=== PATIENT | female | born 1940 | race Caucasian/White ===

== ENCOUNTER 2016-08-07 15:09 | Inpatient (IN) ==
[2016-08-07] MEDS ORDERED: Nitroglycerin 0.4 MG TAB.SUBL SL PRN (15:29)
[2016-08-07 16:00] LABS: Eosinophils % 0.6 %; Hematocrit 38.5 % (35.3-44.9); Hemoglobin 12.5 g/dL (11.5-15.4); Immature Platelets 3.7 % (1.1-6.1); Lymphocytes % 15.4 %; Mean Corpuscular HGB Conc 32.5 g/dL (31.6-35.5); Mean Corpuscular Hemoglobin 29.6 pg (28.0-33.3); Mean Corpuscular Volume 91.2 fL (83.0-100.0); Mean Platelet Volume 10.2 fL (9.4-12.4); Monocytes % 10.3 %; Platelet Count 354 K/mcL (140-400); Red Blood Count 4.22 M/mcL (3.82-4.97); Red Cell Distribution Width 14.1 % (11.5-14.5); Segmented Neutrophils % 72.4 %
[2016-08-07 16:01] LABS: Basophils % 0.3 %; Eosinophils # 0.1 K/mcL (0.0-0.6); Lymphocytes # 1.8 K/mcL (0.6-4.6); Monocytes # 1.2 K/mcL (0.0-1.3); Neutrophils # 8.3 K/mcL (1.6-8.9)
[2016-08-07 16:11] LABS: Calcium 9.3 mg/dL (8.6-10.8); Potassium 4.1 mEq/L (3.5-4.5)
[2016-08-07] MEDS ORDERED: *HR* Heparin 5,000 UNIT/ML VIAL IVP ONE (16:26)
[2016-08-07] MEDS ORDERED: *HR* Heparin 5,000 UNIT/ML VIAL IVP PRN ×2 (16:26)
[2016-08-07] MEDS ORDERED: Aspirin 81 MG TAB.CHEW PO STA (16:28)
[2016-08-07] MEDS ORDERED: Heparin 25,000 UNIT/500 ML D5W 25,000 UNIT/500 ML MLS IVC SCH (16:30)
[2016-08-07 17:14] LABS: INR 1.1
[2016-08-07 17:17] LABS: Activated Partial Thrombo Time 29.9 Seconds (26.0-36.0)
[2016-08-07 17:18] LABS: Prothrombin Time 11.8 Seconds (9.4-12.1)
[2016-08-07] MEDS ORDERED: Nitroglycerin 1 INCH/GM PACKET TP ONE (17:29)
--- NOTE | 2016-08-07 19:51 | Internal Med History&Physical ---
Date of Encounter: 08/07/16 Time of Encounter: 19:46 Assessment and Plan (1) Chest pain Current visit: No Status: Acute chest pain with troponin 0.21 suggestive of NSTEMI will trend troponin and consult cardiology Qualifiers: Chest pain type: unspecified Qualified Code(s): R07.9 - Chest pain, unspecified (2) CKD (chronic kidney disease) stage 3, GFR 30-59 ml/min Current visit: No Status: Chronic acute on chronic renal failure iv hydration (3) COPD (chronic obstructive pulmonary disease) Current visit: No Status: Chronic no active wheezing stable Qualifiers: COPD type: unspecified COPD Qualified Code(s): J44.9 - Chronic obstructive pulmonary disease, unspecified (4) Hypothyroidism Current visit: No Status: Chronic will check tsh Qualifiers: Hypothyroidism type: unspecified Qualified Code(s): E03.9 - Hypothyroidism , unspecified (5) PVD (peripheral vascular disease) Current visit: No Status: Acute s/p le stent in past Internal Medicine - H&P: HPI Chief complaint: chest pain Admitted From: Emergency Dept Plans for Post Hospital Care: Home History of present illness: Ms. Washburn is a 75 year old female patient with history of chest pains , has had 2 cardiac caths last one about 3 years ago no intervention Also has history of htn, obesity, pvd s/p stent , ckd hypothyroidism , copd and high chol Patient presents to ER with chest pain. started last night lasted about 20 mins took sl nitro and it resolved Today had recurrent episodes of chest pressure/tightness on and off today and she came to ER ekg shows sinus bradycardia LAHB no ischemia unchanged from prior ekg , troponin 0.21 has exertional sob but unchanged Past Med Surg Social Fam HX - Past Medical History Medical history: CHF, COPD, GERD, hypertension, renal disease, thyroid disease, other Psychiatric history: depression - Past Surgical History Surgical History: cholecystectomy, hip replacement, hysterectomy - Social History Smoking Status: Former smoker Smokeless Tobacco Status: No Alcohol use: none Drug use: none - Family History Mother Living Status: Hx Family Cardiac Disorders: Yes (Heart disease, vascular disease) Hx Family Endocrine Disorder: Yes (DM) Father Living Status: Hx Family Cardiac Disorders: Yes ([place]) Internal Medicine - H&P: Meds Atorvastatin [Lipitor] 40 mg PO DAILY 03/25/15 [History] Bumetanide [Bumex] 2 mg PO QAM 03/25/15 [History] ClonazePAM [Klonopin] 1 mg PO TID 03/25/15 [History] Clopidogrel [Plavix] 75 mg PO DAILY 03/25/15 [History] Diltiazem HCl [Diltiazem 24Hr Cd] 60 mg PO TID 03/25/15 [History] Isosorbide MONOnitrate [Isosorbide Mononitrate] 60 mg PO BID #0 03/25/15 [ History] Levothyroxine [Synthroid] 100 mcg PO DAILY #0 03/25/15 [History] Sertraline [Zoloft] 100 mg PO DAILY 03/25/15 [History] Ranolazine [Ranexa] 1,000 mg PO BID 06/15/15 [History] Bumetanide [Bumex] 2 mg PO QPM 08/02/15 [History] Omeprazole [PriLOSEC] 20 mg PO DAILY 08/02/15 [History] Spironolactone [Aldactone] 100 mg PO BID 08/02/15 [History] Carbidopa/Levodopa ER 50/200 [Sinemet ER 50-200 TAB] 1 each PO DAILY 03/31/16 [ History] PredniSONE 40 mg PO DAILY #10 tablet 03/31/16 [Rx] Cyclobenzaprine [Flexeril] 10 mg PO TID #21 tablet 06/01/16 [Rx] PredniSONE 40 mg PO DAILY #10 tablet 06/01/16 [Rx] Tramadol HCl [Ultram] 50 mg PO QID #16 tab 06/01/16 [Rx] Allergies indomethacin [From Indocin] Allergy (Verified 03/31/16 09:52) Rash naproxen [From Naprosyn] Allergy (Verified 03/31/16 09:52) Rash IVP dye Allergy (Uncoded 03/31/16 09:52) Rash All Systems PM: A 10-system review of systems was performed and is negative for pertinent findings except as documented above in the HPI. - Constitutional Constitutional: no chills, no fever(s), no night sweats - EENT Eyes: no change in vision, no discharge, no pain, no photophobia Ears: no ear discharge, no ear pain, no tinnitus Nose, mouth and throat: no dysphagia, no nasal discharge, no neck pain, no sore throat - Cardiovascular Cardiovascular ROS IM: chest pain, dyspnea, dyspnea on exertion - Respiratory Respiratory: dyspnea, dyspnea on exertion - Gastrointestinal Gastrointestinal: no abdominal pain, no diarrhea, no hematemesis, no hematochezia, no melena, no nausea, no vomiting - Genitourinary Genitourinary: no change in urinary stream, no dysuria, no flank pain, no hematuria - Musculoskeletal Musculoskeletal ROS IM: no numbness, no tingling - Integumentary Integumentary IM: no rash, no unusual bruising - Neurological Neurological ROS: no confusion, no convulsions, no focal weakness, no numbness, no tingling, no tremor(s) - Hematologic/Lymphatic Hematologic/Lymphatic: no easy bruising - Constitutional Vitals: Temp Pulse Resp BP Pulse Ox 98.3 F 63 18 135/63 98 08/07/16 15:15 08/07/16 19:34 08/07/16 19:34 08/07/16 19:34 08/07/16 17:32 General appearance: Present: A&O X 3 - Head Head exam: Present: atraumatic, normocephalic - Eye Eye exam: Present: PERRL, conjuntiva pink, sclera anicteric Pupils: Present: PERRL - Neck Neck exam general surgery: Present: supple, trachea midline. Absent: lymphadenopathy - Respiratory Respiratory exam: Present: CTAB. Absent: accessory muscle use, rales, rhonchi, wheezes - Cardiovascular Cardiovascular exam: Present: RRR, +S1, +S2. Absent: diastolic murmur, gallop, rubs, systolic murmur - GI/Abdominal GI/Abdominal exam: Present: normal bowel sounds, soft, no peritoneal signs. Absent: distended, tenderness Internal Med - H&P Results - Labs CBC & Chem 7: 08/07/16 15:33 08/07/16 15:33
[2016-08-07] MEDS ORDERED: Naloxone 0.4 MG/ML INJ IVP PRN (19:59)
[2016-08-07] MEDS ORDERED: Ondansetron 4 MG/2 ML VIAL IVP PRN (19:59)
[2016-08-07] MEDS ORDERED: *HR* Morphine 2 MG/ML SYRINGE IVP PRN (19:59)
--- NOTE | 2016-08-07 20:12 | Emergency Department Note ---
Disposition Clinical Impression: NSTEMI (non-ST elevated myocardial infarction) Disposition: Home, Self-Care Condition: Good General Adult HPI - General Chief complaint: ED Chest Pain Stated complaint: chest pain Time Seen by Provider: 08/07/16 15:18 Source: patient Limitations: no limitations Nursing Notes Reviewed: Yes Vital Signs Reviewed: Yes - History of Present Illness HPI Narrative: 75-year-old female presents with complaints of chest pain. Apparently last evening she developed chest pain in the middle the night. She had taken 2 sleeping pills so she was not quite aware of how substantial her pain was. She woke out with ongoing pain in her chest thinking that she had a cardiac event. She did not come last night because she took her sleeping pills. 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 She had a stress test one year ago and was negative. On arrival her pain is mild in the middle of her chest. It does not radiate. She denies having an TX in the past. She do not take an aspirin today. Pain Scale: 2 - Related Data Home Medications Medication Instructions Recorded Confirmed Atorvastatin [Lipitor] 40 mg PO DAILY 03/25/15 03/31/16 Bumetanide [Bumex] 2 mg PO QAM 03/25/15 03/31/16 ClonazePAM [Klonopin] 1 mg PO TID 03/25/15 03/31/16 Clopidogrel [Plavix] 75 mg PO DAILY 03/25/15 03/31/16 Diltiazem HCl [Diltiazem 24Hr Cd] 60 mg PO TID 03/25/15 03/31/16 Isosorbide MONOnitrate [Isosorbide 60 mg PO BID #0 03/25/15 03/31/16 Mononitrate] Levothyroxine [Synthroid] 100 mcg PO DAILY #0 03/25/15 03/31/16 Sertraline [Zoloft] 100 mg PO DAILY 03/25/15 03/31/16 Ranolazine [Ranexa] 1,000 mg PO BID 06/15/15 03/31/16 Bumetanide [Bumex] 2 mg PO QPM 08/02/15 03/31/16 Omeprazole [PriLOSEC] 20 mg PO DAILY 08/02/15 03/31/16 Spironolactone [Aldactone] 100 mg PO BID 08/02/15 03/31/16 Carbidopa/Levodopa ER 50/200 1 each PO DAILY 03/31/16 03/31/16 [Sinemet ER 50-200 TAB] Previous Rx's Medication Instructions Recorded PredniSONE 40 mg PO DAILY #10 tablet 03/31/16 Cyclobenzaprine [Flexeril] 10 mg PO TID #21 tablet 06/01/16 PredniSONE 40 mg PO DAILY #10 tablet 06/01/16 Tramadol HCl [Ultram] 50 mg PO QID #16 tab 06/01/16 Allergies Allergy/AdvReac Type Severity Reaction Status Date / Time indomethacin [From Indocin] Allergy Rash Verified 03/31/16 09:52 naproxen [From Naprosyn] Allergy Rash Verified 03/31/16 09:52 IVP dye Allergy Rash Uncoded 03/31/16 09:52 All systems ED: reviewed and negative except as stated. 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 - Social History Smoking Status: Former smoker Smokeless Tobacco Status: No Alcohol use: Reports: none Drug use: Reports: none Physical Exam Pupils equal round reactive to light extract illness movements normal Mucous membranes are moist Trachea is midline Cardiovascular exam is without murmur, rub, gallop Pulmonary exams without rales, rhonchi, wheezing Abdomen is soft and nontender without peritonitis Extremities are well perfused without edema Neurologic exams without focal neurological deficit Skin is pink warm and dry - General Limitations: no limitations General appearance: alert Course Vital Signs Temperature 98.3 F 08/07/16 15:15 Pulse Rate 57 08/07/16 15:15 Respiratory Rate 18 08/07/16 15:15 Blood Pressure 149/65 08/07/16 15:15 O2 Sat by Pulse Oximetry 97 08/07/16 15:15 Temperature 98.3 F 08/07/16 15:15 Pulse Rate 63 08/07/16 19:34 Respiratory Rate 18 08/07/16 19:34 Blood Pressure 135/63 08/07/16 19:34 O2 Sat by Pulse Oximetry 98 08/07/16 17:32 Oxygen Delivery Oxygen Delivery Nasal Cannula Medical Decision Making - [facility] Narrative Medical decision making narrative: Suspect an STEMI however there is a component of acute kidney injury. This is baseline for the patient. EKG is nondiagnostic and this is repeated twice in the emergency department. I do suspect possible and STEMI and as such I would proceed with heparinization. Additionally aspirin administered. Nitropaste applied. She is pain-free at this time. She will need admission for 20 of cardiac biomarkers, cardiology consultation. She is admitted for an NSTEMI - Medical Records Medical records reviewed: Yes I reviewed the patient's medical records. - Lab Data Lab results reviewed: Yes I reviewed the patient's lab results. Result diagrams: 08/07/16 15:33 08/07/16 15:33 Lab Results 08/07/16 08/07/16 08/07/16 Range/Units 15:33 15:33 15:33 WBC 11.5 H (4.3-11.1) K/mcL RBC 4.22 (3.82-4.97) M/mcL Hgb 12.5 (11.5-15.4) g/dL Hct 38.5 (35.3-44.9) % MCV 91.2 (83.0-100.0) fL MCH 29.6 (28.0-33.3) pg MCHC 32.5 (31.6-35.5) g/dL RDW 14.1 (11.5-14.5) % Plt Count 354 (140-400) K/mcL MPV 10.2 (9.4-12.4) fL Immature Gran % 1.0 (0-4) % Seg Neutrophils % 72.4 % Lymphocytes % 15.4 % Monocytes % 10.3 % Eosinophils % 0.6 % Basophils % 0.3 % Neutrophils # 8.3 (1.6-8.9) K/mcL Lymphocytes # 1.8 (0.6-4.6) K/mcL Monocytes # 1.2 (0.0-1.3) K/mcL Eosinophils # 0.1 (0.0-0.6) K/mcL Basophils # 0.0 (0.0-0.2) K/mcL Immature Plt Fraction 3.7 (1.1-6.1) % PT (9.4-12.1) Seconds INR APTT (26.0-36.0) Seconds Sodium 141 (136-145) mEq/L Potassium 4.1 (3.5-4.5) mEq/L Chloride 105 (98-109) mEq/L Carbon Dioxide 24 (19-29) mEq/L BUN 22 H (7-20) mg/dL Creatinine 1.40 H (0.57-1.11) mg/dL Est GFR ( Amer) 44 L (> 60) Est GFR (Non-Af Amer) 37 L (> 60) BUN/Creatinine Ratio 16 (6-26) Glucose 101 H (70-99) mg/dL Calculated Osmolality 295 (280-300) Calcium 9.3 (8.6-10.8) mg/dL Troponin I (0-0.03) ng/mL B-Natriuretic Peptide 291 H (0-100) pg/mL 08/07/16 08/07/16 Range/Units 15:33 15:33 WBC (4.3-11.1) K/mcL RBC (3.82-4.97) M/mcL Hgb (11.5-15.4) g/dL Hct (35.3-44.9) % MCV (83.0-100.0) fL MCH (28.0-33.3) pg MCHC (31.6-35.5) g/dL RDW (11.5-14.5) % Plt Count (140-400) K/mcL MPV (9.4-12.4) fL Immature Gran % (0-4) % Seg Neutrophils % % Lymphocytes % % Monocytes % % Eosinophils % % Basophils % % Neutrophils # (1.6-8.9) K/mcL Lymphocytes # (0.6-4.6) K/mcL Monocytes # (0.0-1.3) K/mcL Eosinophils # (0.0-0.6) K/mcL Basophils # (0.0-0.2) K/mcL Immature Plt Fraction (1.1-6.1) % PT 11.8 (9.4-12.1) Seconds INR 1.1 APTT 29.9 (26.0-36.0) Seconds Sodium (136-145) mEq/L Potassium (3.5-4.5) mEq/L Chloride (98-109) mEq/L Carbon Dioxide (19-29) mEq/L BUN (7-20) mg/dL Creatinine (0.57-1.11) mg/dL Est GFR ( Amer) (> 60) Est GFR (Non-Af Amer) (> 60) BUN/Creatinine Ratio (6-26) Glucose (70-99) mg/dL Calculated Osmolality (280-300) Calcium (8.6-10.8) mg/dL Troponin I 0.21 H* (0-0.03) ng/mL B-Natriuretic Peptide (0-100) pg/mL - Radiology Data Radiology results reviewed: Yes I reviewed the patient's radiology results. - EKG Data EKG #1 EKG results narrative: EKG is compared to previous EKG. She has sinus bradycardia at a rate of 56 bpm with left axis deviation there is possible left ventricular hypertrophy, lateral nonspecific ST segment changes. Nonspecific abnormal ECG. Second EKG was compared to previous EKG represents no change from previous EKG. Sinus bradycardia rate of 59 bpm left axis deviation and left ventricular hypertrophy and nonspecific lateral wall ST segment changes Critical Care Time Total Critical Care Time: 31 Attestation: greater than 31 minutes resuscitating this actively ill patient suffering from nstemi she required nitro administration, heparin administration, serial EKG interpretations. She is a high potential for life-threatening decompensation. She is admitting critical condition critical care time is excluding billable procedures
[2016-08-07] MEDS: Isosorbide MONOnitrate (24 HR) 60 MG TAB.ER.24H PO SCH (21:37)
[2016-08-07] MEDS: clonazePAM 1 MG TABLET PO SCH (21:37)
[2016-08-07] MEDS: traMADol 50 MG TABLET PO SCH (21:37)
[2016-08-07] MEDS: 0.9 % Sodium Chloride 1,000 ML IVC SCH (21:38)
[2016-08-07] MEDS: Ranolazine 500 MG TAB.ER.12H PO SCH (21:38)
[2016-08-08 00:59] LABS: Basophils % 0.2 %; Eosinophils # 0.1 K/mcL (0.0-0.6); Eosinophils % 1.2 %; Hematocrit 33.1 % (35.3-44.9); Immature Granulocytes % 0.7 % (0-4); Lymphocytes # 2.1 K/mcL (0.6-4.6); Mean Corpuscular HGB Conc 32.9 g/dL (31.6-35.5); Mean Corpuscular Hemoglobin 30.2 pg (28.0-33.3); Mean Corpuscular Volume 91.7 fL (83.0-100.0); Mean Platelet Volume 10.1 fL (9.4-12.4); Monocytes # 1.2 K/mcL (0.0-1.3); Monocytes % 11.9 %; Neutrophils # 6.5 K/mcL (1.6-8.9); Platelet Count 274 K/mcL (140-400); Red Blood Count 3.61 M/mcL (3.82-4.97)
[2016-08-08 01:00] LABS: Hemoglobin 10.9 g/dL (11.5-15.4)
[2016-08-08 01:15] LABS: Albumin 2.9 g/dL (3.5-5.0); Albumin/Globulin Ratio 1.1 (1.1-2.2); Bilirubin,Total 0.4 mg/dL (0.2-1.2); Calcium 8.5 mg/dL (8.6-10.8); Chol/HDL Ratio 3.2 (0-4.9); Globulin 2.7 g/dL (2.4-3.5); Magnesium 1.8 mg/dL (1.6-2.6); Potassium 3.7 mEq/L (3.5-4.5); Total Protein 5.6 g/dL (6.0-8.3)
--- NOTE | 2016-08-08 07:02 | Electrocardiograph Report ---
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
--- NOTE | 2016-08-08 07:05 | Electrocardiograph Report ---
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
--- NOTE | 2016-08-08 09:00 | Internal Med Progress Note ---
Date of Encounter: 08/08/16 Time of Encounter: 08:58 - Assessment and plan (1) Chest pain Current Visit: No Status: Acute Assessment and plan: persietnt chest pain cardiology consult pending will satrt on protonix 40 mg Qualifiers: Chest pain type: unspecified Qualified Code(s): R07.9 - Chest pain, unspecified (2) CKD (chronic kidney disease) stage 3, GFR 30-59 ml/min Current Visit: No Status: Chronic Assessment and plan: worsening renal function will consult nephrology (3) COPD (chronic obstructive pulmonary disease) Current Visit: No Status: Chronic Assessment and plan: no active wheezing Qualifiers: COPD type: unspecified COPD Qualified Code(s): J44.9 - Chronic obstructive pulmonary disease, unspecified (4) Hypothyroidism Current Visit: No Status: Chronic Assessment and plan: check tsh Qualifiers: Hypothyroidism type: unspecified Qualified Code(s): E03.9 - Hypothyroidism , unspecified (5) PVD (peripheral vascular disease) Current Visit: No Status: Acute Assessment and plan: no issue at this point - Subjective Interval history: still has chest pain more or less persistent but troponin coming down creatine worse despite iv hydration and BP low discussed with nurse give iv bolus and will consult nephrology - Constitutional Vitals: Temp Pulse Resp BP Pulse Ox 97.9 F 60 18 94/59 95 08/08/16 07:47 08/08/16 07:47 08/08/16 07:47 08/08/16 07:47 08/08/16 07:47 General appearance: Present: A&O X 3 - Head Head exam: Present: atraumatic, normocephalic - Eye Eye exam: Present: PERRL, conjuntiva pink, sclera anicteric Pupils: Present: PERRL - Neck Neck exam general surgery: Present: supple, trachea midline. Absent: lymphadenopathy - Respiratory Respiratory exam: Present: CTAB. Absent: accessory muscle use, rales, rhonchi, wheezes - Cardiovascular Cardiovascular exam: Present: RRR, +S1, +S2. Absent: diastolic murmur, gallop, rubs, systolic murmur - GI/Abdominal GI/Abdominal exam: Present: normal bowel sounds, soft, no peritoneal signs. Absent: distended, tenderness - Extremities Exam Extremities exam: Present: warm, radial pulses palpable and symetrical. Absent : calf tenderness, cyanotic, pedal edema Internal Medicine: Result - Labs CBC & Chem 7: 08/08/16 00:51 08/08/16 00:51 Labs: Short CBC 08/08/16 Range/Units 00:51 WBC 9.9 (4.3-11.1) K/mcL Hgb 10.9 L D (11.5-15.4) g/dL Hct 33.1 L (35.3-44.9) % Plt Count 274 (140-400) K/mcL Neutrophils # 6.5 (1.6-8.9) K/mcL BMP 08/08/16 00:51 Sodium 141 Potassium 3.7 Chloride 106 Carbon Dioxide 28 BUN 26 H Creatinine 1.85 H Glucose 126 H Calcium 8.5 L Cardiac Enzymes 08/07/16 08/08/16 08/08/16 Range/Units 20:32 00:51 07:41 Troponin I 0.16 H* 0.13 H* 0.09 H* (0-0.03) ng/mL Liver Function 08/08/16 Range/Units 00:51 Total Bilirubin 0.4 (0.2-1.2) mg/dL AST 8 (5-34) Units/L ALT 7 (0-55) Units/L Alkaline Phosphatase 140 H (38-126) Units/L Albumin 2.9 L (3.5-5.0) g/dL - ABG Interpretation ABG results: PT/INR, D-dimer PT 11.8 Seconds (9.4-12.1) 08/07/16 15:33 Consult Discharge Plan - Plan Referrals: Demetrius Smith MD [Primary Care Provider] -
[2016-08-08] MEDS ORDERED: 0.9 % Sodium Chloride 500 ML ONE (09:01)
[2016-08-08] MEDS: clonazePAM 1 MG TABLET PO SCH ×4 (09:06→21:42)
[2016-08-08] MEDS: Ranolazine 500 MG TAB.ER.12H PO SCH ×2 (09:06→21:41)
[2016-08-08] MEDS: predniSONE 20 MG TABLET PO SCH (09:06)
[2016-08-08] MEDS: Isosorbide MONOnitrate (24 HR) 60 MG TAB.ER.24H PO SCH ×2 (09:07→21:41)
[2016-08-08] MEDS: traMADol 50 MG TABLET PO SCH ×5 (09:07→21:45)
[2016-08-08] MEDS: Carbidopa/Levodopa ER 50/200 TABLET PO SCH (09:10)
--- NOTE | 2016-08-08 10:26 | Cardiology Consult Note ---
<Ar Reese - Last Filed: 08/08/16 10:57> Date of Encounter: 08/08/16 Time of Encounter: 10:19 Assessment and Plan (1) Troponin level elevated Current Visit: Yes Status: Acute Mild troponin elevation 0.21, 0.16, 0.13, 0.09. Likely demand ischemia in the setting of CKD/TAIWO. Minimal CAD on [facility] in 2016. Check TTE. (2) TAIWO (acute kidney injury) Current Visit: Yes Status: Acute Mild TAIWO on CKD. creatinine today 1.85. Baseline 1.3-1.4. Receiving IV fluid. Avoid nephrotoxins. (3) Chest pain Current Visit: No Status: Acute H/o of chronic chest pain. Suspected vasospasms in the past. Mild tropnin in the setting of CKD/TAIWO. Minimal CAD on [facility] in 2011, stress Recommend checking TTE and treating TAIWO. I discussed medical management vs LHC. No urgent need for LHC at this time in the setting of TAIWO. Pt agrees with plan. Continue asa, statin, and bb. Continue imdur and Ranexa. Can increase imdur. Qualifiers: Chest pain type: unspecified Qualified Code(s): R07.9 - Chest pain, unspecified (4) Diastolic CHF Current Visit: No Status: Chronic H/o diastolic CHF. Currently euvolemic on exam Chest x-ray negative. Low sodium diet. Qualifiers: Congestive heart failure chronicity: chronic Qualified Code(s): I50.32 - Chronic diastolic (congestive) heart failure Discussion w patient/family: The assessment and plan as outlined above was discussed with the patient and/or family members who expressed understanding and agreement. All questions were answered. Thank you for involving us in the care of your patient. Please call with any questions. History of Present Illness Consult date: 08/08/16 Requesting physician: Caro Lopez Consult reason: Chest pain, elevated troponin Chief complaint: Chest pain History of present illness: 75-year-old female with a past medical history of mild nonobstructive CAD, suspected coronary vasospasms, chronic chest pain, peripheral artery disease with carotid stenosis and right lower extremity stenting, COPD, hypothyroidism, hypertension, CKD stage III, fibromyalgia, and Parkinson's disease. She presents with the c/o midsternal chest pain radiating under her left breast around to her spine. She described it as a crushing pain occurring at rest. The pain resolved with one NTG. SHe reports pain was different than she ever felt before. She reports mild cold like symptoms including cough and congestion. She c/o a 5lb weight gain over three days. Denies SOB, orthopnea, or edema. Previous cardiac testing: Last heart catheterization September 2011 showed nonobstructive CAD with proximal LAD 20% and mid RCA 30% stenosis. Stress test, 07/2015, negative for ischemia. Last echocardiogram May 2015 showed EF preserved 60%, no segmental wall motion abnormalities. Past Med Surg Social Fam HX - Past Medical History Attestation: Yes The following information was validated with the patient. Medical history: CHF, COPD, fibromyalgia, GERD, hypertension, renal disease, thyroid disease, other Psychiatric history: depression - Past Surgical History Surgical History: cholecystectomy, hip replacement, hysterectomy - Social History Smoking Status: Former smoker Smokeless Tobacco Status: No Alcohol use: none Drug use: none - Family History Mother Living Status: Hx Family Cardiac Disorders: Yes (Heart disease, vascular disease) Hx Family Endocrine Disorder: Yes (DM) Father Living Status: Hx Family Cardiac Disorders: Yes ([place]) Medications and Allergies Atorvastatin [Lipitor] 40 mg PO DAILY 03/25/15 [History] Bumetanide [Bumex] 2 mg PO QAM 03/25/15 [History] ClonazePAM [Klonopin] 1 mg PO TID 03/25/15 [History] Clopidogrel [Plavix] 75 mg PO DAILY 03/25/15 [History] Diltiazem HCl [Diltiazem 24Hr Cd] 60 mg PO TID 03/25/15 [History] Isosorbide MONOnitrate [Isosorbide Mononitrate] 60 mg PO BID #0 03/25/15 [ History] Levothyroxine [Synthroid] 100 mcg PO DAILY #0 03/25/15 [History] Sertraline [Zoloft] 100 mg PO DAILY 03/25/15 [History] Ranolazine [Ranexa] 1,000 mg PO BID 06/15/15 [History] Bumetanide [Bumex] 2 mg PO QPM 08/02/15 [History] Omeprazole [PriLOSEC] 20 mg PO DAILY 08/02/15 [History] Spironolactone [Aldactone] 100 mg PO BID 08/02/15 [History] Carbidopa/Levodopa ER 50/200 [Sinemet ER 50-200 TAB] 1 each PO BID 03/31/16 [ History] Allergies indomethacin [From Indocin] Allergy (Verified 03/31/16 09:52) Rash naproxen [From Naprosyn] Allergy (Verified 03/31/16 09:52) Rash IVP dye Allergy (Uncoded 03/31/16 09:52) Rash All Systems Review: A 10-system review of systems was performed and is negative for pertinent findings except as documented above in the HPI. Physical Examination Vital Signs, Last 4 Hours Temp Pulse Resp BP Pulse Ox 08/08/16 09:51 105/61 08/08/16 09:22 95 08/08/16 07:47 97.9 F 60 18 94/59 95 General: Conversant, No Apparent Distress HEENT: Atraumatic, Normocephaly, Mucus Membranes Moist Neck: No JVD, Normal carotid pulses Cardiac: Reg Rate and Rhythm, Normal S1 and S2, No Murmur Lungs: Normal Breath Sounds, No Wheeze, Rales, Rhonchi Neuro: Alert and responsive, No focal deficits noted Abdomen: Soft, Non-Tender Skin: No rashes noted on visualized skin Musculoskeletal: No Chest Wall Tenderness Extremities: No Clubbing, No Cyanosis, No Edema, Normal Pulses Results 08/08/16 00:51 08/08/16 00:51 Lab Results 08/07/16 08/08/16 08/08/16 20:32 00:51 00:51 WBC 9.9 Hgb 10.9 L D Hct 33.1 L Plt Count 274 APTT Sodium Potassium Chloride Carbon Dioxide BUN Creatinine Glucose Calcium Magnesium Total Bilirubin AST ALT Alkaline Phosphatase Troponin I 0.16 H* 0.13 H* B-Natriuretic Peptide 08/08/16 08/08/16 08/08/16 00:51 00:51 00:51 WBC Hgb Hct Plt Count APTT 97.2 H D Sodium 141 Potassium 3.7 Chloride 106 Carbon Dioxide 28 BUN 26 H Creatinine 1.85 H Glucose 126 H Calcium 8.5 L Magnesium 1.8 Total Bilirubin 0.4 AST 8 ALT 7 Alkaline Phosphatase 140 H Troponin I B-Natriuretic Peptide 224 H 08/08/16 08/08/16 07:41 07:41 WBC Hgb Hct Plt Count APTT 62.5 H Sodium Potassium Chloride Carbon Dioxide BUN Creatinine Glucose Calcium Magnesium Total Bilirubin AST ALT Alkaline Phosphatase Troponin I 0.09 H* B-Natriuretic Peptide - Imaging and Cardiology Stress Test: report reviewed Echo: report reviewed Cardiac cath: report reviewed - EKG Interpretation EKG results cardiology: personally reviewed (SB, HR 56 bpm, with LVH) Consult Discharge Plan - Plan Referrals: Demetrius Smith MD [Primary Care Provider] - 08/15/16 1:20 pm (Please follow up as schedule..) <Elvira Mack - Last Filed: 08/08/16 12:57> Assessment and Plan Discussion w patient/family: The assessment and plan as outlined above was discussed with the patient and/or family members who expressed understanding and agreement. All questions were answered. Thank you for involving us in the care of your patient. Please call with any questions. History of Present Illness History of present illness: Ms. Washburn is a 75 year old female All Systems Review: A 10-system review of systems was performed and is negative for pertinent findings except as documented above in the HPI. Physical Examination Vital Signs, Last 4 Hours Temp Pulse Resp BP Pulse Ox 08/08/16 12:11 97.6 F 65 18 103/63 97 08/08/16 09:51 105/61 08/08/16 09:22 95 Results 08/08/16 00:51 08/08/16 00:51 Lab Results 08/07/16 08/08/16 08/08/16 20:32 00:51 00:51 WBC 9.9 Hgb 10.9 L D Hct 33.1 L Plt Count 274 APTT Sodium Potassium Chloride Carbon Dioxide BUN Creatinine Glucose Calcium Magnesium Total Bilirubin AST ALT Alkaline Phosphatase Troponin I 0.16 H* 0.13 H* B-Natriuretic Peptide TSH 08/08/16 08/08/16 08/08/16 00:51 00:51 00:51 WBC Hgb Hct Plt Count APTT 97.2 H D Sodium 141 Potassium 3.7 Chloride 106 Carbon Dioxide 28 BUN 26 H Creatinine 1.85 H Glucose 126 H Calcium 8.5 L Magnesium 1.8 Total Bilirubin 0.4 AST 8 ALT 7 Alkaline Phosphatase 140 H Troponin I B-Natriuretic Peptide 224 H TSH 08/08/16 08/08/16 08/08/16 07:41 07:41 07:41 WBC Hgb Hct Plt Count APTT 62.5 H Sodium Potassium Chloride Carbon Dioxide BUN Creatinine Glucose Calcium Magnesium Total Bilirubin AST ALT Alkaline Phosphatase Troponin I 0.09 H* B-Natriuretic Peptide TSH 14.138 H - Attending Attestation I examined this patient and my medical decision-making was reviewed with the MILK DELIVERY DRIVER/PA/Advanced Practice Nurse/Resident Physician. I agree with the documented findings, disposition and treatment plan. Ms. Washburn presents with mild troponin elevation in setting of ARF on CKD. She has chronic complaints of chest pains and no ECG changes and a cath in 2013 demonstrating minimal diseae. We recommend obtaining an echo for an evaluation of structure and function. If LVEF is preserved, no further testing is warranted.
[2016-08-08] MEDS: 0.9 % Sodium Chloride 1,000 ML IVC SCH ×2 (11:18→15:15)
--- NOTE | 2016-08-08 12:36 | Nephrology Consult Note ---
Date of Encounter: 08/08/16 Time of Encounter: 12:05 Assessment and Plan (1) TAIWO (acute kidney injury) Current Visit: Yes Status: Acute TAIWO on CKD 3-pre renal; hypotension. Decrease Metoprolol. Continue gentle IV hydration, hold diuretics as tolerated. Avoid nephrotixins. Will order Renal US to r/o obstruction. Continue to monitor. History of Present Illness - Reason for Consult Acute Kidney Injury - History of Present Illness Ms. Washburn is known to practice with stable CKD 3, baseline creat 1.3-1.5 in setting of HTN, and increased azotemia r/t diuretics (Bumex and Spironolactone) for history of CHF. Ms. Washburn presented to ER with mid sternal non radiating chest pain that started in the middle of night. Suspect STEMI. Heparin, ASA, Nitropaste initiated. Other PMH- HTN, CHF, COPD, GERD, thyroid disease. Initial creat 1.4, now 1.85 with gentle IV hydration. Low BP noted with systolic ranging 94-105. Ms. Washburn denies recent illness, vomiting, diarrhea or NSAID use. She denies difficulty emptying bladder. Past Med Surg Social Fam HX - Past Medical History Medical history: CHF, COPD, fibromyalgia, GERD, hypertension, renal disease, thyroid disease, other Psychiatric history: depression - Past Surgical History Surgical History: cholecystectomy, hip replacement, hysterectomy - Social History Smoking Status: Former smoker Smokeless Tobacco Status: No Alcohol use: none Drug use: none - Family History Mother Living Status: Hx Family Cardiac Disorders: Yes (Heart disease, vascular disease) Hx Family Endocrine Disorder: Yes (DM) Father Living Status: Hx Family Cardiac Disorders: Yes ([place]) Medications and Allergies Atorvastatin [Lipitor] 40 mg PO DAILY 03/25/15 [History] Bumetanide [Bumex] 2 mg PO QAM 03/25/15 [History] ClonazePAM [Klonopin] 1 mg PO TID 03/25/15 [History] Clopidogrel [Plavix] 75 mg PO DAILY 03/25/15 [History] Diltiazem HCl [Diltiazem 24Hr Cd] 60 mg PO TID 03/25/15 [History] Isosorbide MONOnitrate [Isosorbide Mononitrate] 60 mg PO BID #0 03/25/15 [ History] Levothyroxine [Synthroid] 100 mcg PO DAILY #0 03/25/15 [History] Sertraline [Zoloft] 100 mg PO DAILY 03/25/15 [History] Ranolazine [Ranexa] 1,000 mg PO BID 06/15/15 [History] Bumetanide [Bumex] 2 mg PO QPM 08/02/15 [History] Omeprazole [PriLOSEC] 20 mg PO DAILY 08/02/15 [History] Spironolactone [Aldactone] 100 mg PO BID 08/02/15 [History] Carbidopa/Levodopa ER 50/200 [Sinemet ER 50-200 TAB] 1 each PO BID 03/31/16 [ History] Allergies indomethacin [From Indocin] Allergy (Verified 03/31/16 09:52) Rash naproxen [From Naprosyn] Allergy (Verified 03/31/16 09:52) Rash IVP dye Allergy (Uncoded 03/31/16 09:52) Rash Review of Systems All Systems: reviewed and no additional remarkable complaints except as stated Exam - Vital Signs Vital signs: Initial Vital Signs Temp Pulse Resp BP Pulse Ox 98.3 F 57 18 149/65 97 08/07/16 15:15 08/07/16 15:15 08/07/16 15:15 08/07/16 15:15 08/07/16 15:15 Vital Signs - Last 8 Hours Temp Pulse Resp BP Pulse Ox 08/08/16 12:11 97.6 F 65 18 103/63 97 08/08/16 09:51 105/61 08/08/16 09:22 95 08/08/16 07:47 97.9 F 60 18 94/59 95 Intake and Output 08/07/16 08/08/16 08/08/16 23:59 07:59 15:59 Intake Total 300 / 300 885 / 885 441 / 441 Output Total 300 / 300 400 / 400 300 / 300 Balance 0 / 0 485 / 485 141 / 141 Intake: IV Fluids 855 / 855 441 / 441 0.9 % Sodium Chloride 1, 700 / 700 300 / 300 000 ML @ 75 mls/hr IVC . [id number] [facility] Rx#: [id number] Heparin 25,000 UNIT/500 155 / 155 141 / 141 ML D5W 25,000 unit In 500 ml @ 12 UNIT/KG/HR 20. 684 mls/hr IVC .Q24H [facility] Rx#:[id number] Oral 300 / 300 30 / 30 0 / 0 Output: Urine 300 / 300 400 / 400 300 / 300 Other: Meal SHERBERT X2 AND CRACKERS NPO # Voids 1 1 Weight 86.636 kg - General Appearance General appearance: well-developed, well-nourished, appears started age, obese EENT: mucous membranes moist Neck: no JVD, no carotid bruit Respiratory: clear Cardiology: edema, regular rate, regular rhythm Additional Comments: trace LE edema Gastrointestinal: normoactive bowel sounds, no tenderness Integumentary: warm and dry Neurologic: alert and oriented x3 Psychiatric: mood/affect appropriate, cooperative Results - Lab Results 08/08/16 00:51 08/08/16 00:51 Most recent lab results Calcium 8.5 mg/dL (8.6-10.8) L 08/08/16 00:51 Magnesium 1.8 mg/dL (1.6-2.6) 08/08/16 00:51 Consult Discharge Plan - Plan Referrals: Demetrius Smith MD [Primary Care Provider] - 08/15/16 1:20 pm (Please follow up as schedule..)
[2016-08-08 14:57] LABS: Bilirubin,Urine Small (Negative); Blood,Urine Negative (Negative); Clarity,Urine Clear (Clear); Color,Urine Yellow (Yellow); Glucose,Urine (UA) Normal (Normal); Ketones,Urine Negative (Negative); Leukocyte Esterase,Urine Trace (Negative); Nitrite,Urine Negative (Negative); Protein,Urine Negative (Neg-Trace); Specific Gravity,Urine 1.027 (1.010-1.025); Urobilinogen,Urine Normal (Normal)
[2016-08-08 15:00] LABS: Bacteria,Urine None Seen per hpf (None-Few); Hyaline Casts,Urine None Seen per lpf (None-Few); Squamous Epithelial Cell,Urine Many per lpf (None-Few); WBC,Urine 0-3 per hpf (0-3)
[2016-08-08] MEDS: *HR* Heparin 5,000 UNIT/ML VIAL SQ SCH (17:55)
[2016-08-09] MEDS: 0.9 % Sodium Chloride 1,000 ML IVC SCH ×2 (04:13→15:37)
[2016-08-09] MEDS: *HR* Heparin 5,000 UNIT/ML VIAL SQ SCH ×2 (06:14→17:29)
--- NOTE | 2016-08-09 08:14 | Nephrology Progress Note ---
Date of Encounter: 08/09/16 Time of Encounter: 08:05 - Assessment and Plan (1) TAIWO (acute kidney injury) Current Visit: Yes Status: Acute TAIWO on CKD 3-pre renal; hypotension. Labs pending. Decreased Metoprolol yesterday, did not make difference in BP. Continue gentle IV hydration, hold diuretics as tolerated. Avoid nephrotixins. Renal US showed no obstructive uropathy. Continue to monitor. Subjective Interval history: Laying supine in bed, watching tv. States had transient chest pressure this morning while up to bathroom accompanied with dizziness. She states she did not notify nursing personnel and chest pressure resolved on own. She also states she has been having this same dizziness along with sspinning cessation for past two weeks. Objective - Vital Signs Vital signs: Vital Signs Temp Pulse Resp BP Pulse Ox 08/09/16 07:57 97.7 F 65 18 91/55 95 08/09/16 04:53 97.6 F 63 18 100/56 93 L 08/08/16 23:26 97.6 F 69 17 103/63 85 L 08/08/16 20:18 98.0 F 74 17 106/52 90 L 08/08/16 15:48 98.4 F 71 18 101/58 96 08/08/16 12:11 97.6 F 65 18 103/63 97 08/08/16 09:51 105/61 08/08/16 09:22 95 Intake and Output 08/08/16 08/09/16 08/09/16 23:59 07:59 15:59 Intake Total 480 / 480 1000 / 1000 Output Total 950 / 950 550 / 550 Balance -470 / -470 450 / 450 Intake: IV Fluids 1000 / 1000 0.9 % Sodium Chloride 1, 1000 / 1000 000 ML @ 75 mls/hr IVC . [id number] [facility] Rx#: [id number] Oral 480 / 480 0 / 0 Output: Urine 950 / 950 550 / 550 Other: Meal Dinner Percent of Meal Consumed 100% # Voids 1 1 Weight 86.7 kg Patient Weight 08/09/16 23:59 Weight 86.7 kg - General Appearance General appearance: Present: well-developed, well-nourished, appears started age , obese EENT: Present: mucous membranes moist Neck: Present: no JVD Respiratory: Present: clear Cardiology: Present: no edema, regular rate, regular rhythm Gastrointestinal: Present: normoactive bowel sounds, no tenderness, distended Integumentary: Present: warm and dry Neurologic: Present: alert and oriented x3 Psychiatric: Present: mood/affect appropriate, cooperative - Lab 08/08/16 00:51 08/08/16 00:51 Most recent lab results Calcium 8.5 mg/dL (8.6-10.8) L 08/08/16 00:51 Magnesium 1.8 mg/dL (1.6-2.6) 08/08/16 00:51 Consult Discharge Plan - Plan Referrals: Demetrius Smith MD [Primary Care Provider] - 08/15/16 1:20 pm (Please follow up as schedule..)
--- NOTE | 2016-08-09 08:25 | ECHO - Doppler Report ---
Limited Echocardiogram Name: Vanessa Washburn Date of Study: 08/08/2016 Date: 1940 Ht: 60.0 in Medical Record#: [id number] Age: 75 Wt: 191.0 lb Gender: Female BSA: 1.83 Order #: [id number] Location: [facility] Room #: [id number] Reading Physician: Dakota Duarte MD, [facility] [employer] Sales Professional: Diana Landeros RDCS Ordering Physician: Ar Reese CNP Primary Physician: Demetrius Smith MD Indications: Chest pain, Elevated troponin Impressions: Normal LV systolic function, LVEF 60%. Normal right ventricular size and function. Moderately dilated left atrium. Valvular function was not assessed on this limited study. Left Ventricular Wall Motion: Rest Echo Findings All wall segments showed normal motion. Findings: Study Quality * Suboptimal echo windows. ECG Findings * Normal sinus rhythm. Left Ventricle * Normal LV systolic function, LVEF 60%. * Normal LV chamber size and wall thickness. Right Ventricle * Normal right ventricular size and function. Left Atrium * Moderately dilated left atrium. Right Atrium * Normal right atrial size. Mitral Valve * Moderate mitral annular calcification Aorta * Normally sized aortic root. Pericardium * There is a trivial pericardial effusion present. IVC * The IVC is not dilated. History Hypertension Family History of CAD History of CAD/PTCA Congestive Heart Failure 05/27/2015 a Previous Echo was performed. Measurements: BP: 101/ 58 2D Normal Values RVIDd: 2.25 cm IVSd: .94 cm 0.6 - 1.0 cm LVIDd: 4.45 cm 3.7 - 5.6 cm LVPWd: .97 cm 0.6 - 1.1 cm LVIDs: 2.77 cm 1.5 - 3.6 cm AO: 2.80 cm < 4.0 cm %FS: 37.80 cm >25 % Updated by Dakota Duarte MD, [facility] on 08/09/2016 8:20:19 AM electronically signed on 08/09/2016 8:20:49 AM with status of Final Wall Motion [place]: 1=Normal, 2=Hypokinesis, 3=Akinesis, 4=Dyskinesis, 5=Aneurysmal, 6=Hyperkinetic, X=Not Visualized (Blank)=Missing
[2016-08-09 08:56] LABS: Albumin 2.9 g/dL (3.5-5.0); Albumin/Globulin Ratio 1.1 (1.1-2.2); Bilirubin,Total 0.3 mg/dL (0.2-1.2); Calcium 8.3 mg/dL (8.6-10.8); Globulin 2.7 g/dL (2.4-3.5); Potassium 3.9 mEq/L (3.5-4.5); Total Protein 5.6 g/dL (6.0-8.3)
[2016-08-09] MEDS: Isosorbide MONOnitrate (24 HR) 60 MG TAB.ER.24H PO SCH ×2 (09:43→20:36)
[2016-08-09] MEDS: clonazePAM 1 MG TABLET PO SCH ×2 (09:43→15:33)
[2016-08-09] MEDS: predniSONE 20 MG TABLET PO SCH (09:44)
[2016-08-09] MEDS: Carbidopa/Levodopa ER 50/200 TABLET PO SCH (09:44)
[2016-08-09] MEDS: Ranolazine 500 MG TAB.ER.12H PO SCH ×2 (09:44→20:35)
[2016-08-09] MEDS: traMADol 50 MG TABLET PO SCH (09:45)
--- NOTE | 2016-08-09 09:46 | Cardiology Progress Note ---
Date of Encounter: 08/09/16 Time of Encounter: 09:44 Assessment and Plan (1) Troponin level elevated Current Visit: Yes Status: Acute Mild troponin elevation 0.21, 0.16, 0.13, 0.09. Likely demand ischemia in the setting of CKD/TAIWO, and hypotension. Minimal CAD on [facility] in 2015. TTE showed EF 60%, no WMA. TSH found to be 14.138, hospitalist following. No further cardiac testing at this time recommended. Out-pt f/u scheduled 08/25/16. (2) Chest pain Current Visit: No Status: Acute H/o of chronic chest pain. Suspected vasospasms in the past. Mild tropnin in the setting of CKD/TAIWO. Minimal CAD on [facility] in 2011, stress Stress test 07/2015 negative for ischemia. TTE showed normal EF, limited study. TSH 14.138-managment per primary team. Continue asa, statin, and bb. Continue imdur and Ranexa. Imdur increased. No further cardiac testing recommended. Out-pt f/u scheduled 08/25/16 with Zbigniew Kapadia CNP. Call with questions. Qualifiers: Chest pain type: unspecified Qualified Code(s): R07.9 - Chest pain, unspecified (3) Diastolic CHF Current Visit: No Status: Chronic H/o diastolic CHF. Currently euvolemic on exam. Hypovolemic on admission and now euvolemic. Bumex on hold. Caution with IV fluid. Consider lower dose bumex at discharge. Chest x-ray negative. Low sodium diet. Qualifiers: Congestive heart failure chronicity: chronic Qualified Code(s): I50.32 - Chronic diastolic (congestive) heart failure Discussion w patient/family: The assessment and plan as outlined above was discussed with the patient and/or family members who expressed understanding and agreement. All questions were answered. Thank you for involving us in the care of your patient. Please call with any questions. Subjective Principal diagnosis: Chest pain, TAIWO, mild troponin Interval history: Mrs. Washburn c/o chest pain last night lasting a few seconds at a time that was relieved with tramadol. Reports pain was similar to her chronic pain. Objective Vital Signs, Last 4 Hours Temp Pulse Resp BP Pulse Ox 08/09/16 07:57 97.7 F 65 18 91/55 95 General: Conversant, No Apparent Distress HEENT: Atraumatic, Normocephaly, Mucus Membranes Moist Neck: No JVD, Normal carotid pulses Cardiac: Reg Rate and Rhythm, Normal S1 and S2, No Murmur Lungs: Normal Breath Sounds, No Wheeze, Rales, Rhonchi Neuro: Alert and responsive, No focal deficits noted Abdomen: Soft, Non-Tender Skin: No rashes noted on visualized skin Musculoskeletal: No Chest Wall Tenderness Extremities: No Clubbing, No Cyanosis, Normal Pulses, Other (Trace BLE edema) Results 08/08/16 00:51 08/09/16 08:09 Lab Results 08/08/16 08/08/16 08/09/16 07:41 13:21 08:09 APTT 66.9 H Sodium 142 Potassium 3.9 Chloride 110 H Carbon Dioxide 25 BUN 24 H Creatinine 1.27 H Glucose 118 H Calcium 8.3 L Total Bilirubin 0.3 AST 8 ALT 12 Alkaline Phosphatase 118 TSH 14.138 H - Imaging and Cardiology Echo: report reviewed Consult Discharge Plan - Plan Referrals: Demetrius Smith MD [Primary Care Provider] - 08/15/16 1:20 pm (Please follow up as schedule..)
[2016-08-09 10:40] LABS: Triiodothyronine (T3) Free 1.8 pg/mL (1.71-3.71)
--- NOTE | 2016-08-09 16:23 | Internal Med Progress Note ---
Date of Encounter: 08/09/16 Time of Encounter: 16:04 - Assessment and plan (1) Parkinson disease Current Visit: Yes Status: Acute (2) Chest pain Current Visit: No Status: Acute Assessment and plan: reports that the chest pain is better. Mild tropnin in the setting of CKD/TAIWO. Minimal CAD on [facility] in 2011, Stress test 07/2015 negative for ischemia. TTE showed normal EF, limited study. Continue asa, statin, and bb. Continue imdur and Ranexa. Imdur increased. No further cardiac testing recommended. Out-pt f/u scheduled 08/25/16 with Zbigniew Kapadia CNP. cardio has signed off. Qualifiers: Chest pain type: unspecified Qualified Code(s): R07.9 - Chest pain, unspecified (3) CKD (chronic kidney disease) stage 3, GFR 30-59 ml/min Current Visit: No Status: Chronic Assessment and plan: renal following. kidney fxn has improved today. will continue IVF for now. renal US shows no obstruction. (4) COPD (chronic obstructive pulmonary disease) Current Visit: No Status: Chronic Assessment and plan: stable. not in exacerbation. Qualifiers: COPD type: unspecified COPD Qualified Code(s): J44.9 - Chronic obstructive pulmonary disease, unspecified (5) Diastolic CHF Current Visit: No Status: Chronic Assessment and plan: H/o diastolic CHF. Currently euvolemic on exam. Hypovolemic on admission and now euvolemic. Bumex on hold. will continue with IVF. Chest x-ray negative. Low sodium diet. Qualifiers: Congestive heart failure chronicity: chronic Qualified Code(s): I50.32 - Chronic diastolic (congestive) heart failure (6) Hypotension Current Visit: Yes Status: Acute Assessment and plan: BP noted borderline low 90s/60s, c/o dizziness noted to be on tramadol, clonazepam, flexeril, morphine. will stop tramadol and morphine, klonopin and flexeril to be prn. will monitor BP for today. diuretics has been held, metoprolol dose has been decreased. given h/o parkinsons disease, differential include multisystem atrophy with dysautonomia once other causes has been ruled out. will also check for orthostatic hypotension will consult neurology if no improvement in her BP. Qualifiers: Hypotension type: unspecified hypotension type Qualified Code(s): I95.9 - Hypotension, unspecified - Time Spent With Patient 25 - 35 minutes - Subjective Interval history: alex seen at the bedside, admits to dizziness today. noted that her BP is on the lower side, denies chest pain or sob now. renal and cardio following. - Constitutional Vitals: Temp Pulse Resp BP Pulse Ox 97.7 F 65 18 91/55 95 08/09/16 07:57 08/09/16 07:57 08/09/16 07:57 08/09/16 07:57 08/09/16 07:57 General appearance: Present: A&O X 3 Exam: HEENT: Atraumatic, Normocephaly, Mucus Membranes Moist Neck: No JVD, Normal carotid pulses Cardiac: Reg Rate and Rhythm, Normal S1 and S2, No Murmur Lungs: Normal Breath Sounds, No Wheeze, Rales, Rhonchi Neuro: Alert and responsive, No focal deficits noted Abdomen: Soft, Non-Tender Skin: No rashes noted on visualized skin Musculoskeletal: No Chest Wall Tenderness Extremities: No Clubbing, No Cyanosis, Normal Pulses, Other (Trace BLE edema) Internal Medicine: Result - Labs CBC & Chem 7: 08/08/16 00:51 08/09/16 08:09 Labs: BMP 08/09/16 08:09 Sodium 142 Potassium 3.9 Chloride 110 H Carbon Dioxide 25 BUN 24 H Creatinine 1.27 H Glucose 118 H Calcium 8.3 L Liver Function 08/09/16 Range/Units 08:09 Total Bilirubin 0.3 (0.2-1.2) mg/dL AST 8 (5-34) Units/L ALT 12 (0-55) Units/L Alkaline Phosphatase 118 (38-126) Units/L Albumin 2.9 L (3.5-5.0) g/dL - ABG Interpretation ABG results: PT/INR, D-dimer PT 11.8 Seconds (9.4-12.1) 08/07/16 15:33 - Impressions Impressions Retroperitoneum Ultrasound 08/08/16 17:00 IMPRESSION: 1. The bilateral kidneys demonstrate probable nonobstructing right nephrolithiasis. No obstructive uropathy. 2. Normal parenchymal echogenicity. Right kidney inferior pole 1.6 cm cyst. 3. Limited evaluation of the bladder due to non distention. D/ / 08/08/2016 19:53:31 Karthik Hickman MD / [place] Interpreting Provider: Karthik Hickman MD Consult Discharge Plan - Plan Referrals: Demetrius Smith MD [Primary Care Provider] - 08/15/16 1:20 pm (Please follow up as schedule..)
[2016-08-09] MEDS: Ipratropium/Albuterol Neb 3 ML IH SCH ×2 (17:38→22:00)
[2016-08-09] MEDS: clonazePAM 1 MG TABLET PO PRN (20:38)
[2016-08-10] MEDS: Ipratropium/Albuterol Neb 3 ML IH SCH ×4 (04:10→22:23)
[2016-08-10] MEDS: *HR* Heparin 5,000 UNIT/ML VIAL SQ SCH ×2 (05:53→18:30)
[2016-08-10 06:42] LABS: Basophils % 0.2 %; Eosinophils % 0.1 %; Hematocrit 34.7 % (35.3-44.9); Hemoglobin 10.8 g/dL (11.5-15.4); Immature Granulocytes % 1.7 % (0-4); Lymphocytes # 1.4 K/mcL (0.6-4.6); Lymphocytes % 9.2 %; Mean Corpuscular HGB Conc 31.1 g/dL (31.6-35.5); Mean Corpuscular Hemoglobin 29.3 pg (28.0-33.3); Mean Corpuscular Volume 94.3 fL (83.0-100.0); Mean Platelet Volume 10.1 fL (9.4-12.4); Monocytes # 1.2 K/mcL (0.0-1.3); Neutrophils # 12.2 K/mcL (1.6-8.9); Platelet Count 308 K/mcL (140-400); Red Blood Count 3.68 M/mcL (3.82-4.97); Red Cell Distribution Width 14.6 % (11.5-14.5); Segmented Neutrophils % 80.8 %
[2016-08-10] MEDS ORDERED: methylPREDNISolone 125 MG/2 ML VIAL IVP ONE (06:55)
[2016-08-10] MEDS ORDERED: methylPREDNISolone 125 MG/2 ML VIAL ONE (06:58)
[2016-08-10 06:59] LABS: Calcium 8.8 mg/dL (8.6-10.8); Potassium 4.3 mEq/L (3.5-4.5)
[2016-08-10] MEDS ORDERED: Furosemide 40 MG/4 ML VIAL IVP ONE (07:03)
[2016-08-10] MEDS ORDERED: Furosemide 40 MG/4 ML VIAL ONE (07:04)
[2016-08-10 07:22] LABS: ABG Base Excess -4.7 mEq/L (-2.0 to 3.0); ABG HCO3 24.6 mEQ/L (21-27); ABG Oxygen Saturation 94 % (95-98); ABG PCO2 66 mmHg (35-45); ABG PH 7.18 pH Units (7.32-7.45); ABG PO2 90 mmHg (85-104); ABG TCO2 26.6 mEq/L (20-26); Blood Gas FiO2 100 %
--- NOTE | 2016-08-10 07:44 | Event Note ---
Date of Encounter: 08/10/16 Time of Encounter: 07:38 patient had sudden onset sob , found this morning around 7 am with sob and o2 desating to 60s. she was placed on NRB and subsequently on BIPAP. sating currently 93% on 70%fio2 on BIPAP, ABG noted ph of 7.18, pco2 of 66 and po2 of 90 on BIPAP. patient assesed at the bedside, following commands and alert and oriented. chest : b/l crepts diffuse, denies chest pain. acute respiratory failure 2/2 acute pulmonary edema( h/o diastolic heart failure ) s/p 80mg of IV lasix stat. farr placed, will transfer to ICU as overflow due to no beds in 2 N. repeat ABG in 1 hr. Repeat abg improved with ph of 7.35. patinet clinically better, able to wean off bipap, titrate o2 to maintain sats > 95%. will start low dose bumex as advised by cardiology. BP stable now, continue to monitor. fluid restriction 1.5l/day i/o charting
--- NOTE | 2016-08-10 08:18 | Nephrology Progress Note ---
Date of Encounter: 08/10/16 Time of Encounter: 07:55 - Assessment and Plan (1) TAIWO (acute kidney injury) Current Visit: Yes Status: Acute TAIWO on CKD 3-pre renal; hypotension. Renal fct improved. Creat 1.11. Urine output 1450. BP improved. Avoid nephrotoxins. Renal US showed no obstructive uropathy. Continue to monitor. Subjective Principal diagnosis: Chest pain, TAIWO, mild troponin Interval history: Unfortunately became SOB this morning. CXR- bilateral opacities, interstitial edema or atypical infection. IV stopped. Lasix 80mg IV, placed on BiPap, Crespo cath placed. . Arousable, nods head breathing easier. Awaiting transfer to ICU. Objective - Vital Signs Vital signs: Vital Signs Temp Pulse Resp BP BP BP BP 08/10/16 06:45 32 08/10/16 04:03 97.6 F 65 18 143/62 08/10/16 01:11 97.6 F 71 18 107/66 08/09/16 22:00 16 08/09/16 19:57 98.0 F 70 18 124/64 08/09/16 17:36 110/60 123/69 132/67 08/09/16 16:24 98.0 F 76 18 101/55 Pulse Ox 08/10/16 06:45 90 L 08/10/16 04:03 95 08/10/16 01:11 91 L 08/09/16 22:00 96 08/09/16 19:57 94 L 08/09/16 17:36 08/09/16 16:24 95 Intake and Output 08/09/16 08/10/16 08/10/16 23:59 07:59 15:59 Output Total 900 / 900 Balance -900 / -900 Output: Urine 900 / 900 Other: Meal Dinner Percent of Meal Consumed 75% Weight 86.7 kg Patient Weight 08/10/16 23:59 Weight 86.7 kg - General Appearance General appearance: Present: well-developed, well-nourished, appears started age , obese EENT: Present: mucous membranes moist Additional Comments: diminished Cardiology: Present: edema, regular rate, regular rhythm Additional Comments: mild pitting LE Gastrointestinal: Present: normoactive bowel sounds, no tenderness, distended Integumentary: Present: warm and dry Psychiatric: Present: mood/affect appropriate, cooperative - Lab 08/10/16 06:26 08/10/16 06:26 Most recent lab results ABG pH 7.18 pH Units (7.32-7.45) L* 08/10/16 07:15 ABG pCO2 66 mmHg (35-45) H 08/10/16 07:15 ABG pO2 90 mmHg (85-104) 08/10/16 07:15 ABG HCO3 24.6 mEQ/L (21-27) 08/10/16 07:15 ABG O2 Saturation 94 % (95-98) L 08/10/16 07:15 Calcium 8.8 mg/dL (8.6-10.8) 08/10/16 06:26 Magnesium 1.8 mg/dL (1.6-2.6) 08/08/16 00:51 Consult Discharge Plan - Plan Referrals: Demetrius Smith MD [Primary Care Provider] - 08/15/16 1:20 pm (Please follow up as schedule..)
[2016-08-10] MEDS: Carbidopa/Levodopa ER 50/200 TABLET PO SCH (09:13)
[2016-08-10] MEDS: Ranolazine 500 MG TAB.ER.12H PO SCH ×2 (09:13→21:59)
[2016-08-10] MEDS: Isosorbide MONOnitrate (24 HR) 60 MG TAB.ER.24H PO SCH ×2 (09:23→22:00)
[2016-08-10 09:59] LABS: ABG Base Excess 0.9 mEq/L (-2.0 to 3.0); ABG HCO3 27.1 mEQ/L (21-27); ABG Oxygen Saturation 97 % (95-98); ABG PCO2 49 mmHg (35-45); ABG PH 7.35 pH Units (7.32-7.45); ABG PO2 93 mmHg (85-104); ABG TCO2 28.6 mEq/L (20-26); Blood Gas FiO2 70 %
[2016-08-10] MEDS: Bumetanide 1 MG TABLET PO SCH (18:30)
[2016-08-10] MEDS: clonazePAM 1 MG TABLET PO PRN (22:04)
[2016-08-11] MEDS: Ipratropium/Albuterol Neb 3 ML IH SCH ×4 (04:06→22:03)
[2016-08-11] MEDS ORDERED: Acetaminophen 325 MG TABLET PO ONE (05:04)
[2016-08-11 05:21] LABS: Basophils % 0.1 %; Hematocrit 31.6 % (35.3-44.9); Hemoglobin 10.3 g/dL (11.5-15.4); Immature Granulocytes % 1.7 % (0-4); Lymphocytes # 1.2 K/mcL (0.6-4.6); Lymphocytes % 7.3 %; Mean Corpuscular HGB Conc 32.6 g/dL (31.6-35.5); Mean Corpuscular Hemoglobin 30.6 pg (28.0-33.3); Mean Corpuscular Volume 93.8 fL (83.0-100.0); Mean Platelet Volume 10.3 fL (9.4-12.4); Monocytes # 1.5 K/mcL (0.0-1.3); Monocytes % 9.4 %; Neutrophils # 13.2 K/mcL (1.6-8.9); Platelet Count 258 K/mcL (140-400); Red Blood Count 3.37 M/mcL (3.82-4.97); Red Cell Distribution Width 14.6 % (11.5-14.5); Segmented Neutrophils % 81.5 %
[2016-08-11 05:29] LABS: Calcium 8.6 mg/dL (8.6-10.8); Potassium 4.2 mEq/L (3.5-4.5)
[2016-08-11] MEDS: *HR* Heparin 5,000 UNIT/ML VIAL SQ SCH ×2 (06:19→17:20)
[2016-08-11] MEDS: Ranolazine 500 MG TAB.ER.12H PO SCH ×2 (07:52→21:23)
[2016-08-11] MEDS: Carbidopa/Levodopa ER 50/200 TABLET PO SCH ×2 (07:53→21:23)
[2016-08-11] MEDS: Bumetanide 1 MG TABLET PO SCH ×2 (07:53→17:20)
[2016-08-11] MEDS: Isosorbide MONOnitrate (24 HR) 60 MG TAB.ER.24H PO SCH ×2 (07:53→21:24)
[2016-08-11] MEDS ORDERED: Vancomycin 750 MG in D5% in Water 250 ML IVPB SCH (08:00)
--- NOTE | 2016-08-11 08:10 | Nephrology Progress Note ---
Date of Encounter: 08/10/16 Time of Encounter: 07:55 - Assessment and Plan (1) TAIWO (acute kidney injury) Current Visit: Yes Status: Acute TAIWO on CKD 3-pre renal; hypotension. Renal fct stable, at baseline. Creat 1.35. May have to accept higher azotemia related to diuretics related to CHF. Urine output 3250. Avoid nephrotoxins. Renal US showed no obstructive uropathy. Continue to monitor. Subjective Principal diagnosis: Chest pain, TAIWO, mild troponin Interval history: TRansferred yesterday to -Currently on 3L NC. Sates breathing much easier. Objective - Vital Signs Vital signs: Vital Signs Temp Pulse Resp BP Pulse Ox 08/11/16 07:15 97.5 F L 88 14 105/52 96 08/11/16 04:09 97.3 F L 65 11 120/56 99 08/11/16 04:08 21 97 08/11/16 00:00 97.7 F 84 18 125/58 98 08/10/16 22:25 20 96 08/10/16 20:00 97.7 F 74 18 105/42 95 08/10/16 16:00 72 08/10/16 15:57 18 98 08/10/16 15:53 97.7 F 08/10/16 15:00 72 22 110/52 96 08/10/16 12:00 77 08/10/16 11:34 96.4 F L 08/10/16 09:59 16 97 08/10/16 08:40 96.7 F L 77 22 138/58 96 Intake and Output 08/10/16 08/11/16 08/11/16 23:59 07:59 15:59 Output Total 450 / 450 350 / 350 Balance -450 / -450 -350 / -350 Output: Catheter 450 / 450 350 / 350 Other: Weight 87.2 kg 88.6 kg Patient Weight 08/11/16 23:59 Weight 88.6 kg - General Appearance General appearance: Present: well-developed, well-nourished, appears started age , obese EENT: Present: mucous membranes moist Neck: Present: no JVD Additional Comments: few scattered rhonchi in bases Cardiology: Present: no edema, regular rate, regular rhythm Gastrointestinal: Present: normoactive bowel sounds, no tenderness Integumentary: Present: warm and dry Neurologic: Present: alert and oriented x3 Psychiatric: Present: mood/affect appropriate, cooperative - Lab 08/11/16 04:25 08/11/16 04:25 Most recent lab results ABG pH 7.35 pH Units (7.32-7.45) D 08/10/16 09:51 ABG pCO2 49 mmHg (35-45) H 08/10/16 09:51 ABG pO2 93 mmHg (85-104) 08/10/16 09:51 ABG HCO3 27.1 mEQ/L (21-27) H 08/10/16 09:51 ABG O2 Saturation 97 % (95-98) 08/10/16 09:51 Calcium 8.6 mg/dL (8.6-10.8) 08/11/16 04:25 Magnesium 1.8 mg/dL (1.6-2.6) 08/08/16 00:51 Consult Discharge Plan - Plan Referrals: Demetrius Smith MD [Primary Care Provider] - 08/15/16 1:20 pm (Please follow up as schedule..)
[2016-08-11] MEDS ORDERED: Vancomycin 1,000 MG in D5% in Water 250 ML IVPB ONE (09:00)
[2016-08-11] MEDS: Piperacillin/Tazobactam 3.375 GM in D5% in Water (Mini-Bag+) 100 ML IVPB SCH ×3 (09:49→23:30)
--- NOTE | 2016-08-11 13:22 | Internal Med Progress Note ---
Date of Encounter: 08/10/16 Time of Encounter: 12:15 - Assessment and plan (1) Acute exacerbation of CHF (congestive heart failure) Current Visit: Yes Status: Acute Assessment and plan: Noted to be in volume overload Improved with diuretic and bipap support continue diuretic therapy monitor I/Os, daily weights fluid restriction diet to 1.5L/D continue O2 supplementation bipap support as needed Qualifiers: Congestive heart failure type: diastolic Qualified Code(s): I50.33 - Acute on chronic diastolic (congestive) heart failure (2) HCAP (healthcare-associated pneumonia) Current Visit: Yes Status: Acute Assessment and plan: Concern for pneumonia given worsening leukocytosis, respiratory failure, and imaging findings Will start Vancomycin and Zosyn Pharmacy to renally dose abx and monitor vanco trough f/u blood cultures will de-escalate therapy as per cultures and clinical response. (3) CKD (chronic kidney disease) stage 3, GFR 30-59 ml/min Current Visit: No Status: Chronic Assessment and plan: Nephrology consultation appreciated Worsening renal function due to aggressive diuretic therapy required overnight due to CHF decompensation Will continue to monitor. renal US shows no obstruction. (4) COPD (chronic obstructive pulmonary disease) Current Visit: No Status: Chronic Assessment and plan: stable. not in exacerbation. bronchodilators as needed Qualifiers: COPD type: unspecified COPD Qualified Code(s): J44.9 - Chronic obstructive pulmonary disease, unspecified (5) Chest pain Current Visit: No Status: Resolved Qualifiers: Chest pain type: unspecified Qualified Code(s): R07.9 - Chest pain, unspecified (6) DVT prophylaxis Current Visit: No Status: Acute Assessment and plan: Heparin SQ (7) Parkinson disease Current Visit: Yes Status: Chronic Assessment and plan: continue home medications (8) Hypotension Current Visit: Yes Status: Acute Assessment and plan: BP improved Pt currently tolerating lower dose of BB well Will continue to closely monitor Qualifiers: Hypotension type: unspecified hypotension type Qualified Code(s): I95.9 - Hypotension, unspecified - Subjective Interval history: Pt seen and examined at bedside. resting in bed and reports of feeling better compared to the previous day. Currently saturating well on nasal cannula and denies any sob, chest discomfort at this time. - Constitutional Vitals: Temp Pulse Resp BP Pulse Ox 97.6 F 60 16 109/48 99 08/11/16 11:57 03/30/17 11:57 08/11/16 11:57 08/11/16 11:57 08/11/16 11:57 General appearance: Present: A&O X 3, morbidly obese, pleasant, no acute distress, answers questions appropriately - Head Head exam: Present: atraumatic, normocephalic - Eye Eye exam: Present: normal appearance, conjuntiva pink, sclera anicteric - Respiratory Respiratory exam: Absent: respiratory distress, wheezes (bibasilar crackles) - Cardiovascular Cardiovascular exam: Present: RRR, +S1, +S2. Absent: diastolic murmur, gallop, rubs, systolic murmur - GI/Abdominal GI/Abdominal exam: Present: normal bowel sounds, soft, no peritoneal signs. Absent: distended, tenderness - Extremities Exam Extremities exam: Present: pedal edema (bilateral lower extremity edema ), warm , radial pulses palpable and symetrical. Absent: calf tenderness - Neurological Exam Neurological exam: Present: alert, oriented X3 - Psychiatric Psychiatric exam: Present: normal affect, normal mood Internal Medicine: Result - Labs CBC & Chem 7: 08/11/16 04:25 08/11/16 04:25 Labs: Short CBC 08/11/16 Range/Units 04:25 WBC 16.2 H (4.3-11.1) K/mcL Hgb 10.3 L (11.5-15.4) g/dL Hct 31.6 L (35.3-44.9) % Plt Count 258 (140-400) K/mcL Neutrophils # 13.2 H (1.6-8.9) K/mcL BMP 08/11/16 04:25 Sodium 143 Potassium 4.2 Chloride 108 Carbon Dioxide 25 BUN 32 H Creatinine 1.35 H Glucose 111 H Calcium 8.6 - ABG Interpretation ABG results: ABG ABG pH 7.35 pH Units (7.32-7.45) D 08/10/16 09:51 ABG pCO2 49 mmHg (35-45) H 08/10/16 09:51 ABG pO2 93 mmHg (85-104) 08/10/16 09:51 ABG O2 Saturation 97 % (95-98) 08/10/16 09:51 PT/INR, D-dimer PT 11.8 Seconds (9.4-12.1) 08/07/16 15:33 - Impressions Impressions Chest X-Ray 08/10/16 06:51 IMPRESSION: New, diffuse bilateral reticulonodular opacities may reflect interstitial edema or atypical infection. D/ / 08/10/2016 07:49:49 Ricky Ruiz MD / sj Interpreting Provider: Ricky Ruiz MD Chest X-Ray 08/11/16 07:00 IMPRESSION: 1. Cardiomegaly with vascular congestion and interstitial infiltrates representing edema and congestive failure. D/ / 08/11/2016 07:41:58 Chai Conklin MD / sj Interpreting Provider: Chai Conklin MD Consult Discharge Plan - Plan Referrals: Demetrius Smith MD [Primary Care Provider] - 08/15/16 1:20 pm (Please follow up as schedule..)
--- NOTE | 2016-08-11 13:26 | Electrocardiograph Report ---
[address] [place] [address] Test Date: 2016-08-10 Pat Name: Vanessa Washburn Department: 112 Room: 2N14 Gender: F [employer]: : 1940 Requested By: Cong Dodd Order Number: [id number] Reading MD: Gamal Siu MD Measurements Intervals [place] Rate: 84 P: 63 SC: 152 QRS: -51 QRSD: 122 T: 81 QT: 375 QTc: 416 Interpretive Statements SINUS RHYTHM WITH FREQUENT SUPRAVENTRICULAR PREMATURE COMPLEXES MARKED LEFT AXIS DEVIATION BASELINE ARTIFACT PROBABLE LATERAL MYOCARDIAL INFARCTION, OF INDETERMINATE AGE Electronically Signed On 08-11-2016 13:24:19 EDT by Gamal Siu MD
[2016-08-11] MEDS: Acetaminophen 325 MG TABLET PO PRN ×2 (14:24→23:27)
[2016-08-11] MEDS: clonazePAM 1 MG TABLET PO PRN (21:23)
[2016-08-12] MEDS: Ipratropium/Albuterol Neb 3 ML IH SCH ×4 (04:06→20:46)
[2016-08-12] MEDS: *HR* Heparin 5,000 UNIT/ML VIAL SQ SCH ×2 (06:34→18:12)
[2016-08-12 07:53] LABS: Basophils % 0.3 %; Eosinophils # 0.2 K/mcL (0.0-0.6); Eosinophils % 1.5 %; Hematocrit 31.4 % (35.3-44.9); Hemoglobin 10.5 g/dL (11.5-15.4); Immature Granulocytes % 1.5 % (0-4); Lymphocytes # 1.4 K/mcL (0.6-4.6); Lymphocytes % 12.2 %; Mean Corpuscular HGB Conc 33.4 g/dL (31.6-35.5); Mean Corpuscular Hemoglobin 30.6 pg (28.0-33.3); Mean Corpuscular Volume 91.5 fL (83.0-100.0); Mean Platelet Volume 10.3 fL (9.4-12.4); Monocytes # 1.5 K/mcL (0.0-1.3); Monocytes % 12.7 %; Neutrophils # 8.4 K/mcL (1.6-8.9); Platelet Count 250 K/mcL (140-400); Red Blood Count 3.43 M/mcL (3.82-4.97); Red Cell Distribution Width 14.7 % (11.5-14.5); Segmented Neutrophils % 71.8 %
[2016-08-12] MEDS: Bumetanide 1 MG TABLET PO SCH ×2 (08:37→18:12)
[2016-08-12] MEDS: Isosorbide MONOnitrate (24 HR) 60 MG TAB.ER.24H PO SCH ×2 (08:42→20:47)
[2016-08-12] MEDS: Sennosides 8.6 MG TABLET PO SCH ×2 (08:45→20:48)
[2016-08-12] MEDS: Ranolazine 500 MG TAB.ER.12H PO SCH ×2 (08:45→20:47)
[2016-08-12] MEDS: Acetaminophen 325 MG TABLET PO PRN (10:02)
[2016-08-12] MEDS: Piperacillin/Tazobactam 3.375 GM in D5% in Water (Mini-Bag+) 100 ML IVPB SCH ×2 (10:02→18:13)
[2016-08-12] MEDS: Carbidopa/Levodopa ER 50/200 TABLET PO SCH ×2 (10:10→20:47)
--- NOTE | 2016-08-12 11:29 | Nephrology Progress Note ---
Date of Encounter: 08/10/16 Time of Encounter: 11:15 - Assessment and Plan (1) TAIWO (acute kidney injury) Current Visit: Yes Status: Acute TAIWO on CKD 3-pre renal; hypotension. Renal Today labs pending. May have to accept higher azotemia related to diuretics related to CHF. Urine output 2150. Avoid nephrotoxins. Renal US showed no obstructive uropathy. Continue to monitor. Subjective Principal diagnosis: Chest pain, TAIWO, mild troponin Interval history: Breathing easier today, no new complaints. Objective - Vital Signs Vital signs: Vital Signs Temp Pulse Resp BP Pulse Ox 08/12/16 09:47 10 96 08/12/16 08:06 98.4 F 62 18 117/55 99 08/12/16 03:39 98.2 F 65 20 115/44 95 08/11/16 23:29 98.0 F 66 17 122/69 95 08/11/16 22:03 16 96 08/11/16 18:30 97.6 F 67 16 121/56 96 08/11/16 16:19 97.8 F 62 16 117/55 96 08/11/16 15:28 18 96 08/11/16 11:57 97.6 F 60 16 109/48 99 Intake and Output 08/11/16 08/12/16 08/12/16 23:59 07:59 15:59 Intake Total 100 / 100 340 / 340 120 / 120 Output Total 1800 / 1800 550 / 550 Balance -1700 / -1700 -210 / -210 120 / 120 Intake: IV Fluids 100 / 100 100 / 100 Zosyn 3.375 GM In 100 / 100 100 / 100 Dextrose 5% (Minibag+) 100 ML 100 ML @ 25 mls/hr IVPB Q8HR [facility] Rx#: [id number] Oral 240 / 240 120 / 120 Output: Urine 150 / 150 Catheter 1800 / 1800 400 / 400 Other: Meal Dinner Breakfast Percent of Meal Consumed 100% 90% Stool Size Large Stool Consistency soft Weight 89.3 kg Blood Glucose* 203 Patient Weight 08/12/16 23:59 Weight 89.3 kg - General Appearance General appearance: Present: well-developed, well-nourished, appears started age , obese EENT: Present: mucous membranes moist Neck: Present: no JVD Additional Comments: few bibasilar crackles Cardiology: Present: no edema, regular rate, regular rhythm Gastrointestinal: Present: normoactive bowel sounds, no tenderness Integumentary: Present: warm and dry Neurologic: Present: alert and oriented x3 Psychiatric: Present: mood/affect appropriate, cooperative - Lab 08/12/16 07:35 08/11/16 04:25 Most recent lab results ABG pH 7.35 pH Units (7.32-7.45) D 08/10/16 09:51 ABG pCO2 49 mmHg (35-45) H 08/10/16 09:51 ABG pO2 93 mmHg (85-104) 08/10/16 09:51 ABG HCO3 27.1 mEQ/L (21-27) H 08/10/16 09:51 ABG O2 Saturation 97 % (95-98) 08/10/16 09:51 Calcium 8.6 mg/dL (8.6-10.8) 08/11/16 04:25 Magnesium 1.8 mg/dL (1.6-2.6) 08/08/16 00:51 - VTE Documentation of Mechanical Device: Intermittent pneumatic compression device Consult Discharge Plan - Plan Referrals: Demetrius Smith MD [Primary Care Provider] - 08/22/16 1:20 pm (Please follow up as schedule..)
[2016-08-12 11:33] LABS: Calcium 8.1 mg/dL (8.6-10.8); Phosphorous 3.3 mg/dL (2.3-4.7); Potassium 3.6 mEq/L (3.5-4.5)
[2016-08-12 12:19] LABS: Alkaline Phosphatase 105 Units/L (38-126); Aspartate Amino Transferase 8 Units/L (5-34); BUN/Creatinine Ratio 17 (6-26); Bilirubin,Total 0.5 mg/dL (0.2-1.2); Blood Urea Nitrogen 29 mg/dL (7-20); Calcium 8.1 mg/dL (8.6-10.8); Carbon Dioxide 31 mEq/L (19-29); Chloride 103 mEq/L (98-109); Glucose 123 mg/dL (70-99); Osmolality,Calculated 297 (280-300); Potassium 3.5 mEq/L (3.5-4.5); Sodium 140 mEq/L (136-145); eGFR For African Americans 37 (> 60); eGFR For Non-African Americans 30 (> 60)
[2016-08-12 12:22] LABS: Alanine Aminotransferase < 6 Units/L (0-55)
[2016-08-12] MEDS: Vancomycin 1,000 MG in D5% in Water 250 ML IVPB SCH (12:24)
[2016-08-12] MEDS ORDERED: Ipratropium/Albuterol Neb 3 ML IH PRN (15:42)
--- NOTE | 2016-08-12 15:43 | Internal Med Progress Note ---
Date of Encounter: 08/12/16 Time of Encounter: 13:20 - Assessment and plan (1) Acute exacerbation of CHF (congestive heart failure) Current Visit: Yes Status: Acute Assessment and plan: Noted to be in volume overload Improved with diuretic and bipap support continue diuretic therapy monitor I/Os, daily weights fluid restriction diet to 1.5L/D continue O2 supplementation bipap support as needed PT eval requested pt encouraged to get out of bed to chair and ambulate with assistance Qualifiers: Congestive heart failure type: diastolic Qualified Code(s): I50.33 - Acute on chronic diastolic (congestive) heart failure (2) HCAP (healthcare-associated pneumonia) Current Visit: Yes Status: Acute Assessment and plan: Concern for pneumonia given worsening leukocytosis, respiratory failure, and imaging findings Continue Vancomycin and Zosyn Pharmacy to renally dose abx and monitor vanco trough f/u blood cultures will de-escalate therapy as per cultures and clinical response. (3) CKD (chronic kidney disease) stage 3, GFR 30-59 ml/min Current Visit: No Status: Chronic Assessment and plan: Nephrology consultation appreciated Worsening renal function due to aggressive diuretic therapy due to CHF decompensation Will continue to monitor. renal US shows no obstruction. (4) COPD (chronic obstructive pulmonary disease) Current Visit: No Status: Chronic Assessment and plan: stable. not in exacerbation. bronchodilators as needed Qualifiers: COPD type: unspecified COPD Qualified Code(s): J44.9 - Chronic obstructive pulmonary disease, unspecified (5) Chest pain Current Visit: No Status: Resolved Qualifiers: Chest pain type: unspecified Qualified Code(s): R07.9 - Chest pain, unspecified (6) DVT prophylaxis Current Visit: No Status: Acute Assessment and plan: Heparin SQ (7) Parkinson disease Current Visit: Yes Status: Chronic Assessment and plan: continue home medications (8) Hypotension Current Visit: Yes Status: Acute Assessment and plan: BP improved Pt currently tolerating lower dose of BB well Will continue to closely monitor Qualifiers: Hypotension type: unspecified hypotension type Qualified Code(s): I95.9 - Hypotension, unspecified - Subjective Interval history: Pt seen and examined at bedside. resting in bed and reports of feeling better compared to the previous day. Currently saturating well on nasal cannula and denies any sob, chest discomfort at this time. Noted to have good urine output however with worsening renal function, which as per records appears to be around her baseline. Patient encouraged to get out of bed and ambulate with assistance as tolerated. Crespo catheter removed. - Constitutional Vitals: Temp Pulse Resp BP Pulse Ox 98.7 F 65 16 127/52 95 08/12/16 11:36 08/12/16 11:36 08/12/16 11:36 08/12/16 11:36 08/12/16 11:36 General appearance: Present: A&O X 3, morbidly obese, pleasant, no acute distress, answers questions appropriately - Head Head exam: Present: atraumatic, normocephalic - Eye Eye exam: Present: normal appearance, conjuntiva pink, sclera anicteric - Respiratory Respiratory exam: Present: wheezes (mild bilateral expiratory wheezing). Absent : respiratory distress - Cardiovascular Cardiovascular exam: Present: RRR, +S1, +S2. Absent: diastolic murmur, gallop, rubs, systolic murmur - GI/Abdominal GI/Abdominal exam: Present: normal bowel sounds, soft, no peritoneal signs. Absent: distended, tenderness - Extremities Exam Extremities exam: Present: pedal edema, warm, radial pulses palpable and symetrical. Absent: tenderness - Neurological Exam Neurological exam: Present: alert, oriented X3 - Psychiatric Psychiatric exam: Present: normal affect, normal mood Internal Medicine: Result - Labs CBC & Chem 7: 08/12/16 07:35 08/12/16 11:09 Labs: Short CBC 08/12/16 Range/Units 07:35 WBC 11.7 H (4.3-11.1) K/mcL Hgb 10.5 L (11.5-15.4) g/dL Hct 31.4 L (35.3-44.9) % Plt Count 250 (140-400) K/mcL Neutrophils # 8.4 (1.6-8.9) K/mcL BMP 08/12/16 08/12/16 07:35 11:09 Sodium 141 140 Potassium 3.6 3.5 Chloride 104 103 Carbon Dioxide 30 H 31 H BUN 29 H 29 H Creatinine 1.54 H 1.66 H Glucose 101 H 123 H Calcium 8.1 L 8.1 L Liver Function 08/12/16 Range/Units 11:09 Total Bilirubin 0.5 (0.2-1.2) mg/dL AST 8 (5-34) Units/L ALT < 6 (0-55) Units/L Alkaline Phosphatase 105 (38-126) Units/L Albumin 3.0 L (3.5-5.0) g/dL - ABG Interpretation ABG results: ABG ABG pH 7.35 pH Units (7.32-7.45) D 08/10/16 09:51 ABG pCO2 49 mmHg (35-45) H 08/10/16 09:51 ABG pO2 93 mmHg (85-104) 08/10/16 09:51 ABG O2 Saturation 97 % (95-98) 08/10/16 09:51 PT/INR, D-dimer PT 11.8 Seconds (9.4-12.1) 08/07/16 15:33 - Impressions Impressions Chest X-Ray 08/11/16 07:00 IMPRESSION: 1. Cardiomegaly with vascular congestion and interstitial infiltrates representing edema and congestive failure. D/ / 08/11/2016 07:41:58 Chai Conklin MD / sj Interpreting Provider: Chai Conklin MD - VTE Documentation of Mechanical Device: Intermittent pneumatic compression device Consult Discharge Plan - Plan Referrals: Demetrius Smith MD [Primary Care Provider] - 08/22/16 1:20 pm (Please follow up as schedule..)
[2016-08-12] MEDS: clonazePAM 1 MG TABLET PO PRN (20:48)
[2016-08-13] MEDS: Piperacillin/Tazobactam 3.375 GM in D5% in Water (Mini-Bag+) 100 ML IVPB SCH ×3 (00:11→15:26)
[2016-08-13] MEDS: Ipratropium/Albuterol Neb 3 ML IH SCH ×7 (04:41→23:22)
[2016-08-13] MEDS: *HR* Heparin 5,000 UNIT/ML VIAL SQ SCH ×2 (06:19→17:21)
[2016-08-13 06:20] LABS: Basophils % 0.3 %; Eosinophils # 0.3 K/mcL (0.0-0.6); Eosinophils % 2.2 %; Hematocrit 33.6 % (35.3-44.9); Hemoglobin 10.8 g/dL (11.5-15.4); Immature Granulocytes % 1.4 % (0-4); Lymphocytes # 1.6 K/mcL (0.6-4.6); Lymphocytes % 13.1 %; Mean Corpuscular HGB Conc 32.1 g/dL (31.6-35.5); Mean Corpuscular Hemoglobin 29.3 pg (28.0-33.3); Mean Corpuscular Volume 91.3 fL (83.0-100.0); Mean Platelet Volume 9.9 fL (9.4-12.4); Monocytes # 1.3 K/mcL (0.0-1.3); Neutrophils # 8.5 K/mcL (1.6-8.9); Platelet Count 263 K/mcL (140-400); Red Blood Count 3.68 M/mcL (3.82-4.97); Red Cell Distribution Width 14.6 % (11.5-14.5)
[2016-08-13 06:38] LABS: Albumin 2.9 g/dL (3.5-5.0); Alkaline Phosphatase 107 Units/L (38-126); Aspartate Amino Transferase 7 Units/L (5-34); BUN/Creatinine Ratio 18 (6-26); Bilirubin,Total 0.6 mg/dL (0.2-1.2); Blood Urea Nitrogen 28 mg/dL (7-20); Calcium 8.7 mg/dL (8.6-10.8); Carbon Dioxide 31 mEq/L (19-29); Chloride 101 mEq/L (98-109); Glucose 99 mg/dL (70-99); Osmolality,Calculated 300 (280-300); Potassium 3.5 mEq/L (3.5-4.5); Sodium 142 mEq/L (136-145); Total Protein 5.9 g/dL (6.0-8.3); eGFR For African Americans 40 (> 60); eGFR For Non-African Americans 33 (> 60)
[2016-08-13 06:39] LABS: Alanine Aminotransferase < 6 Units/L (0-55); Magnesium 1.8 mg/dL (1.6-2.6); Phosphorous 3.6 mg/dL (2.3-4.7)
[2016-08-13] MEDS: Isosorbide MONOnitrate (24 HR) 60 MG TAB.ER.24H PO SCH ×2 (07:36→20:09)
[2016-08-13] MEDS: Carbidopa/Levodopa ER 50/200 TABLET PO SCH ×2 (07:37→20:09)
[2016-08-13] MEDS: Bumetanide 1 MG TABLET PO SCH ×2 (07:37→17:22)
[2016-08-13] MEDS: Sennosides 8.6 MG TABLET PO SCH ×2 (07:38→20:09)
[2016-08-13] MEDS: Ranolazine 500 MG TAB.ER.12H PO SCH ×2 (07:38→20:08)
--- NOTE | 2016-08-13 10:39 | Nephrology Progress Note ---
Date of Encounter: 08/13/16 Time of Encounter: 10:36 - Assessment and Plan (1) TAIWO (acute kidney injury) Current Visit: Yes Status: Acute ARF; Hemodynamic mediated secondary to borderline low BP on admission. Serum cr is stabilizing in the mid 1 range, urine output 2.3 L with negative fluid balance of 0.9 lt Continue current dose of Bumex 2 mg twice a day. Add KCl 10 meq a day Has underlying CKD the baseline creatinine in the low to mid 1 range. UA negative for protein. CHF secondary to diastolic dysfunction, appears euvolemic. Humidify oxygen, cont duonebs Subjective Principal diagnosis: Chest pain, TAIWO, mild troponin Interval history: has chest congestion and dry cough. stable overnight. Objective - Vital Signs Vital signs: Vital Signs Temp Pulse Resp BP Pulse Ox 08/13/16 07:57 97.1 F L 62 16 122/49 94 08/13/16 04:46 63 16 92 08/13/16 03:33 98.5 F 66 16 105/45 92 08/13/16 00:47 98.0 F 63 15 91 08/12/16 23:23 98.0 F 61 15 110/55 91 08/12/16 21:56 67 16 96 08/12/16 20:46 16 96 08/12/16 19:07 98.4 F 68 16 112/51 97 08/12/16 17:05 98.6 F 61 18 110/57 96 08/12/16 16:41 16 95 08/12/16 11:36 98.7 F 65 16 127/52 95 Intake and Output 08/12/16 08/13/16 08/13/16 23:59 07:59 15:59 Intake Total 680 / 680 Output Total 300 / 300 600 / 600 Balance 380 / 380 -600 / -600 Intake: IV Fluids 200 / 200 Zosyn 3.375 GM In 200 / 200 Dextrose 5% (Minibag+) 100 ML 100 ML @ 25 mls/hr IVPB Q8HR [facility] Rx#: [id number] Oral 480 / 480 Output: Urine 300 / 300 600 / 600 Other: Meal Dinner Percent of Meal Consumed 100% Weight 87.7 kg Patient Weight 08/13/16 23:59 Weight 87.7 kg - General Appearance Exam: CVS; s1s2 present, regular, no murmurs RESP; good air entry, scattered exp wheezing ABD; soft, nontender, bowel sounds present, no organomegaly EXT; no edema, DP pulses palpable [employer]; alert and oriented 3 - Lab 08/13/16 05:53 08/13/16 05:53 Most recent lab results ABG pH 7.35 pH Units (7.32-7.45) D 08/10/16 09:51 ABG pCO2 49 mmHg (35-45) H 08/10/16 09:51 ABG pO2 93 mmHg (85-104) 08/10/16 09:51 ABG HCO3 27.1 mEQ/L (21-27) H 08/10/16 09:51 ABG O2 Saturation 97 % (95-98) 08/10/16 09:51 Calcium 8.7 mg/dL (8.6-10.8) 08/13/16 05:53 Phosphorus 3.6 mg/dL (2.3-4.7) 08/13/16 05:53 Magnesium 1.8 mg/dL (1.6-2.6) 08/13/16 05:53 - VTE Documentation of Mechanical Device: Intermittent pneumatic compression device Consult Discharge Plan - Plan Referrals: Demetrius Smith MD [Primary Care Provider] - 08/22/16 1:20 pm (Please follow up as schedule..)
--- NOTE | 2016-08-13 11:02 | Internal Med Progress Note ---
Date of Encounter: 08/13/16 Time of Encounter: 11:00 - Assessment and plan (1) Acute exacerbation of CHF (congestive heart failure) Current Visit: Yes Status: Acute Assessment and plan: Noted to be in volume overload Improved with diuretic and bipap support continue diuretic therapy monitor I/Os, daily weights fluid restriction diet to 1.5L/D continue O2 supplementation bipap support as needed PT eval noted pt encouraged to get out of bed to chair and ambulate with assistance Qualifiers: Congestive heart failure type: diastolic Qualified Code(s): I50.33 - Acute on chronic diastolic (congestive) heart failure (2) HCAP (healthcare-associated pneumonia) Current Visit: Yes Status: Acute Assessment and plan: Concern for pneumonia given worsening leukocytosis, respiratory failure, and imaging findings Continue Vancomycin and Zosyn Pharmacy to renally dose abx and monitor vanco trough f/u blood cultures will de-escalate therapy as per cultures and clinical response. (3) CKD (chronic kidney disease) stage 3, GFR 30-59 ml/min Current Visit: No Status: Chronic Assessment and plan: Nephrology consultation appreciated REnal function appears to be at baseline Will continue to monitor. renal US shows no obstruction. (4) COPD (chronic obstructive pulmonary disease) Current Visit: No Status: Chronic Assessment and plan: stable. not in exacerbation. bronchodilators as needed Qualifiers: COPD type: unspecified COPD Qualified Code(s): J44.9 - Chronic obstructive pulmonary disease, unspecified (5) DVT prophylaxis Current Visit: No Status: Acute Assessment and plan: Heparin SQ (6) Parkinson disease Current Visit: Yes Status: Chronic Assessment and plan: continue home medications (7) Hypotension Current Visit: Yes Status: Acute Assessment and plan: BP improved Pt currently tolerating lower dose of BB well Will continue to closely monitor Qualifiers: Hypotension type: unspecified hypotension type Qualified Code(s): I95.9 - Hypotension, unspecified - Subjective Interval history: Pt seen and examined at bedside. resting in bed and reports of feeling better compared to the previous day. Currently saturating well on nasal cannula and denies any sob, chest discomfort at this time. PT evaluation done, no further intervention recommended upon discharge. - Constitutional Vitals: Temp Pulse Resp BP Pulse Ox 97.1 F L 61 16 122/49 94 08/13/16 07:57 08/13/16 09:00 08/13/16 07:57 08/13/16 07:57 08/13/16 07:57 General appearance: Present: A&O X 3, morbidly obese, pleasant, no acute distress, answers questions appropriately - Head Head exam: Present: atraumatic, normocephalic - Eye Eye exam: Present: normal appearance, conjuntiva pink, sclera anicteric - Respiratory Respiratory exam: Present: wheezes (bilateral expiratory wheezing, bibasilar crackles). Absent: respiratory distress - Cardiovascular Cardiovascular exam: Present: RRR, +S1, +S2. Absent: diastolic murmur, gallop, rubs, systolic murmur - GI/Abdominal GI/Abdominal exam: Present: normal bowel sounds, soft, no peritoneal signs. Absent: distended, tenderness - Extremities Exam Extremities exam: Present: pedal edema (mild bilateral pedal edema-improved from previous day), warm, radial pulses palpable and symetrical. Absent: calf tenderness, tenderness - Neurological Exam Neurological exam: Present: alert, oriented X3 - Psychiatric Psychiatric exam: Present: normal affect, normal mood Internal Medicine: Result - Labs CBC & Chem 7: 08/13/16 05:53 08/13/16 05:53 Labs: Short CBC 08/13/16 Range/Units 05:53 WBC 11.8 H (4.3-11.1) K/mcL Hgb 10.8 L (11.5-15.4) g/dL Hct 33.6 L (35.3-44.9) % Plt Count 263 (140-400) K/mcL Neutrophils # 8.5 (1.6-8.9) K/mcL BMP 08/12/16 08/12/16 08/13/16 07:35 11:09 05:53 Sodium 141 140 142 Potassium 3.6 3.5 3.5 Chloride 104 103 101 Carbon Dioxide 30 H 31 H 31 H BUN 29 H 29 H 28 H Creatinine 1.54 H 1.66 H 1.54 H Glucose 101 H 123 H 99 Calcium 8.1 L 8.1 L 8.7 Liver Function 08/12/16 08/13/16 Range/Units 11:09 05:53 Total Bilirubin 0.5 0.6 (0.2-1.2) mg/dL AST 8 7 (5-34) Units/L ALT < 6 < 6 (0-55) Units/L Alkaline Phosphatase 105 107 (38-126) Units/L Albumin 3.0 L 2.9 L (3.5-5.0) g/dL - ABG Interpretation ABG results: ABG ABG pH 7.35 pH Units (7.32-7.45) D 08/10/16 09:51 ABG pCO2 49 mmHg (35-45) H 08/10/16 09:51 ABG pO2 93 mmHg (85-104) 08/10/16 09:51 ABG O2 Saturation 97 % (95-98) 08/10/16 09:51 PT/INR, D-dimer PT 11.8 Seconds (9.4-12.1) 08/07/16 15:33 - VTE Documentation of Mechanical Device: Intermittent pneumatic compression device Consult Discharge Plan - Plan Referrals: Demetrius Smith MD [Primary Care Provider] - 08/22/16 1:20 pm (Please follow up as schedule..)
[2016-08-13] MEDS: Vancomycin 1,000 MG in D5% in Water 250 ML IVPB SCH (11:37)
[2016-08-13] MEDS: clonazePAM 1 MG TABLET PO PRN (20:10)
[2016-08-14] MEDS: Piperacillin/Tazobactam 3.375 GM in D5% in Water (Mini-Bag+) 100 ML IVPB SCH ×2 (01:18→09:09)
[2016-08-14 03:39] LABS: Basophils % 0.4 %; Eosinophils # 0.3 K/mcL (0.0-0.6); Eosinophils % 2.5 %; Hematocrit 33.8 % (35.3-44.9); Immature Granulocytes % 1.4 % (0-4); Lymphocytes # 1.5 K/mcL (0.6-4.6); Mean Corpuscular HGB Conc 32.5 g/dL (31.6-35.5); Mean Corpuscular Hemoglobin 29.9 pg (28.0-33.3); Mean Corpuscular Volume 91.8 fL (83.0-100.0); Mean Platelet Volume 9.9 fL (9.4-12.4); Monocytes # 0.9 K/mcL (0.0-1.3); Monocytes % 9.5 %; Platelet Count 257 K/mcL (140-400); Red Blood Count 3.68 M/mcL (3.82-4.97); Red Cell Distribution Width 14.6 % (11.5-14.5); Segmented Neutrophils % 71.2 %
[2016-08-14 03:56] LABS: Potassium 3.7 mEq/L (3.5-4.5)
[2016-08-14 03:57] LABS: Calcium 8.5 mg/dL (8.6-10.8); Magnesium 1.7 mg/dL (1.6-2.6); Phosphorous 4.2 mg/dL (2.3-4.7)
[2016-08-14] MEDS: Ipratropium/Albuterol Neb 3 ML IH SCH ×6 (03:59→23:25)
[2016-08-14] MEDS: *HR* Heparin 5,000 UNIT/ML VIAL SQ SCH ×2 (06:34→17:36)
[2016-08-14] MEDS: Sennosides 8.6 MG TABLET PO SCH ×2 (09:08→20:33)
[2016-08-14] MEDS: Bumetanide 1 MG TABLET PO SCH ×2 (09:08→17:36)
[2016-08-14] MEDS: Ranolazine 500 MG TAB.ER.12H PO SCH ×2 (09:08→20:33)
[2016-08-14] MEDS: Isosorbide MONOnitrate (24 HR) 60 MG TAB.ER.24H PO SCH ×2 (09:08→20:33)
[2016-08-14] MEDS: Carbidopa/Levodopa ER 50/200 TABLET PO SCH ×2 (09:09→20:34)
[2016-08-14] MEDS ORDERED: Aminoglycoside Consult 1 EACH MC ONE (09:10)
--- NOTE | 2016-08-14 10:29 | Nephrology Progress Note ---
Date of Encounter: 08/14/16 Time of Encounter: 10:20 - Assessment and Plan (1) TAIWO (acute kidney injury) Current Visit: Yes Status: Acute Acute on Chronic Renal failure; Hemodynamic mediated secondary to borderline low BP on admission. Serum cr is stable at baseline, nonoliguric. Continue Bumex 2 mg twice a day and KCl 10 meq a day CHF secondary to diastolic dysfunction, stable clinically. h/o copd. Health care associated pneumonia Subjective Principal diagnosis: Chest pain, TAIWO, mild troponin Interval history: Stable overnight, feels better, denies cough this morning BP stable, on 2 lts nasal canula, in neg fluid balance 660 ml. UO 1.4 lts Objective - Vital Signs Vital signs: Vital Signs Temp Pulse Resp BP Pulse Ox 08/14/16 08:12 16 88 08/14/16 07:02 97.9 F 58 16 109/46 93 08/14/16 05:01 64 16 99 08/14/16 03:26 97.7 F 63 16 133/68 99 08/14/16 01:06 98.0 F 60 16 115/50 96 08/14/16 00:05 67 08/13/16 23:22 16 94 08/13/16 20:11 16 97 08/13/16 19:04 97.8 F 65 15 124/56 97 08/13/16 16:24 16 110/51 100 08/13/16 16:04 98.2 F 67 16 110/51 97 08/13/16 12:08 97.4 F L 59 16 111/54 95 08/13/16 12:00 59 08/13/16 11:38 19 122/49 98 Intake and Output 08/13/16 08/14/16 08/14/16 23:59 07:59 15:59 Intake Total 570 / 570 100 / 100 120 / 120 Output Total 200 / 200 Balance 370 / 370 100 / 100 120 / 120 Intake: IV Fluids 100 / 100 100 / 100 Zosyn 3.375 GM In 100 / 100 100 / 100 Dextrose 5% (Minibag+) 100 ML 100 ML @ 25 mls/hr IVPB Q8HR [facility] Rx#: [id number] Oral 470 / 470 0 / 0 120 / 120 Output: Urine 200 / 200 Other: Meal Dinner Breakfast Percent of Meal Consumed 100% 100% # Voids 1 Weight 86.8 kg Blood Glucose* 168 Patient Weight 08/14/16 23:59 Weight 86.8 kg - General Appearance Exam: CVS; s1s2 present, regular, no murmurs RESP; good air entry, scattered expiratory wheezing ABD; soft, NT, BS present, no organomegaly, no bruits EXT; no edema - Lab 08/14/16 03:12 08/14/16 03:12 Most recent lab results ABG pH 7.35 pH Units (7.32-7.45) D 08/10/16 09:51 ABG pCO2 49 mmHg (35-45) H 08/10/16 09:51 ABG pO2 93 mmHg (85-104) 08/10/16 09:51 ABG HCO3 27.1 mEQ/L (21-27) H 08/10/16 09:51 ABG O2 Saturation 97 % (95-98) 08/10/16 09:51 Calcium 8.5 mg/dL (8.6-10.8) L 08/14/16 03:12 Phosphorus 4.2 mg/dL (2.3-4.7) 08/14/16 03:12 Magnesium 1.7 mg/dL (1.6-2.6) 08/14/16 03:12 - VTE Documentation of Mechanical Device: Intermittent pneumatic compression device Consult Discharge Plan - Plan Referrals: Demetrius Smith MD [Primary Care Provider] - 08/22/16 1:20 pm (Please follow up as schedule..)
--- NOTE | 2016-08-14 11:33 | Internal Med Progress Note ---
Date of Encounter: 08/14/16 Time of Encounter: 11:31 - Assessment and plan (1) Acute exacerbation of CHF (congestive heart failure) Current Visit: Yes Status: Acute Assessment and plan: Noted to be in volume overload Improved with diuretic and bipap support continue diuretic therapy monitor I/Os, daily weights fluid restriction diet to 1.5L/D continue O2 supplementation bipap support as needed PT eval noted pt encouraged to get out of bed to chair and ambulate with assistance Discharge in am Qualifiers: Congestive heart failure type: diastolic Qualified Code(s): I50.33 - Acute on chronic diastolic (congestive) heart failure (2) HCAP (healthcare-associated pneumonia) Current Visit: Yes Status: Acute Assessment and plan: Clinically improved Blood Cx prelim: NGTD Will de-escalate therapy to Levaquin to complete therapy for a total of 5 days follow up official blood culture report. (3) CKD (chronic kidney disease) stage 3, GFR 30-59 ml/min Current Visit: No Status: Chronic Assessment and plan: Nephrology consultation appreciated REnal function appears to be at baseline Will continue to monitor. renal US shows no obstruction. (4) COPD (chronic obstructive pulmonary disease) Current Visit: No Status: Chronic Assessment and plan: stable. not in exacerbation. bronchodilators as needed Qualifiers: COPD type: unspecified COPD Qualified Code(s): J44.9 - Chronic obstructive pulmonary disease, unspecified (5) DVT prophylaxis Current Visit: No Status: Acute Assessment and plan: Heparin SQ (6) Parkinson disease Current Visit: Yes Status: Chronic Assessment and plan: continue home medications (7) Hypotension Current Visit: Yes Status: Acute Assessment and plan: BP improved Pt currently tolerating lower dose of BB well Will continue to closely monitor Qualifiers: Hypotension type: unspecified hypotension type Qualified Code(s): I95.9 - Hypotension, unspecified - Subjective Interval history: Pt seen and examined at bedside. Reports of feeling better and denies any discomfort at this time. States she is not able to go home today because there is no one available to be with her or take her. REquests that her discharge be delayed until am. PT evaluation done, no further intervention recommended upon discharge. - Constitutional Vitals: Temp Pulse Resp BP Pulse Ox 97.9 F 58 16 109/46 88 08/14/16 07:02 08/14/16 07:02 08/14/16 08:12 04/02/17 07:02 08/14/16 08:12 General appearance: Present: A&O X 3, morbidly obese, pleasant, no acute distress, answers questions appropriately - Head Head exam: Present: atraumatic, normocephalic - Eye Eye exam: Present: normal appearance, conjuntiva pink, sclera anicteric - Respiratory Respiratory exam: Present: CTAB. Absent: respiratory distress, wheezes - Cardiovascular Cardiovascular exam: Present: RRR, +S1, +S2. Absent: diastolic murmur, gallop, rubs, systolic murmur - GI/Abdominal GI/Abdominal exam: Present: normal bowel sounds, soft, no peritoneal signs. Absent: distended, tenderness - Extremities Exam Extremities exam: Present: warm, radial pulses palpable and symetrical. Absent : calf tenderness, cyanotic, pedal edema - Neurological Exam Neurological exam: Present: alert, oriented X3 - Psychiatric Psychiatric exam: Present: normal affect, normal mood Internal Medicine: Result - Labs CBC & Chem 7: 08/14/16 03:12 08/14/16 03:12 Labs: Short CBC 08/14/16 Range/Units 03:12 WBC 9.9 (4.3-11.1) K/mcL Hgb 11.0 L (11.5-15.4) g/dL Hct 33.8 L (35.3-44.9) % Plt Count 257 (140-400) K/mcL Neutrophils # 7.0 (1.6-8.9) K/mcL BMP 08/14/16 03:12 Sodium 140 Potassium 3.7 Chloride 100 Carbon Dioxide 30 H BUN 25 H Creatinine 1.43 H Glucose 113 H Calcium 8.5 L - ABG Interpretation ABG results: ABG ABG pH 7.35 pH Units (7.32-7.45) D 08/10/16 09:51 ABG pCO2 49 mmHg (35-45) H 08/10/16 09:51 ABG pO2 93 mmHg (85-104) 08/10/16 09:51 ABG O2 Saturation 97 % (95-98) 08/10/16 09:51 PT/INR, D-dimer PT 11.8 Seconds (9.4-12.1) 08/07/16 15:33 - VTE Documentation of Mechanical Device: Intermittent pneumatic compression device Consult Discharge Plan - Plan Referrals: Demetrius Smith MD [Primary Care Provider] - 08/22/16 1:20 pm (Please follow up as schedule..)
[2016-08-14 14:17] LABS: Bilirubin,Urine Negative (Negative); Blood,Urine Negative (Negative); Clarity,Urine Clear (Clear); Color,Urine Yellow (Yellow); Glucose,Urine (UA) Normal (Normal); Ketones,Urine Negative (Negative); Leukocyte Esterase,Urine Negative (Negative); Nitrite,Urine Negative (Negative); PH,Urine 7.5 pH Units (5.0-8.0); Protein,Urine Negative (Neg-Trace); Specific Gravity,Urine 1.013 (1.010-1.025); Urobilinogen,Urine Normal (Normal)
[2016-08-14] MEDS: levoFLOXacin 500 MG TABLET PO SCH (14:35)
[2016-08-14] MEDS: clonazePAM 1 MG TABLET PO PRN (20:34)
[2016-08-15 03:42] LABS: Basophils % 0.3 %; Eosinophils # 0.2 K/mcL (0.0-0.6); Eosinophils % 1.8 %; Hemoglobin 10.6 g/dL (11.5-15.4); Immature Granulocytes % 1.5 % (0-4); Lymphocytes # 1.7 K/mcL (0.6-4.6); Lymphocytes % 15.8 %; Mean Corpuscular HGB Conc 32.1 g/dL (31.6-35.5); Mean Corpuscular Hemoglobin 29.4 pg (28.0-33.3); Mean Corpuscular Volume 91.4 fL (83.0-100.0); Monocytes % 9.4 %; Neutrophils # 7.7 K/mcL (1.6-8.9); Platelet Count 258 K/mcL (140-400); Red Blood Count 3.61 M/mcL (3.82-4.97); Red Cell Distribution Width 14.6 % (11.5-14.5); Segmented Neutrophils % 71.2 %
[2016-08-15 03:51] LABS: Albumin 2.9 g/dL (3.5-5.0); Phosphorous 4.3 mg/dL (2.3-4.7); Potassium 3.5 mEq/L (3.5-4.5)
[2016-08-15] MEDS: Ipratropium/Albuterol Neb 3 ML IH SCH ×2 (04:14→08:40)
[2016-08-15] MEDS: *HR* Heparin 5,000 UNIT/ML VIAL SQ SCH (05:35)
[2016-08-15 07:07] VITALS: BP 120/53
--- NOTE | 2016-08-15 08:31 | Nephrology Progress Note ---
Date of Encounter: 08/15/16 Time of Encounter: 08:29 - Assessment and Plan (1) TAIWO (acute kidney injury) Current Visit: Yes Status: Acute Patient has acute kidney injury superimposed on chronic kidney disease in the setting of acute on chronic diastolic congestive heart failure. Serum creatinine had been at baseline. It is a bit higher today. I would suggest continuing the same diuretic regimen and rechecking her creatinine tomorrow. If it continues to increase and may need to make some adjustments in her diuretic dosage. (2) CKD (chronic kidney disease) stage 3, GFR 30-59 ml/min Current Visit: No Status: Chronic (3) Diastolic CHF Current Visit: No Status: Chronic Qualifiers: Congestive heart failure chronicity: chronic Qualified Code(s): I50.32 - Chronic diastolic (congestive) heart failure Subjective Principal diagnosis: Chest pain, TAIWO, mild troponin Interval history: Patient reports she is feeling better. She does notice some occasional wheezing. She reports she was able to ambulate yesterday without supplemental oxygen. She denies any peripheral edema or orthopnea. Her creatinine is a bit higher than it was yesterday. Objective - Vital Signs Vital signs: Vital Signs Temp Pulse Resp BP Pulse Ox 08/15/16 07:02 97.9 F 20 120/53 90 08/15/16 05:31 98.2 F 74 18 106/64 96 08/15/16 05:09 71 08/15/16 00:15 67 16 94 08/14/16 23:25 16 94 08/14/16 23:15 98.5 F 72 20 126/50 92 08/14/16 21:31 57 16 94 08/14/16 21:19 64 16 94 08/14/16 20:22 16 94 08/14/16 19:42 98.3 F 67 16 125/59 92 08/14/16 16:27 16 96 08/14/16 16:00 69 08/14/16 12:05 98.1 F 67 16 109/50 96 08/14/16 11:01 16 95 Intake and Output 08/14/16 08/15/16 08/15/16 23:59 07:59 15:59 Intake Total 1100 / 1100 225 / 225 Output Total 1100 / 1100 600 / 600 Balance 0 / 0 -375 / -375 Intake: Oral 1100 / 1100 225 / 225 Output: Urine 1100 / 1100 600 / 600 Other: Meal 2 packs bharti crackers Percent of Meal Consumed 100% 0% Weight 86.6 kg Patient Weight 08/15/16 23:59 Weight 86.6 kg - General Appearance Exam: Patient is alert and oriented. She denies acute distress. Lungs symmetric breath sounds otherwise clear. No rales or wheezing or rhonchi. Heart regular rate and rhythm. Abdomen is benign. There is no peripheral edema. - Lab 08/15/16 03:10 08/15/16 03:10 Most recent lab results ABG pH 7.35 pH Units (7.32-7.45) D 08/10/16 09:51 ABG pCO2 49 mmHg (35-45) H 08/10/16 09:51 ABG pO2 93 mmHg (85-104) 08/10/16 09:51 ABG HCO3 27.1 mEQ/L (21-27) H 08/10/16 09:51 ABG O2 Saturation 97 % (95-98) 08/10/16 09:51 Calcium 9.0 mg/dL (8.6-10.8) 08/15/16 03:10 Phosphorus 4.3 mg/dL (2.3-4.7) 08/15/16 03:10 Magnesium 1.9 mg/dL (1.6-2.6) 08/15/16 03:10 - VTE Documentation of Mechanical Device: Intermittent pneumatic compression device Consult Discharge Plan - Plan Referrals: Demetrius Smith MD [Primary Care Provider] - 08/22/16 1:20 pm (Please follow up as schedule..)
[2016-08-15] MEDS: Bumetanide 1 MG TABLET PO SCH (08:43)
[2016-08-15] MEDS: Ranolazine 500 MG TAB.ER.12H PO SCH (08:43)
[2016-08-15] MEDS: Sennosides 8.6 MG TABLET PO SCH (08:43)
[2016-08-15] MEDS: levoFLOXacin 500 MG TABLET PO SCH (08:44)
[2016-08-15] MEDS: Carbidopa/Levodopa ER 50/200 TABLET PO SCH (08:44)
[2016-08-15] MEDS: Isosorbide MONOnitrate (24 HR) 60 MG TAB.ER.24H PO SCH (08:44)
--- NOTE | 2016-08-15 10:43 | Discharge Summary ---
Date of Encounter: 08/15/16 Time of Encounter: 10:32 - Discharge Diagnosis (1) Acute exacerbation of CHF (congestive heart failure) Priority: Primary Status: Acute Qualifiers: Congestive heart failure type: diastolic Qualified Code(s): I50.33 - Acute on chronic diastolic (congestive) heart failure (2) HCAP (healthcare-associated pneumonia) Priority: Secondary Status: Acute (3) CKD (chronic kidney disease) stage 3, GFR 30-59 ml/min Priority: Secondary Status: Chronic (4) COPD (chronic obstructive pulmonary disease) Priority: Secondary Status: Chronic Qualifiers: COPD type: unspecified COPD Qualified Code(s): J44.9 - Chronic obstructive pulmonary disease, unspecified (5) DVT prophylaxis Priority: Secondary Status: Acute (6) Parkinson disease Priority: Secondary Status: Chronic (7) Hypotension Priority: Secondary Status: Chronic Qualifiers: Hypotension type: unspecified hypotension type Qualified Code(s): I95.9 - Hypotension, unspecified - Discharge Medications Prescriptions: Levofloxacin [Levaquin] 500 mg PO DAILY #1 tablet Home Medications: Atorvastatin [Lipitor] 40 mg PO DAILY 03/25/15 [History] Clopidogrel [Plavix] 75 mg PO DAILY 03/25/15 [History] Diltiazem HCl [Diltiazem 24Hr Cd] 60 mg PO TID 03/25/15 [History] Isosorbide MONOnitrate [Isosorbide Mononitrate] 60 mg PO BID #0 03/25/15 [ History] Levothyroxine [Synthroid] 100 mcg PO DAILY #0 03/25/15 [History] Sertraline [Zoloft] 100 mg PO DAILY 03/25/15 [History] Ranolazine [Ranexa] 1,000 mg PO BID 06/15/15 [History] Omeprazole [PriLOSEC] 20 mg PO DAILY 08/02/15 [History] Spironolactone [Aldactone] 25 mg PO BID 08/02/15 [History] Carbidopa/Levodopa ER 50/200 [Sinemet ER 50-200 Tab] 1 each PO BID 03/31/16 [ History] Bumetanide [Bumex] 2 mg PO BIDDIURETIC tablet 08/15/16 [Rx] ClonazePAM [Klonopin] 1 mg PO TID PRN #0 tablet 08/15/16 [Rx] Levofloxacin [Levaquin] 500 mg PO DAILY #1 tablet 08/15/16 [Rx] Meclizine [Antivert] 12.5 mg PO TID PRN #0 tablet 08/15/16 [Rx] Allergies/Adverse Reactions: Allergies indomethacin [From Indocin] Allergy (Verified 03/31/16 09:52) Rash naproxen [From Naprosyn] Allergy (Verified 03/31/16 09:52) Rash IVP dye Allergy (Uncoded 03/31/16 09:52) Rash Date of admission: 08/07/16 19:59 Primary care physician: Demetrius Smith MD Consults: 08/07/16 20:03 Consult to Cardiology [CONS] Routine Comment: Consulting Provider: Cardiology Melba Reason for Consult: nstemi Time Notified: 20:04 Call Completed: No 08/07/16 22:32 Consult to Embedded Hardware Engineer [CONS] Routine Reason for SW Consult: has mague home o2 and cpap 08/12/16 15:43 Consult to Occupational Therapy [CONS] Routine Comment: Evaluate, develop and implement POC Consult to Physical Therapy [CONS] Routine Comment: Evaluate, develop and implement POC Discharging clinician: Nancy Groves Anticipated date of discharge: 08/15/16 - Patient Status Disposition: Home, Self-Care Condition: Good Functional capacity at discharge: uses cane/walker Overall status at discharge: patient is back to baseline - Discharge Instructions Follow Up With: Demetrius Smith MD [Primary Care Provider] - 08/22/16 1:20 pm (Please follow up as schedule..) Eliseo Huang DO [Non-Partnered Physician] - 08/23/16 12:00 pm Forms: ED Satisfaction Letter Additional Instructions: Please follow up with your primary care physician within five days after your discharge from the hospital. Please follow up with your farm mortgage agent within five days after your discharge from the hospital. Please get your blood work done prior to your appointment with your farm mortgage agent. Your home dose of Klonopin and Meclizine has been changed to as needed basis rather than a scheduled dose. Please take these medications on as needed basis. Please continue to take Levaquin as prescribed. Please resume all your home medications as prescribed by your primary care physician. - Diet and Activity Activity: resume usual activities as tolerated, wear oxygen at all times Diet: low salt diet Hospital course: Ms. Washburn is a 75 year old female with PMH of COPD on LTOT, CHF, GERD, HTN, CKD, Thyroid disease who was admitted for chest pain, robin on ckd, and hypotension. Patient was noted to be on multiple medications that could have been contributing to her hypotension which were discontinued and she was given IV fluids. Her chest pain resolved however her hospital course was further complicated with acute respiratory failure secondary to volume overload. She was started on diuretic therapy. She was also treated for PNA with empiric IV abx. Patient responded well to therapy. Her renal function remained within her baseline range and has been followed by nephrology. She was also evaluated by physical therapy and no further therapy was recommended upon discharge. At this time patient is hemodynamically stable, saturating well on nasal cannula, resolution of respiratory distress and chest pain. She will be discharged to home with follow up with PCP and nephrology. Patient demonstrates understanding of her diagnosis and agrees with the discharge care and plan. - Time Spent with Patient Total time spent providing and/or coordinating discharge services: Greater than 30 minutes - Constitutional Vitals: Temp Pulse Resp BP Pulse Ox 97.9 F 74 20 120/53 90 08/15/16 07:02 08/15/16 05:31 08/15/16 08:41 08/15/16 07:02 08/15/16 08:41 General appearance: Present: A&O X 3, morbidly obese, pleasant, no acute distress, answers questions appropriately - Head Head exam: Present: atraumatic, normocephalic - Eye Eye exam: Present: normal appearance, conjuntiva pink, sclera anicteric - Respiratory Respiratory exam: Present: CTAB. Absent: accessory muscle use, rales, rhonchi, wheezes - Cardiovascular Cardiovascular exam: Present: RRR, +S1, +S2. Absent: diastolic murmur, gallop, rubs, systolic murmur - GI/Abdominal GI/Abdominal exam: Present: normal bowel sounds, soft, no peritoneal signs. Absent: distended, tenderness - Extremities Exam Extremities exam: Present: warm, radial pulses palpable and symetrical. Absent : calf tenderness, cyanotic, pedal edema - Neurological Exam Neurological exam: Present: alert, oriented X3 - Psychiatric Psychiatric exam: Present: normal affect, normal mood - VTE Documentation of Mechanical Device: Intermittent pneumatic compression device
== END 2016-08-15 11:24 | disposition home or self-care (01) | DRG 682 ==
LOC: 2ANU 15:09 → EMEROO 15:09 → SUATTDRO 19:59 → 2ANU 20:24 → ICNU 08-10 08:16 → 2NNU 08-10 19:57
PROVIDERS: ADMIT Internal Medicine; ATTEND Internal Medicine

== ENCOUNTER 2016-09-14 12:56 | Inpatient (IN) ==
--- NOTE | 2016-09-14 13:09 | Emergency Department Note ---
Disposition Clinical Impression: Acute exacerbation of CHF (congestive heart failure) Disposition: Admitted As Inpatient Condition: Fair General Adult HPI - General Chief complaint: ED Shortness of Breath/Dyspnea Stated complaint: JOSE MANUEL Time Seen by Provider: 09/14/16 12:58 Source: patient Limitations: no limitations - History of Present Illness Pain Scale: 0 - Related Data Home Medications Medication Instructions Recorded Confirmed Atorvastatin [Lipitor] 40 mg PO DAILY 03/25/15 09/14/16 Clopidogrel [Plavix] 75 mg PO DAILY 03/25/15 09/14/16 Diltiazem HCl [Diltiazem 24Hr Cd] 60 mg PO TID 03/25/15 09/14/16 Isosorbide MONOnitrate [Isosorbide 60 mg PO BID #0 03/25/15 09/14/16 Mononitrate] Sertraline [Zoloft] 100 mg PO DAILY 03/25/15 09/14/16 Ranolazine [Ranexa] 1,000 mg PO BID 06/15/15 09/14/16 Omeprazole [PriLOSEC] 20 mg PO DAILY 08/02/15 09/14/16 Spironolactone [Aldactone] 25 mg PO BID 08/02/15 09/14/16 Carbidopa/Levodopa ER 50/200 1 tab PO BID 03/31/16 09/14/16 [Sinemet ER 50-200 Tab] Albuterol Neb [Proventil Neb] 2.5 mg IH Q4HR 09/14/16 09/14/16 Albuterol Sulfate [Proair Hfa] 2 puff IH Q4H PRN 09/14/16 09/14/16 Bumetanide [Bumex] 1 mg PO HS 09/14/16 09/14/16 Docusate [Colace] 100 mg PO DAILY 09/14/16 09/14/16 Estradiol [Estrace] 1 appl VG 2XW 09/14/16 09/14/16 Nitroglycerin [Nitrostat] 0.4 mg SL AD PRN 09/14/16 09/14/16 Sulfamethoxazole/Trimeth DS 1 tab PO BID 09/14/16 09/14/16 [Bactrim DS] Previous Rx's Medication Instructions Recorded Bumetanide [Bumex] 2 mg PO BIDDIURETIC tablet 08/15/16 ClonazePAM [Klonopin] 1 mg PO TID PRN #0 tablet 08/15/16 Meclizine [Antivert] 12.5 mg PO TID PRN #0 tablet 08/15/16 Allergies Allergy/AdvReac Type Severity Reaction Status Date / Time indomethacin [From Indocin] Allergy Rash Verified 03/31/16 09:52 naproxen [From Naprosyn] Allergy Rash Verified 03/31/16 09:52 IVP dye Allergy Rash Uncoded 03/31/16 09:52 Past Medical History - Past Medical History Medical history: Reports: CHF, COPD, fibromyalgia, GERD, hypertension, renal disease, thyroid disease, other Surgical history: Reports: cholecystectomy, hip replacement, hysterectomy Psychiatric history: Reports: depression MOTOR 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 CONNECTOR 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: Reports: no MOTOR POWER CONNECTOR history - Social History Smoking Status: Former smoker Smokeless Tobacco Status: No Alcohol use: Reports: none Drug use: Reports: none Physical Exam - General Limitations: no limitations General appearance: alert Course Vital Signs Temperature 98.4 F 09/14/16 12:58 Pulse Rate 73 09/14/16 12:58 Respiratory Rate 18 09/14/16 12:58 Blood Pressure 128/55 09/14/16 12:58 O2 Sat by Pulse Oximetry 94 09/14/16 12:58 Temperature 97.8 F 09/14/16 15:05 Pulse Rate 67 09/14/16 15:05 Respiratory Rate 18 09/14/16 16:41 Blood Pressure 127/72 09/14/16 15:05 O2 Sat by Pulse Oximetry 95 09/14/16 16:41 Oxygen Delivery Oxygen Delivery Nasal Cannula Medical Decision Making - Lab Data Result diagrams: 09/14/16 13:04 09/14/16 13:04 Lab Results 09/14/16 09/14/16 09/14/16 Range/Units 13:04 13:04 13:04 WBC 12.5 H (4.3-11.1) K/mcL RBC 3.81 L (3.82-4.97) M/mcL Hgb 11.3 L (11.5-15.4) g/dL Hct 34.4 L (35.3-44.9) % MCV 90.3 (83.0-100.0) fL MCH 29.7 (28.0-33.3) pg MCHC 32.8 (31.6-35.5) g/dL RDW 14.4 (11.5-14.5) % Plt Count 286 (140-400) K/mcL MPV 9.8 (9.4-12.4) fL Immature Gran % 0.9 (0-4) % Seg Neutrophils % 77.4 % Lymphocytes % 11.0 % Monocytes % 9.9 % Eosinophils % 0.5 % Basophils % 0.3 % Neutrophils # 9.7 H (1.6-8.9) K/mcL Lymphocytes # 1.4 (0.6-4.6) K/mcL Monocytes # 1.2 (0.0-1.3) K/mcL Eosinophils # 0.1 (0.0-0.6) K/mcL Basophils # 0.0 (0.0-0.2) K/mcL PT 13.7 H (9.4-12.1) Seconds INR 1.3 APTT 31.9 (26.0-36.0) Seconds Sodium 139 (136-145) mEq/L Potassium 3.8 (3.5-4.5) mEq/L Chloride 104 (98-109) mEq/L Carbon Dioxide 26 (19-29) mEq/L BUN 21 H (7-20) mg/dL Creatinine 1.47 H (0.57-1.11) mg/dL Est GFR ( Amer) 42 L (> 60) Est GFR (Non-Af Amer) 35 L (> 60) BUN/Creatinine Ratio 14 (6-26) Glucose 110 H (70-99) mg/dL Calculated Osmolality 292 (280-300) Calcium 8.7 (8.6-10.8) mg/dL Troponin I (0-0.03) ng/mL B-Natriuretic Peptide (0-100) pg/mL 09/14/16 09/14/16 Range/Units 13:04 13:04 WBC (4.3-11.1) K/mcL RBC (3.82-4.97) M/mcL Hgb (11.5-15.4) g/dL Hct (35.3-44.9) % MCV (83.0-100.0) fL MCH (28.0-33.3) pg MCHC (31.6-35.5) g/dL RDW (11.5-14.5) % Plt Count (140-400) K/mcL MPV (9.4-12.4) fL Immature Gran % (0-4) % Seg Neutrophils % % Lymphocytes % % Monocytes % % Eosinophils % % Basophils % % Neutrophils # (1.6-8.9) K/mcL Lymphocytes # (0.6-4.6) K/mcL Monocytes # (0.0-1.3) K/mcL Eosinophils # (0.0-0.6) K/mcL Basophils # (0.0-0.2) K/mcL PT (9.4-12.1) Seconds INR APTT (26.0-36.0) Seconds Sodium (136-145) mEq/L Potassium (3.5-4.5) mEq/L Chloride (98-109) mEq/L Carbon Dioxide (19-29) mEq/L BUN (7-20) mg/dL Creatinine (0.57-1.11) mg/dL Est GFR ( Amer) (> 60) Est GFR (Non-Af Amer) (> 60) BUN/Creatinine Ratio (6-26) Glucose (70-99) mg/dL Calculated Osmolality (280-300) Calcium (8.6-10.8) mg/dL Troponin I 0.01 (0-0.03) ng/mL B-Natriuretic Peptide 406 H (0-100) pg/mL Attestation Statement - Attestation Attestation: I examined this patient and my medical decision-making was reviewed with the THIRD MILLER/PA/Advanced Practice Nurse/Resident Physician. I agree with the documented findings, disposition and treatment plan as described except to the extent set forth below. [id number] time provided Patient complains of dyspnea. She has a history of oxygen dependency. Tachypneic at the time of my exam. Patient seen and evaluated in conjunction with the resident physician Dr. Rizvi
[2016-09-14 13:20] LABS: Basophils % 0.3 %; Eosinophils # 0.1 K/mcL (0.0-0.6); Eosinophils % 0.5 %; Hematocrit 34.4 % (35.3-44.9); Hemoglobin 11.3 g/dL (11.5-15.4); Immature Granulocytes % 0.9 % (0-4); Lymphocytes # 1.4 K/mcL (0.6-4.6); Mean Corpuscular HGB Conc 32.8 g/dL (31.6-35.5); Mean Corpuscular Hemoglobin 29.7 pg (28.0-33.3); Mean Corpuscular Volume 90.3 fL (83.0-100.0); Mean Platelet Volume 9.8 fL (9.4-12.4); Monocytes # 1.2 K/mcL (0.0-1.3); Monocytes % 9.9 %; Neutrophils # 9.7 K/mcL (1.6-8.9); Platelet Count 286 K/mcL (140-400); Red Blood Count 3.81 M/mcL (3.82-4.97); Red Cell Distribution Width 14.4 % (11.5-14.5); Segmented Neutrophils % 77.4 %
--- NOTE | 2016-09-14 13:27 | Emergency Department Note ---
Disposition Clinical Impression: Acute exacerbation of CHF (congestive heart failure) Qualifiers: Congestive heart failure type: unspecified congestive heart failure type Qualified Code(s): I50.9 - Heart failure, unspecified Disposition: Admitted As Inpatient Condition: Fair Referrals: Demetrius Smith MD [Primary Care Provider] - Forms: ED Satisfaction Letter Time of Disposition: 13:52 SOB HPI - General Chief Complaint: ED Shortness of Breath/Dyspnea Stated Complaint: JOSE MANUEL Time Seen by Provider: 09/14/16 12:58 Source: patient Mode of arrival: ambulatory Limitations: no limitations Nursing Notes Reviewed: Yes Vital Signs Reviewed: Yes - History of Present Illness Patient presents to the ED the chief complaint of shortness of breath and chest pain. Patient reports that she was admitted to the hospital for pneumonia approximately 1 month ago. She states she is discharged a few weeks ago. She does have oxygen at home but states she has been needing more unusual. She reports gradually increasing shortness of breath over this timeframe, but has been significantly worse in the past 2 days. She states that if she lays completely still that her pain will be fine. However, whenever she exerts herself in any way. She feels very short of breath and gets a centralized chest pressure and heaviness that is nonradiating. It resolves with a period of rest and increased oxygen, but will return with any exertion. She has no history of coronary artery disease. 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 She had a successful, and reportedly normal heart catheter from the left leg and subsequently was found to have a blockage in the right, which she said a stent. 4. She is on Plavix for this. She denies any headaches, changes in vision, vomiting, abdominal pain, diarrhea, pain in her legs. She has chronic swelling in her legs and does get nauseated at times. Sometimes she gets diaphoresis, but not all the time. Denies any fevers. - Related Data Home Medications Medication Instructions Recorded Confirmed Atorvastatin [Lipitor] 40 mg PO DAILY 03/25/15 08/08/16 Clopidogrel [Plavix] 75 mg PO DAILY 03/25/15 08/08/16 Diltiazem HCl [Diltiazem 24Hr Cd] 60 mg PO TID 03/25/15 08/08/16 Isosorbide MONOnitrate [Isosorbide 60 mg PO BID #0 03/25/15 08/08/16 Mononitrate] Levothyroxine [Synthroid] 100 mcg PO DAILY #0 03/25/15 08/08/16 Sertraline [Zoloft] 100 mg PO DAILY 03/25/15 08/08/16 Ranolazine [Ranexa] 1,000 mg PO BID 06/15/15 08/08/16 Omeprazole [PriLOSEC] 20 mg PO DAILY 08/02/15 08/08/16 Spironolactone [Aldactone] 25 mg PO BID 08/02/15 08/11/16 Carbidopa/Levodopa ER 50/200 1 each PO BID 03/31/16 08/08/16 [Sinemet ER 50-200 Tab] Previous Rx's Medication Instructions Recorded Bumetanide [Bumex] 2 mg PO BIDDIURETIC tablet 08/15/16 ClonazePAM [Klonopin] 1 mg PO TID PRN #0 tablet 08/15/16 Levofloxacin [Levaquin] 500 mg PO DAILY #1 tablet 08/15/16 Meclizine [Antivert] 12.5 mg PO TID PRN #0 tablet 08/15/16 Allergies Allergy/AdvReac Type Severity Reaction Status Date / Time indomethacin [From Indocin] Allergy Rash Verified 03/31/16 09:52 naproxen [From Naprosyn] Allergy Rash Verified 03/31/16 09:52 IVP dye Allergy Rash Uncoded 03/31/16 09:52 All systems ED: reviewed and negative except as stated. Constitutional: Reports: weakness (generalized ) Cardiovascular: Reports: chest pain, dyspnea on exertion Respiratory: Reports: cough (Occasionally), dyspnea. Denies: sputum production Gastrointestinal: Reports: nausea. Denies: abdominal pain, vomiting Integumentary: Denies: rash Neurological: Denies: headache Endocrine: Reports: fatigue Past Medical History - Past Medical History Attestation: Yes The following information was validated with the patient. 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: Reports: no FISHING WORKER history - Social History Smoking Status: Former smoker Smokeless Tobacco Status: No Alcohol use: Reports: none Drug use: Reports: none Physical Exam - General Limitations: no limitations General appearance: alert, in no apparent distress - Head Head exam: atraumatic, normocephalic, normal inspection - Eye Eye exam: Present: normal appearance, PERRL, EOMI - ENT ENT exam: normal exam, normal oropharynx, mucous membranes moist - Neck Neck exam: Present: normal inspection, full ROM, trachea midline - Chest Chest inspection: Present: normal inspection, symmetric chest wall rise - Respiratory Respiratory exam: Present: other (Decreased breath sounds throughout). Absent: normal lung sounds bilaterally - Cardiovascular Cardiovascular exam: Present: regular rate, normal heart sounds - Abdominal Exam Abdominal exam: Present: soft, Non-Tender - Extremities Exam Extremities exam: Present: full ROM, normal capillary refill, pedal edema ( Nonpitting) - Neurological Exam Neurological exam: Present: alert, oriented X3 - Psychiatric Psychiatric exam: Present: normal affect, normal mood - Skin Skin exam: Present: warm, dry, intact, normal color Course Course Narrative: 75 -year-old female presenting with exertional chest pain and shortness of breath. No history of coronary artery disease, but is unsure why last heart catheter was, states it was recent. She looks well, but is tachypnic. Will gets labs and admit - Reevaluation(s) Reevaluation #1: Labs are back. Troponin is normal. BNP is elevated. Creatinine about baseline. Slight leukocytosis. Chest x-ray with mild pulmonary edema consistent with CHF exacerbation. Will admit. Vital Signs Temperature 98.4 F 09/14/16 12:58 Pulse Rate 73 09/14/16 12:58 Respiratory Rate 18 09/14/16 12:58 Blood Pressure 128/55 09/14/16 12:58 O2 Sat by Pulse Oximetry 94 09/14/16 12:58 Temperature 98.4 F 09/14/16 12:58 Pulse Rate 73 09/14/16 12:58 Respiratory Rate 18 09/14/16 12:58 Blood Pressure 128/55 09/14/16 12:58 O2 Sat by Pulse Oximetry 94 09/14/16 12:58 Oxygen Delivery Oxygen Delivery Room Air Shortness of Breath/Dyspnea - Lab Data Result diagrams: 09/14/16 13:04 09/14/16 13:04 Lab Results 09/14/16 09/14/1609/14/17 Range/Units 13:04 13:04 13:04 WBC 12.5 H (4.3-11.1) K/mcL RBC 3.81 L (3.82-4.97) M/mcL Hgb 11.3 L (11.5-15.4) g/dL Hct 34.4 L (35.3-44.9) % MCV 90.3 (83.0-100.0) fL MCH 29.7 (28.0-33.3) pg MCHC 32.8 (31.6-35.5) g/dL RDW 14.4 (11.5-14.5) % Plt Count 286 (140-400) K/mcL MPV 9.8 (9.4-12.4) fL Immature Gran % 0.9 (0-4) % Seg Neutrophils % 77.4 % Lymphocytes % 11.0 % Monocytes % 9.9 % Eosinophils % 0.5 % Basophils % 0.3 % Neutrophils # 9.7 H (1.6-8.9) K/mcL Lymphocytes # 1.4 (0.6-4.6) K/mcL Monocytes # 1.2 (0.0-1.3) K/mcL Eosinophils # 0.1 (0.0-0.6) K/mcL Basophils # 0.0 (0.0-0.2) K/mcL PT 13.7 H (9.4-12.1) Seconds INR 1.3 APTT 31.9 (26.0-36.0) Seconds Sodium 139 (136-145) mEq/L Potassium 3.8 (3.5-4.5) mEq/L Chloride 104 (98-109) mEq/L Carbon Dioxide 26 (19-29) mEq/L BUN 21 H (7-20) mg/dL Creatinine 1.47 H (0.57-1.11) mg/dL Est GFR ( Amer) 42 L (> 60) Est GFR (Non-Af Amer) 35 L (> 60) BUN/Creatinine Ratio 14 (6-26) Glucose 110 H (70-99) mg/dL Calculated Osmolality 292 (280-300) Calcium 8.7 (8.6-10.8) mg/dL Troponin I (0-0.03) ng/mL B-Natriuretic Peptide (0-100) pg/mL 09/14/16 09/14/16 Range/Units 13:04 13:04 WBC (4.3-11.1) K/mcL RBC (3.82-4.97) M/mcL Hgb (11.5-15.4) g/dL Hct (35.3-44.9) % MCV (83.0-100.0) fL MCH (28.0-33.3) pg MCHC (31.6-35.5) g/dL RDW (11.5-14.5) % Plt Count (140-400) K/mcL MPV (9.4-12.4) fL Immature Gran % (0-4) % Seg Neutrophils % % Lymphocytes % % Monocytes % % Eosinophils % % Basophils % % Neutrophils # (1.6-8.9) K/mcL Lymphocytes # (0.6-4.6) K/mcL Monocytes # (0.0-1.3) K/mcL Eosinophils # (0.0-0.6) K/mcL Basophils # (0.0-0.2) K/mcL PT (9.4-12.1) Seconds INR APTT (26.0-36.0) Seconds Sodium (136-145) mEq/L Potassium (3.5-4.5) mEq/L Chloride (98-109) mEq/L Carbon Dioxide (19-29) mEq/L BUN (7-20) mg/dL Creatinine (0.57-1.11) mg/dL Est GFR ( Amer) (> 60) Est GFR (Non-Af Amer) (> 60) BUN/Creatinine Ratio (6-26) Glucose (70-99) mg/dL Calculated Osmolality (280-300) Calcium (8.6-10.8) mg/dL Troponin I 0.01 (0-0.03) ng/mL B-Natriuretic Peptide 406 H (0-100) pg/mL
[2016-09-14 13:28] LABS: INR 1.3; Prothrombin Time 13.7 Seconds (9.4-12.1)
[2016-09-14 13:31] LABS: Activated Partial Thrombo Time 31.9 Seconds (26.0-36.0)
[2016-09-14 13:33] LABS: Calcium 8.7 mg/dL (8.6-10.8); Potassium 3.8 mEq/L (3.5-4.5)
[2016-09-14] MEDS ORDERED: Naloxone 0.4 MG/ML INJ IVP PRN (15:39)
[2016-09-14] MEDS ORDERED: Nitroglycerin 0.4 MG TAB.SUBL SL PRN (15:44)
--- NOTE | 2016-09-14 15:52 | Internal Med History&Physical ---
Date of Encounter: 09/14/16 Time of Encounter: 15:48 Assessment and Plan (1) Acute exacerbation of CHF (congestive heart failure) Current visit: Yes Status: Acute 1. To be mild exacerbation [id number] chest x-ray with some mild pulmonary edema no lower extremity edema has been expressing increasing shortness of breath requiring more oxygen use. She states she has been compliant with medications as well as fluid restrictions. We will continue with 1500 mL fluid restriction 2 we will give 40 mg Lasix daily hold Bumex his prolactin for now 3 monitor intake and output daily weights 4 continue with cardiac diet 5 continuous cardiac monitoring 6 oxygen to maintain SPO2 greater than 92% Qualifiers: Congestive heart failure type: diastolic Qualified Code(s): I50.33 - Acute on chronic diastolic (congestive) heart failure (2) COPD (chronic obstructive pulmonary disease) Current visit: No Status: Acute 1 patient does have scattered wheezes throughout lung [place]. We will continue with oxygen maintaining SPO2 greater than 92% 2 continue with bronchodilators Qualifiers: COPD type: unspecified COPD Qualified Code(s): J44.9 - Chronic obstructive pulmonary disease, unspecified (3) Parkinson disease Current visit: No Status: Chronic 1 continue with home medications (4) DVT prophylaxis Current visit: Yes Status: Acute 1 heparin subcutaneous (5) CAD (coronary artery disease) Current visit: No Status: Chronic 1 continue with Plavix Imdur and Ranexa statin 2 cardiac diet 3 continuous cardiac monitoring 4 oxygen as needed to maintain SPO2 greater than 92% 5 nitroglycerin as needed for chest pain Qualifiers: Coronary Disease-Associated Artery/Lesion type: [place] artery [place] vs. transplanted heart: [place] heart Associated angina: without angina Qualified Code(s): I25.10 - Atherosclerotic heart disease of [place] coronary artery without angina pectoris (6) HTN (hypertension) Current visit: No Status: Chronic Continue with home medications goals to maintain systolic less than 140 2 low sodium diet Qualifiers: Hypertension type: essential hypertension Qualified Code(s): I10 - Essential (primary) hypertension Internal Medicine - H&P: HPI Chief complaint: sob Admitted From: Emergency Dept Plans for Post Hospital Care: Home History of present illness: Ms. Washburn is a 75 year old female whose medical history of diastolic heart failure C KDC is hypothyroid GERD osteoarthritis Parkinson's disease COPD. According to the patient she has been experiencing increasing shortness of breath on exertion over the past 3 days. She normally wears oxygen at night however she is required to use it throughout the day and take multiple rests to catch her breath. She has been using her rescue inhaler as well as albuterol treatments with little relief. Patient was recently hospitalized for exacerbation of heart failure as well as community-acquired pneumonia. She was sent home on antibiotics which she states she has completed. Since she has been compliant with all her medications as well as her fluid restrictions and has been watching her sodium intake. She denies any unusual weight gain or edema. She does have occasional wheeze as well as productive cough of clear sputum. She denies any fevers chills nausea vomiting diarrhea. Patient does complain of midsternal chest pain when she coughs she states she feels like she needs to cough something up. Patient presented to the ER with above complaints. According to ER records and lab work revealed diabetes C 12.5 crit and 1.47 troponin 0.01 BNP 406 chest x-ray did show some mild pulmonary edema. She is admitted for further workup evaluation. Presently patient denies any chest pain or dryness of breath. Lungs sounds with scattered wheezes throughout lung [place]lett. Cardiac sounds are regular S1-S2 no rubs gallops or clicks or murmurs noted. No pedal edema she does not appear to be in respiratory distress. Last echo on 08/08/16 revealed EF of 60%. She has a left heart catheter in September 2011 which was nonobstructive coronary disease. Cardiac stress test 07/28 negative for any ischemia. Reviewed this case with Dr. Diamond who agrees with plan Past Med Surg Social Fam HX - Past Medical History Medical history: CHF, COPD, fibromyalgia, GERD, hypertension, renal disease, thyroid disease, other Psychiatric history: depression - Past Surgical History Surgical History: cholecystectomy, hip replacement, hysterectomy - Social History Smoking Status: Former smoker Smokeless Tobacco Status: No Alcohol use: none Drug use: none - Family History Mother Living Status: Hx Family Cardiac Disorders: Yes (Heart disease, vascular disease) Hx Family Endocrine Disorder: Yes (DM) Father Living Status: Hx Family Cardiac Disorders: Yes (IA) Internal Medicine - H&P: Meds Atorvastatin [Lipitor] 40 mg PO DAILY 03/25/15 [History] Clopidogrel [Plavix] 75 mg PO DAILY 03/25/15 [History] Diltiazem HCl [Diltiazem 24Hr Cd] 60 mg PO TID 03/25/15 [History] Isosorbide MONOnitrate [Isosorbide Mononitrate] 60 mg PO BID #0 03/25/15 [ History] Sertraline [Zoloft] 100 mg PO DAILY 03/25/15 [History] Ranolazine [Ranexa] 1,000 mg PO BID 06/15/15 [History] Omeprazole [PriLOSEC] 20 mg PO DAILY 08/02/15 [History] Spironolactone [Aldactone] 25 mg PO BID 08/02/15 [History] Carbidopa/Levodopa ER 50/200 [Sinemet ER 50-200 Tab] 1 tab PO BID 03/31/16 [ History] Bumetanide [Bumex] 2 mg PO BIDDIURETIC tablet 08/15/16 [Rx] ClonazePAM [Klonopin] 1 mg PO TID PRN #0 tablet 08/15/16 [Rx] Meclizine [Antivert] 12.5 mg PO TID PRN #0 tablet 08/15/16 [Rx] Albuterol Neb [Proventil Neb] 2.5 mg IH Q4HR 09/14/16 [History] Albuterol Sulfate [Proair Hfa] 2 puff IH Q4H PRN 09/14/16 [History] Bumetanide [Bumex] 1 mg PO HS 09/14/16 [History] Docusate [Colace] 100 mg PO DAILY 09/14/16 [History] Estradiol [Estrace] 1 appl VG 2XW 09/14/16 [History] Nitroglycerin [Nitrostat] 0.4 mg SL AD PRN 09/14/16 [History] Sulfamethoxazole/Trimeth DS [Bactrim DS] 1 tab PO BID 09/14/16 [History] Allergies indomethacin [From Indocin] Allergy (Verified 03/31/16 09:52) Rash naproxen [From Naprosyn] Allergy (Verified 03/31/16 09:52) Rash IVP dye Allergy (Uncoded 03/31/16 09:52) Rash All Systems PM: A 10-system review of systems was performed and is negative for pertinent findings except as documented above in the HPI. - Constitutional Constitutional: fatigue - Cardiovascular Cardiovascular ROS IM: chest pain - Respiratory Respiratory: cough, dyspnea on exertion, wheezing, pain with cough, no dyspnea, no excessive phlegm production - Gastrointestinal Gastrointestinal: no abdominal pain, no diarrhea, no hematemesis, no hematochezia, no melena, no nausea, no vomiting - Genitourinary Genitourinary: no change in urinary stream, no dysuria, no flank pain, no hematuria - Musculoskeletal Musculoskeletal ROS IM: no numbness, no tingling - Neurological Neurological ROS: no confusion, no convulsions, no focal weakness, no numbness, no tingling, no tremor(s) - Hematologic/Lymphatic Hematologic/Lymphatic: no easy bruising - Constitutional Vitals: Temp Pulse Resp BP Pulse Ox 97.8 F 67 20 127/72 95 09/14/16 15:05 09/14/16 15:05 09/14/16 15:05 09/14/16 15:05 09/14/16 15:05 General appearance: Present: A&O X 3 - Head Head exam: Present: atraumatic, normocephalic - Eye Eye exam: Present: PERRL, conjuntiva pink, sclera anicteric Pupils: Present: PERRL - Neck Neck exam general surgery: Present: supple, trachea midline. Absent: lymphadenopathy - Respiratory Respiratory exam: Present: wheezes. Absent: accessory muscle use, rales, rhonchi - Cardiovascular Cardiovascular exam: Present: RRR, +S1, +S2. Absent: diastolic murmur, gallop, rubs, systolic murmur - GI/Abdominal GI/Abdominal exam: Present: normal bowel sounds, soft, no peritoneal signs. Absent: distended, tenderness - Extremities Exam Extremities exam: Present: warm, radial pulses palpable and symetrical. Absent : calf tenderness, cyanotic, pedal edema - Neurological Exam Neurological exam: Present: CN II-XII intact, oriented X3, no focal deficits. Absent: pronater drift, facial droop, speech deficit - Skin Skin exam: Present: dry, intact Internal Med - H&P Results - Labs CBC & Chem 7: 09/14/16 13:04 09/14/16 13:04 - EKG Data EKG shows normal: sinus rhythm - Diagnostic Studies Chest x-ray Additional comments: Chest X-Ray 09/14/16 13:14 IMPRESSION: Interstitial opacities in the lung bases, suspected pulmonary edema. There may be small pleural effusions as well. Findings are mildly increase compared to 08/11/2016. As differential, atypical infection, such as viral or mycoplasma etiology are considered. D/ / Flo Leggett MD / Flo Leggett MD Interpreting Provider: Flo Leggett MD
--- NOTE | 2016-09-14 15:59 | Event Note ---
Date of Encounter: 09/14/16 Time of Encounter: 15:56 Patient seen and examined with nurse practitioner. Mild CHF exacerbation will give IV Lasix 40 mg daily. No evidence of pneumonia. She is requiring more oxygen compared to baseline. Observation admission. Expected stay 1 to 2 days.
[2016-09-14] MEDS: Ipratropium/Albuterol Neb 3 ML IH SCH ×2 (16:37→22:22)
[2016-09-14] MEDS: Furosemide 40 MG/4 ML VIAL IVP SCH (16:51)
[2016-09-14] MEDS: *HR* Heparin 5,000 UNIT/ML VIAL SQ SCH (16:52)
[2016-09-14] MEDS: Acetaminophen 325 MG TABLET PO PRN (19:06)
[2016-09-14] MEDS: Sulfamethoxazole/Trimeth DS 1 EACH TABLET PO SCH (20:14)
[2016-09-14] MEDS: Ranolazine 500 MG TAB.ER.12H PO SCH (20:14)
[2016-09-14] MEDS: clonazePAM 1 MG TABLET PO PRN (20:14)
[2016-09-14] MEDS: Isosorbide MONOnitrate (24 HR) 60 MG TAB.ER.24H PO SCH (20:14)
[2016-09-14] MEDS: Carbidopa/Levodopa ER 50/200 TABLET PO SCH (20:35)
[2016-09-15 00:59] LABS: Basophils % 0.2 %; Eosinophils # 0.1 K/mcL (0.0-0.6); Eosinophils % 0.8 %; Hematocrit 30.2 % (35.3-44.9); Immature Granulocytes % 0.7 % (0-4); Lymphocytes # 1.4 K/mcL (0.6-4.6); Lymphocytes % 13.9 %; Mean Corpuscular HGB Conc 33.1 g/dL (31.6-35.5); Mean Corpuscular Hemoglobin 29.9 pg (28.0-33.3); Mean Corpuscular Volume 90.4 fL (83.0-100.0); Mean Platelet Volume 9.7 fL (9.4-12.4); Monocytes # 1.3 K/mcL (0.0-1.3); Monocytes % 13.1 %; Neutrophils # 7.1 K/mcL (1.6-8.9); Platelet Count 253 K/mcL (140-400); Red Blood Count 3.34 M/mcL (3.82-4.97); Red Cell Distribution Width 14.3 % (11.5-14.5); Segmented Neutrophils % 71.3 %
[2016-09-15 01:12] LABS: Calcium 8.5 mg/dL (8.6-10.8); Potassium 3.6 mEq/L (3.5-4.5)
[2016-09-15] MEDS: Acetaminophen 325 MG TABLET PO PRN ×3 (03:48→18:07)
[2016-09-15] MEDS: Ipratropium/Albuterol Neb 3 ML IH SCH ×3 (04:44→16:50)
[2016-09-15] MEDS: *HR* Heparin 5,000 UNIT/ML VIAL SQ SCH ×2 (06:19→17:42)
[2016-09-15] MEDS: Isosorbide MONOnitrate (24 HR) 60 MG TAB.ER.24H PO SCH ×2 (08:52→20:16)
[2016-09-15] MEDS: Sulfamethoxazole/Trimeth DS 1 EACH TABLET PO SCH (08:52)
[2016-09-15] MEDS: Furosemide 40 MG/4 ML VIAL IVP SCH (08:52)
[2016-09-15] MEDS: Carbidopa/Levodopa ER 50/200 TABLET PO SCH ×2 (08:52→20:13)
[2016-09-15] MEDS: Ranolazine 500 MG TAB.ER.12H PO SCH ×2 (08:52→20:14)
[2016-09-15] MEDS: ESTRADIOL APPL VG SCH (08:53)
--- NOTE | 2016-09-15 10:31 | Electrocardiograph Report ---
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
--- NOTE | 2016-09-15 10:41 | Electrocardiograph Report ---
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
[2016-09-15] MEDS: Fluticasone Propionate Nasal 50 MCG/SPRAY BOTTLE NS SCH (16:24)
--- NOTE | 2016-09-15 16:25 | Internal Med Progress Note ---
<Ovi Gregg - Last Filed: 09/15/16 16:15> Date of Encounter: 09/15/16 Time of Encounter: 16:15 - Assessment and plan (1) Dyspnea Current Visit: Yes Status: Acute Assessment and plan: Etiology at this time is unclear. Clinically this is not an AECOPD. I dont feel that there is strong evidence of CHF on her exam. We will get a CT of the chest. continue diuresis. (2) Acute and chronic respiratory failure Current Visit: Yes Status: Acute Assessment and plan: O2 as needed (3) CKD (chronic kidney disease) Current Visit: Yes Status: Acute Assessment and plan: acute on chronic 3b. Mild continue to follow closely. decrease lasix if SCR continues to rise. (4) Obesity (BMI 30-39.9) Current Visit: Yes Status: Acute Assessment and plan: weight loss (5) CAD (coronary artery disease) Current Visit: Yes Status: Acute Assessment and plan: mild CAD on [facility] from 2011 continue ASa and statin. (6) Elevated brain natriuretic peptide (BNP) level Current Visit: Yes Status: Acute Assessment and plan: mildly elevated from baseline. [place] from a combination of CHF and CKD (7) Heart failure with preserved ejection fraction Current Visit: Yes Status: Acute Assessment and plan: as stated above (8) DVT prophylaxis Current Visit: No Status: Acute Assessment and plan: SQ heparin - Subjective Interval history: No major events overnight. Patient states that she has continued dyspnea. She denies productive cough, orthopnea, lower extremity edea, and weight gain. She admits to some pleuritic chest pains. She admits to exertional dyspnea. she has no further complaints or concerns at this time. - Constitutional Vitals: Temp Pulse Resp BP Pulse Ox 98.2 F 70 18 103/65 92 09/15/16 14:27 09/15/16 14:27 09/15/16 14:27 09/15/16 14:27 09/15/16 14:27 General appearance: Present: A&O X 3 - Head Head exam: Present: atraumatic, normal inspection, normocephalic - Eye Eye exam: Present: PERRL, conjuntiva pink, sclera anicteric Pupils: Present: PERRL - ENT ENT exam: Present: mucous membranes moist - Neck Neck exam general surgery: Present: normal inspection, supple, trachea midline. Absent: lymphadenopathy - Respiratory Respiratory exam: Present: wheezes (mild expiratory). Absent: accessory muscle use, rales, rhonchi - Cardiovascular Cardiovascular exam: Present: RRR, +S1, +S2. Absent: diastolic murmur, gallop, rubs, systolic murmur - GI/Abdominal GI/Abdominal exam: Present: normal bowel sounds, soft, tenderness, no peritoneal signs. Absent: distended - Extremities Exam Extremities exam: Present: warm, radial pulses palpable and symetrical. Absent : calf tenderness, cyanotic, pedal edema - Skin Skin exam: Present: dry, intact Internal Medicine: Result - Labs CBC & Chem 7: 09/15/16 00:54 09/15/16 00:54 Labs: Short CBC 09/15/16 Range/Units 00:54 WBC 9.9 (4.3-11.1) K/mcL Hgb 10.0 L (11.5-15.4) g/dL Hct 30.2 L (35.3-44.9) % Plt Count 253 (140-400) K/mcL Neutrophils # 7.1 (1.6-8.9) K/mcL BMP 09/15/16 00:54 Sodium 139 Potassium 3.6 Chloride 106 Carbon Dioxide 26 BUN 26 H Creatinine 1.78 H Glucose 125 H Calcium 8.5 L Cardiac Enzymes 09/14/16 09/15/16 Range/Units 18:37 00:54 Troponin I 0.02 0.01 (0-0.03) ng/mL - ABG Interpretation ABG results: PT/INR, D-dimer PT 13.7 Seconds (9.4-12.1) H 09/14/16 13:04 Consult Discharge Plan - Plan Referrals: Demetrius Smith MD [Primary Care Provider] - <Oleksandr Bustamante - Last Filed: 09/16/16 08:10> Date of Encounter: 09/16/16 - Constitutional Vitals: Temp Pulse Resp BP Pulse Ox 98.2 F 70 18 103/65 97 09/15/16 14:27 09/15/16 14:27 09/15/16 16:50 09/15/16 14:27 09/15/16 16:50 Internal Medicine: Result - Labs CBC & Chem 7: 09/16/16 04:32 09/16/16 04:32 Labs: Short CBC 09/15/16 Range/Units 00:54 WBC 9.9 (4.3-11.1) K/mcL Hgb 10.0 L (11.5-15.4) g/dL Hct 30.2 L (35.3-44.9) % Plt Count 253 (140-400) K/mcL Neutrophils # 7.1 (1.6-8.9) K/mcL BMP 09/15/16 00:54 Sodium 139 Potassium 3.6 Chloride 106 Carbon Dioxide 26 BUN 26 H Creatinine 1.78 H Glucose 125 H Calcium 8.5 L Cardiac Enzymes 09/14/16 09/15/16 Range/Units 18:37 00:54 Troponin I 0.02 0.01 (0-0.03) ng/mL - ABG Interpretation ABG results: PT/INR, D-dimer PT 13.7 Seconds (9.4-12.1) H 09/14/16 13:04 - Attending Attestation I examined this patient on 09/15/2016 and my medical decision-making was reviewed with the Resident Physician, Dr. Gregg. I agree with the documented findings, disposition and treatment plan as described except to the extent set forth below. Patient presented with severe shortness of breath. She was admitted for CHF exacerbation. I have reviewed her chest x-ray: Bilateral haziness at the bases , possible small pleural effusions. Her BNP is elevated. On exam she has bilateral faint expiratory wheezes. Given her recent history of pneumonia and worsening respiratory function I will obtain a CT of the chest for further workup of her lung changes given chest x-ray abnormalities. We will switch to IV Lasix 40 mg in the morning and 20 in the afternoon.
[2016-09-15] MEDS ORDERED: Furosemide 20 MG/2 ML VIAL IVP SCH (17:00)
[2016-09-15] MEDS ORDERED: Furosemide 40 MG/4 ML VIAL IVP SCH (18:00)
[2016-09-15] MEDS: clonazePAM 1 MG TABLET PO PRN (21:04)
[2016-09-16] MEDS: Ipratropium/Albuterol Neb 3 ML IH SCH ×5 (00:34→23:49)
[2016-09-16] MEDS: Fluticasone Propionate Nasal 50 MCG/SPRAY BOTTLE NS SCH ×2 (04:05→08:41)
[2016-09-16 04:43] LABS: Basophils % 0.4 %; Eosinophils # 0.1 K/mcL (0.0-0.6); Eosinophils % 0.4 %; Hematocrit 31.9 % (35.3-44.9); Hemoglobin 10.3 g/dL (11.5-15.4); Immature Granulocytes % 1.1 % (0-4); Lymphocytes # 1.1 K/mcL (0.6-4.6); Lymphocytes % 9.8 %; Mean Corpuscular HGB Conc 32.3 g/dL (31.6-35.5); Mean Corpuscular Hemoglobin 29.5 pg (28.0-33.3); Mean Corpuscular Volume 91.4 fL (83.0-100.0); Mean Platelet Volume 9.8 fL (9.4-12.4); Monocytes # 1.4 K/mcL (0.0-1.3); Monocytes % 12.6 %; Neutrophils # 8.4 K/mcL (1.6-8.9); Platelet Count 272 K/mcL (140-400); Red Blood Count 3.49 M/mcL (3.82-4.97); Red Cell Distribution Width 14.3 % (11.5-14.5); Segmented Neutrophils % 75.7 %
[2016-09-16 04:56] LABS: Potassium 3.6 mEq/L (3.5-4.5)
[2016-09-16] MEDS: *HR* Heparin 5,000 UNIT/ML VIAL SQ SCH ×2 (06:18→17:13)
[2016-09-16] MEDS: Furosemide 40 MG/4 ML VIAL IVP SCH (06:18)
[2016-09-16] MEDS: Isosorbide MONOnitrate (24 HR) 60 MG TAB.ER.24H PO SCH ×2 (08:33→20:16)
[2016-09-16] MEDS: Ranolazine 500 MG TAB.ER.12H PO SCH ×2 (08:33→20:15)
[2016-09-16] MEDS: Carbidopa/Levodopa ER 50/200 TABLET PO SCH ×2 (08:33→20:16)
[2016-09-16] MEDS: Acetaminophen 325 MG TABLET PO PRN ×2 (08:40→17:20)
[2016-09-16] MEDS ORDERED: Sulfamethoxazole/Trimeth DS 1 EACH TABLET PO SCH (09:00)
--- NOTE | 2016-09-16 11:22 | Internal Med Progress Note ---
<Ovi Gregg - Last Filed: 09/16/16 11:19> Date of Encounter: 09/16/16 Time of Encounter: 11:19 - Assessment and plan (1) Dyspnea Current Visit: Yes Status: Acute Assessment and plan: CT suggest mild CHF. We will continue to diurese her. Strict Is' and O's She is complaniing of malaise, dry cough, and mild myalgias. Will consider checking a respiratory infection panel. Salt restriction Fluid restriction daily weights (2) Acute and chronic respiratory failure Current Visit: Yes Status: Acute Assessment and plan: improving Possibly from volume overload (3) CKD (chronic kidney disease) Current Visit: Yes Status: Acute Assessment and plan: acute on chronic 3b. Mild/ improving continue to follow closely. decrease lasix if SCR is rising (4) Obesity (BMI 30-39.9) Current Visit: Yes Status: Acute Assessment and plan: weight loss (5) CAD (coronary artery disease) Current Visit: Yes Status: Acute Assessment and plan: mild CAD on [facility] from 2011 continue ASa and statin. (6) Elevated brain natriuretic peptide (BNP) level Current Visit: Yes Status: Acute Assessment and plan: mildly elevated from baseline. Likely from a combination of CHF and CKD (7) Heart failure with preserved ejection fraction Current Visit: Yes Status: Acute Assessment and plan: as stated above (8) DVT prophylaxis Current Visit: No Status: Acute Assessment and plan: SQ heparin - Subjective Interval history: No major events overnight. Patient continue s to complain of exertional dyspnea. She denies productive cough. Admits to mild myalgias and malaise. She denies any other complaints or concerns at this time. - Constitutional Vitals: Temp Pulse Resp BP Pulse Ox 98.1 F 78 14 107/49 93 09/16/16 10:30 09/16/16 10:30 09/16/16 10:30 09/16/16 10:30 09/16/16 10:30 General appearance: Present: A&O X 3 - Head Head exam: Present: atraumatic, normocephalic - Eye Eye exam: Present: PERRL, conjuntiva pink, sclera anicteric Pupils: Present: PERRL - Neck Neck exam general surgery: Present: supple, trachea midline. Absent: lymphadenopathy - Respiratory Respiratory exam: Present: CTAB. Absent: accessory muscle use, rales, rhonchi, wheezes Additional comments: improved. No wheezng on todays exam. No crackles at the bases of the lungs - Cardiovascular Cardiovascular exam: Present: RRR, +S1, +S2. Absent: diastolic murmur, gallop, rubs, systolic murmur - GI/Abdominal GI/Abdominal exam: Present: normal bowel sounds, soft, no peritoneal signs. Absent: distended, tenderness - Extremities Exam Extremities exam: Present: warm, radial pulses palpable and symetrical. Absent : calf tenderness, cyanotic, pedal edema - Skin Skin exam: Present: dry, intact Internal Medicine: Result - Labs CBC & Chem 7: 09/16/16 04:32 09/16/16 04:32 Labs: Short CBC 09/16/16 Range/Units 04:32 WBC 11.1 (4.3-11.1) K/mcL Hgb 10.3 L (11.5-15.4) g/dL Hct 31.9 L (35.3-44.9) % Plt Count 272 (140-400) K/mcL Neutrophils # 8.4 (1.6-8.9) K/mcL BMP 09/16/16 04:32 Sodium 140 Potassium 3.6 Chloride 105 Carbon Dioxide 23 BUN 28 H Creatinine 1.68 H Glucose 120 H Calcium 9.0 - ABG Interpretation ABG results: PT/INR, D-dimer PT 13.7 Seconds (9.4-12.1) H 09/14/16 13:04 - Impressions Impressions Chest CT 09/15/16 19:16 IMPRESSION: 1. Findings are most consistent with mild CHF, including small bilateral pleural effusions and interstitial pulmonary edema. 2. Mild consolidative opacity within the dependent portions of the bilateral lower lobes are felt to represent passive atelectasis, though underlying aspiration or pneumonia are not excluded. 3. Additional curvilinear bibasilar airspace opacities are favored to represent atelectasis. 4. Emphysema. 5. Stable mediastinal lymphadenopathy, unchanged from 04/2006, and benign given its long-term stability. D/ / 09/15/2016 20:26:08 Santi Dhaliwal MD / tang Interpreting Provider: Santi Dhaliwal MD Consult Discharge Plan - Plan Referrals: Demetrius Smith MD [Primary Care Provider] - 09/22/16 1:20 pm <KenOleksandr akers - Last Filed: 09/16/16 17:42> Date of Encounter: 09/16/16 - Constitutional Vitals: Temp Pulse Resp BP Pulse Ox 97.9 F 71 16 112/67 93 09/16/16 15:19 09/16/16 15:19 09/16/16 15:41 09/16/16 15:41 09/16/16 15:41 Internal Medicine: Result - Labs CBC & Chem 7: 09/16/16 04:32 09/16/16 04:32 Labs: Short CBC 09/16/16 Range/Units 04:32 WBC 11.1 (4.3-11.1) K/mcL Hgb 10.3 L (11.5-15.4) g/dL Hct 31.9 L (35.3-44.9) % Plt Count 272 (140-400) K/mcL Neutrophils # 8.4 (1.6-8.9) K/mcL BMP 09/16/16 04:32 Sodium 140 Potassium 3.6 Chloride 105 Carbon Dioxide 23 BUN 28 H Creatinine 1.68 H Glucose 120 H Calcium 9.0 - ABG Interpretation ABG results: PT/INR, D-dimer PT 13.7 Seconds (9.4-12.1) H 09/14/16 13:04 - Impressions Impressions Chest CT 09/15/16 19:16 IMPRESSION: 1. Findings are most consistent with mild CHF, including small bilateral pleural effusions and interstitial pulmonary edema. 2. Mild consolidative opacity within the dependent portions of the bilateral lower lobes are felt to represent passive atelectasis, though underlying aspiration or pneumonia are not excluded. 3. Additional curvilinear bibasilar airspace opacities are favored to represent atelectasis. 4. Emphysema. 5. Stable mediastinal lymphadenopathy, unchanged from 04/2006, and benign given its long-term stability. D/ / 09/15/2016 20:26:08 Santi Dhaliwal MD / tang Interpreting Provider: Santi Dhaliwal MD - Attending Attestation I examined this patient and my medical decision-making was reviewed with the Resident Physician, Dr. Gregg. I agree with the documented findings, disposition and treatment plan as described except to the extent set forth below. Patient reports severe shortness of breath with minimal exertion such as sitting up in bed or walking to the bathroom gets her completely out of breath. She denies any associated chest pain or cough. Denies fevers chills nausea vomiting diarrhea. She states that this severe shortness of breath is much worse than her baseline and has been getting progressively worse. She has quite a bit of anxiety associated with this. On exam she is in no acute distress, heart is regular with normal S1 and S2. Lungs with diminished breath sounds throughout, no adventitious sounds. Extremities with no edema. Assessment and plan: Acute on chronic diastolic heart failure with exacerbation : We will continue diuresis with IV Lasix while monitoring her creatinine and trend closely. She does have chronic kidney disease stage IIIB and therefore we will avoid nephrotoxins, replete electrolytes as needed and adjust medication doses to renal function. Monitor kidney function daily. She is at moderate risk for complications due to renal failure and need for diuresis. I have personally reviewed the report of the CAT scan and found no support for pneumonia. I agree with the radiologist read that this is likely secondary to interstitial fluid which could be due to acute heart failure.
[2016-09-16] MEDS: Furosemide 20 MG/2 ML VIAL IVP SCH (17:13)
[2016-09-16] MEDS: clonazePAM 1 MG TABLET PO PRN (20:23)
[2016-09-17] MEDS: Acetaminophen 325 MG TABLET PO PRN ×2 (02:45→21:24)
[2016-09-17] MEDS: Ipratropium/Albuterol Neb 3 ML IH SCH ×4 (05:11→23:40)
[2016-09-17 05:28] LABS: Basophils % 0.3 %; Eosinophils # 0.1 K/mcL (0.0-0.6); Eosinophils % 0.5 %; Hematocrit 28.7 % (35.3-44.9); Hemoglobin 9.5 g/dL (11.5-15.4); Immature Granulocytes % 0.8 % (0-4); Lymphocytes # 0.9 K/mcL (0.6-4.6); Lymphocytes % 8.6 %; Mean Corpuscular HGB Conc 33.1 g/dL (31.6-35.5); Mean Corpuscular Hemoglobin 29.9 pg (28.0-33.3); Mean Corpuscular Volume 90.3 fL (83.0-100.0); Mean Platelet Volume 9.9 fL (9.4-12.4); Monocytes # 1.6 K/mcL (0.0-1.3); Monocytes % 14.7 %; Neutrophils # 8.2 K/mcL (1.6-8.9); Platelet Count 267 K/mcL (140-400); Red Blood Count 3.18 M/mcL (3.82-4.97); Red Cell Distribution Width 14.3 % (11.5-14.5); Segmented Neutrophils % 75.1 %
[2016-09-17] MEDS: *HR* Heparin 5,000 UNIT/ML VIAL SQ SCH ×2 (05:30→17:33)
[2016-09-17] MEDS: Furosemide 40 MG/4 ML VIAL IVP SCH (05:30)
[2016-09-17 05:52] LABS: Calcium 8.5 mg/dL (8.6-10.8); Potassium 3.4 mEq/L (3.5-4.5)
[2016-09-17] MEDS: Ranolazine 500 MG TAB.ER.12H PO SCH ×2 (08:47→21:08)
[2016-09-17] MEDS: Carbidopa/Levodopa ER 50/200 TABLET PO SCH ×2 (08:48→21:08)
[2016-09-17] MEDS: Cyanocobalamin (B-12) 1,000 MCG TABLET PO SCH (08:48)
[2016-09-17] MEDS: Isosorbide MONOnitrate (24 HR) 60 MG TAB.ER.24H PO SCH ×2 (08:48→21:09)
[2016-09-17] MEDS: Folic Acid 1 MG TABLET PO SCH (08:49)
[2016-09-17] MEDS: Fluticasone Propionate Nasal 50 MCG/SPRAY BOTTLE NS SCH (08:50)
--- NOTE | 2016-09-17 11:53 | Discharge Summary ---
Date of Encounter: 09/18/16 Time of Encounter: 11:51 - Discharge Diagnosis (1) CKD (chronic kidney disease) stage 3, GFR 30-59 ml/min Priority: Secondary Status: Chronic (2) COPD (chronic obstructive pulmonary disease) Priority: Secondary Status: Acute Qualifiers: COPD type: unspecified COPD Qualified Code(s): J44.9 - Chronic obstructive pulmonary disease, unspecified (3) Hypothyroidism Priority: Secondary Status: Chronic Qualifiers: Hypothyroidism type: unspecified Qualified Code(s): E03.9 - Hypothyroidism , unspecified (4) Acute exacerbation of CHF (congestive heart failure) Priority: Primary Status: Acute Qualifiers: Congestive heart failure type: diastolic Qualified Code(s): I50.33 - Acute on chronic diastolic (congestive) heart failure (5) CAD (coronary artery disease) Priority: Secondary Status: Chronic Qualifiers: Coronary Disease-Associated Artery/Lesion type: [place] artery [place] vs. transplanted heart: [place] heart Associated angina: without angina Qualified Code(s): I25.10 - Atherosclerotic heart disease of [place] coronary artery without angina pectoris (6) HTN (hypertension) Priority: Primary Status: Chronic Qualifiers: Hypertension type: essential hypertension Qualified Code(s): I10 - Essential (primary) hypertension (7) Elevated brain natriuretic peptide (BNP) level Priority: Primary Status: Acute - Discharge Medications Prescriptions: Ipratropium/Albuterol Neb [Duoneb] 3 ml IH Q4HR PRN #30 vial.neb PRN Reason: Shortness Of Breath Albuterol Sulfate [Albuterol Inhaler] 1 puff IH Q4H #1 inhaler Furosemide [Lasix] 40 mg PO HS #30 tablet Furosemide [Lasix] 80 mg PO DAILY #30 tablet Ipratropium/Albuterol Sulfate [Combivent Respimat Inhal [place]] 4 gm IH DAILY #1 aer.w.adap PredniSONE 40 mg PO DAILY 5 Days Home Medications: Atorvastatin [Lipitor] 40 mg PO DAILY 03/25/15 [History] Clopidogrel [Plavix] 75 mg PO DAILY 03/25/15 [History] Diltiazem HCl [Diltiazem 24Hr Cd] 60 mg PO TID 03/25/15 [History] Isosorbide MONOnitrate [Isosorbide Mononitrate] 60 mg PO BID #0 03/25/15 [ History] Sertraline [Zoloft] 100 mg PO DAILY 03/25/15 [History] Ranolazine [Ranexa] 1,000 mg PO BID 06/15/15 [History] Omeprazole [PriLOSEC] 20 mg PO DAILY 08/02/15 [History] Spironolactone [Aldactone] 25 mg PO BID 08/02/15 [History] Carbidopa/Levodopa ER 50/200 [Sinemet ER 50-200 Tab] 1 tab PO BID 03/31/16 [ History] ClonazePAM [Klonopin] 1 mg PO TID PRN #0 tablet 08/15/16 [Rx] Meclizine [Antivert] 12.5 mg PO TID PRN #0 tablet 08/15/16 [Rx] Albuterol Neb [Proventil Neb] 2.5 mg IH Q4HR 09/14/16 [History] Albuterol Sulfate [Proair Hfa] 2 puff IH Q4H PRN 09/14/16 [History] Docusate [Colace] 100 mg PO DAILY 09/14/16 [History] Estradiol [Estrace] 1 appl VG 2XW 09/14/16 [History] Nitroglycerin [Nitrostat] 0.4 mg SL AD PRN 09/14/16 [History] Sulfamethoxazole/Trimeth DS [Bactrim Ds] 1 tab PO BID 09/14/16 [History] Furosemide [Lasix] 40 mg PO HS #30 tablet 09/17/16 [Rx] Furosemide [Lasix] 80 mg PO DAILY #30 tablet 09/17/16 [Rx] Albuterol Sulfate [Albuterol Inhaler] 1 puff IH Q4H #1 inhaler 09/18/16 [Rx] Ipratropium/Albuterol Neb [Duoneb] 3 ml IH Q4HR PRN #30 vial.neb 09/18/16 [Rx] Ipratropium/Albuterol Sulfate [Combivent Respimat Inhal [place]] 4 gm IH DAILY #1 aer.w.adap 09/18/16 [Rx] PredniSONE 40 mg PO DAILY 5 Days 09/18/16 [Rx] Allergies/Adverse Reactions: Allergies indomethacin [From Indocin] Allergy (Verified 03/31/16 09:52) Rash naproxen [From Naprosyn] Allergy (Verified 03/31/16 09:52) Rash IVP dye Allergy (Uncoded 03/31/16 09:52) Rash Procedures/tests Complete & Pending: Procedures Performed prior 72 hours Category Date Time Status CT chest w/o contrast [CT chest wo con] [CT] Stat Cat Scan 09/15/16 19:16 Completed Date of admission: 09/14/16 15:39 Primary care physician: Demetrius Smith MD Discharging clinician: Hubert Morillo Anticipated date of discharge: 09/17/16 - Patient Status Disposition: Home, Self-Care Condition: Fair Functional capacity at discharge: independent ambulation Overall status at discharge: patient is progressing back to baseline - Discharge Instructions Instructions: Heart Failure (DC) Follow Up With: Demetrius Smith MD [Primary Care Provider] - 09/22/16 1:20 pm Additional Instructions: Wear oxygen at all times. Follow-up with her primary care provider in the next 3-5 days Follow-up with your event decorator and designer. Continue to maintain a 1500 mL fluid restriction and reduced sodium diet - Diet and Activity Activity: increase activity as tolerated, wear oxygen at all times Diet: advance to your usual diet Interval History: Ms. Washburn is a 75 year old female whose medical history of diastolic heart failure, CKD, hypothyroid GERD osteoarthritis Parkinson's disease, COPD was admitted to [facility] with increasing shortness of breath with exertion for the past 3 days. She was admitted to general medical floor she is placed on nasal cannula oxygen examination was: For mild diastolic heart failure exacerbation started on IV Lasix. She is continued on IV Lasix therapy for sufficient diuresis, daily weights were obtained which demonstrated decrease in fluid balance, her chronic medical conditions including her chronic kidney disease, coronary artery disease, hypertension and hypothyroidism were also addressed. She continued to improve daily with IV Lasix therapy her vitals remained stable her oxygen demand reduced daily. Her home medications were evaluated. Last echo on 08/08/16 revealed EF of 60%. She has a left heart catheter in September 2011 which was nonobstructive coronary disease. Cardiac stress test 07/28 negative for any ischemia. Hospital course: Ms. Washburn is a 75 year old female - Time Spent with Patient Total time spent providing and/or coordinating discharge services: - Constitutional Vitals: Temp Pulse Resp BP Pulse Ox 97.5 F L 73 18 121/65 98 09/17/16 06:39 09/17/16 06:39 09/17/16 11:23 09/17/16 06:39 09/17/16 11:23 General appearance: Present: A&O X 3 - Head Head exam: Present: atraumatic, normocephalic - Eye Eye exam: Present: PERRL, conjuntiva pink, sclera anicteric Pupils: Present: PERRL - ENT ENT exam: Present: mucous membranes moist - Neck Neck exam general surgery: Present: supple, trachea midline. Absent: lymphadenopathy - Respiratory Respiratory exam: Present: CTAB. Absent: accessory muscle use, rales, rhonchi, wheezes - Cardiovascular Cardiovascular exam: Present: RRR, +S1, +S2. Absent: diastolic murmur, gallop, rubs, systolic murmur - GI/Abdominal GI/Abdominal exam: Present: normal bowel sounds, soft, no peritoneal signs. Absent: distended, tenderness - Extremities Exam Extremities exam: Present: warm, radial pulses palpable and symetrical. Absent : calf tenderness, cyanotic, pedal edema - Neurological Exam Neurological exam: Present: alert, oriented X3, no focal deficits. Absent: pronater drift, facial droop, speech deficit - Psychiatric Psychiatric exam: Present: normal affect, normal mood
[2016-09-17] MEDS: Furosemide 20 MG/2 ML VIAL IVP SCH (17:33)
--- NOTE | 2016-09-17 18:40 | Event Note ---
Date of Encounter: 09/17/16 Time of Encounter: 09:00 I examined this patient and my medical decision-making was reviewed with the Resident Physician, Dr Morillo. I agree with the documented findings, disposition and treatment plan as described except to the extent set forth below. Patient says that her shortness of breath 0/10 at rest, she became short of breath last night and hypoxic and states that she had to increase her oxygen to 4 L/m. Yesterday she did get severely short of breath with ambulation. Today she was able to ambulate without assistance and on 4 L/m her oxygen saturation dropped to 88% with ambulation. Physical exam: Awake alert oriented 3 in no acute distress speaking in full sentences. Head atraumatic, pupils equal round reactive to light conjunctivae anicteric. Heart regular rate and rhythm S1-S2 with no murmurs. Lungs clear to auscultation bilaterally. Abdomen soft nontender nondistended with normoactive bowel sounds extent. Extremities with no edema. Plan: For diastolic acute on chronic CHF: Continue with Lasix 40 mg in the morning and 20 mg the afternoon, strict I's and O's, daily weights, 1500 mL fluid restriction. Acute on chronic worsening hypoxic respiratory failure: Patient uses CPAP with oxygen at night but not during the daytime. Here she is oxygen dependent. With ambulation she drops to 88% on 4 L. I suspect this is likely secondary to fluid overload and CHF. We will continue with diuresis and oxygen supplementation to maintain saturation above 90%. She will require continuous oxygen supplementation at home. Obstructive sleep apnea on chronic CPAP: She states that she needed more oxygen last night while asleep. I recommend outpatient sleep study. For CK D stage IIIB: Avoid nephrotoxins, monitor BUN and creatinine daily while on diuretics. DVT prophylaxis with subcutaneous heparin.
[2016-09-17] MEDS: clonazePAM 1 MG TABLET PO PRN (21:13)
[2016-09-18 04:07] LABS: Calcium 8.5 mg/dL (8.6-10.8); Magnesium 1.9 mg/dL (1.6-2.6); Potassium 3.1 mEq/L (3.5-4.5)
[2016-09-18] MEDS: Acetaminophen 325 MG TABLET PO PRN ×2 (04:39→21:05)
[2016-09-18] MEDS: Ipratropium/Albuterol Neb 3 ML IH SCH ×4 (05:08→23:01)
[2016-09-18] MEDS: *HR* Heparin 5,000 UNIT/ML VIAL SQ SCH ×2 (06:33→17:48)
[2016-09-18] MEDS: Furosemide 40 MG/4 ML VIAL IVP SCH ×2 (06:33→18:15)
[2016-09-18 08:13] LABS: Tissue Transglutaminase IgA 1 U/mL (0-3)
[2016-09-18] MEDS: Cyanocobalamin (B-12) 1,000 MCG TABLET PO SCH (08:19)
[2016-09-18] MEDS: Ranolazine 500 MG TAB.ER.12H PO SCH ×2 (08:19→21:05)
[2016-09-18] MEDS: Folic Acid 1 MG TABLET PO SCH (08:20)
[2016-09-18] MEDS: Isosorbide MONOnitrate (24 HR) 60 MG TAB.ER.24H PO SCH ×2 (08:20→21:05)
[2016-09-18] MEDS: Carbidopa/Levodopa ER 50/200 TABLET PO SCH ×2 (08:20→21:04)
[2016-09-18] MEDS: Fluticasone Propionate Nasal 50 MCG/SPRAY BOTTLE NS SCH (08:28)
[2016-09-18 08:39] LABS: Immunoglobulin A (CELIAC) 93 mg/dL (68-408)
[2016-09-18] MEDS ORDERED: PrednisoLONE Oral Soln 15 MG/5 ML UDC PO SCH (10:30)
--- NOTE | 2016-09-18 14:56 | Event Note ---
Date of Encounter: 09/18/16 Time of Encounter: 11:00 Date of Encounter: 09/17/16 Time of Encounter: 11:00 I examined this patient and my medical decision-making was reviewed with the Resident Physician, Dr Morillo. I agree with the documented findings, disposition and treatment plan as described except to the extent set forth below. Patient reports no shortness of breath at rest, she became but she quickly becomes dyspneic with ambulation. Yesterday her oxygen saturation after ambulating 60 feet was down to 88% on supplemental oxygen at 4 L/m. Physical exam: Awake alert oriented 3 in no acute distress. Heart exam reveals regular rate and rhythm S1-S2 with no murmurs. Lungs clear to auscultation bilaterally. Abdomen soft nontender nondistended with normoactive bowel sounds extent. Extremities with no edema. Plan: For diastolic acute on chronic CHF: Continue with Lasix 40 mg in the morning and 20 mg the afternoon, strict I's and O's, daily weights, 1500 mL fluid restriction. I have reviewed the limited echo report from July 2016 which revealed ejection fraction of 60%. No significant valvular abnormality, no mention are diastolic dysfunction. Acute on chronic worsening hypoxic respiratory failure: Patient uses CPAP with oxygen at night but not during the daytime. Here she is oxygen dependent. With ambulation she drops to 88% on 4 L. I suspect this is likely secondary to fluid overload and CHF. We will continue with diuresis and oxygen supplementation to maintain saturation above 90%. She will require continuous oxygen supplementation at home. She continues to be hypoxic with minimal ambulation but at rest which raises suspicion of pulmonary embolism. Even though she does not have chest pain or tachycardia we will obtain VQ scan. A CT angiogram with contrast is contraindicated because of kidney failure. Obstructive sleep apnea on chronic CPAP: She states that she needed more oxygen last night while asleep. I recommend outpatient sleep study. For CKD stage IIIB: Avoid nephrotoxins including IV contrast, monitor BUN and creatinine daily while on diuretics. DVT prophylaxis with subcutaneous heparin.
[2016-09-18] MEDS: clonazePAM 1 MG TABLET PO PRN (21:05)
[2016-09-19 05:15] LABS: Basophils % 0.1 %; Hematocrit 31.4 % (35.3-44.9); Immature Granulocytes % 1.2 % (0-4); Lymphocytes # 0.4 K/mcL (0.6-4.6); Lymphocytes % 4.5 %; Mean Corpuscular HGB Conc 31.8 g/dL (31.6-35.5); Mean Corpuscular Hemoglobin 29.1 pg (28.0-33.3); Mean Corpuscular Volume 91.3 fL (83.0-100.0); Mean Platelet Volume 9.7 fL (9.4-12.4); Monocytes # 0.2 K/mcL (0.0-1.3); Monocytes % 1.9 %; Neutrophils # 8.3 K/mcL (1.6-8.9); Platelet Count 337 K/mcL (140-400); Red Blood Count 3.44 M/mcL (3.82-4.97); Segmented Neutrophils % 92.3 %
[2016-09-19 05:44] LABS: Albumin 2.7 g/dL (3.5-5.0); Albumin/Globulin Ratio 0.7 (1.1-2.2); Alkaline Phosphatase 111 Units/L (38-126); Aspartate Amino Transferase 7 Units/L (5-34); BUN/Creatinine Ratio 20 (6-26); Bilirubin,Total 0.4 mg/dL (0.2-1.2); Blood Urea Nitrogen 34 mg/dL (7-20); Carbon Dioxide 23 mEq/L (19-29); Chloride 107 mEq/L (98-109); Globulin 3.7 g/dL (2.4-3.5); Glucose 144 mg/dL (70-99); Osmolality,Calculated 296 (280-300); Sodium 138 mEq/L (136-145); Total Protein 6.4 g/dL (6.0-8.3); eGFR For African Americans 36 (> 60); eGFR For Non-African Americans 30 (> 60)
[2016-09-19 05:45] LABS: Alanine Aminotransferase < 6 Units/L (0-55); Potassium 4.4 mEq/L (3.5-4.5)
[2016-09-19] MEDS: Ipratropium/Albuterol Neb 3 ML IH SCH ×3 (05:53→16:17)
[2016-09-19] MEDS: Furosemide 40 MG/4 ML VIAL IVP SCH ×2 (06:15→09:28)
[2016-09-19] MEDS: *HR* Heparin 5,000 UNIT/ML VIAL SQ SCH (06:15)
[2016-09-19] MEDS: Ranolazine 500 MG TAB.ER.12H PO SCH (09:28)
[2016-09-19] MEDS: Isosorbide MONOnitrate (24 HR) 60 MG TAB.ER.24H PO SCH (09:28)
[2016-09-19] MEDS: Cyanocobalamin (B-12) 1,000 MCG TABLET PO SCH (09:28)
[2016-09-19] MEDS: Folic Acid 1 MG TABLET PO SCH (09:28)
[2016-09-19] MEDS: methylPREDNISolone 125 MG/2 ML VIAL IVP SCH ×3 (09:28→15:17)
[2016-09-19] MEDS: Fluticasone Propionate Nasal 50 MCG/SPRAY BOTTLE NS SCH (09:29)
[2016-09-19] MEDS: Carbidopa/Levodopa ER 50/200 TABLET PO SCH (09:29)
[2016-09-19] MEDS: ESTRADIOL APPL VG SCH (09:29)
[2016-09-19] MEDS ORDERED: Azithromycin 250 MG TABLET PO SCH (10:15)
[2016-09-19 15:03] VITALS: BP 117/66
--- NOTE | 2016-09-19 15:48 | Discharge Summary ---
Date of Encounter: 09/19/16 Time of Encounter: 10:41 - Discharge Diagnosis (1) CKD (chronic kidney disease) stage 3, GFR 30-59 ml/min Priority: Secondary Status: Chronic (2) COPD (chronic obstructive pulmonary disease) Priority: Secondary Status: Acute Qualifiers: COPD type: unspecified COPD Qualified Code(s): J44.9 - Chronic obstructive pulmonary disease, unspecified (3) Hypothyroidism Priority: Secondary Status: Chronic Qualifiers: Hypothyroidism type: unspecified Qualified Code(s): E03.9 - Hypothyroidism , unspecified (4) Diastolic CHF Priority: Primary Status: Chronic Qualifiers: Congestive heart failure chronicity: acute on chronic Qualified Code(s): I50.33 - Acute on chronic diastolic (congestive) heart failure (5) Parkinson disease Priority: Secondary Status: Chronic (6) Acute and chronic respiratory failure Priority: Secondary Status: Acute Qualifiers: Respiratory failure complication: hypoxia Qualified Code(s): J96.21 - Acute and chronic respiratory failure with hypoxia (7) Obesity (BMI 30-39.9) Priority: Secondary Status: Acute (8) CAD (coronary artery disease) Priority: Secondary Status: Acute Qualifiers: Coronary Disease-Associated Artery/Lesion type: [place] artery [place] vs. transplanted heart: [place] heart Associated angina: without angina Qualified Code(s): I25.10 - Atherosclerotic heart disease of [place] coronary artery without angina pectoris - Discharge Medications Prescriptions: Albuterol Sulfate [Albuterol Inhaler] 1 puff IH Q4H #1 inhaler Azithromycin [Zithromax] 500 mg PO Q24H #4 tablet Furosemide [Lasix] 80 mg PO BID #60 tablet Ipratropium/Albuterol Neb [Duoneb] 3 ml IH QIDR PRN #60 inhsol PRN Reason: Shortness of breath PredniSONE 60 mg PO DAILY #40 tablet Home Medications: Atorvastatin [Lipitor] 40 mg PO DAILY 03/25/15 [History] Clopidogrel [Plavix] 75 mg PO DAILY 03/25/15 [History] Diltiazem HCl [Diltiazem 24Hr Cd] 60 mg PO TID 03/25/15 [History] Isosorbide MONOnitrate [Isosorbide Mononitrate] 60 mg PO BID #0 03/25/15 [ History] Sertraline [Zoloft] 100 mg PO DAILY 03/25/15 [History] Ranolazine [Ranexa] 1,000 mg PO BID 06/15/15 [History] Omeprazole [PriLOSEC] 20 mg PO DAILY 08/02/15 [History] Spironolactone [Aldactone] 25 mg PO BID 08/02/15 [History] Carbidopa/Levodopa ER 50/200 [Sinemet ER 50-200 Tab] 1 tab PO BID 03/31/16 [ History] ClonazePAM [Klonopin] 1 mg PO TID PRN #0 tablet 08/15/16 [Rx] Meclizine [Antivert] 12.5 mg PO TID PRN #0 tablet 08/15/16 [Rx] Albuterol Neb [Proventil Neb] 2.5 mg IH Q4HR 09/14/16 [History] Albuterol Sulfate [Proair Hfa] 2 puff IH Q4H PRN 09/14/16 [History] Docusate [Colace] 100 mg PO DAILY 09/14/16 [History] Estradiol [Estrace] 1 appl VG 2XW 09/14/16 [History] Nitroglycerin [Nitrostat] 0.4 mg SL AD PRN 09/14/16 [History] Sulfamethoxazole/Trimeth DS [Bactrim Ds] 1 tab PO BID 09/14/16 [History] Albuterol Sulfate [Albuterol Inhaler] 1 puff IH Q4H #1 inhaler 09/18/16 [Rx] Azithromycin [Zithromax] 500 mg PO Q24H #4 tablet 09/19/16 [Rx] Furosemide [Lasix] 80 mg PO BID #60 tablet 09/19/16 [Rx] Ipratropium/Albuterol Neb [Duoneb] 3 ml IH QIDR PRN #60 inhsol 09/19/16 [Rx] PredniSONE 60 mg PO DAILY #40 tablet 09/19/16 [Rx] Allergies/Adverse Reactions: Allergies indomethacin [From Indocin] Allergy (Verified 03/31/16 09:52) Rash naproxen [From Naprosyn] Allergy (Verified 03/31/16 09:52) Rash IVP dye Allergy (Uncoded 03/31/16 09:52) Rash Procedures/tests Complete & Pending: Procedures Performed prior 72 hours Category Date Time Status VQ Scan [NM pul vent and perfuse] [NM] Stat Exams 09/18/16 13:58 Completed Date of admission: 09/14/16 15:39 Primary care physician: Demetrius Smith MD Consults: 09/19/16 11:34 OT [Consult to Occupational Therapy] [CONS] Routine Comment: Evaluate, develop and implement POC Reason for Consult: OT PT [Consult to Physical Therapy] [CONS] Routine Comment: Evaluate, develop and implement POC Reason for Consult: PT 09/19/16 13:33 Consult to Rpg Programmer Analyst [CONS] Stat Reason for SW Consult: Home health needs set up - Patient Status Disposition: Home, Self-Care Condition: Fair Overall status at discharge: patient is progressing back to baseline - Discharge Instructions Instructions: Heart Failure (DC) Follow Up With: Demetrius Smith MD [Primary Care Provider] - 09/22/16 1:20 pm Eliseo Huang DO [Non-Partnered Physician] - (The office will call you if you need to be seen before your appointment that is scheduled November 09, prior to your hospital admission. Thank you) Additional Instructions: Wear oxygen at all times. Follow-up with her primary care provider in the next 3-5 days Follow-up with your stencil sprayer. Continue to maintain a 1200 mL fluid restriction and reduced sodium diet - Diet and Activity Activity: as per physical therapy, increase activity as tolerated Diet: diabetic diet (1200 mL fluid restriction), low fat, low cholesterol, low salt diet Hospital course: Ms. Washburn is a 75 year old female with multiple medical comorbidities including diastolic CHF, COPD, obstructive sleep apnea, chronic respiratory failure, CAD, CK D and morbid obesity who presented to the hospital for shortness of breath. Her chest x-ray showed findings consistent with CHF exacerbation. She was admitted to the medical service and treated intravenous Lasix. She had a good diuretic response. She made a slow clinical improvement. She was also started on azithromycin and Solu-Medrol for COPD exacerbation. She was evaluated for home oxygen needs and her oxygen saturation drops to 88% on room air at rest. With ambulation her oxygen saturation drops to 87% with 2 L per nasal cannula supplemental oxygen and stayed at 92% and above with 4 L/m by nasal cannula. She will be prescribed home oxygen. She will be discharged on a prednisone taper and Lasix 80 mg twice a day. She will have home physical therapy and blood work done in 3 days. She was instructed to follow-up closely with her primary care physician. - Time Spent with Patient Total time spent providing and/or coordinating discharge services: Greater than 30 minutes (I have spent 40 minutes coordinating this discharge) - Constitutional Vitals: Temp Pulse Resp BP Pulse Ox 98.0 F 77 14 117/66 97 09/19/16 15:02 09/19/16 15:02 09/19/16 15:02 09/19/16 15:02 09/19/16 15:02 General appearance: Present: A&O X 3 - Respiratory Respiratory exam: Present: CTAB. Absent: accessory muscle use, rales, rhonchi, wheezes - Cardiovascular Cardiovascular exam: Present: RRR, +S1, +S2. Absent: diastolic murmur, gallop, rubs, systolic murmur - GI/Abdominal GI/Abdominal exam: Present: normal bowel sounds, soft, no peritoneal signs. Absent: distended, tenderness - Extremities Exam Extremities exam: Present: warm, radial pulses palpable and symetrical. Absent : calf tenderness, cyanotic, pedal edema - VTE Documentation of Mechanical Device: Intermittent pneumatic compression device
--- NOTE | 2016-09-19 18:27 | Physician Discharge Referral ---
Home Health/Hosp Referral Info Transfer to: Home Health Provider in Charge Post Discharge: PCP - Diagnosis (1) CKD (chronic kidney disease) stage 3, GFR 30-59 ml/min Status: Chronic (2) COPD (chronic obstructive pulmonary disease) Status: Acute (3) Hypothyroidism Status: Chronic (4) Diastolic CHF Status: Chronic (5) Parkinson disease Status: Chronic (6) Acute and chronic respiratory failure Status: Acute (7) Obesity (BMI 30-39.9) Status: Acute (8) CAD (coronary artery disease) Status: Acute - Respiratory Orders Oxygen / L per min (2 L/m at rest and 4 L/m with ambulation) Smoking Cessation: Smoking cessation has been advised. For more information, call the [employer] Tobacco Quit Line at 6-224-SHSK-NOW. - Diet/Nutrition Diet/Nutrition Orders: No Added Salt (CINDY), Cardiac (1500 mL daily fluid restriction), No Concentrated Sweets - Activity Activity Orders: Up ad dia - Services Needed Following services are medically necessary services: Nursing, Home Health Aide, Physical Therapy - Transfer Medications Prescriptions: Albuterol Sulfate [Albuterol Inhaler] 1 puff IH Q4H #1 inhaler Azithromycin [Zithromax] 500 mg PO Q24H #4 tablet Furosemide [Lasix] 80 mg PO BID #60 tablet Ipratropium/Albuterol Neb [Duoneb] 3 ml IH QIDR PRN #60 inhsol PRN Reason: Shortness of breath PredniSONE 60 mg PO DAILY #40 tablet Home Medications: Atorvastatin [Lipitor] 40 mg PO DAILY 03/25/15 [History] Clopidogrel [Plavix] 75 mg PO DAILY 03/25/15 [History] Diltiazem HCl [Diltiazem 24Hr Cd] 60 mg PO TID 03/25/15 [History] Isosorbide MONOnitrate [Isosorbide Mononitrate] 60 mg PO BID #0 03/25/15 [ History] Sertraline [Zoloft] 100 mg PO DAILY 03/25/15 [History] Ranolazine [Ranexa] 1,000 mg PO BID 06/15/15 [History] Omeprazole [PriLOSEC] 20 mg PO DAILY 08/02/15 [History] Spironolactone [Aldactone] 25 mg PO BID 08/02/15 [History] Carbidopa/Levodopa ER 50/200 [Sinemet ER 50-200 Tab] 1 tab PO BID 03/31/16 [ History] ClonazePAM [Klonopin] 1 mg PO TID PRN #0 tablet 08/15/16 [Rx] Meclizine [Antivert] 12.5 mg PO TID PRN #0 tablet 08/15/16 [Rx] Albuterol Neb [Proventil Neb] 2.5 mg IH Q4HR 09/14/16 [History] Albuterol Sulfate [Proair Hfa] 2 puff IH Q4H PRN 09/14/16 [History] Docusate [Colace] 100 mg PO DAILY 09/14/16 [History] Estradiol [Estrace] 1 appl VG 2XW 09/14/16 [History] Nitroglycerin [Nitrostat] 0.4 mg SL AD PRN 09/14/16 [History] Sulfamethoxazole/Trimeth DS [Bactrim Ds] 1 tab PO BID 09/14/16 [History] Albuterol Sulfate [Albuterol Inhaler] 1 puff IH Q4H #1 inhaler 09/18/16 [Rx] Azithromycin [Zithromax] 500 mg PO Q24H #4 tablet 09/19/16 [Rx] Furosemide [Lasix] 80 mg PO BID #60 tablet 09/19/16 [Rx] Ipratropium/Albuterol Neb [Duoneb] 3 ml IH QIDR PRN #60 inhsol 09/19/16 [Rx] PredniSONE 60 mg PO DAILY #40 tablet 09/19/16 [Rx] Allergies/Adverse Reactions: Allergies indomethacin [From Indocin] Allergy (Verified 03/31/16 09:52) Rash naproxen [From Naprosyn] Allergy (Verified 03/31/16 09:52) Rash IVP dye Allergy (Uncoded 03/31/16 09:52) Rash Certification: Further, I certify that my clinical findings support that this patient is homebound (i.e. absences from home require considerable and taxing effort and are for medical reasons or syn[employer] services or infrequently or short duration when for other reasons) because: Homebound Reason: Patient requires assistance of a person or device to safely leave home, Leaving home requires considerable and taxing effort due to condition, Severity of cardiac or pulmonary status limits activity tolerance Attestation: My signature below is to certify that this patient is under my care and that I, or nurse practitioner, or a physician's processing assistant working with me, has a face-to -face encounter with this patient.
[2016-09-20] MEDS ORDERED: Furosemide 40 MG/4 ML VIAL IVP SCH (06:00)
== END 2016-09-19 17:50 | disposition home health service (06) | DRG 291 ==
LOC: EMEROO 12:56 → 3ANU 12:56
PROVIDERS: ADMIT Hospitalist; ATTEND Internal Medicine

== ENCOUNTER 2016-10-07 18:40 | Inpatient (IN) ==
[2016-10-07] MEDS ORDERED: Naloxone 0.4 MG/ML INJ IVP PRN (21:40)
[2016-10-07] MEDS ORDERED: Ondansetron 4 MG/2 ML VIAL IVP PRN (21:40)
[2016-10-07] MEDS ORDERED: Nitroglycerin 0.4 MG TAB.SUBL SL PRN (21:42)
[2016-10-07 22:18] LABS: Calcium 9.4 mg/dL (8.6-10.8); Magnesium 2.2 mg/dL (1.6-2.6); Potassium 4.6 mEq/L (3.5-4.5)
--- NOTE | 2016-10-07 22:40 | Internal Med History&Physical ---
<Dakota Maldonado - Last Filed: 10/07/16 23:15> Date of Encounter: 10/07/16 Time of Encounter: 22:32 Assessment and Plan (1) Hyperkalemia Current visit: No Status: Acute Likely related to over diuresis and dehydration in the setting of spironolactone use and acute on chronic renal failure. Patient did have bradycardia however she did not have any other changes indicative of hyperkalemia including peaked T waves or widening of the QRS. Patient received calcium gluconate, IV insulin with dextrose, and Kayexalate in the emergency department. Recheck of her potassium shows potassium of 4.6. Recheck potassium in the morning, place on equipment monitor phototypesetting. (2) Symptomatic bradycardia Current visit: No Status: Acute Possibly related to hyperkalemia as discussed above however this is clear as are not other EKG changes indicative of hyperkalemia. Patient's heart rate has improved to the 60s at this time. We will continue to monitor. (3) Hypotension Current visit: No Status: Chronic Likely related to bradycardia as discussed above. Patient received a liter of fluids and her blood pressures responded well. Patient did complain of dizziness however this is chronic but orthostasis is also possibility. Since the patient received a liter bolus in the emergency department the usefulness of orthostatic vital signs is minimal. Continue to monitor blood pressure. Will hold antihypertensive medications. Qualifiers: Hypotension type: unspecified hypotension type Qualified Code(s): I95.9 - Hypotension, unspecified (4) Acute on chronic kidney failure Current visit: Yes Status: Acute Baseline creatinine appears to be 1.4-1.6, creatinine was 2.01 on presentation the emergency department. Likely related to over diuresis. Can also be contributing to hyperkalemia. Creatinine improved to 1.91 with fluids. Continue to monitor creatinine and urine output. (5) Vertigo Current visit: Yes Status: Acute Likely contributing the patient's complaint of dizziness. Continue meclizine when necessary. (6) Peripheral artery disease Current visit: Yes Status: Acute Patient reports vascular stent in her leg. No pain. Pulses good. Continue Plavix. (7) Hypothyroidism Current visit: No Status: Chronic Check TSH. Continue Synthroid. Qualifiers: Hypothyroidism type: unspecified Qualified Code(s): E03.9 - Hypothyroidism , unspecified (8) COPD (chronic obstructive pulmonary disease) Current visit: No Status: Acute Stable at this time. No evidence of acute exacerbation. Continue aerosol treatments. Qualifiers: COPD type: unspecified COPD Qualified Code(s): J44.9 - Chronic obstructive pulmonary disease, unspecified (9) Parkinson disease Current visit: No Status: Chronic Stable. Continue Sinemet. (10) DVT prophylaxis Current visit: No Status: Acute Heparin 5000 units subcutaneous twice a day. Internal Medicine - H&P: HPI Chief complaint: Weakness Admitted From: Emergency Dept Plans for Post Hospital Care: Home History of present illness: Ms. Washburn is a 75 year old female with history of COPD, heart failure, peripheral artery disease presents with weakness and dizziness. Patient states her symptoms have progressively worsened since the more severe over the last couple days. The dizziness she states she deals with chronically and takes meclizine for. Today she felt particularly weak and was concerned that she would fall. Her home health aide and evaluated her and took her vital signs and found her blood pressure and heart rate to be low. The patient called her PCP instructed her to go to the emergency department. Patient reports some twitching in her muscles that has been present for a long period of time and there is no changes regarding this. Patient does feel like she has been urinating less frequently. She denies fever, chills, chest pain, shortness of breath, abdominal pain, nausea, vomiting, change in bowel habits. Patient states she was recently in the hospital for shortness of breath related to heart failure and recently had her diuretic changed from Bumex to Lasix 80 mg twice a day. Patient states that her leg swelling is markedly decreased and her legs are as small as they have been in years. Past Med Surg Social Fam HX - Past Medical History Medical history: CHF, COPD, fibromyalgia, GERD, hypertension, renal disease, thyroid disease, other Psychiatric history: no psych history, depression - Past Surgical History Surgical History: cholecystectomy, hip replacement, hysterectomy - Social History Smoking Status: Former smoker Smokeless Tobacco Status: No Alcohol use: none Drug use: none - Family History Mother Living Status: Hx Family Cardiac Disorders: Yes (Heart disease, vascular disease) Hx Family Endocrine Disorder: Yes (DM) Father Living Status: Hx Family Cardiac Disorders: Yes (NE) Internal Medicine - H&P: Meds Atorvastatin [Lipitor] 40 mg PO HS 03/25/15 [History] Clopidogrel [Plavix] 75 mg PO DAILY 03/25/15 [History] Isosorbide MONOnitrate [Isosorbide Mononitrate] 60 mg PO BID #0 03/25/15 [ History] Sertraline [Zoloft] 100 mg PO DAILY 03/25/15 [History] Ranolazine [Ranexa] 1,000 mg PO BID 06/15/15 [History] Omeprazole [PriLOSEC] 20 mg PO DAILY 08/02/15 [History] Spironolactone [Aldactone] 25 mg PO BID 08/02/15 [History] Carbidopa/Levodopa ER 50/200 [Sinemet ER 50-200 Tab] 1 tab PO BID 03/31/16 [ History] Meclizine [Antivert] 12.5 mg PO TID PRN #0 tablet 08/15/16 [Rx] clonazePAM [Klonopin] 1 mg PO TID PRN #0 tablet 08/15/16 [Rx] Albuterol Sulfate [Proair Hfa] 2 puff IH Q4H PRN 09/14/16 [History] Docusate [Colace] 100 mg PO DAILY 09/14/16 [History] Estradiol [Estrace] 1 appl VG 2XW 09/14/16 [History] Nitroglycerin [Nitrostat] 0.4 mg SL AD PRN 09/14/16 [History] Furosemide [Lasix] 80 mg PO BID #60 tablet 09/19/16 [Rx] Albuterol Neb [Proventil Neb] 2.5 mg IH TID 10/07/16 [History] Ipratropium/Albuterol Sulfate [Combivent Respimat Inhal [place]] 1 puff IH QID [History] Levothyroxine Sodium [Levoxyl] 150 mcg PO DAILY 10/07/16 [History] Oxygen 2 - 4 l NS AD 10/07/16 [History] dilTIAZem HCl [Cardizem] 60 mg PO TID 10/07/16 [History] Allergies indomethacin [From Indocin] Allergy (Verified 10/07/16 19:58) Rash naproxen [From Naprosyn] Allergy (Verified 10/07/16 19:58) Rash IVP dye Allergy (Uncoded 10/07/16 19:58) Rash All Systems PM: A 10-system review of systems was performed and is negative for pertinent findings except as documented above in the HPI. - Constitutional Constitutional: weakness, no chills, no fever(s) - EENT Eyes: no blurry vision, no change in vision Nose, mouth and throat: no sinus pain, no sinus pressure, no sore throat - Cardiovascular Cardiovascular ROS IM: lightheadedness, no chest pain, no dyspnea, no palpitations, no syncope - Respiratory Respiratory: no cough, no dyspnea, no chest congestion, no excessive phlegm production, no change in phlegm color - Gastrointestinal Gastrointestinal: no abdominal pain, no change in bowel habits, no change in stool character, no diarrhea, no nausea, no vomiting - Genitourinary Genitourinary: no dysuria, no hematuria, no urinary frequency, no urinary hesitancy - Musculoskeletal Musculoskeletal ROS IM: muscle weakness, no muscle cramps, no myalgias, no numbness, no tingling - Integumentary Integumentary IM: no new lesions, no rash - Neurological Neurological ROS: disequilibrium, dizziness, tremor(s), no confusion, no frequent falls, no headache(s), no numbness, no tingling - Endocrine Endocrine IM: no polydipsia, no polyuria - Hematologic/Lymphatic Hematologic/Lymphatic: no easy bleeding, no easy bruising - Constitutional Vitals: Temp Pulse Resp BP Pulse Ox 97.9 F 64 18 136/67 98 10/07/16 20:26 10/07/16 20:26 10/07/16 20:26 10/07/16 20:26 10/07/16 20:26 General appearance: Present: A&O X 3, pleasant, no acute distress - Head Head exam: Present: atraumatic, normal inspection, normocephalic - Eye Eye exam: Present: EOMI, PERRL - ENT ENT exam: Present: mucous membranes dry - Neck Neck exam general surgery: Present: full ROM. Absent: tenderness - Respiratory Respiratory exam: Present: CTAB. Absent: rales, rhonchi, wheezes - Cardiovascular Cardiovascular exam: Present: RRR. Absent: gallop, rubs, systolic murmur - GI/Abdominal GI/Abdominal exam: Present: normal bowel sounds, soft. Absent: distended, tenderness - Extremities Exam Extremities exam: Present: warm. Absent: pedal edema, tenderness - Neurological Exam Neurological exam: Present: alert, CN II-XII intact, oriented X3, no focal deficits - Skin Skin exam: Present: dry, intact, warm Internal Med - H&P Results - Labs CBC & Chem 7: 10/07/16 21:58 Labs: [facility] 10/07/16 21:58 Sodium 134 L Potassium 4.6 H D Chloride 102 Carbon Dioxide 22 BUN 62 H Creatinine 1.91 H Glucose 92 Calcium 9.4 <Gennaro Jovel - Last Filed: 10/08/16 06:05> Date of Encounter: 10/07/16 Internal Medicine - H&P: HPI History of present illness: Ms. Washburn is a 75 year old female All Systems PM: A 10-system review of systems was performed and is negative for pertinent findings except as documented above in the HPI. - Constitutional Vitals: Temp Pulse Resp BP Pulse Ox 98.1 F 72 18 148/67 93 10/08/16 03:37 10/08/16 03:37 10/08/16 03:37 10/08/16 03:37 10/08/16 03:37 Internal Med - H&P Results - Labs CBC & Chem 7: 10/08/16 04:56 10/08/16 04:56 Labs: Short CBC 10/08/16 Range/Units 04:56 WBC 8.3 (4.3-11.1) K/mcL Hgb 11.2 L (11.5-15.4) g/dL Hct 34.1 L (35.3-44.9) % Plt Count 248 (140-400) K/mcL Neutrophils # 5.5 (1.6-8.9) K/mcL [facility] 10/07/16 10/08/16 21:58 04:56 Sodium 134 L 138 Potassium 4.6 H D 4.1 Chloride 102 104 Carbon Dioxide 22 26 BUN 62 H 52 H Creatinine 1.91 H 1.86 H Glucose 92 99 Calcium 9.4 8.7 - Attending Attestation I personally interviewed and examined this patient and my medical decision- making was reviewed with the Resident Physician. I agree with the documented findings, disposition and treatment plan as described.
[2016-10-08] MEDS: clonazePAM 1 MG TABLET PO PRN ×2 (00:21→22:17)
[2016-10-08] MEDS: Acetaminophen 325 MG TABLET PO PRN ×2 (00:22→22:17)
[2016-10-08] MEDS: Albuterol 2.5 MG/3 ML NEBULIZER IH SCH ×3 (02:33→16:01)
[2016-10-08 05:15] LABS: Basophils % 0.2 %; Eosinophils # 0.1 K/mcL (0.0-0.6); Eosinophils % 0.7 %; Hematocrit 34.1 % (35.3-44.9); Hemoglobin 11.2 g/dL (11.5-15.4); Immature Granulocytes % 0.4 % (0-4); Lymphocytes # 1.9 K/mcL (0.6-4.6); Lymphocytes % 22.4 %; Mean Corpuscular HGB Conc 32.8 g/dL (31.6-35.5); Mean Corpuscular Hemoglobin 29.8 pg (28.0-33.3); Mean Corpuscular Volume 90.7 fL (83.0-100.0); Monocytes # 0.8 K/mcL (0.0-1.3); Neutrophils # 5.5 K/mcL (1.6-8.9); Platelet Count 248 K/mcL (140-400); Red Blood Count 3.76 M/mcL (3.82-4.97); Red Cell Distribution Width 13.7 % (11.5-14.5); Segmented Neutrophils % 66.3 %
[2016-10-08 05:29] LABS: Calcium 8.7 mg/dL (8.6-10.8); Potassium 4.1 mEq/L (3.5-4.5)
[2016-10-08 05:51] LABS: Thyroid Stimulating Hormone 0.929 mcIU/mL (0.350-4.840)
[2016-10-08] MEDS: *HR* Heparin 5,000 UNIT/ML VIAL SQ SCH ×2 (06:21→17:51)
[2016-10-08] MEDS: Ranolazine 500 MG TAB.ER.12H PO SCH ×2 (09:36→22:18)
[2016-10-08] MEDS: Isosorbide MONOnitrate (24 HR) 60 MG TAB.ER.24H PO SCH ×2 (09:36→22:18)
[2016-10-08] MEDS: Furosemide 40 MG TABLET PO SCH ×2 (09:36→17:51)
[2016-10-08] MEDS: Carbidopa/Levodopa ER 50/200 TABLET PO SCH ×2 (09:36→22:17)
--- NOTE | 2016-10-08 13:15 | Internal Med Progress Note ---
Date of Encounter: 10/08/16 Time of Encounter: 13:12 - Assessment and plan (1) Hyperkalemia Current Visit: Yes Status: Acute Assessment and plan: Due to acute renal failure, spironolactone therapy. Resolved (2) Congestive heart failure Current Visit: Yes Status: Acute Assessment and plan: Clinically compensated. Decreased lasix dose into 40 mg twice a day. Qualifiers: Qualified Code(s): I50.9 - Heart failure, unspecified (3) TAIWO (acute kidney injury) Current Visit: No Status: Acute Assessment and plan: Improving. Continue Lasix 40 mg twice daily. This is half her home dose. Avoid nephrotoxic drugs (4) Bradycardia Current Visit: Yes Status: Acute Assessment and plan: Heart rate currently 70s will start smaller dose of cardizem today. - Subjective Interval history: Patient seen and examined. Presented yesterday with a TIA and hyperkalemia and bradycardia related to worsening kidney functions probably related to over diuresis. Lasix decreased into half and spironolactone discontinued. Patient mentioned that she had lost 14 pounds during the past month. - Constitutional Vitals: Temp Pulse Resp BP Pulse Ox 97.8 F 74 16 109/62 96 10/08/16 10:39 10/08/16 10:39 10/08/16 10:39 10/08/16 10:39 10/08/16 10:39 General appearance: Present: A&O X 3, pleasant, no acute distress Exam: Gen.: patient is alert oriented times 3 not in distress. Cardiac: normal S1 S2 no additional sounds or murmurs chest: fair air entry. no active wheezing. No crackles or bronchial breathing. abdomen: soft nontender nondistended normal bowel sounds neuro: no focal deficit LE: trace swelling Internal Medicine: Result - Labs CBC & Chem 7: 10/08/16 04:56 10/08/16 04:56 Labs: Short CBC 10/08/16 Range/Units 04:56 WBC 8.3 (4.3-11.1) K/mcL Hgb 11.2 L (11.5-15.4) g/dL Hct 34.1 L (35.3-44.9) % Plt Count 248 (140-400) K/mcL Neutrophils # 5.5 (1.6-8.9) K/mcL BMP 10/07/16 10/08/16 21:58 04:56 Sodium 134 L 138 Potassium 4.6 H D 4.1 Chloride 102 104 Carbon Dioxide 22 26 BUN 62 H 52 H Creatinine 1.91 H 1.86 H Glucose 92 99 Calcium 9.4 8.7 Consult Discharge Plan - Plan Referrals: Demetrius Smith MD [Primary Care Provider] -
[2016-10-08] MEDS: dilTIAZem HCl 60 MG TABLET PO SCH (22:18)
[2016-10-08] MEDS: Sennosides/Docusate Sodium TABLET PO SCH (23:11)
[2016-10-09] MEDS: Albuterol 2.5 MG/3 ML NEBULIZER IH SCH ×3 (02:50→15:46)
[2016-10-09 03:45] LABS: Basophils % 0.1 %; Eosinophils # 0.1 K/mcL (0.0-0.6); Eosinophils % 0.9 %; Hematocrit 32.9 % (35.3-44.9); Hemoglobin 10.7 g/dL (11.5-15.4); Immature Granulocytes % 0.6 % (0-4); Lymphocytes % 25.3 %; Mean Corpuscular HGB Conc 32.5 g/dL (31.6-35.5); Mean Corpuscular Hemoglobin 29.7 pg (28.0-33.3); Mean Corpuscular Volume 91.4 fL (83.0-100.0); Mean Platelet Volume 9.9 fL (9.4-12.4); Monocytes # 0.7 K/mcL (0.0-1.3); Monocytes % 9.3 %; Platelet Count 232 K/mcL (140-400); Segmented Neutrophils % 63.8 %
[2016-10-09 04:01] LABS: Calcium 8.5 mg/dL (8.6-10.8); Potassium 4.3 mEq/L (3.5-4.5)
[2016-10-09] MEDS: *HR* Heparin 5,000 UNIT/ML VIAL SQ SCH ×2 (06:15→17:38)
[2016-10-09] MEDS: Furosemide 40 MG TABLET PO SCH ×2 (08:48→16:21)
[2016-10-09] MEDS: Carbidopa/Levodopa ER 50/200 TABLET PO SCH ×2 (08:48→21:25)
[2016-10-09] MEDS: Ranolazine 500 MG TAB.ER.12H PO SCH ×2 (08:48→21:25)
[2016-10-09] MEDS: Isosorbide MONOnitrate (24 HR) 60 MG TAB.ER.24H PO SCH ×2 (08:48→21:25)
[2016-10-09] MEDS: Sennosides/Docusate Sodium TABLET PO SCH (08:49)
[2016-10-09] MEDS: dilTIAZem HCl 60 MG TABLET PO SCH ×2 (08:49→21:25)
[2016-10-09] MEDS ORDERED: clonazePAM 1 MG TABLET PO PRN (11:34)
[2016-10-09] MEDS ORDERED: Ipratropium/Albuterol Neb 3 ML IH PRN (11:35)
--- NOTE | 2016-10-09 12:56 | Internal Med Progress Note ---
Date of Encounter: 10/09/16 Time of Encounter: 11:55 - Assessment and plan (1) Acute on chronic kidney failure Current Visit: Yes Status: Acute Assessment and plan: renal function improved will continue to monitor continue lasix 40mg BID (2) Bradycardia Current Visit: Yes Status: Acute Assessment and plan: Pt tolerating lower cardizem dose better, will continue will continue tele monitoring (3) CAD (coronary artery disease) Current Visit: No Status: Chronic Assessment and plan: no acute signs of angina continue home meds Qualifiers: Coronary Disease-Associated Artery/Lesion type: [place] artery [place] vs. transplanted heart: [place] heart Associated angina: without angina Qualified Code(s): I25.10 - Atherosclerotic heart disease of [place] coronary artery without angina pectoris (4) Diastolic CHF Current Visit: No Status: Chronic Assessment and plan: no acute signs of CHF decompensation continue home meds Qualifiers: Congestive heart failure chronicity: acute on chronic Qualified Code(s): I50.33 - Acute on chronic diastolic (congestive) heart failure (5) DVT prophylaxis Current Visit: No Status: Acute Assessment and plan: heparin sQ (6) HTN (hypertension) Current Visit: No Status: Chronic Assessment and plan: BP within acceptable range continue home meds Qualifiers: Hypertension type: essential hypertension Qualified Code(s): I10 - Essential (primary) hypertension (7) Hyperkalemia Current Visit: No Status: Resolved (8) Obesity (BMI 30-39.9) Current Visit: No Status: Chronic (9) COPD (chronic obstructive pulmonary disease) Current Visit: No Status: Chronic Assessment and plan: will continue bronchodilator support O2 supplementation as needed Qualifiers: COPD type: unspecified COPD Qualified Code(s): J44.9 - Chronic obstructive pulmonary disease, unspecified - Subjective Interval history: Patient seen and examined at bedside. Resting in bed. states she woke up feeling much better however feels short of breath and fatigued at this time. She is noted to have diffuse wheezing bilaterally. states she would like to stay until am. No overnight issues were reported. - Constitutional Vitals: Temp Pulse Resp BP Pulse Ox 98.0 F 66 16 110/67 98 10/09/16 10:59 10/09/16 10:59 10/09/16 10:59 10/09/16 10:59 10/09/16 10:59 General appearance: Present: A&O X 3, pleasant, no acute distress, obese - Head Head exam: Present: atraumatic, normocephalic - Respiratory Respiratory exam: Present: wheezes (diffuse wheezing bilaterally) - Cardiovascular Cardiovascular exam: Present: RRR, +S1, +S2. Absent: diastolic murmur, gallop, rubs, systolic murmur - GI/Abdominal GI/Abdominal exam: Present: normal bowel sounds, soft, no peritoneal signs. Absent: distended, tenderness - Extremities Exam Extremities exam: Present: pedal edema, warm, radial pulses palpable and symetrical. Absent: calf tenderness - Neurological Exam Neurological exam: Present: alert, oriented X3 - Psychiatric Psychiatric exam: Present: normal affect, normal mood Internal Medicine: Result - Labs CBC & Chem 7: 10/09/16 03:21 10/09/16 03:21 Labs: Short CBC 10/09/16 Range/Units 03:21 WBC 7.8 (4.3-11.1) K/mcL Hgb 10.7 L (11.5-15.4) g/dL Hct 32.9 L (35.3-44.9) % Plt Count 232 (140-400) K/mcL Neutrophils # 5.0 (1.6-8.9) K/mcL BMP 10/09/16 03:21 Sodium 140 Potassium 4.3 Chloride 105 Carbon Dioxide 27 BUN 35 H D Creatinine 1.44 H Glucose 97 Calcium 8.5 L Consult Discharge Plan - Plan Referrals: Demetrius Smith MD [Primary Care Provider] -
[2016-10-09] MEDS: IPRATROPIUM IH SCH ×3 (16:15→21:26)
[2016-10-09] MEDS: ALBUTEROL SULFATE IH SCH ×3 (16:15→21:26)
[2016-10-09] MEDS: Acetaminophen 325 MG TABLET PO PRN (21:36)
[2016-10-09] MEDS ORDERED: Sennosides/Docusate Sodium TABLET PO ONE (22:56)
[2016-10-10] MEDS: Albuterol 2.5 MG/3 ML NEBULIZER IH SCH ×2 (03:39→09:58)
[2016-10-10 05:28] LABS: Basophils % 0.1 %; Eosinophils # 0.1 K/mcL (0.0-0.6); Eosinophils % 1.3 %; Hematocrit 30.4 % (35.3-44.9); Hemoglobin 9.9 g/dL (11.5-15.4); Immature Granulocytes % 0.4 % (0-4); Lymphocytes % 28.4 %; Mean Corpuscular HGB Conc 32.6 g/dL (31.6-35.5); Mean Corpuscular Hemoglobin 29.9 pg (28.0-33.3); Mean Corpuscular Volume 91.8 fL (83.0-100.0); Mean Platelet Volume 10.1 fL (9.4-12.4); Monocytes # 0.7 K/mcL (0.0-1.3); Monocytes % 10.6 %; Neutrophils # 4.2 K/mcL (1.6-8.9); Platelet Count 221 K/mcL (140-400); Red Blood Count 3.31 M/mcL (3.82-4.97); Red Cell Distribution Width 14.2 % (11.5-14.5); Segmented Neutrophils % 59.2 %
[2016-10-10] MEDS: *HR* Heparin 5,000 UNIT/ML VIAL SQ SCH (05:42)
[2016-10-10 06:22] LABS: Calcium 8.6 mg/dL (8.6-10.8); Magnesium 1.9 mg/dL (1.6-2.6); Phosphorous 3.5 mg/dL (2.3-4.7); Potassium 4.8 mEq/L (3.5-4.5)
[2016-10-10] MEDS: ALBUTEROL SULFATE IH SCH (08:43)
[2016-10-10] MEDS: IPRATROPIUM IH SCH (08:43)
[2016-10-10] MEDS: dilTIAZem HCl 60 MG TABLET PO SCH (08:44)
[2016-10-10] MEDS: Sennosides/Docusate Sodium TABLET PO SCH (08:54)
[2016-10-10] MEDS: Carbidopa/Levodopa ER 50/200 TABLET PO SCH (08:55)
[2016-10-10] MEDS: Furosemide 40 MG TABLET PO SCH (08:55)
[2016-10-10] MEDS: Isosorbide MONOnitrate (24 HR) 60 MG TAB.ER.24H PO SCH (08:55)
[2016-10-10] MEDS: Ranolazine 500 MG TAB.ER.12H PO SCH (08:56)
[2016-10-10 10:41] VITALS: BP 120/57
--- NOTE | 2016-10-10 11:38 | Discharge Summary ---
Date of Encounter: 10/10/16 Time of Encounter: 11:05 - Discharge Diagnosis (1) Acute on chronic kidney failure Priority: Primary Status: Resolved (2) Bradycardia Priority: Secondary Status: Resolved (3) CAD (coronary artery disease) Priority: Secondary Status: Chronic Qualifiers: Coronary Disease-Associated Artery/Lesion type: [place] artery [place] vs. transplanted heart: [place] heart Associated angina: without angina Qualified Code(s): I25.10 - Atherosclerotic heart disease of [place] coronary artery without angina pectoris (4) Diastolic CHF Priority: Secondary Status: Chronic Qualifiers: Congestive heart failure chronicity: acute on chronic Qualified Code(s): I50.33 - Acute on chronic diastolic (congestive) heart failure (5) DVT prophylaxis Priority: Secondary Status: Acute (6) HTN (hypertension) Priority: Secondary Status: Chronic Qualifiers: Hypertension type: essential hypertension Qualified Code(s): I10 - Essential (primary) hypertension (7) Hyperkalemia Priority: Secondary Status: Resolved (8) Obesity (BMI 30-39.9) Priority: Secondary Status: Chronic (9) COPD (chronic obstructive pulmonary disease) Priority: Secondary Status: Chronic Qualifiers: COPD type: unspecified COPD Qualified Code(s): J44.9 - Chronic obstructive pulmonary disease, unspecified - Discharge Medications Prescriptions: dilTIAZem HCl [Cardizem] 30 mg PO BID #60 tablet Furosemide [Lasix] 40 mg PO BIDDIURETIC #30 tablet Home Medications: Atorvastatin [Lipitor] 40 mg PO HS 03/25/15 [History] Clopidogrel [Plavix] 75 mg PO DAILY 03/25/15 [History] Isosorbide MONOnitrate [Isosorbide Mononitrate] 60 mg PO BID #0 03/25/15 [ History] Sertraline [Zoloft] 100 mg PO DAILY 03/25/15 [History] Ranolazine [Ranexa] 1,000 mg PO BID 06/15/15 [History] Omeprazole [PriLOSEC] 20 mg PO DAILY 08/02/15 [History] Carbidopa/Levodopa ER 50/200 [Sinemet ER 50-200 Tab] 1 tab PO BID 03/31/16 [ History] Meclizine [Antivert] 12.5 mg PO TID PRN #0 tablet 08/15/16 [Rx] clonazePAM [Klonopin] 1 mg PO TID PRN #0 tablet 08/15/16 [Rx] Albuterol Sulfate [Proair Hfa] 2 puff IH Q4H PRN 09/14/16 [History] Docusate [Colace] 100 mg PO DAILY 09/14/16 [History] Estradiol [Estrace] 1 appl VG 2XW 09/14/16 [History] Nitroglycerin [Nitrostat] 0.4 mg SL AD PRN 09/14/16 [History] Albuterol Neb [Proventil Neb] 2.5 mg IH TID 10/07/16 [History] Ipratropium/Albuterol Sulfate [Combivent Respimat Inhal [place]] 1 puff IH QID [History] Levothyroxine Sodium [Levoxyl] 150 mcg PO DAILY 10/07/16 [History] Oxygen 2 - 4 l NS AD 10/07/16 [History] Furosemide [Lasix] 40 mg PO BIDDIURETIC #30 tablet 10/10/16 [Rx] dilTIAZem HCl [Cardizem] 30 mg PO BID #60 tablet 10/10/16 [Rx] Allergies/Adverse Reactions: Allergies indomethacin [From Indocin] Allergy (Verified 10/07/16 19:58) Rash naproxen [From Naprosyn] Allergy (Verified 10/07/16 19:58) Rash IVP dye Allergy (Uncoded 10/07/16 19:58) Rash Date of admission: 10/07/16 21:05 Primary care physician: Demetrius Smith MD Consults: 10/07/16 23:46 Consult to Nutrition [CONS] Routine Comment: Consulting Provider: NUTRITION Reason for Dietary Consult: MST Score Consult to Pastoral Services [CONS] Routine Comment: Consult to Deal Architect [CONS] Routine Reason for SW Consult: home health and oxygen services are through [place] at this time and wants to discuss continuation with them after this hospitalization Discharging clinician: Nancy Groves Anticipated date of discharge: 10/10/16 - Patient Status Disposition: Home Health Service Condition: Good Functional capacity at discharge: uses cane/walker Overall status at discharge: patient is back to baseline - Discharge Instructions Instructions: Heart Failure (DC), Hyperkalemia (DC) Follow Up With: Demetrius Smith MD [Primary Care Provider] - (web request sent on 10/10/16) Additional Instructions: Please follow up with your primary care physician within five days after your discharge from the hospital. Due to your elevated potassium levels, low blood pressure, kidney injury, and low HR your home medications have been readjusted as follows: 1. Spirinoloactone has been discontinued 2. Lasix has been decreased to 40mg twice a day 3. Cardizem has been decreased to 30mg twice a day Closely monitor your BP and HR. If your HR is less than 60, hold your dose of cardizem. Please inform your primary care physician of the above changes. Please resume all your other home medications as prescribed by your primary care physician. - Diet and Activity Activity: as per physical therapy, wear oxygen at all times Diet: low salt diet Hospital course: Ms. Washburn is a 75 year old female history of COPD, heart failure, peripheral artery disease presents with weakness and dizziness. She was further admitted for management of hyperkalemia, acute on chronic kidney injury, symptomatic bradycardia, and hypotension. Pt was started on gentle IV fluids, her home medications were reevaluated. It appeared that the patient was overly diuresing due to which her home dose of Lasix was decreased to 40mg PO BID. She was also noted to be on cardizem 60mg PO BID and was noted to be bradycardic, due to which her home dose was decreased to cardizem 30mg PO BID. Her hyperkalemia was secondary to spironolactone dosing which was discontinued. Her hypotension resolved with Iv fluids and with adjustment of her home meds. At this time her renal function is at baseline and she is clinically stable for discharge. She is to follow up with PCP within five days after her discharge from the hospital. Pt demonstrates understanding of her diagnosis and agrees with the discharge care and plan. - Time Spent with Patient Total time spent providing and/or coordinating discharge services: Greater than 30 minutes - Constitutional Vitals: Temp Pulse Resp BP Pulse Ox 97.8 F 63 18 120/57 96 10/10/16 10:38 10/10/16 10:38 10/10/16 10:38 10/10/16 10:38 10/10/16 10:38 General appearance: Present: A&O X 3, pleasant, no acute distress, obese - Head Head exam: Present: atraumatic, normocephalic - Eye Eye exam: Present: normal appearance, conjuntiva pink, sclera anicteric - Respiratory Respiratory exam: Present: CTAB. Absent: accessory muscle use, rales, rhonchi, wheezes - Cardiovascular Cardiovascular exam: Present: RRR, +S1, +S2. Absent: diastolic murmur, gallop, rubs, systolic murmur - GI/Abdominal GI/Abdominal exam: Present: normal bowel sounds, soft, no peritoneal signs. Absent: distended, tenderness - Extremities Exam Extremities exam: Present: warm, radial pulses palpable and symetrical. Absent : calf tenderness - Neurological Exam Neurological exam: Present: alert, oriented X3 - Psychiatric Psychiatric exam: Present: normal affect, normal mood
--- NOTE | 2016-10-10 11:53 | Physician Discharge Referral ---
Home Health/Hosp Referral Info Transfer to: Home Health Provider in Charge Post Discharge: PCP - Diagnosis (1) Acute on chronic kidney failure Priority: Primary Status: Resolved (2) Bradycardia Priority: Secondary Status: Resolved (3) CAD (coronary artery disease) Priority: Secondary Status: Chronic (4) Diastolic CHF Priority: Secondary Status: Chronic (5) DVT prophylaxis Priority: Secondary Status: Acute (6) HTN (hypertension) Priority: Secondary Status: Chronic (7) Hyperkalemia Priority: Secondary Status: Resolved (8) Obesity (BMI 30-39.9) Priority: Secondary Status: Chronic (9) COPD (chronic obstructive pulmonary disease) Priority: Secondary Status: Chronic - Respiratory Orders Smoking Cessation: Smoking cessation has been advised. For more information, call the [place] Tobacco Quit Line at 4-113-EEQA-NOW. - Services Needed Following services are medically necessary services: Nursing, Home Health Aide, Physical Therapy, Occupational Therapy - Transfer Medications Prescriptions: dilTIAZem HCl [Cardizem] 30 mg PO BID #60 tablet Furosemide [Lasix] 40 mg PO BIDDIURETIC #30 tablet Home Medications: Atorvastatin [Lipitor] 40 mg PO HS 03/25/15 [History] Clopidogrel [Plavix] 75 mg PO DAILY 03/25/15 [History] Isosorbide MONOnitrate [Isosorbide Mononitrate] 60 mg PO BID #0 03/25/15 [ History] Sertraline [Zoloft] 100 mg PO DAILY 03/25/15 [History] Ranolazine [Ranexa] 1,000 mg PO BID 06/15/15 [History] Omeprazole [PriLOSEC] 20 mg PO DAILY 08/02/15 [History] Carbidopa/Levodopa ER 50/200 [Sinemet ER 50-200 Tab] 1 tab PO BID 03/31/16 [ History] Meclizine [Antivert] 12.5 mg PO TID PRN #0 tablet 08/15/16 [Rx] clonazePAM [Klonopin] 1 mg PO TID PRN #0 tablet 08/15/16 [Rx] Albuterol Sulfate [Proair Hfa] 2 puff IH Q4H PRN 09/14/16 [History] Docusate [Colace] 100 mg PO DAILY 09/14/16 [History] Estradiol [Estrace] 1 appl VG 2XW 09/14/16 [History] Nitroglycerin [Nitrostat] 0.4 mg SL AD PRN 09/14/16 [History] Albuterol Neb [Proventil Neb] 2.5 mg IH TID 10/07/16 [History] Ipratropium/Albuterol Sulfate [Combivent Respimat Inhal [place]] 1 puff IH QID [History] Levothyroxine Sodium [Levoxyl] 150 mcg PO DAILY 10/07/16 [History] Oxygen 2 - 4 l NS AD 10/07/16 [History] Furosemide [Lasix] 40 mg PO BIDDIURETIC #30 tablet 10/10/16 [Rx] dilTIAZem HCl [Cardizem] 30 mg PO BID #60 tablet 10/10/16 [Rx] Allergies/Adverse Reactions: Allergies indomethacin [From Indocin] Allergy (Verified 10/07/16 19:58) Rash naproxen [From Naprosyn] Allergy (Verified 10/07/16 19:58) Rash IVP dye Allergy (Uncoded 10/07/16 19:58) Rash Certification: Further, I certify that my clinical findings support that this patient is homebound (i.e. absences from home require considerable and taxing effort and are for medical reasons or denominational services or infrequently or short duration when for other reasons) because: Homebound Reason: Patient requires assistance of a person or device to safely leave home Attestation: My signature below is to certify that this patient is under my care and that I, or nurse practitioner, or a physician's events and promotions assistant working with me, has a face-to -face encounter with this patient.
== END 2016-10-10 12:45 | disposition home health service (06) | DRG 683 ==
LOC: 2ANU
PROVIDERS: ADMIT Hospitalist; ATTEND Internal Medicine

== ENCOUNTER 2017-01-18 17:03 | Inpatient (IN) ==
[2017-01-18] MEDS ORDERED: clonazePAM 1 MG TABLET PO PRN (20:49)
[2017-01-18] MEDS ORDERED: Naloxone 0.4 MG/ML INJ IVP PRN (22:34)
[2017-01-18] MEDS ORDERED: Ipratropium/Albuterol Neb 3 ML IH PRN (22:36)
--- NOTE | 2017-01-18 22:53 | Internal Med History&Physical ---
Date of Encounter: 01/18/17 Time of Encounter: 22:50 Assessment and Plan (1) Acute exacerbation of CHF (congestive heart failure) Current visit: No Status: Acute I/Os, IV lasix, cardiac diet, fluid restriction, check Cr Qualifiers: Congestive heart failure type: diastolic Qualified Code(s): I50.33 - Acute on chronic diastolic (congestive) heart failure (2) COPD (chronic obstructive pulmonary disease) Current visit: No Status: Chronic appears compensated. Stable. Duonebs Qualifiers: COPD type: chronic bronchitis Chronic bronchitis type: simple Qualified Code(s): J41.0 - Simple chronic bronchitis (3) HTN (hypertension), benign Current visit: Yes Status: Acute continue med (4) Hypothyroidism Current visit: No Status: Chronic continue med Qualifiers: Hypothyroidism type: unspecified Qualified Code(s): E03.9 - Hypothyroidism , unspecified (5) Parkinsonism Current visit: Yes Status: Acute continue med Qualifiers: Parkinsonism type: Parkinson's disease Qualified Code(s): G20 - Parkinson' s disease (6) CAD (coronary artery disease) Current visit: Yes Status: Acute continue med Qualifiers: Coronary Disease-Associated Artery/Lesion type: [place] artery Associated angina: without angina Qualified Code(s): I25.10 - Atherosclerotic heart disease of [place] coronary artery without angina pectoris Internal Medicine - H&P: HPI Chief complaint: SOB History of present illness: Ms. Washburn is a 76 year old female who presents with acute CHF. She reported 2 week hx of symptom onset but really got worse in the last few days with SOB, worse on exertion. Failed z-joseph and augmentin therapy. Reported to use approx 3 L NC at baseline and noted worsening hypoxia 77-81%. She is now experiencing worsening SOB even with oxygen on. Review noted some b/l LE swelling CXR reviewed with mild interstitial pulm congestion Past Med Surg Social Fam HX - Past Medical History Medical history: CHF, COPD, fibromyalgia, GERD, hypertension, renal disease, thyroid disease Psychiatric history: depression - Past Surgical History Surgical History: cholecystectomy, hip replacement, hysterectomy - Social History Smoking Status: Former smoker Smokeless Tobacco Status: No Alcohol use: none Drug use: none - Family History Mother Living Status: Hx Family Cardiac Disorders: Yes Hx Family Endocrine Disorder: Yes (DM) Father Living Status: Hx Family Cardiac Disorders: Yes Hx Family Endocrine Disorder: Yes Internal Medicine - H&P: Meds Albuterol Neb [Proventil Neb] 2.5 mg IH TID PRN 01/18/17 [History] Albuterol Sulfate [Proair [place]] 2 puff IH Q4H PRN 01/18/17 [History] Atorvastatin [Lipitor] 40 mg PO HS 01/18/17 [History] Carbidopa/Levodopa ER 50/200 [Sinemet ER 50-200 TAB] 1 each PO BID 01/18/17 [ History] Clopidogrel Bisulfate [Plavix] 75 mg PO DAILY 01/18/17 [History] Docusate Sodium [Stool Softener] 100 mg PO DAILY PRN 01/18/17 [History] Furosemide [Lasix] 40 mg PO BID 01/18/17 [History] Ipratropium/Albuterol Neb [Duoneb] 3 ml IH Q6HR PRN 01/18/17 [History] Isosorbide MONOnitrate (24 HR) [Imdur] 60 mg PO BID 01/18/17 [History] Levothyroxine Sodium [Levothyroxine Sodium] 150 mcg PO QAM 01/18/17 [History] Meclizine [Antivert] 12.5 mg PO BID PRN 01/18/17 [History] Nitroglycerin [Nitrostat] 0.4 mg SL Q5M PRN 01/18/17 [History] Omeprazole [PriLOSEC] 20 mg PO DAILY 01/18/17 [History] Oxygen 2 - 4 l NS AD 01/18/17 [History] Potassium Chloride [Klor-Con 10] 10 meq PO BID 01/18/17 [History] Ranolazine [Ranexa] 1,000 mg PO BID 01/18/17 [History] Sennosides/Docusate Sodium [Senna-Docusate Sodium Tablet] 1 each PO DAILY [History] Sertraline [Zoloft] 100 mg PO DAILY 01/18/17 [History] clonazePAM [Klonopin] 1 mg PO TID 01/18/17 [History] dilTIAZem HCl [Cardizem] 60 mg PO TID 01/18/17 [History] 3 Allergy/AdvReac Type Severity Reaction Status Date / Time indomethacin [From Indocin] Allergy Rash Verified 10/07/16 19:58 naproxen [From Naprosyn] Allergy Rash Verified 10/07/16 19:58 IVP dye Allergy Rash Uncoded 10/07/16 19:58 All Systems PM: A 10-system review of systems was performed and is negative for pertinent findings except as documented above in the HPI. Review of systems: ROS 14 point review of systems reviewed as best as possible given presentation. Pertinent positive or negative as per HPI or otherwise reviewed as negative - Constitutional Vitals: Temp Pulse Resp BP Pulse Ox 98.0 F 81 16 120/67 94 01/18/17 19:01 01/18/17 19:01 01/18/17 19:01 01/18/17 19:01 01/18/17 19:01 Exam: General - AAO x 3 Psych - Appropriate affect/speech. No agitation Eyes - ADALID. Eye lids intact. No scleral icterus Heart - Sinus. RRR. S1 and S2 present. No added HS/murmurs appreciated. No elevated JVD appreciated. +1 calf swellings/erythema Lung - Adequate air entry b/l, scant bibasal crackles, no wheeze GI - Soft, non-tender. No hepatosplenomegaly/ascites. BS+ - No CVA/suprapubic tenderness or palpable bladder distension Skin - Intact. No rash/petechiae/ecchymosis. Warm extremities MSK - Joints with normal ROM. No joint swellings
[2017-01-18] MEDS: Acetaminophen 325 MG TABLET PO PRN (23:22)
[2017-01-18] MEDS: Ranolazine 500 MG TAB.ER.12H PO SCH (23:22)
[2017-01-18] MEDS: Sennosides/Docusate Sodium TABLET PO SCH (23:23)
[2017-01-18] MEDS: Carbidopa/Levodopa ER 50/200 TABLET PO SCH (23:23)
[2017-01-18] MEDS: Isosorbide MONOnitrate (24 HR) 60 MG TAB.ER.24H PO SCH (23:23)
[2017-01-18] MEDS: dilTIAZem HCl 60 MG TABLET PO SCH (23:24)
[2017-01-19] MEDS: Ipratropium/Albuterol Neb 3 ML IH SCH ×4 (03:40→20:49)
[2017-01-19 05:06] LABS: Basophils % 0.1 %; Hematocrit 31.8 % (35.3-44.9); Hemoglobin 10.2 g/dL (11.5-15.4); Immature Granulocytes % 0.9 % (0-4); Lymphocytes # 0.5 K/mcL (0.6-4.6); Mean Corpuscular HGB Conc 32.1 g/dL (31.6-35.5); Mean Corpuscular Hemoglobin 27.9 pg (28.0-33.3); Mean Corpuscular Volume 87.1 fL (83.0-100.0); Mean Platelet Volume 10.4 fL (9.4-12.4); Monocytes # 0.1 K/mcL (0.0-1.3); Neutrophils # 8.2 K/mcL (1.6-8.9); Platelet Count 331 K/mcL (140-400); Red Blood Count 3.65 M/mcL (3.82-4.97)
[2017-01-19 05:15] LABS: Calcium 8.9 mg/dL (8.6-10.8); Potassium 3.9 mEq/L (3.5-4.5)
[2017-01-19] MEDS: dilTIAZem HCl 60 MG TABLET PO SCH ×3 (08:38→20:31)
[2017-01-19] MEDS: clonazePAM 1 MG TABLET PO SCH ×3 (08:39→20:31)
[2017-01-19] MEDS: Ranolazine 500 MG TAB.ER.12H PO SCH ×2 (08:39→20:31)
[2017-01-19] MEDS: Carbidopa/Levodopa ER 50/200 TABLET PO SCH ×2 (08:39→20:30)
[2017-01-19] MEDS: Isosorbide MONOnitrate (24 HR) 60 MG TAB.ER.24H PO SCH ×2 (08:40→20:31)
[2017-01-19] MEDS: Sennosides/Docusate Sodium TABLET PO SCH ×2 (08:40→20:31)
[2017-01-19] MEDS: Furosemide 40 MG/4 ML VIAL IVP SCH ×2 (08:45→18:13)
[2017-01-19] MEDS ORDERED: Carbidopa/Levodopa ER 50/200 TABLET PO SCH (09:00)
[2017-01-19] MEDS ORDERED: dilTIAZem HCl 60 MG TABLET PO SCH (09:00)
[2017-01-19] MEDS ORDERED: Isosorbide MONOnitrate (24 HR) 60 MG TAB.ER.24H PO SCH (09:00)
[2017-01-19] MEDS ORDERED: Ranolazine 500 MG TAB.ER.12H PO SCH (09:00)
[2017-01-19] MEDS: Acetaminophen 325 MG TABLET PO PRN ×2 (13:38→21:01)
--- NOTE | 2017-01-19 18:10 | Internal Med Progress Note ---
Date of Encounter: 01/19/17 Time of Encounter: 10:30 - Assessment and plan (1) Acute exacerbation of CHF (congestive heart failure) Current Visit: Yes Status: Acute Assessment and plan: Continue IV Lasix. Monitor vital signs. Continue O2 supplementation. Monitor urine output and daily weights. Moderate risk for complications Qualifiers: Congestive heart failure type: diastolic Qualified Code(s): I50.33 - Acute on chronic diastolic (congestive) heart failure (2) CAD (coronary artery disease) Current Visit: Yes Status: Chronic Assessment and plan: No chest pain at this time. Continue Plavix and Imdur. Qualifiers: Coronary Disease-Associated Artery/Lesion type: [place] artery [place] vs. transplanted heart: [place] heart Associated angina: without angina Qualified Code(s): I25.10 - Atherosclerotic heart disease of [place] coronary artery without angina pectoris (3) COPD (chronic obstructive pulmonary disease) Current Visit: Yes Status: Chronic Assessment and plan: On bronchodilators. Because have wheezing at this time. We will continue current management. Qualifiers: COPD type: chronic bronchitis Chronic bronchitis type: simple Qualified Code(s): J41.0 - Simple chronic bronchitis (4) HTN (hypertension), benign Current Visit: Yes Status: Chronic Assessment and plan: Well-controlled (5) Hypothyroidism Current Visit: Yes Status: Chronic Assessment and plan: Continue levothyroxin Qualifiers: Hypothyroidism type: unspecified Qualified Code(s): E03.9 - Hypothyroidism , unspecified (6) Parkinsonism Current Visit: Yes Status: Chronic Assessment and plan: Continue carbidopa levodopa Qualifiers: Parkinsonism type: Parkinson's disease Qualified Code(s): G20 - Parkinson' s disease (7) Chronic respiratory failure with hypoxia Current Visit: Yes Status: Acute Assessment and plan: Continue O2 supplementation. Patient is on 3 L of home oxygen which will be continued. (8) CKD (chronic kidney disease) stage 3, GFR 30-59 ml/min Current Visit: Yes Status: Chronic Assessment and plan: Creatinine is at baseline and stable. At risk for worsening renal function due to intravenous Lasix use. - Subjective Interval history: Patient complains of continued shortness of breath. Is concerned about fluid around her lungs from heart failure. Explained to her that chest x-ray done yesterday did not show any pleural effusion. Denies any wheezing at this time. No nausea or vomiting. No chest pain. - Constitutional Vitals: Temp Pulse Resp BP Pulse Ox 97.5 F L 69 15 115/62 99 01/19/17 15:46 01/19/17 15:46 01/19/17 15:46 01/19/17 15:46 01/19/17 15:46 General appearance: Present: cooperative, A&O X 3, answers questions appropriately - Eye Eye exam: Present: EOMI, PERRL, conjuntiva pink, sclera anicteric - Neck Neck exam general surgery: Present: supple, trachea midline. Absent: lymphadenopathy - Respiratory Respiratory exam: Present: prolonged expiratory phase, wheezes. Absent: accessory muscle use, rales, rhonchi - Cardiovascular Cardiovascular exam: Present: RRR, +S1, +S2. Absent: diastolic murmur, gallop, rubs, systolic murmur - Extremities Exam Extremities exam: Present: warm, radial pulses palpable and symmetrical. Absent : calf tenderness, cyanotic, pedal edema - Neurological Exam Neurological exam: Present: alert, CN II-XII intact, oriented X3, no focal deficits. Absent: facial droop, speech deficit - Skin Skin exam: Present: dry, intact Internal Medicine: Result - Labs CBC & Chem 7: 01/20/17 04:40 01/20/17 04:40 Labs: Short CBC 01/19/17 Range/Units 04:25 WBC 8.9 (4.3-11.1) K/mcL Hgb 10.2 L (11.5-15.4) g/dL Hct 31.8 L (35.3-44.9) % Plt Count 331 (140-400) K/mcL Neutrophils # 8.2 (1.6-8.9) K/mcL BMP 01/19/17 04:25 Sodium 143 Potassium 3.9 Chloride 107 Carbon Dioxide 27 BUN 27 H Creatinine 1.36 H Glucose 210 H Calcium 8.9 Consult Discharge Plan - Plan Referrals: Demetrius Smith MD [Primary Care Provider] - Lizeth Beck CNP [Advanced Practice Nurse] - 01/27/17 1:45 pm
[2017-01-20] MEDS: Ipratropium/Albuterol Neb 3 ML IH SCH ×4 (04:23→21:39)
[2017-01-20 04:59] LABS: Basophils % 0.1 %; Hematocrit 30.8 % (35.3-44.9); Hemoglobin 9.5 g/dL (11.5-15.4); Immature Granulocytes % 0.7 % (0-4); Lymphocytes # 1.6 K/mcL (0.6-4.6); Lymphocytes % 11.8 %; Mean Corpuscular HGB Conc 30.8 g/dL (31.6-35.5); Mean Corpuscular Hemoglobin 27.2 pg (28.0-33.3); Mean Corpuscular Volume 88.3 fL (83.0-100.0); Monocytes # 1.4 K/mcL (0.0-1.3); Monocytes % 10.2 %; Platelet Count 315 K/mcL (140-400); Red Blood Count 3.49 M/mcL (3.82-4.97); Red Cell Distribution Width 15.3 % (11.5-14.5); Segmented Neutrophils % 77.2 %
[2017-01-20 05:02] LABS: Neutrophils # 10.7 K/mcL (1.6-8.9)
[2017-01-20 05:07] LABS: Calcium 8.7 mg/dL (8.6-10.8); Potassium 3.6 mEq/L (3.5-4.5)
[2017-01-20] MEDS: Furosemide 40 MG/4 ML VIAL IVP SCH ×2 (07:32→17:35)
[2017-01-20] MEDS: dilTIAZem HCl 60 MG TABLET PO SCH ×3 (09:07→21:40)
[2017-01-20] MEDS: Isosorbide MONOnitrate (24 HR) 60 MG TAB.ER.24H PO SCH ×2 (09:08→21:41)
[2017-01-20] MEDS: clonazePAM 1 MG TABLET PO SCH ×3 (09:08→21:41)
[2017-01-20] MEDS: Ranolazine 500 MG TAB.ER.12H PO SCH ×2 (09:09→21:40)
[2017-01-20] MEDS: Sennosides/Docusate Sodium TABLET PO SCH ×2 (09:10→21:40)
[2017-01-20] MEDS: Carbidopa/Levodopa ER 50/200 TABLET PO SCH ×2 (09:11→21:40)
--- NOTE | 2017-01-20 15:39 | Internal Med Progress Note ---
Date of Encounter: 01/20/17 Time of Encounter: 09:30 - Assessment and plan (1) Acute exacerbation of CHF (congestive heart failure) Current Visit: Yes Status: Acute Assessment and plan: Patient reports worsening symptoms but has not had any increased oxygen requirements. She is still on 3 L oxygen supplementation which she uses at home. Lower extremity edema has resolved. We will get 2-D echocardiogram. To look for any changes since her past one earlier this year. Continue IV Lasix. Moderate risk for complications. Qualifiers: Congestive heart failure type: diastolic Qualified Code(s): I50.33 - Acute on chronic diastolic (congestive) heart failure (2) CAD (coronary artery disease) Current Visit: Yes Status: Chronic Assessment and plan: No chest pain. Continue statin and Plavix . Qualifiers: Coronary Disease-Associated Artery/Lesion type: [place] artery [place] vs. transplanted heart: [place] heart Associated angina: without angina Qualified Code(s): I25.10 - Atherosclerotic heart disease of [place] coronary artery without angina pectoris (3) COPD (chronic obstructive pulmonary disease) Current Visit: Yes Status: Chronic Assessment and plan: On bronchodilators. Currently not having any wheezing. We will continue current treatment plan. Will repeat chest x-ray. Patient does have mild leukocytosis. She has completed 2 courses of antibiotics as outpatient. Initial x-ray showed increased interstitial markings but no clear infiltrate. No fever reported here. Qualifiers: COPD type: chronic bronchitis Chronic bronchitis type: simple Qualified Code(s): J41.0 - Simple chronic bronchitis (4) HTN (hypertension), benign Current Visit: Yes Status: Chronic Assessment and plan: Blood pressure is well controlled. (5) Hypothyroidism Current Visit: Yes Status: Chronic Assessment and plan: Continue levothyroxine Qualifiers: Hypothyroidism type: unspecified Qualified Code(s): E03.9 - Hypothyroidism , unspecified (6) Parkinsonism Current Visit: Yes Status: Chronic Assessment and plan: On Sinemet Qualifiers: Parkinsonism type: Parkinson's disease Qualified Code(s): G20 - Parkinson' s disease (7) Chronic respiratory failure with hypoxia Current Visit: Yes Status: Chronic Assessment and plan: Continue O2 supplementation. (8) CKD (chronic kidney disease) stage 3, GFR 30-59 ml/min Current Visit: Yes Status: Chronic Assessment and plan: Renal function remains stable. - Subjective Interval history: Patient continues to have shortness of breath. Feels that she is getting worse since been getting better with current treatment plan. She believes that she needs more intense nebulizer treatments. Currently wearing CPAP. No chest pain. She feels like she has fluid around her lungs or maybe around her heart. Continues to have dyspnea with minimal exertion. - Constitutional Vitals: Temp Pulse Resp BP Pulse Ox 99.6 F 71 18 113/69 96 01/20/17 15:31 01/20/17 15:31 01/20/17 15:31 01/20/17 15:31 01/20/17 15:31 General appearance: Present: cooperative, A&O X 3, answers questions appropriately Exam: Moderate distress - Eye Eye exam: Present: EOMI, PERRL, conjuntiva pink, sclera anicteric Pupils: Present: PERRL - Neck Neck exam general surgery: Present: supple, trachea midline. Absent: lymphadenopathy - Respiratory Respiratory exam: Present: CTAB, prolonged expiratory phase. Absent: accessory muscle use, rales, rhonchi, wheezes - Cardiovascular Cardiovascular exam: Present: RRR, +S1, +S2. Absent: diastolic murmur, gallop, rubs, systolic murmur - GI/Abdominal GI/Abdominal exam: Present: normal bowel sounds, soft, no peritoneal signs. Absent: distended, tenderness - Extremities Exam Extremities exam: Present: warm, radial pulses palpable and symmetrical. Absent : calf tenderness, cyanotic, pedal edema - Neurological Exam Neurological exam: Present: alert, CN II-XII intact, oriented X3, no focal deficits. Absent: facial droop, speech deficit - Skin Skin exam: Present: dry, intact Internal Medicine: Result - Labs CBC & Chem 7: 01/20/17 04:40 01/20/17 04:40 Labs: Short CBC 01/20/17 Range/Units 04:40 WBC 13.8 H D (4.3-11.1) K/mcL Hgb 9.5 L (11.5-15.4) g/dL Hct 30.8 L (35.3-44.9) % Plt Count 315 (140-400) K/mcL Neutrophils # 10.7 H (1.6-8.9) K/mcL BMP 01/20/17 04:40 Sodium 142 Potassium 3.6 Chloride 105 Carbon Dioxide 30 H BUN 33 H Creatinine 1.22 H Glucose 126 H Calcium 8.7 Consult Discharge Plan - Plan Referrals: Demetrius Smith MD [Primary Care Provider] - Lizeth Beck CNP [Advanced Practice Nurse] - 01/27/17 1:45 pm
[2017-01-20] MEDS: *HR* Heparin 5,000 UNIT/ML VIAL SQ SCH (17:38)
[2017-01-20] MEDS: Acetaminophen 325 MG TABLET PO PRN (21:40)
[2017-01-20] MEDS ORDERED: Acetaminophen 325 MG TABLET PO PRN (22:03)
[2017-01-21] MEDS: Ipratropium/Albuterol Neb 3 ML IH SCH ×4 (03:34→21:23)
[2017-01-21] MEDS: *HR* Heparin 5,000 UNIT/ML VIAL SQ SCH ×2 (05:39→17:19)
[2017-01-21 08:05] LABS: Basophils % 0.2 %; Eosinophils % 0.4 %; Hematocrit 30.1 % (35.3-44.9); Hemoglobin 9.4 g/dL (11.5-15.4); Immature Granulocytes % 0.7 % (0-4); Lymphocytes # 1.6 K/mcL (0.6-4.6); Lymphocytes % 16.4 %; Mean Corpuscular HGB Conc 31.2 g/dL (31.6-35.5); Mean Corpuscular Hemoglobin 27.2 pg (28.0-33.3); Monocytes # 1.6 K/mcL (0.0-1.3); Monocytes % 16.6 %; Neutrophils # 6.5 K/mcL (1.6-8.9); Platelet Count 309 K/mcL (140-400); Red Blood Count 3.46 M/mcL (3.82-4.97); Red Cell Distribution Width 15.7 % (11.5-14.5); Segmented Neutrophils % 65.7 %
[2017-01-21] MEDS: Furosemide 40 MG/4 ML VIAL IVP SCH ×2 (08:15→17:16)
[2017-01-21 08:37] LABS: Calcium 8.4 mg/dL (8.6-10.8); Potassium 3.5 mEq/L (3.5-4.5)
[2017-01-21] MEDS: clonazePAM 1 MG TABLET PO SCH ×3 (09:00→21:04)
[2017-01-21] MEDS: dilTIAZem HCl 60 MG TABLET PO SCH ×3 (09:00→21:04)
[2017-01-21] MEDS: Isosorbide MONOnitrate (24 HR) 60 MG TAB.ER.24H PO SCH ×2 (09:00→21:04)
[2017-01-21] MEDS: Ranolazine 500 MG TAB.ER.12H PO SCH ×2 (09:01→21:03)
[2017-01-21] MEDS: Sennosides/Docusate Sodium TABLET PO SCH ×2 (09:01→21:04)
[2017-01-21] MEDS: Carbidopa/Levodopa ER 50/200 TABLET PO SCH ×2 (09:02→21:04)
--- NOTE | 2017-01-21 15:52 | Internal Med Progress Note ---
Date of Encounter: 01/21/17 Time of Encounter: 08:40 - Assessment and plan (1) Acute exacerbation of CHF (congestive heart failure) Current Visit: Yes Status: Acute Assessment and plan: Continue current management with intravenous Lasix. 2-D echocardiogram showed normal ejection fraction of 60% with mild left frontal for diastolic dysfunction. Patient did have mild pulmonary hypertension. Continue to supplementation. BNP is improving. Renal function remained stable. Moderate risk for complications. If patient's clinical condition continues to improve, we will transition to oral Lasix tomorrow. Qualifiers: Congestive heart failure type: diastolic Qualified Code(s): I50.33 - Acute on chronic diastolic (congestive) heart failure (2) CAD (coronary artery disease) Current Visit: Yes Status: Chronic Assessment and plan: Continue Plavix, statin. No chest pain. Qualifiers: Coronary Disease-Associated Artery/Lesion type: [place] artery [place] vs. transplanted heart: [place] heart Associated angina: without angina Qualified Code(s): I25.10 - Atherosclerotic heart disease of [place] coronary artery without angina pectoris (3) COPD (chronic obstructive pulmonary disease) Current Visit: Yes Status: Chronic Assessment and plan: Continue bronchodilators. Will add mucolytic for symptomatic relief. We will also check respiratory infection panel. Continue O2 supplementation. No indication for antibiotics at this time as chest x-ray does not show any infiltrates. Leukocytosis has resolved. Patient has already completed 2 courses of antibiotics as outpatient. Qualifiers: COPD type: chronic bronchitis Chronic bronchitis type: simple Qualified Code(s): J41.0 - Simple chronic bronchitis (4) HTN (hypertension), benign Current Visit: Yes Status: Chronic Assessment and plan: Blood Pressure is well controlled (5) Hypothyroidism Current Visit: Yes Status: Chronic Assessment and plan: Continue levothyroxine Qualifiers: Hypothyroidism type: unspecified Qualified Code(s): E03.9 - Hypothyroidism , unspecified (6) Parkinsonism Current Visit: Yes Status: Chronic Assessment and plan: Continue Sinemet Qualifiers: Parkinsonism type: Parkinson's disease Qualified Code(s): G20 - Parkinson' s disease (7) Chronic respiratory failure with hypoxia Current Visit: Yes Status: Chronic Assessment and plan: Continue O2 supplementation (8) CKD (chronic kidney disease) stage 3, GFR 30-59 ml/min Current Visit: Yes Status: Chronic Assessment and plan: Renal function remains stable. - Subjective Interval history: Patient feels slightly better today although she continues to have significant dyspnea especially with exertion. Denies chest pain. No palpitations. Using CPAP when sleeping. No orthopnea or PND. Does have cough and feels like she has something stuck in her throat that she is unable to cough up. She had a slight fever with temperature 100.2 last night. She has been afebrile since then. - Constitutional Vitals: Temp Pulse Resp BP Pulse Ox 98.0 F 83 15 104/64 95 01/21/17 15:13 01/21/17 15:13 01/21/17 15:13 01/21/17 15:13 01/21/17 15:13 General appearance: Present: cooperative, A&O X 3, answers questions appropriately - Neck Neck exam general surgery: Present: supple, trachea midline. Absent: lymphadenopathy - Respiratory Respiratory exam: Present: prolonged expiratory phase, wheezes. Absent: accessory muscle use, rales, rhonchi Additional comments: basal crackles - Cardiovascular Cardiovascular exam: Present: RRR, +S1, +S2. Absent: diastolic murmur, gallop, rubs, systolic murmur - GI/Abdominal GI/Abdominal exam: Present: normal bowel sounds, soft, no peritoneal signs. Absent: distended, tenderness - Extremities Exam Extremities exam: Present: warm, radial pulses palpable and symmetrical. Absent : calf tenderness, cyanotic, pedal edema - Neurological Exam Neurological exam: Present: alert, CN II-XII intact, oriented X3, no focal deficits. Absent: facial droop, speech deficit - Skin Skin exam: Present: dry, intact Internal Medicine: Result - Labs CBC & Chem 7: 01/21/17 07:48 01/21/17 07:48 Labs: Short CBC 01/21/17 Range/Units 07:48 WBC 9.9 (4.3-11.1) K/mcL Hgb 9.4 L (11.5-15.4) g/dL Hct 30.1 L (35.3-44.9) % Plt Count 309 (140-400) K/mcL Neutrophils # 6.5 (1.6-8.9) K/mcL BMP 01/21/17 07:48 Sodium 141 Potassium 3.5 Chloride 103 Carbon Dioxide 30 H BUN 29 H Creatinine 1.34 H Glucose 106 H Calcium 8.4 L - Impressions Impressions Chest X-Ray 01/20/17 15:45 IMPRESSION: Increased interstitial markings with ill-defined opacity and indistinctness of the central vasculature. This may represent interstitial edema. Overall, findings appear similar to prior examination. Minimal left basilar opacity is favored to represent atelectasis. D/ / Gennaro Reese MD / Gennaro Reese MD Interpreting Provider: Gennaro Reese MD Pulmonary Perfusion Imaging 01/20/17 15:46 IMPRESSION: Low Probability for Pulmonary Embolus. D/ / Lizeth Darling Cha, MD / Lizeth Darling Cha, MD Interpreting Provider: Lizeth Darling Cha, MD Consult Discharge Plan - Plan Referrals: Demetrius Smith MD [Primary Care Provider] - Lizeth Beck CNP [Advanced Practice Nurse] - 01/27/17 1:45 pm
[2017-01-21 20:32] LABS: Adenovirus Not Detected (Not Detect); Bordetella Pertussis Not Detected (Not Detect); Chlamydophila pneumoniae Not Detected (Not Detect); Coronavirus 229E Not Detected (Not Detect); Coronavirus HKU1 Not Detected (Not Detect); Coronavirus NL63 Not Detected (Not Detect); Coronavirus OC43 Not Detected (Not Detect); Human Metapneumovirus Not Detected (Not Detect); Human Rhinovirus/Enterovirus Not Detected (Not Detect); Influenza A Subtype 2009 H1 Not Detected (Not Detect); Influenza A Untypeable Not Detected (Not Detect); Influenza B Not Detected (Not Detect); Mycoplasma pneumoniae Not Detected (Not Detect); Parainfluenza Virus 1 Not Detected (Not Detect); Parainfluenza Virus 2 Not Detected (Not Detect); Parainfluenza Virus 3 Not Detected (Not Detect); Parainfluenza Virus 4 Not Detected (Not Detect); Respiratory Syncytial Virus Not Detected (Not Detect)
[2017-01-22] MEDS: Ipratropium/Albuterol Neb 3 ML IH SCH ×4 (03:59→21:08)
[2017-01-22] MEDS: *HR* Heparin 5,000 UNIT/ML VIAL SQ SCH ×2 (05:26→17:48)
[2017-01-22] MEDS: Furosemide 40 MG/4 ML VIAL IVP SCH ×2 (08:51→17:48)
[2017-01-22] MEDS: clonazePAM 1 MG TABLET PO SCH ×3 (08:55→21:19)
[2017-01-22] MEDS: Ranolazine 500 MG TAB.ER.12H PO SCH ×2 (08:55→21:19)
[2017-01-22] MEDS: Sennosides/Docusate Sodium TABLET PO SCH ×2 (08:55→21:19)
[2017-01-22] MEDS: dilTIAZem HCl 60 MG TABLET PO SCH ×3 (08:55→21:19)
[2017-01-22] MEDS: Isosorbide MONOnitrate (24 HR) 60 MG TAB.ER.24H PO SCH ×2 (08:55→21:19)
[2017-01-22] MEDS: Carbidopa/Levodopa ER 50/200 TABLET PO SCH ×2 (08:56→21:19)
--- NOTE | 2017-01-22 14:44 | Internal Med Progress Note ---
Date of Encounter: 01/22/17 Time of Encounter: 08:50 - Assessment and plan (1) Acute exacerbation of CHF (congestive heart failure) Current Visit: Yes Status: Acute Assessment and plan: Clinically patient is doing much better than her reported symptoms. She is saturating greater than 92% on 3 L which is her baseline. Breathing at rate of 16/m. We will continue Lasix and transitioned to oral Lasix. Continue other medications as before. Plan to discharge patient tomorrow if she remains stable. Qualifiers: Congestive heart failure type: diastolic Qualified Code(s): I50.33 - Acute on chronic diastolic (congestive) heart failure (2) CAD (coronary artery disease) Current Visit: Yes Status: Chronic Assessment and plan: Continue statin, Plavix Qualifiers: Coronary Disease-Associated Artery/Lesion type: [place] artery [place] vs. transplanted heart: [place] heart Associated angina: without angina Qualified Code(s): I25.10 - Atherosclerotic heart disease of [place] coronary artery without angina pectoris (3) COPD (chronic obstructive pulmonary disease) Current Visit: Yes Status: Chronic Assessment and plan: Continue bronchodilators and chest percussion therapy. Continue O2 supplementation. Patient is not wheezing at this time. Qualifiers: COPD type: chronic bronchitis Chronic bronchitis type: simple Qualified Code(s): J41.0 - Simple chronic bronchitis (4) HTN (hypertension), benign Current Visit: Yes Status: Chronic Assessment and plan: Blood pressure is well controlled. No changes at this time (5) Hypothyroidism Current Visit: Yes Status: Chronic Qualifiers: Hypothyroidism type: unspecified Qualified Code(s): E03.9 - Hypothyroidism , unspecified (6) Parkinsonism Current Visit: Yes Status: Chronic Assessment and plan: Continue Sinemet Qualifiers: Parkinsonism type: Parkinson's disease Qualified Code(s): G20 - Parkinson' s disease (7) Chronic respiratory failure with hypoxia Current Visit: Yes Status: Chronic Assessment and plan: Continue O2 supplementation (8) CKD (chronic kidney disease) stage 3, GFR 30-59 ml/min Current Visit: Yes Status: Chronic Assessment and plan: Stable renal function. - Subjective Interval history: Patient continues to report shortness of breath and increased dyspnea with minimal exertion. He was not able to sleep much last night due to constant beeping from pulse ox monitor. Denies any chest pain. No lower extremity swelling. No orthopnea or PND. - Constitutional Vitals: Temp Pulse Resp BP Pulse Ox 97.7 F 70 20 114/65 92 01/22/17 12:43 01/22/17 12:43 01/22/17 12:43 01/22/17 12:43 01/22/17 12:43 General appearance: Present: cooperative, A&O X 3, answers questions appropriately - Respiratory Respiratory exam: Present: prolonged expiratory phase. Absent: accessory muscle use, rales, rhonchi, wheezes Additional comments: Basal crackles - Cardiovascular Cardiovascular exam: Present: RRR, +S1, +S2. Absent: diastolic murmur, gallop, rubs, systolic murmur - GI/Abdominal GI/Abdominal exam: Present: normal bowel sounds, soft, no peritoneal signs. Absent: distended, tenderness - Extremities Exam Extremities exam: Present: warm, radial pulses palpable and symmetrical. Absent : calf tenderness, cyanotic, pedal edema - Neurological Exam Neurological exam: Present: alert, oriented X3, no focal deficits. Absent: facial droop, speech deficit Internal Medicine: Result - Labs CBC & Chem 7: 01/21/17 07:48 01/21/17 07:48 Consult Discharge Plan - Plan Referrals: Demetrius Smith MD [Primary Care Provider] - Lizeth Beck CNP [Advanced Practice Nurse] - 01/27/17 1:45 pm
[2017-01-22] MEDS: GuaiFENesin Liq 200 MG/10 ML UDC PO SCH (17:48)
[2017-01-23] MEDS: GuaiFENesin Liq 200 MG/10 ML UDC PO SCH ×2 (00:30→05:56)
[2017-01-23] MEDS: Ipratropium/Albuterol Neb 3 ML IH SCH (04:22)
[2017-01-23] MEDS: *HR* Heparin 5,000 UNIT/ML VIAL SQ SCH (05:56)
[2017-01-23] MEDS ORDERED: Ipratropium/Albuterol Neb 3 ML IH PRN (06:26)
[2017-01-23 07:56] VITALS: BP 112/58
[2017-01-23] MEDS ORDERED: Furosemide 40 MG TABLET PO SCH (08:00)
[2017-01-23] MEDS: Ranolazine 500 MG TAB.ER.12H PO SCH (08:11)
[2017-01-23] MEDS: Isosorbide MONOnitrate (24 HR) 60 MG TAB.ER.24H PO SCH (08:11)
[2017-01-23] MEDS: dilTIAZem HCl 60 MG TABLET PO SCH (08:12)
[2017-01-23] MEDS: Carbidopa/Levodopa ER 50/200 TABLET PO SCH (08:12)
[2017-01-23] MEDS: Sennosides/Docusate Sodium TABLET PO SCH (08:12)
[2017-01-23] MEDS: clonazePAM 1 MG TABLET PO SCH (08:12)
--- NOTE | 2017-01-23 08:25 | Discharge Summary ---
Date of Encounter: 01/23/17 Time of Encounter: 08:22 - Discharge Diagnosis (1) Acute exacerbation of CHF (congestive heart failure) Priority: Primary Status: Acute Qualifiers: Congestive heart failure type: diastolic Qualified Code(s): I50.33 - Acute on chronic diastolic (congestive) heart failure (2) CAD (coronary artery disease) Priority: Secondary Status: Chronic Qualifiers: Coronary Disease-Associated Artery/Lesion type: [place] artery [place] vs. transplanted heart: [place] heart Associated angina: without angina Qualified Code(s): I25.10 - Atherosclerotic heart disease of [place] coronary artery without angina pectoris (3) COPD (chronic obstructive pulmonary disease) Priority: Secondary Status: Chronic Qualifiers: COPD type: chronic bronchitis Chronic bronchitis type: simple Qualified Code(s): J41.0 - Simple chronic bronchitis (4) HTN (hypertension), benign Priority: Secondary Status: Chronic (5) Hypothyroidism Priority: Secondary Status: Chronic Qualifiers: Hypothyroidism type: unspecified Qualified Code(s): E03.9 - Hypothyroidism , unspecified (6) Parkinsonism Priority: Secondary Status: Chronic Qualifiers: Parkinsonism type: Parkinson's disease Qualified Code(s): G20 - Parkinson' s disease (7) Chronic respiratory failure with hypoxia Priority: Secondary Status: Chronic (8) CKD (chronic kidney disease) stage 3, GFR 30-59 ml/min Priority: Secondary Status: Chronic - Discharge Medications Prescriptions: GuaiFENesin Liq [Robitussin Liq] 200 mg PO Q6HR #200 ml Home Medications: Albuterol Neb [Proventil Neb] 2.5 mg IH TID PRN 01/18/17 [History] Albuterol Sulfate [Proair Respiclick] 2 puff IH Q4H PRN 01/18/17 [History] Atorvastatin [Lipitor] 40 mg PO HS 01/18/17 [History] Carbidopa/Levodopa ER 50/200 [Sinemet ER 50-200 Tab] 1 each PO BID 01/18/17 [ History] Clopidogrel Bisulfate [Plavix] 75 mg PO DAILY 01/18/17 [History] Docusate Sodium [Stool Softener] 100 mg PO DAILY PRN 01/18/17 [History] Furosemide [Lasix] 40 mg PO BID 01/18/17 [History] Ipratropium/Albuterol Neb [Duoneb] 3 ml IH Q6HR PRN 01/18/17 [History] Isosorbide MONOnitrate (24 HR) [Imdur] 60 mg PO BID 01/18/17 [History] Levothyroxine Sodium 150 mcg PO QAM 01/18/17 [History] Meclizine [Antivert] 12.5 mg PO BID PRN 01/18/17 [History] Nitroglycerin [Nitrostat] 0.4 mg SL Q5M PRN 01/18/17 [History] Omeprazole [PriLOSEC] 20 mg PO DAILY 01/18/17 [History] Oxygen 2 - 4 l NS AD 01/18/17 [History] Potassium Chloride [Klor-Con 10] 10 meq PO BID 01/18/17 [History] Ranolazine [Ranexa] 1,000 mg PO BID 01/18/17 [History] Sennosides/Docusate Sodium [Senna-Docusate Sodium Tablet] 1 each PO DAILY [History] Sertraline [Zoloft] 100 mg PO DAILY 01/18/17 [History] clonazePAM [Klonopin] 1 mg PO TID 01/18/17 [History] dilTIAZem HCl [Cardizem] 60 mg PO TID 01/18/17 [History] GuaiFENesin Liq [Robitussin Liq] 200 mg PO Q6HR #200 ml 01/23/17 [Rx] Allergies/Adverse Reactions: 3 Allergy/AdvReac Type Severity Reaction Status Date / Time indomethacin [From Indocin] Allergy Rash Verified 10/07/16 19:58 naproxen [From Naprosyn] Allergy Rash Verified 10/07/16 19:58 IVP dye Allergy Rash Uncoded 10/07/16 19:58 Procedures/tests Complete & Pending: Procedures Performed prior 72 hours Category Date Time Status NM pul vent and perfuse [NM] Routine Exams 01/20/17 15:46 Completed EV echocardiogram Routine Y 01/20/17 09:03 Completed Date of admission: 01/19/17 01:28 Primary care physician: Demetrius Smith MD Consults: 01/20/17 15:48 Consult to Occupational Therapy [CONS] Routine Comment: Evaluate, develop and implement POC Reason for Consult: evaluate for home needs Consult to Physical Therapy [CONS] Routine Comment: Evaluate, develop and implement POC Reason for Consult: evaluate for home needs Discharging clinician: Matteo Saldana Anticipated date of discharge: 01/23/17 - Patient Status Disposition: Home, Self-Care Condition: Good Functional capacity at discharge: independent ambulation Overall status at discharge: patient is progressing back to baseline - Discharge Instructions Instructions: Dextromethorphan (By mouth), Heart Failure (DC), Hypothyroidism ( DC), Chronic Obstructive Pulmonary Disease (DC), Chronic Hypertension (DC) Follow Up With: Lizeth Beck CNP [Advanced Practice Nurse] - 01/27/17 1:45 pm Additional Instructions: Please follow up with your pest control pilot in 1 week - Diet and Activity Activity: as per physical therapy, wear oxygen at all times Diet: advance to your usual diet, low fat, low cholesterol, low salt diet, other (Fluid restriction to 1.5 L per 24 hrs) Hospital course: Ms. Washburn is a 76 year old female patient with history of COPD, chronic hypoxic respiratory failure, congestive heart failure who was admitted here with a worsening exertional dyspnea and lower extremity swelling. She was admitted here with acute congestive heart failure and was treated with intravenous Lasix. She was also treated for COPD with bronchodilators. She had just completed 2 different antibiotic courses for bronchitis. Her chest x- ray showed chronic interstitial infiltrates. She continued to complain of exertional dyspnea and she underwent further evaluation with echocardiogram which showed EF of 60% with mild left ventricle and diastolic dysfunction. Patient also was found to have mild pulmonary hypertension. She also underwent a VQ scan which showed low probability for PE. Her symptoms slowly improved with the use of bronchodilators, IV Lasix and also mucolytics. She did not have significant wheezing or symptoms of acute COPD exacerbation requiring steroids. She is now clinically stable for discharge home and will follow up with her primary care provider and pest control pilot after discharge. She will continue to take Lasix as prescribed. She was evaluated by physical therapy and was cleared for discharge home without any additional needs. - Time Spent with Patient Total time spent providing and/or coordinating discharge services: Greater than 30 minutes (40 min) - Constitutional Vitals: Temp Pulse Resp BP Pulse Ox 97.4 F L 78 16 112/58 98 01/23/17 07:55 01/23/17 07:55 01/23/17 07:55 01/23/17 07:55 01/23/17 07:55 General appearance: Present: cooperative, A&O X 3, answers questions appropriately - Neck Neck exam general surgery: Present: supple, trachea midline. Absent: lymphadenopathy - Respiratory Respiratory exam: Present: prolonged expiratory phase. Absent: accessory muscle use, rales, rhonchi, wheezes Additional comments: bilateral crackles - Cardiovascular Cardiovascular exam: Present: RRR, +S1, +S2. Absent: diastolic murmur, gallop, rubs, systolic murmur - GI/Abdominal GI/Abdominal exam: Present: normal bowel sounds, soft, no peritoneal signs. Absent: distended, tenderness - Extremities Exam Extremities exam: Present: warm, radial pulses palpable and symmetrical. Absent : calf tenderness, cyanotic, pedal edema - Neurological Exam Neurological exam: Present: alert, no focal deficits, strengths equal and symetr throughout. Absent: facial droop, speech deficit - Skin Skin exam: Present: dry, intact
[2017-01-23] MEDS ORDERED: Ipratropium/Albuterol Neb 3 ML IH SCH (10:00)
== END 2017-01-23 11:49 | disposition home or self-care (01) | DRG 291 ==
LOC: 3BNU → SUATTDRO 01-19 01:28
PROVIDERS: ADMIT Internal Medicine; ATTEND Internal Medicine

== ENCOUNTER 2017-08-17 18:41 | Inpatient (IN) ==
[2017-08-17] MEDS ORDERED: Ondansetron 4 MG/2 ML VIAL IVP ONE ×2 (19:42→22:34)
--- NOTE | 2017-08-17 19:49 | Emergency Department Note ---
Disposition Clinical Impression: Hypokalemia, Enteritis, Weakness N&V (nausea and vomiting) Qualifiers: Vomiting type: unspecified Vomiting Intractability: unspecified Qualified Code( s): R11.2 - Nausea with vomiting, unspecified Disposition: Admitted As Inpatient Condition: Fair Time of Disposition: 21:47 General Adult HPI - General Chief complaint: ED Nausea/Vomiting/Diarrhea Stated complaint: N/V/Dizzy Time Seen by Provider: 08/17/17 19:13 Source: patient Mode of arrival: ambulatory Limitations: no limitations Nursing Notes Reviewed: Yes Vital Signs Reviewed: Yes - History of Present Illness HPI Narrative: 76 year old female with history of Parkinson's, COPD, CHF presents for evaluation of nausea vomiting. Patient notes proximally for episodes of nonbilious projectile vomiting that started last night. Patient reported some nausea but no episodes of dizziness or vertigo. Patient states that she is also had epigastric and left-sided abdominal tenderness as well. Denies any diarrhea or constipation. Reports that she has had her gallbladder removed in the past. Denies any chest pain or shortness of breath. Patient does have a baseline oxygen requirement of 2 L at home. Does note chills last night but denies any fever. Reports a nonproductive cough. The patient was recently treated with amoxicillin approximately week ago for possible pneumonia. Patient states she feels generally weak. Pain Scale: 0 - Related Data Home Medications Medication Instructions Recorded Confirmed Atorvastatin [Lipitor] 40 mg PO HS 01/18/17 08/17/17 Carbidopa/Levodopa ER 50/200 1 each PO BID 01/18/17 08/17/17 [Sinemet ER 50-200 Tab] Clopidogrel Bisulfate [Plavix] 75 mg PO DAILY 01/18/17 08/17/17 Furosemide [Lasix] 40 mg PO BID 01/18/17 08/17/17 Ipratropium/Albuterol Neb [Duoneb] 3 ml IH Q6HR PRN 01/18/17 08/17/17 Meclizine [Antivert] 12.5 mg PO BID PRN 01/18/17 08/17/17 Nitroglycerin [Nitrostat] 0.4 mg SL Q5M PRN 01/18/17 08/17/17 Omeprazole [PriLOSEC] 20 mg PO DAILY 01/18/17 08/17/17 Oxygen 2 - 4 l NS AD 01/18/17 08/17/17 Potassium Chloride [Klor-Con 10] 10 meq PO BID 01/18/17 08/17/17 Ranolazine [Ranexa] 1,000 mg PO BID 01/18/17 08/17/17 Sennosides/Docusate Sodium 1 each PO HS 01/18/17 08/17/17 [Senna-Docusate Sodium Tablet] Sertraline [Zoloft] 100 mg PO DAILY 01/18/17 08/17/17 clonazePAM [Klonopin] 1 mg PO HS 01/18/17 08/17/17 dilTIAZem HCl [Cardizem] 60 mg PO BID 01/18/17 08/17/17 Fluticasone/Vilanterol [Breo 1 puff PO DAILY 06/30/17 08/17/17 Ellipta 200-25 Mcg INH] Albuterol Neb [Proventil Neb] 2.5 mg IH TID 08/17/17 08/17/17 Albuterol Sulfate [Proair Hfa] 2 puff IH Q4H PRN 08/17/17 08/17/17 Isosorbide MONOnitrate (24 HR) 60 mg PO BID 08/17/17 08/17/17 [Imdur] Levothyroxine [Synthroid] 125 mcg PO 0630 08/17/17 08/17/17 Allergies Allergy/AdvReac Type Severity Reaction Status Date / Time hydrocodone [From Vicodin] AdvReac Confusion Verified 06/30/17 10:57 indomethacin [From Indocin] AdvReac Rash Verified 06/30/17 10:57 naproxen [From Naprosyn] AdvReac Nausea Verified 06/30/17 10:57 Oxycodone [From OxyContin] AdvReac Confusion Verified 06/30/17 10:57 IVP dye AdvReac Hives Uncoded 06/30/17 10:57 All systems ED: reviewed and negative except as stated. Constitutional: Reports: chills. Denies: fever Cardiovascular: Denies: chest pain Respiratory: Reports: cough. Denies: dyspnea Gastrointestinal: Reports: abdominal pain, nausea, vomiting. 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 history - Social History Smoking Status: Former smoker Smokeless Tobacco Status: No Alcohol use: Reports: none Drug use: Reports: none Physical Exam - General Limitations: no limitations General appearance: alert, in no apparent distress - Head Head exam: atraumatic, normocephalic, normal inspection - Eye Eye exam: Present: normal appearance, PERRL, EOMI - ENT ENT exam: normal exam, normal oropharynx, mucous membranes moist - Neck Neck exam: Present: normal inspection - Chest Chest inspection: Present: normal inspection, symmetric chest wall rise - Respiratory Respiratory exam: Present: normal lung sounds bilaterally. Absent: respiratory distress - Cardiovascular Cardiovascular exam: Present: regular rate, normal rhythm. Absent: systolic murmur - Abdominal Exam Abdominal exam: Present: soft, tenderness (Mild tenderness in the epigastrium). Absent: distention, guarding, rebound - Extremities Exam Extremities exam: Present: normal inspection. Absent: pedal edema - Back Exam Back exam: Present: normal inspection - Neurological Exam Neurological exam: Present: alert, oriented X3, CN II-XII intact - Expanded Neurological Exam Patient oriented to: Present: person, place, time Speech: Present: fluid speech Cranial nerves: EOM function (II, III, IV, ): Normal, facial sensation (V): Normal, facial palsy (VII): Normal, spinal accessory function (XI): Normal, tongue deviation (XII): Normal Cerebellar function: finger to nose: Normal Motor strength - LUE: 5/5 Motor strength - RUE: 5/5 Motor strength - LLE: 5/5 Motor strength - RLE: 5/5 Coma Scale Eye Opening: Spontaneous Coma Scale Motor Response: Obeys Commands Coma Scale Verbal Response: Oriented Coma Scale Total: 15 - Skin Skin exam: Present: warm, dry, intact, normal color Course Course Narrative: Patient seen and examined. Patient appears to be in no acute distress. Patient will get screening cardiopulmonary evaluation with EKG, troponin chest x -ray. Patient also get CT abdomen and pelvis given abdominal pain with nausea vomiting. Patient denies any vertiginous symptom is has a non-focal exam. No ataxia. Patient's records reviewed does show that she has a history of congestive heart failure. Patient does have an echo of 60%. - Reevaluation(s) Reevaluation #1: Patient seen and examined. Patient appears resting comfortably. Patient's abdominal exam is unremarkable. Patient is able tolerate oral intake. Patient will be admitted to hospitalist service. Time: 21:46 Reevaluation #2: Spoke with the hospitalist recommended giving antibiotics. Time: 22:00 Vital Signs Temperature 98.8 F 08/17/17 18:42 Pulse Rate 65 08/17/17 18:42 Respiratory Rate 18 08/17/17 18:42 Blood Pressure 122/60 08/17/17 18:42 O2 Sat by Pulse Oximetry 95 08/17/17 18:42 Temperature 98.5 F 08/17/17 23:53 Pulse Rate 63 08/17/17 23:53 Respiratory Rate 20 08/17/17 23:58 Blood Pressure 100/55 08/17/17 23:53 O2 Sat by Pulse Oximetry 97 08/17/17 23:58 Oxygen Delivery Oxygen Delivery Nasal Cannula Medical Decision Making - [facility] Narrative Medical decision making narrative: Patient presents with nausea vomiting abdominal pain and generalized weakness. Patient was found to be hypokalemic. Patient does live alone at home. Patient has been generally weak. Patient had a CT scan which showed some enteritis. Patient was not started on antibiotics and emergency department. Patient was given oral potassium repletion and treated with her symptoms. Given the patient 's age and comorbidities and her generalized weakness patient would likely benefit from IV fluids symptomatically treatment to ensure symptom resolution. Patient's agreeable with admission. Patient symptoms also possibly could be related to anginal equivalent and the patient has no acute EKG changes. - Lab Data Lab results reviewed: Yes I reviewed the patient's lab results. Result diagrams: 08/17/17 19:50 08/17/17 19:50 Lab Results 08/17/17 08/17/17 08/17/17 Range/Units 19:50 19:50 19:50 WBC 6.3 (4.3-11.1) K/mcL RBC 3.78 L (3.82-4.97) M/mcL Hgb 11.1 L (11.5-15.4) g/dL Hct 33.9 L (35.3-44.9) % MCV 89.7 (83.0-100.0) fL MCH 29.4 (28.0-33.3) pg MCHC 32.7 (31.6-35.5) g/dL RDW 16.2 H (11.5-14.5) % Plt Count 259 (140-400) K/mcL MPV 9.7 (9.4-12.4) fL Immature Gran % 1.3 (0-4) % Seg Neutrophils % 71.1 % Lymphocytes % 11.4 % Monocytes % 15.6 % Eosinophils % 0.3 % Basophils % 0.3 % Neutrophils # 4.5 (1.6-8.9) K/mcL Lymphocytes # 0.7 (0.6-4.6) K/mcL Monocytes # 1.0 (0.0-1.3) K/mcL Eosinophils # 0.0 (0.0-0.6) K/mcL Basophils # 0.0 (0.0-0.2) K/mcL Sodium 139 (136-145) mEq/L Potassium 2.9 L (3.5-5.1) mEq/L Chloride 103 (98-107) mEq/L Carbon Dioxide 29 (23-29) mEq/L BUN 21 (8-23) mg/dL Creatinine 1.06 (0.60-1.20) mg/dL Est GFR ( Amer) > 60 (> 60) Est GFR (Non-Af Amer) 50 L (> 60) BUN/Creatinine Ratio 20 (6-26) Glucose 120 H (70-105) mg/dL Calculated Osmolality 292 (280-300) Lactic Acid (0.5-2.2) mmol/L Calcium 8.1 L (8.6-10.3) mg/dL Magnesium 1.9 (1.6-2.6) mg/dL Total Bilirubin 0.6 (0.3-1.0) mg/dL AST 9 L (13-39) Units/L ALT 5 L (7-52) Units/L Alkaline Phosphatase 105 H (34-104) Units/L Troponin I 0.03 (< 0.04) ng/mL B-Natriuretic Peptide (Less than 100) pg/mL Serum Total Protein 5.7 L (6.4-8.9) g/dL Albumin 3.6 (3.5-5.7) g/dL Globulin 2.1 L (2.4-3.5) g/dL Albumin/Globulin Ratio 1.7 (1.1-2.2) Lipase 5 L (11-82) Units/L Urine Color (Yellow) Urine Clarity (Clear) Urine pH (5.0-8.0) pH Units Ur Specific [place] (1.010-1.025) Urine Protein (Neg-Trace) mg/dL Urine Glucose (UA) (Normal) mg/dL Urine Ketones (Negative) mg/dL Urine Blood (Negative) Urine Nitrite (Negative) Urine Bilirubin (Negative) Urine Urobilinogen (Normal) mg/dL Ur Leukocyte Esterase (Negative) Urine Microscopic RBC (0-3) per hpf Urine Microscopic WBC (0-3) per hpf Ur Squamous Epith Cells (None-Few) per lpf Urine Bacteria (None-Few) per hpf Hyaline Casts (None-Few) per lpf Urine Yeast Ur Culture Indicated? (NO) 08/17/17 08/17/17 08/17/17 Range/Units 19:50 19:51 20:36 WBC (4.3-11.1) K/mcL RBC (3.82-4.97) M/mcL Hgb (11.5-15.4) g/dL Hct (35.3-44.9) % MCV (83.0-100.0) fL MCH (28.0-33.3) pg MCHC (31.6-35.5) g/dL RDW (11.5-14.5) % Plt Count (140-400) K/mcL MPV (9.4-12.4) fL Immature Gran % (0-4) % Seg Neutrophils % % Lymphocytes % % Monocytes % % Eosinophils % % Basophils % % Neutrophils # (1.6-8.9) K/mcL Lymphocytes # (0.6-4.6) K/mcL Monocytes # (0.0-1.3) K/mcL Eosinophils # (0.0-0.6) K/mcL Basophils # (0.0-0.2) K/mcL Sodium (136-145) mEq/L Potassium (3.5-5.1) mEq/L Chloride (98-107) mEq/L Carbon Dioxide (23-29) mEq/L BUN (8-23) mg/dL Creatinine (0.60-1.20) mg/dL Est GFR ( Amer) (> 60) Est GFR (Non-Af Amer) (> 60) BUN/Creatinine Ratio (6-26) Glucose (70-105) mg/dL Calculated Osmolality (280-300) Lactic Acid 1.0 (0.5-2.2) mmol/L Calcium (8.6-10.3) mg/dL Magnesium (1.6-2.6) mg/dL Total Bilirubin (0.3-1.0) mg/dL AST (13-39) Units/L ALT (7-52) Units/L Alkaline Phosphatase (34-104) Units/L Troponin I (< 0.04) ng/mL B-Natriuretic Peptide 370 H (Less than 100) pg/mL Serum Total Protein (6.4-8.9) g/dL Albumin (3.5-5.7) g/dL Globulin (2.4-3.5) g/dL Albumin/Globulin Ratio (1.1-2.2) Lipase (11-82) Units/L Urine Color Dark Yellow (Yellow) Urine Clarity Cloudy A (Clear) Urine pH 6.0 (5.0-8.0) pH Units Ur Specific [place] 1.021 (1.010-1.025) Urine Protein Trace (Neg-Trace) mg/dL Urine Glucose (UA) Normal (Normal) mg/dL Urine Ketones Negative (Negative) mg/dL Urine Blood Negative (Negative) Urine Nitrite Negative (Negative) Urine Bilirubin Negative (Negative) Urine Urobilinogen Normal (Normal) mg/dL Ur Leukocyte Esterase Moderate H (Negative) Urine Microscopic RBC 3-5 H (0-3) per hpf Urine Microscopic WBC 30-50 H (0-3) per hpf Ur Squamous Epith Cells Many H (None-Few) per lpf Urine Bacteria None Seen (None-Few) per hpf Hyaline Casts None Seen (None-Few) per lpf Urine Yeast Test Not Performed Ur Culture Indicated? NO. (NO) - Radiology Data Radiology results reviewed: Yes I reviewed the patient's radiology results. Abdomen/Pelvis CT 08/17/17 19:43 IMPRESSION: Several loops of right lower quadrant small bowel with questionable wall thickening. Correlation for infectious or inflammatory enteritis is recommended. Right nephrolithiasis. Distal colonic diverticulosis without radiographic evidence of active inflammation. D/ / Lizeth Darling Cha, MD / Lizeth Draling Cha, MD Interpreting Provider: Lizeth Darling Cha, MD Chest X-Ray 08/17/17 19:44 IMPRESSION: No acute cardiopulmonary findings. COPD. D/ / 08/17/2017 20:08:14 Aguilar Campbell MD / earnold Interpreting Provider: Aguilar Campbell MD - EKG Data EKG #1 EKG attestation: Yes I reviewed and interpreted this EKG. EKG shows normal: sinus rhythm Rate: normal Rhythm: NSR [place]/QRS: left axis deviation Voltage: c/w LVH Interpretation: no acute changes, nonspecific ST-T wave changes S.B.A.R. - S.B.A.RGeorge Situation: Demographics Background: Presenting Complaint Assessment: Vital Signs, Course and respsone to treatment, Patient/Family Expectation Recommendation: Barrier(s) to disposition, Recommendation based on pending studies, treatments, or consults S.B.A.RGeorge Report Given to: Dr. Gustavo BeaverBCindi Repor Time: 22:01 Attestation Statement - Attestation Attestation: I examined this patient and my medical decision-making was reviewed with the Resident Physician, Dr. Mejia. I agree with the documented findings, disposition and treatment plan as described except to the extent set forth below. Patient is a 76-year-old white female who presents today with her today with a history of nonbilious nausea vomiting and left-sided abdominal pain. Patient has a history of CHF and COPD but denies any recent fevers cough or URI symptoms that preceded the vomiting. Patient denies any diarrhea or bowel changes no bright red blood per rectum. Since having the nausea and vomiting patient's been unable to tolerate by mouth and complains of generalized weakness. I agree with patient's physical exam findings as documented. Vital signs are stable patient appears clinically dry but in no acute distress on arrival. Patient's EKG is unremarkable for any ischemic change. Chest x-ray is within normal limits. Patient's lab evaluation shows a mild hypokalemia and CT shows evidence of enteritis. Patient has received IV fluids and up to this point as tolerated he will potassium replacement. We will admit the patient for further IV hydration and management.
[2017-08-17] MEDS ORDERED: 0.9 % Sodium Chloride 500 ML IVC ONE (19:52)
[2017-08-17 20:17] LABS: Basophils % 0.3 %; Eosinophils % 0.3 %; Hematocrit 33.9 % (35.3-44.9); Hemoglobin 11.1 g/dL (11.5-15.4); Immature Granulocytes % 1.3 % (0-4); Lymphocytes # 0.7 K/mcL (0.6-4.6); Lymphocytes % 11.4 %; Mean Corpuscular HGB Conc 32.7 g/dL (31.6-35.5); Mean Corpuscular Hemoglobin 29.4 pg (28.0-33.3); Mean Corpuscular Volume 89.7 fL (83.0-100.0); Mean Platelet Volume 9.7 fL (9.4-12.4); Monocytes % 15.6 %; Neutrophils # 4.5 K/mcL (1.6-8.9); Platelet Count 259 K/mcL (140-400); Red Blood Count 3.78 M/mcL (3.82-4.97); Red Cell Distribution Width 16.2 % (11.5-14.5); Segmented Neutrophils % 71.1 %
[2017-08-17 20:28] LABS: Alanine Aminotransferase 5 Units/L (7-52); Albumin 3.6 g/dL (3.5-5.7); Albumin/Globulin Ratio 1.7 (1.1-2.2); Alkaline Phosphatase 105 Units/L (34-104); Aspartate Amino Transferase 9 Units/L (13-39); BUN/Creatinine Ratio 20 (6-26); Bilirubin,Total 0.6 mg/dL (0.3-1.0); Blood Urea Nitrogen 21 mg/dL (8-23); Calcium 8.1 mg/dL (8.6-10.3); Carbon Dioxide 29 mEq/L (23-29); Chloride 103 mEq/L (98-107); Globulin 2.1 g/dL (2.4-3.5); Glucose 120 mg/dL (70-105); Lipase 5 Units/L (11-82); Osmolality,Calculated 292 (280-300); Potassium 2.9 mEq/L (3.5-5.1); Sodium 139 mEq/L (136-145); Total Protein 5.7 g/dL (6.4-8.9); eGFR For African Americans > 60 (> 60); eGFR For Non-African Americans 50 (> 60)
[2017-08-17 20:49] LABS: Bilirubin,Urine Negative (Negative); Blood,Urine Negative (Negative); Clarity,Urine Cloudy (Clear); Color,Urine Dark Yellow (Yellow); Glucose,Urine (UA) Normal (Normal); Ketones,Urine Negative (Negative); Leukocyte Esterase,Urine Moderate (Negative); Nitrite,Urine Negative (Negative); Protein,Urine Trace mg/dL (Neg-Trace); Specific Gravity,Urine 1.021 (1.010-1.025); Urobilinogen,Urine Normal (Normal)
[2017-08-17 20:51] LABS: Bacteria,Urine None Seen per hpf (None-Few); Hyaline Casts,Urine None Seen per lpf (None-Few); Squamous Epithelial Cell,Urine Many per lpf (None-Few); WBC,Urine 30-50 per hpf (0-3)
[2017-08-17 21:40] LABS: Magnesium 1.9 mg/dL (1.6-2.6)
[2017-08-17] MEDS ORDERED: MetroNIDAZOLE 500 MG/100 ML 500 MG/100 ML BAG IVPB ONE (21:59)
[2017-08-17] MEDS ORDERED: Naloxone 0.4 MG/ML INJ IVP PRN (22:35)
[2017-08-17] MEDS ORDERED: Nitroglycerin 0.4 MG TAB.SUBL SL PRN (22:39)
[2017-08-17] MEDS ORDERED: Ipratropium/Albuterol Neb 3 ML IH PRN (22:39)
--- NOTE | 2017-08-17 23:19 | Internal Med History&Physical ---
Date of Encounter: 08/17/17 Time of Encounter: 22:45 Internal Medicine - H&P: HPI Chief complaint: Nausea/ vomiting Admitted From: Emergency Dept Plans for Post Hospital Care: Home History of present illness: Ms. Washburn is a 76 year old female with past medical history of Parkinson's, COPD, chronic hypoxic respiratory failure on 2 lit Home O2 dependent, diastolic CHF pt presents for evaluation of nausea vomiting since last night. She denied any CP / SOB. She does have mild epigastric discomfort. Denied sick contacts at home, denied any food poisoning. Denies any diarrhea or constipation. CT of abd showed several loops of right lower quadrant small bowel with questionable wall thickening with acute enteritis. Past Med Surg Social Fam HX - Past Medical History Medical history: CHF, COPD, fibromyalgia, GERD, hypertension, renal disease, thyroid disease Psychiatric history: anxiety - Past Surgical History Surgical History: cholecystectomy, hip replacement, hysterectomy - Social History Smoking Status: Former smoker Smokeless Tobacco Status: No Alcohol use: none Drug use: none - Family History Mother Living Status: Hx Family Cardiac Disorders: Yes Hx Family Endocrine Disorder: Yes (DM) Father Living Status: Hx Family Cardiac Disorders: Yes Hx Family Endocrine Disorder: Yes Internal Medicine - H&P: Meds Atorvastatin [Lipitor] 40 mg PO HS 01/18/17 [History] Carbidopa/Levodopa ER 50/200 [Sinemet ER 50-200 Tab] 1 each PO BID 01/18/17 [ History] Clopidogrel Bisulfate [Plavix] 75 mg PO DAILY 01/18/17 [History] Furosemide [Lasix] 40 mg PO BID 01/18/17 [History] Ipratropium/Albuterol Neb [Duoneb] 3 ml IH Q6HR PRN 01/18/17 [History] Meclizine [Antivert] 12.5 mg PO BID PRN 01/18/17 [History] Nitroglycerin [Nitrostat] 0.4 mg SL Q5M PRN 01/18/17 [History] Omeprazole [PriLOSEC] 20 mg PO DAILY 01/18/17 [History] Oxygen 2 - 4 l NS AD 01/18/17 [History] Potassium Chloride [Klor-Con 10] 10 meq PO BID 01/18/17 [History] Ranolazine [Ranexa] 1,000 mg PO BID 01/18/17 [History] Sennosides/Docusate Sodium [Senna-Docusate Sodium Tablet] 1 each PO HS 01/18/17 [History] Sertraline [Zoloft] 100 mg PO DAILY 01/18/17 [History] clonazePAM [Klonopin] 1 mg PO HS 01/18/17 [History] dilTIAZem HCl [Cardizem] 60 mg PO BID 01/18/17 [History] Fluticasone/Vilanterol [Breo Ellipta 200-25 Mcg INH] 1 puff PO DAILY 06/30/17 [ History] Albuterol Neb [Proventil Neb] 2.5 mg IH TID 08/17/17 [History] Albuterol Sulfate [Proair Hfa] 2 puff IH Q4H PRN 08/17/17 [History] Isosorbide MONOnitrate (24 HR) [Imdur] 60 mg PO BID 08/17/17 [History] Levothyroxine [Synthroid] 125 mcg PO 0630 08/17/17 [History] 3 Allergy/AdvReac Type Severity Reaction Status Date / Time hydrocodone [From Vicodin] AdvReac Confusion Verified 06/30/17 10:57 indomethacin [From Indocin] AdvReac Rash Verified 06/30/17 10:57 naproxen [From Naprosyn] AdvReac Nausea Verified 06/30/17 10:57 Oxycodone [From OxyContin] AdvReac Confusion Verified 06/30/17 10:57 IVP dye AdvReac Hives Uncoded 06/30/17 10:57 All Systems PM: A 10-system review of systems was performed and is negative for pertinent findings except as documented above in the HPI. Review of systems: All the systems are reviewed everything is benign except the systems and symptoms I mentioned in the history of present illness - Constitutional Vitals: Temp Pulse Resp BP Pulse Ox 98.8 F 66 18 130/48 99 08/17/17 18:42 08/17/17 22:54 08/17/17 22:54 08/17/17 22:54 08/17/17 22:54 General appearance: Present: A&O X 3, answers questions appropriately - Head Head exam: Present: atraumatic, normal inspection - Neck Neck exam general surgery: Present: supple - Respiratory Respiratory exam: Present: decreased breath sounds. Absent: rales, respiratory distress, rhonchi, wheezes - Cardiovascular Cardiovascular exam: Present: +S1, +S2. Absent: tachycardia - GI/Abdominal GI/Abdominal exam: Present: normal bowel sounds, soft, tenderness (mild [place] in epigastric region). Absent: rebound, rigid - Extremities Exam Extremities exam: Absent: calf tenderness, pedal edema, tenderness - Back Exam Back exam: Absent: CVA tenderness (L), CVA tenderness (R) - Neurological Exam Neurological exam: Present: alert, oriented X3 - Psychiatric Psychiatric exam: Present: normal affect, normal mood - Skin Skin exam: Absent: rash Internal Med - H&P Results - Labs CBC & Chem 7: 08/17/17 19:50 08/17/17 19:50 - Assessment and plan (1) Enteritis Current Visit: Yes Status: Acute Assessment and plan: Place the pt into Med Surg for observation Reviewed CT of Abd - showed acute enteritis mostly viral.. however with sudden onset and due to severity of symptoms will start her on empirical abx Cipro and Flagyl IV hydration (2) Hypokalemia Current Visit: Yes Status: Acute Assessment and plan: due to lasix + intractable vomiting Held Lasix Cont replacing on IVF (3) CAD (coronary artery disease) Current Visit: No Status: Chronic Assessment and plan: resumed all home meds Qualifiers: Coronary Disease-Associated Artery/Lesion type: [place] artery [place] vs. transplanted heart: [place] heart Associated angina: without angina Qualified Code(s): I25.10 - Atherosclerotic heart disease of [place] coronary artery without angina pectoris (4) Parkinsonism Current Visit: No Status: Chronic Assessment and plan: resumed all home meds Qualifiers: Parkinsonism type: Parkinson's disease Qualified Code(s): G20 - Parkinson' s disease (5) HTN (hypertension) Current Visit: No Status: Chronic Assessment and plan: resumed home meds Qualifiers: Hypertension type: essential hypertension Qualified Code(s): I10 - Essential (primary) hypertension - Time Spent With Patient Total time spent is greater than 50% in coordination of care (as documented) at patient's floor/unit and/or counseling patient:
[2017-08-18] MEDS: Albuterol 2.5 MG/3 ML NEBULIZER IH SCH ×3 (01:09→16:39)
[2017-08-18] MEDS: MetroNIDAZOLE 500 MG/100 ML 500 MG/100 ML BAG IVPB SCH ×3 (06:23→21:22)
[2017-08-18 07:24] LABS: Mean Corpuscular HGB Conc 31.3 g/dL (31.6-35.5); Mean Corpuscular Hemoglobin 28.5 pg (28.0-33.3); Mean Corpuscular Volume 91.2 fL (83.0-100.0); Mean Platelet Volume 9.7 fL (9.4-12.4); Platelet Count 217 K/mcL (140-400); Red Blood Count 3.51 M/mcL (3.82-4.97); Red Cell Distribution Width 16.4 % (11.5-14.5)
[2017-08-18 07:36] LABS: Calcium 7.8 mg/dL (8.6-10.3); Magnesium 1.9 mg/dL (1.6-2.6); Phosphorous 2.9 mg/dL (2.7-4.5); Potassium 3.6 mEq/L (3.5-5.1)
[2017-08-18 08:20] LABS: Eosinophils # 0.1 K/mcL (0.0-0.6); Lymphocytes # 0.5 K/mcL (0.6-4.6); Monocytes # 0.8 K/mcL (0.0-1.3); Neutrophils # 3.4 K/mcL (1.6-8.9)
[2017-08-18] MEDS: 0.9 % Sodium Chloride 1,000 ML IVC SCH ×2 (08:53)
[2017-08-18] MEDS: Breo Ellipta 200-25 Mcg PO SCH (08:55)
[2017-08-18] MEDS: Isosorbide MONOnitrate (24 HR) 60 MG TAB.ER.24H PO SCH ×2 (08:55→21:21)
[2017-08-18] MEDS: Ranolazine 500 MG TAB.ER.12H PO SCH ×2 (08:56→21:21)
[2017-08-18] MEDS: Carbidopa/Levodopa ER 50/200 TABLET PO SCH ×2 (08:56→21:21)
--- NOTE | 2017-08-18 12:00 | Internal Med Progress Note ---
Date of Encounter: 08/18/17 Time of Encounter: 11:56 - Assessment and plan (1) Enteritis Current Visit: Yes Status: Acute Assessment and plan: - CT suggest acute gastroenteritis, GI panel, stool for WBC and RBC ordered. - continue supportive care with IVF and antiemetics. (2) CAD (coronary artery disease) Current Visit: No Status: Chronic Assessment and plan: - chest pain, continue home meds. Qualifiers: Coronary Disease-Associated Artery/Lesion type: [place] artery [place] vs. transplanted heart: [place] heart Associated angina: without angina Qualified Code(s): I25.10 - Atherosclerotic heart disease of [place] coronary artery without angina pectoris (3) HTN (hypertension) Current Visit: No Status: Chronic Assessment and plan: - controlled, continue home meds. Qualifiers: Hypertension type: essential hypertension Qualified Code(s): I10 - Essential (primary) hypertension (4) Parkinsonism Current Visit: No Status: Chronic Assessment and plan: - continue home meds. Qualifiers: Parkinsonism type: Parkinson's disease Qualified Code(s): G20 - Parkinson' s disease (5) Hypokalemia Current Visit: Yes Status: Resolved - Time Spent With Patient Total time spent is greater than 50% in coordination of care (as documented) at patient's floor/unit and/or counseling patient: 25 - 35 minutes - Subjective Interval history: pt reported diarrhea started this morning. improved abdominal pain and nausea, poor appetite. - Constitutional Vitals: Temp Pulse Resp BP Pulse Ox 98.4 F 67 18 123/73 98 08/18/17 07:14 08/18/17 07:14 08/18/17 09:59 08/18/17 07:14 08/18/17 09:59 General appearance: Present: A&O X 3, answers questions appropriately Exam: PHYSICAL EXAMINATION: GENERAL APPEARANCE: The patient is alert, oriented and in no acute distress. HEENT: Head is normocephalic. The sinuses are nontender. Pupils are equal and reactive. The nares are patent. Oropharynx clear without lesions. NECK: Supple without lymphadenopathy. HEART: Regular rate and rhythm. LUNGS: No crackles or wheezes are heard. ABDOMEN: Soft, diffusely tender, nondistended with good bowel sounds heard. Inguinal area is normal. EXTREMITIES: Without cyanosis, clubbing or edema. NEUROLOGICAL: Gross nonfocal. SKIN: Warm and dry without any rash. Internal Medicine: Result - Labs CBC & Chem 7: 08/18/17 06:22 08/18/17 06:22 Labs: Short CBC 08/18/17 Range/Units 06:22 WBC 4.7 (4.3-11.1) K/mcL Hgb 10.0 L (11.5-15.4) g/dL Hct 32.0 L (35.3-44.9) % Plt Count 217 (140-400) K/mcL Neutrophils # 3.4 (1.6-8.9) K/mcL BMP 08/18/17 06:22 Sodium 143 Potassium 3.6 Chloride 108 H Carbon Dioxide 27 BUN 20 Creatinine 1.08 Glucose 103 Calcium 7.8 L Consult Discharge Plan - Plan Referrals: Demetrius Smtih MD [Primary Care Provider] -
[2017-08-18] MEDS: Ondansetron 4 MG/2 ML VIAL IVP PRN ×2 (12:50→21:17)
[2017-08-18] MEDS: Acetaminophen 325 MG TABLET PO PRN ×2 (12:57→21:34)
[2017-08-18] MEDS: Sennosides/Docusate Sodium TABLET PO SCH (21:21)
[2017-08-18] MEDS: clonazePAM 1 MG TABLET PO SCH ×2 (21:21)
[2017-08-19] MEDS: Albuterol 2.5 MG/3 ML NEBULIZER IH SCH ×3 (03:30→16:50)
[2017-08-19] MEDS: *HR* Promethazine 25 MG/ML VIAL IVP PRN (03:41)
[2017-08-19 05:59] LABS: BUN/Creatinine Ratio 16 (6-26); Blood Urea Nitrogen 16 mg/dL (8-23); Carbon Dioxide 27 mEq/L (23-29); Chloride 113 mEq/L (98-107); Glucose 101 mg/dL (70-105); Osmolality,Calculated 295 (280-300); Potassium 3.4 mEq/L (3.5-5.1); Sodium 142 mEq/L (136-145); eGFR For African Americans > 60 (> 60); eGFR For Non-African Americans 53 (> 60)
[2017-08-19] MEDS: MetroNIDAZOLE 500 MG/100 ML 500 MG/100 ML BAG IVPB SCH ×3 (06:37→22:16)
[2017-08-19] MEDS: Breo Ellipta 200-25 Mcg PO SCH (09:09)
[2017-08-19] MEDS: Carbidopa/Levodopa ER 50/200 TABLET PO SCH ×2 (09:09→19:52)
[2017-08-19] MEDS: Isosorbide MONOnitrate (24 HR) 60 MG TAB.ER.24H PO SCH ×2 (09:09→19:52)
[2017-08-19] MEDS: Ranolazine 500 MG TAB.ER.12H PO SCH ×2 (09:09→19:52)
[2017-08-19] MEDS: Ondansetron 4 MG/2 ML VIAL IVP PRN ×2 (12:17→23:32)
--- NOTE | 2017-08-19 13:13 | Electrocardiograph Report ---
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
--- NOTE | 2017-08-19 16:15 | Internal Med Progress Note ---
Date of Encounter: 08/19/17 Time of Encounter: 16:13 - Assessment and plan (1) Enteritis Current Visit: Yes Status: Acute Assessment and plan: presented with abdominal pain, nausea, vomiting and loose stool that started 3 days prior to arrival. ABD CT showed several loops of right lower quadrant small bowel with questionable wall thickening concerning for infectious/ inflammatory enteritis. Still with nausea and loose stool; able to tolerate clear liquids on 08/19 exam. Continue supportive care with IV fluids, PRN emetics , IV Cipro/Flagyl for now. Stool studies pending. (2) CAD (coronary artery disease) Current Visit: No Status: Chronic Assessment and plan: per hx. asymptomatic. Denied chest pain. Continue home Plavix, statin, nitrate Qualifiers: Coronary Disease-Associated Artery/Lesion type: [place] artery [place] vs. transplanted heart: [place] heart Associated angina: without angina Qualified Code(s): I25.10 - Atherosclerotic heart disease of [place] coronary artery without angina pectoris (3) HTN (hypertension) Current Visit: No Status: Chronic Assessment and plan: per hx. BP controlled. Cont home BP medication. Monitor BP and titrate PRN Qualifiers: Hypertension type: essential hypertension Qualified Code(s): I10 - Essential (primary) hypertension (4) Parkinsonism Current Visit: No Status: Chronic Assessment and plan: per hx. Cont home carbidopa/levodopa. Qualifiers: Parkinsonism type: Parkinson's disease Qualified Code(s): G20 - Parkinson' s disease (5) Hypokalemia Current Visit: Yes Status: Resolved Assessment and plan: With Lasix and GI losses with vomiting. Holding Lasix. Replace potassium PRN. Monitor repeat labs. (6) DVT prophylaxis Current Visit: No Status: Acute Assessment and plan: heparin - Time Spent With Patient Total time spent is greater than 50% in coordination of care (as documented) at patient's floor/unit and/or counseling patient: - Subjective Interval history: Seen and examined at bedside. Patient is new to me, information obtained from chart review and patient report. Says she feels a little better but still nauseated. She is able to tolerate clear liquid diet this morning. Still having loose stool. Says symptom onset was 4 days ago, vomiting came on acutely and was projectile. No sick contacts that she is aware of. - Constitutional Vitals: Temp Pulse Resp BP Pulse Ox 98.7 F 72 17 127/68 98 08/19/17 16:05 08/19/17 16:05 08/19/17 16:05 08/19/17 16:05 08/19/17 16:05 General appearance: Present: A&O X 3, morbidly obese, answers questions appropriately - Head Head exam: Present: atraumatic, normocephalic - Eye Eye exam: Present: PERRL, conjuntiva pink, sclera anicteric Pupils: Present: PERRL - Neck Neck exam general surgery: Present: supple, trachea midline. Absent: lymphadenopathy - Respiratory Respiratory exam: Present: CTAB. Absent: accessory muscle use, rales, rhonchi, wheezes - Cardiovascular Cardiovascular exam: Present: RRR, +S1, +S2. Absent: diastolic murmur, gallop, rubs, systolic murmur - GI/Abdominal GI/Abdominal exam: Present: normal bowel sounds, soft, no peritoneal signs. Absent: distended, tenderness - Extremities Exam Extremities exam: Present: warm, radial pulses palpable and symmetrical. Absent : calf tenderness, cyanotic, pedal edema - Neurological Exam Neurological exam: Present: CN II-XII intact, oriented X3, no focal deficits. Absent: pronater drift, facial droop, speech deficit - Skin Skin exam: Present: dry, intact Internal Medicine: Result - Labs CBC & Chem 7: 08/18/17 06:22 08/19/17 05:17 Labs: BMP 08/19/17 05:17 Sodium 142 Potassium 3.4 L Chloride 113 H Carbon Dioxide 27 BUN 16 Creatinine 1.01 Glucose 101 Calcium 8.0 L Consult Discharge Plan - Plan Referrals: Demetrius Smith MD [Primary Care Provider] -
[2017-08-19] MEDS: Acetaminophen 325 MG TABLET PO PRN (19:51)
[2017-08-19] MEDS: clonazePAM 1 MG TABLET PO SCH (19:52)
[2017-08-19] MEDS: Sennosides/Docusate Sodium TABLET PO SCH (19:52)
[2017-08-19] MEDS: *HR* Heparin 5,000 UNIT/ML VIAL SQ SCH (22:18)
[2017-08-20] MEDS: Acetaminophen 325 MG TABLET PO PRN ×3 (01:59→20:37)
[2017-08-20] MEDS: Albuterol 2.5 MG/3 ML NEBULIZER IH SCH ×2 (02:29→10:22)
[2017-08-20] MEDS: *HR* Promethazine 25 MG/ML VIAL IVP PRN (02:47)
[2017-08-20 04:24] LABS: Hematocrit 28.8 % (35.3-44.9); Hemoglobin 9.2 g/dL (11.5-15.4); Mean Corpuscular HGB Conc 31.9 g/dL (31.6-35.5); Mean Corpuscular Hemoglobin 28.8 pg (28.0-33.3); Mean Corpuscular Volume 90.3 fL (83.0-100.0); Platelet Count 217 K/mcL (140-400); Red Blood Count 3.19 M/mcL (3.82-4.97)
[2017-08-20 04:41] LABS: BUN/Creatinine Ratio 15 (6-26); Blood Urea Nitrogen 14 mg/dL (8-23); Carbon Dioxide 23 mEq/L (23-29); Chloride 114 mEq/L (98-107); Glucose 123 mg/dL (70-105); Osmolality,Calculated 286 (280-300); Potassium 3.7 mEq/L (3.5-5.1); Sodium 137 mEq/L (136-145); eGFR For African Americans > 60 (> 60); eGFR For Non-African Americans 59 (> 60)
[2017-08-20] MEDS: MetroNIDAZOLE 500 MG/100 ML 500 MG/100 ML BAG IVPB SCH ×2 (06:14→15:32)
[2017-08-20] MEDS: *HR* Heparin 5,000 UNIT/ML VIAL SQ SCH ×3 (06:14→20:39)
[2017-08-20] MEDS: Breo Ellipta 200-25 Mcg PO SCH (10:41)
[2017-08-20] MEDS: Ranolazine 500 MG TAB.ER.12H PO SCH ×2 (10:41→20:43)
[2017-08-20] MEDS: Carbidopa/Levodopa ER 50/200 TABLET PO SCH ×2 (10:41→20:39)
[2017-08-20] MEDS: Isosorbide MONOnitrate (24 HR) 60 MG TAB.ER.24H PO SCH ×2 (10:41→20:39)
--- NOTE | 2017-08-20 14:56 | Internal Med Progress Note ---
Date of Encounter: 08/20/17 Time of Encounter: 14:51 - Assessment and plan (1) Enteritis Current Visit: Yes Status: Acute Assessment and plan: presented with abdominal pain, nausea, vomiting and loose stool that started 3 days prior to arrival. ABD CT showed several loops of right lower quadrant small bowel with questionable wall thickening concerning for infectious/ inflammatory enteritis. Sx's improved with conservative management (IV fluids, clear liquids). Denies abdominal pain or loose stool on 08/20 exam. Stop Cipro/ flagyl. Advance diet as tolerated (2) COPD exacerbation Current Visit: Yes Status: Acute Assessment and plan: suspected with diffuse wheezing, cough and subjective fevers. CXR nonacute. Start ceftriaxone, azithromycin. IV Solu-Medrol. Scheduled DuoNeb's. Rested for a PCR, urinary antigens pending (3) CAD (coronary artery disease) Current Visit: No Status: Chronic Assessment and plan: per hx. asymptomatic. Denied chest pain. Continue home Plavix, statin, nitrate Qualifiers: Coronary Disease-Associated Artery/Lesion type: [place] artery [place] vs. transplanted heart: [place] heart Associated angina: without angina Qualified Code(s): I25.10 - Atherosclerotic heart disease of [place] coronary artery without angina pectoris (4) HTN (hypertension) Current Visit: No Status: Chronic Assessment and plan: per hx. BP controlled. Cont home BP medication. Monitor BP and titrate PRN Qualifiers: Hypertension type: essential hypertension Qualified Code(s): I10 - Essential (primary) hypertension (5) Parkinsonism Current Visit: No Status: Chronic Assessment and plan: per hx. Cont home carbidopa/levodopa. Qualifiers: Parkinsonism type: Parkinson's disease Qualified Code(s): G20 - Parkinson' s disease (6) Hypokalemia Current Visit: Yes Status: Resolved Assessment and plan: With Lasix and GI losses with vomiting. Holding Lasix. Replace potassium PRN. Monitor repeat labs. (7) DVT prophylaxis Current Visit: No Status: Acute Assessment and plan: heparin - Time Spent With Patient Total time spent is greater than 50% in coordination of care (as documented) at patient's floor/unit and/or counseling patient: - Subjective Interval history: Seen and examined at bedside. Patient is new to me, information obtained from chart review and patient report. Says she feels a little better but still nauseated. She is able to tolerate clear liquid diet this morning. Still having loose stool. Says symptom onset was 4 days ago, vomiting came on acutely and was projectile. No sick contacts that she is aware of. - Constitutional Vitals: Temp Pulse Resp BP Pulse Ox 97.6 F 81 17 150/73 92 08/20/17 11:12 08/20/17 11:12 08/20/17 11:12 08/20/17 11:12 08/20/17 11:12 General appearance: Present: A&O X 3, morbidly obese, answers questions appropriately Internal Medicine: Result - Labs CBC & Chem 7: 08/20/17 03:37 08/20/17 03:37 Consult Discharge Plan - Plan Referrals: Demetrius Smith MD [Primary Care Provider] -
[2017-08-20] MEDS: cefTRIAXone 2,000 MG in Water for inj. (sterile) 20 ML 20 ML IVP SCH ×2 (15:30→16:56)
[2017-08-20] MEDS: Azithromycin 500 MG in D5% in Water 250 ML IVPB SCH ×2 (15:31→16:56)
[2017-08-20] MEDS: Ipratropium/Albuterol Neb 3 ML IH SCH ×2 (16:22→21:05)
[2017-08-20 16:39] LABS: Adenovirus Not Detected (Not Detect); Bordetella Pertussis Not Detected (Not Detect); Chlamydophila pneumoniae Not Detected (Not Detect); Coronavirus 229E Not Detected (Not Detect); Coronavirus HKU1 Not Detected (Not Detect); Coronavirus NL63 Not Detected (Not Detect); Coronavirus OC43 Not Detected (Not Detect); Human Metapneumovirus Not Detected (Not Detect); Human Rhinovirus/Enterovirus Not Detected (Not Detect); Influenza A Subtype 2009 H1 Not Detected (Not Detect); Influenza A Untypeable Not Detected (Not Detect); Influenza B Not Detected (Not Detect); Mycoplasma pneumoniae Not Detected (Not Detect); Parainfluenza Virus 1 Not Detected (Not Detect); Parainfluenza Virus 2 Not Detected (Not Detect); Parainfluenza Virus 3 Not Detected (Not Detect); Parainfluenza Virus 4 Not Detected (Not Detect); Respiratory Syncytial Virus Not Detected (Not Detect)
[2017-08-20] MEDS: levoFLOXacin 750 MG TABLET PO SCH (17:49)
[2017-08-20] MEDS: MethylPREDNISolone 40 MG/ML VIAL IVP SCH (18:24)
[2017-08-20] MEDS: clonazePAM 1 MG TABLET PO SCH (20:38)
[2017-08-20] MEDS: Sennosides/Docusate Sodium TABLET PO SCH (20:38)
[2017-08-21] MEDS: Ipratropium/Albuterol Neb 3 ML IH SCH ×7 (04:23→23:29)
[2017-08-21] MEDS: MethylPREDNISolone 40 MG/ML VIAL IVP SCH (04:27)
[2017-08-21 05:15] LABS: Hematocrit 28.3 % (35.3-44.9); Hemoglobin 9.1 g/dL (11.5-15.4); Mean Corpuscular HGB Conc 32.2 g/dL (31.6-35.5); Mean Corpuscular Hemoglobin 29.2 pg (28.0-33.3); Mean Corpuscular Volume 90.7 fL (83.0-100.0); Mean Platelet Volume 9.9 fL (9.4-12.4); Platelet Count 217 K/mcL (140-400); Red Blood Count 3.12 M/mcL (3.82-4.97); Red Cell Distribution Width 16.2 % (11.5-14.5)
[2017-08-21 05:31] LABS: BUN/Creatinine Ratio 12 (6-26); Blood Urea Nitrogen 12 mg/dL (8-23); Carbon Dioxide 31 mEq/L (23-29); Chloride 110 mEq/L (98-107); Glucose 94 mg/dL (70-105); Osmolality,Calculated 288 (280-300); Potassium 3.9 mEq/L (3.5-5.1); Sodium 139 mEq/L (136-145); eGFR For African Americans > 60 (> 60); eGFR For Non-African Americans 54 (> 60)
[2017-08-21] MEDS: predniSONE 20 MG TABLET PO SCH ×2 (06:35→11:43)
[2017-08-21] MEDS: *HR* Heparin 5,000 UNIT/ML VIAL SQ SCH ×3 (06:36→21:39)
[2017-08-21] MEDS: Ranolazine 500 MG TAB.ER.12H PO SCH ×2 (11:42→21:38)
[2017-08-21] MEDS: Breo Ellipta 200-25 Mcg PO SCH (11:43)
[2017-08-21] MEDS: Carbidopa/Levodopa ER 50/200 TABLET PO SCH ×2 (11:43→21:38)
[2017-08-21] MEDS: Isosorbide MONOnitrate (24 HR) 60 MG TAB.ER.24H PO SCH ×2 (11:43→21:38)
--- NOTE | 2017-08-21 17:16 | Internal Med Progress Note ---
Date of Encounter: 08/21/17 Time of Encounter: 17:13 - Assessment and plan (1) COPD exacerbation Current Visit: Yes Status: Acute Assessment and plan: suspected with diffuse wheezing, cough and subjective fevers. CXR nonacute. Respiratory PCR negative Start ceftriaxone, azithromycin, PO steroids, Scheduled DuoNeb's. Urinary antigens pending (2) Enteritis Current Visit: Yes Status: Acute Assessment and plan: presented with abdominal pain, nausea, vomiting and loose stool that started 3 days prior to arrival. ABD CT showed several loops of right lower quadrant small bowel with questionable wall thickening concerning for infectious/ inflammatory enteritis. Sx's improved with conservative management (IV fluids, clear liquids). Denies abdominal pain or loose stool, stop Cipro/flagyl. Advance diet as tolerated; tolerating regular diet as of 08/21 exam. (3) CAD (coronary artery disease) Current Visit: No Status: Chronic Assessment and plan: per hx. asymptomatic. Denied chest pain. Continue home Plavix, statin, nitrate Qualifiers: Coronary Disease-Associated Artery/Lesion type: [place] artery [place] vs. transplanted heart: [place] heart Associated angina: without angina Qualified Code(s): I25.10 - Atherosclerotic heart disease of [place] coronary artery without angina pectoris (4) HTN (hypertension) Current Visit: No Status: Chronic Assessment and plan: per hx. BP controlled. Cont home BP medication. Monitor BP and titrate PRN Qualifiers: Hypertension type: essential hypertension Qualified Code(s): I10 - Essential (primary) hypertension (5) Parkinsonism Current Visit: No Status: Chronic Assessment and plan: per hx. Cont home carbidopa/levodopa. Qualifiers: Parkinsonism type: Parkinson's disease Qualified Code(s): G20 - Parkinson' s disease (6) Hypokalemia Current Visit: Yes Status: Resolved Assessment and plan: With Lasix and GI losses with vomiting. Holding Lasix. Replace potassium PRN. Monitor repeat labs. (7) DVT prophylaxis Current Visit: No Status: Acute Assessment and plan: heparin - Time Spent With Patient Total time spent is greater than 50% in coordination of care (as documented) at patient's floor/unit and/or counseling patient: - Subjective Interval history: Seen and examined at bedside; says she feels better overall but does not feel ready to go home today. Has a little bit and nausea, no abdominal pain or loose stool. Would like to advance diet. Has some shortness of breath but improved as well. No wheezing. - Constitutional Vitals: Temp Pulse Resp BP Pulse Ox 97.6 F 78 15 115/72 95 08/21/17 15:47 08/21/17 15:47 08/21/17 15:47 08/21/17 15:47 08/21/17 15:47 General appearance: Present: A&O X 3, morbidly obese, answers questions appropriately - Head Head exam: Present: atraumatic, normocephalic - Eye Eye exam: Present: PERRL, conjuntiva pink, sclera anicteric Pupils: Present: PERRL - Neck Neck exam general surgery: Present: supple, trachea midline. Absent: lymphadenopathy - Respiratory Respiratory exam: Present: CTAB, rhonchi, wheezes. Absent: accessory muscle use , rales - Cardiovascular Cardiovascular exam: Present: RRR, +S1, +S2. Absent: diastolic murmur, gallop, rubs, systolic murmur - GI/Abdominal GI/Abdominal exam: Present: normal bowel sounds, soft, no peritoneal signs. Absent: distended, tenderness - Extremities Exam Extremities exam: Present: warm, radial pulses palpable and symmetrical. Absent : calf tenderness, cyanotic, pedal edema - Neurological Exam Neurological exam: Present: CN II-XII intact, oriented X3, no focal deficits. Absent: pronater drift, facial droop, speech deficit - Skin Skin exam: Present: dry, intact Internal Medicine: Result - Labs CBC & Chem 7: 08/21/17 04:17 08/21/17 04:17 Labs: Short CBC 08/21/17 Range/Units 04:17 WBC 6.7 (4.3-11.1) K/mcL Hgb 9.1 L (11.5-15.4) g/dL Hct 28.3 L (35.3-44.9) % Plt Count 217 (140-400) K/mcL BMP 08/21/17 04:17 Sodium 139 Potassium 3.9 Chloride 110 H Carbon Dioxide 31 H BUN 12 Creatinine 1.00 Glucose 94 Calcium 8.0 L Consult Discharge Plan - Plan Referrals: Donald Kapadia CNP [Advanced Practice Nurse] - 11/07/17 11:30 am Michelle Oh MD [Partnered Physician] - 11/02/17 1:45 pm Lizeth Beck CNP [Advanced Practice Nurse] - 09/14/17 2:15 pm
[2017-08-21] MEDS: clonazePAM 1 MG TABLET PO SCH (21:38)
[2017-08-21] MEDS: Sennosides/Docusate Sodium TABLET PO SCH (21:39)
[2017-08-22] MEDS: Ipratropium/Albuterol Neb 3 ML IH SCH ×6 (03:19→23:22)
[2017-08-22] MEDS: *HR* Heparin 5,000 UNIT/ML VIAL SQ SCH ×3 (05:38→20:35)
[2017-08-22 05:58] LABS: Hematocrit 28.7 % (35.3-44.9); Hemoglobin 9.2 g/dL (11.5-15.4); Mean Corpuscular HGB Conc 32.1 g/dL (31.6-35.5); Mean Corpuscular Hemoglobin 28.5 pg (28.0-33.3); Mean Corpuscular Volume 88.9 fL (83.0-100.0); Mean Platelet Volume 10.1 fL (9.4-12.4); Platelet Count 246 K/mcL (140-400); Red Blood Count 3.23 M/mcL (3.82-4.97); Red Cell Distribution Width 16.3 % (11.5-14.5)
[2017-08-22 06:12] LABS: BUN/Creatinine Ratio 18 (6-26); Blood Urea Nitrogen 18 mg/dL (8-23); Calcium 8.5 mg/dL (8.6-10.3); Carbon Dioxide 25 mEq/L (23-29); Chloride 110 mEq/L (98-107); Glucose 134 mg/dL (70-105); Osmolality,Calculated 294 (280-300); Potassium 4.5 mEq/L (3.5-5.1); Sodium 140 mEq/L (136-145); eGFR For African Americans > 60 (> 60); eGFR For Non-African Americans 55 (> 60)
[2017-08-22] MEDS: Ranolazine 500 MG TAB.ER.12H PO SCH ×2 (08:31→20:34)
[2017-08-22] MEDS: Carbidopa/Levodopa ER 50/200 TABLET PO SCH ×2 (08:32→20:34)
[2017-08-22] MEDS: Isosorbide MONOnitrate (24 HR) 60 MG TAB.ER.24H PO SCH ×2 (08:32→20:34)
[2017-08-22] MEDS: Breo Ellipta 200-25 Mcg PO SCH (08:46)
[2017-08-22] MEDS: Ondansetron ODT 4 MG TAB.RAPDIS SL PRN ×2 (11:35→16:30)
[2017-08-22] MEDS: levoFLOXacin 750 MG TABLET PO SCH (16:30)
--- NOTE | 2017-08-22 18:28 | Internal Med Progress Note ---
Date of Encounter: 08/22/17 Time of Encounter: 18:25 - Assessment and plan (1) Enteritis Current Visit: Yes Status: Acute Assessment and plan: CT suggest acute gastroenteritis, no diarrhea stool occult was negative Stool - fecal lactoferrin positive. Continue with supportive [id number] Clear liquids-is tolerating oral intake now however she does complain of nausea- Cipro and Flagyl has been DC'd We will most likely DC in the a.m. (2) CAD (coronary artery disease) Current Visit: No Status: Chronic Assessment and plan: Continue home Plavix, statin, nitrate no chest pain at this time Qualifiers: Coronary Disease-Associated Artery/Lesion type: [place] artery [place] vs. transplanted heart: [place] heart Associated angina: without angina Qualified Code(s): I25.10 - Atherosclerotic heart disease of [place] coronary artery without angina pectoris (3) HTN (hypertension) Current Visit: No Status: Chronic Assessment and plan: BP controlled. Cont home BP medication. Monitor BP and titrate PRN Qualifiers: Hypertension type: essential hypertension Qualified Code(s): I10 - Essential (primary) hypertension (4) Parkinsonism Current Visit: No Status: Chronic Assessment and plan: Cont home carbidopa/levodopa. Qualifiers: Parkinsonism type: Parkinson's disease Qualified Code(s): G20 - Parkinson' s disease (5) Hypokalemia Current Visit: Yes Status: Resolved Assessment and plan: Related to GI losses and Lasix use presently stable we will continue to monitor and replace as needed (6) COPD exacerbation Current Visit: Yes Status: Acute Assessment and plan: Stable at this time no wheezing noted no cough CXR nonacute. Respiratory PCR negative Scheduled DuoNeb's. Urinary antigens negative continue with Levaquin (7) DVT prophylaxis Current Visit: No Status: Acute Assessment and plan: heparin subcutaneous - Time Spent With Patient Total time spent is greater than 50% in coordination of care (as documented) at patient's floor/unit and/or counseling patient: - Subjective Interval history: This patient is due to me I did review records. I examined patient bedside earlier this morning, at that time patient was complaining of nausea. She was able to eat a solid dinner last night however today she was very nauseated and felt as if she was going to throw up after eating breakfast. Advised patient we would give antibiotics and if able to tolerate her meals today we would discharge her home. I followed up to check on patient she is eating clear liquid diet she continues to complain of nausea and would like to stay overnight to make sure she does not continue to vomit. Advised patient we would monitor overnight and reassess in the a.m. for discharge. Patient did agree - Constitutional Vitals: Temp Pulse Resp BP Pulse Ox 97.6 F 68 18 111/63 98 08/22/17 15:30 08/22/17 15:30 08/22/17 15:30 08/22/17 15:30 08/22/17 15:30 General appearance: Present: A&O X 3, morbidly obese, answers questions appropriately - Head Head exam: Present: atraumatic, normocephalic - Eye Eye exam: Present: PERRL, conjuntiva pink, sclera anicteric Pupils: Present: PERRL - Neck Neck exam general surgery: Present: supple, trachea midline. Absent: lymphadenopathy - Respiratory Respiratory exam: Present: CTAB. Absent: accessory muscle use, rales, rhonchi, wheezes - Cardiovascular Cardiovascular exam: Present: RRR, +S1, +S2. Absent: diastolic murmur, gallop, rubs, systolic murmur - GI/Abdominal GI/Abdominal exam: Present: normal bowel sounds, soft, no peritoneal signs. Absent: distended, tenderness - Extremities Exam Extremities exam: Present: warm, radial pulses palpable and symmetrical. Absent : calf tenderness, cyanotic, pedal edema - Neurological Exam Neurological exam: Present: CN II-XII intact, oriented X3, no focal deficits. Absent: pronater drift, facial droop, speech deficit - Skin Skin exam: Present: dry, intact Internal Medicine: Result - Labs CBC & Chem 7: 08/22/17 05:17 08/22/17 05:17 Labs: Short CBC 08/22/17 Range/Units 05:17 WBC 7.4 (4.3-11.1) K/mcL Hgb 9.2 L (11.5-15.4) g/dL Hct 28.7 L (35.3-44.9) % Plt Count 246 (140-400) K/mcL BMP 08/22/17 05:17 Sodium 140 Potassium 4.5 Chloride 110 H Carbon Dioxide 25 BUN 18 Creatinine 0.98 Glucose 134 H Calcium 8.5 L Consult Discharge Plan - Plan Referrals: Donald Kapadia CNP [Advanced Practice Nurse] - 11/07/17 11:30 am Michelle Oh MD [Partnered Physician] - 11/02/17 1:45 pm Lizeth Beck CNP [Advanced Practice Nurse] - 09/14/17 2:15 pm
[2017-08-22] MEDS: clonazePAM 1 MG TABLET PO SCH (20:34)
[2017-08-22] MEDS: Sennosides/Docusate Sodium TABLET PO SCH (20:35)
[2017-08-22] MEDS: Acetaminophen 325 MG TABLET PO PRN (23:21)
[2017-08-23] MEDS: Ipratropium/Albuterol Neb 3 ML IH SCH ×6 (03:54→23:26)
[2017-08-23 05:41] LABS: Hematocrit 28.7 % (35.3-44.9); Hemoglobin 9.1 g/dL (11.5-15.4); Mean Corpuscular HGB Conc 31.7 g/dL (31.6-35.5); Mean Corpuscular Hemoglobin 28.7 pg (28.0-33.3); Mean Corpuscular Volume 90.5 fL (83.0-100.0); Mean Platelet Volume 9.7 fL (9.4-12.4); Platelet Count 288 K/mcL (140-400); Red Blood Count 3.17 M/mcL (3.82-4.97); Red Cell Distribution Width 16.8 % (11.5-14.5)
[2017-08-23 05:59] LABS: Calcium 8.4 mg/dL (8.6-10.3); Potassium 4.6 mEq/L (3.5-5.1)
[2017-08-23] MEDS: *HR* Heparin 5,000 UNIT/ML VIAL SQ SCH ×3 (06:15→21:39)
[2017-08-23] MEDS: Carbidopa/Levodopa ER 50/200 TABLET PO SCH ×2 (09:08→21:39)
[2017-08-23] MEDS: Ranolazine 500 MG TAB.ER.12H PO SCH ×2 (09:08→21:39)
[2017-08-23] MEDS: Isosorbide MONOnitrate (24 HR) 60 MG TAB.ER.24H PO SCH ×2 (09:08→21:38)
[2017-08-23] MEDS: Breo Ellipta 200-25 Mcg PO SCH (09:09)
[2017-08-23] MEDS: Ondansetron ODT 4 MG TAB.RAPDIS SL PRN (09:18)
[2017-08-23] MEDS: dilTIAZem HCl 60 MG TABLET PO SCH ×2 (10:03→21:38)
--- NOTE | 2017-08-23 19:57 | Internal Med Progress Note ---
Date of Encounter: 08/23/17 Time of Encounter: 12:00 - Assessment and plan (1) Enteritis Current Visit: Yes Status: Acute Assessment and plan: CT suggest acute gastroenteritis, no diarrhea stool occult was negative Stool - fecal lactoferrin positive. Continue with supportive [id number] Clear liquids-is tolerating oral intake now however she does complain of nausea- we will obtain CT of abdomen Solejocelyn and Juan has been DC'd (2) CAD (coronary artery disease) Current Visit: No Status: Chronic Assessment and plan: Continue home Plavix, statin, nitrate no chest pain at this time Qualifiers: Coronary Disease-Associated Artery/Lesion type: [place] artery [place] vs. transplanted heart: [place] heart Associated angina: without angina Qualified Code(s): I25.10 - Atherosclerotic heart disease of [place] coronary artery without angina pectoris (3) HTN (hypertension) Current Visit: No Status: Chronic Assessment and plan: BP controlled. Cont home BP medication. Monitor BP and titrate PRN Qualifiers: Hypertension type: essential hypertension Qualified Code(s): I10 - Essential (primary) hypertension (4) Parkinsonism Current Visit: No Status: Chronic Assessment and plan: Cont home carbidopa/levodopa. We will have PT OT evaluate patient prior to discharge due to fall Qualifiers: Parkinsonism type: Parkinson's disease Qualified Code(s): G20 - Parkinson' s disease (5) Hypokalemia Current Visit: Yes Status: Resolved Assessment and plan: Related to GI losses and Lasix use presently stable we will continue to monitor and replace as needed (6) COPD exacerbation Current Visit: Yes Status: Acute Assessment and plan: Stable at this time no wheezing noted no cough CXR nonacute. Respiratory PCR negative Scheduled DuoNeb's. Urinary antigens negative continue with Levaquin (7) Pleural effusion Current Visit: Yes Status: Acute Assessment and plan: 1 Suspect to IVF and heart failure we will give po lasix (8) DVT prophylaxis Current Visit: No Status: Acute Assessment and plan: heparin subcutaneous - Time Spent With Patient Total time spent is greater than 50% in coordination of care (as documented) at patient's floor/unit and/or counseling patient: - Subjective Interval history: Patient has no emesis no fevers or white count no abdominal pain denies any diarrhea. She did have a formed stool this a.m. She is tolerating regular food however she states it still makes her nauseous. We discussed possible discharge however patient states she feels she is not ready because she still feels too nauseated. Advised that she could take Zofran at home. However patient continues to feel as if she needs to stay. I did obtain a KUB which did not show any ileus or obstruction nonspecific bowel gas pattern. I did have social work job titles Lizeth Jay speak to the patient she does have home health aide that comes in 3 times a week a walker and a wheelchair that she uses she has home oxygen via [facility]-social work job [employer] attempted to contact patient 's Jayden however no answer per telephone she left a message. Patient states he is too busy to pick her up. I did review this case with Dr. Renner advised to obtain a 80 abdomen. I advised patient that we would obtain CT of abdomen if everything was okay with probably let her go home, patient states that we are trying to kick her out. Advised patient that she is presently taking oral medications she is maintaining food and water she is having formed bowel movements has no abdominal pain there was no medical necessity to keep her admitted. Patient insisted that is having continued nausea. She agrees to the CT of abdomen. Sometime later nursing staff notified that patient was found on the on the floor. She states that she slid no injuries only complaining of knee pain. Nursing also reporting that patient has been has arrived and requesting to take the patient. Discussed with nursing that patient will have to be observed overnight since she did fall and continued complaining of abdominal pain and has not completed her CT. If she is to leave she is to leave AMA at this point. shell worker and nursing spoke with patient who agreed to stay or observation. We will obtain CT of abdomen PTOT, I will have my attending evaluate the patient for any other recommendations prior to discharge - Constitutional Vitals: Temp Pulse Resp BP Pulse Ox 98.4 F 88 16 124/70 95 08/23/17 18:56 08/23/17 18:56 08/23/17 18:56 08/23/17 18:56 08/23/17 18:56 General appearance: Present: A&O X 3, morbidly obese, answers questions appropriately - Head Head exam: Present: atraumatic, normocephalic - Eye Eye exam: Present: PERRL, conjuntiva pink, sclera anicteric Pupils: Present: PERRL - Neck Neck exam general surgery: Present: supple, trachea midline. Absent: lymphadenopathy - Respiratory Respiratory exam: Present: CTAB. Absent: accessory muscle use, rales, rhonchi, wheezes - Cardiovascular Cardiovascular exam: Present: RRR, +S1, +S2. Absent: diastolic murmur, gallop, rubs, systolic murmur - GI/Abdominal GI/Abdominal exam: Present: normal bowel sounds, soft, no peritoneal signs. Absent: distended, tenderness - Extremities Exam Extremities exam: Present: warm, radial pulses palpable and symmetrical. Absent : calf tenderness, cyanotic, pedal edema - Neurological Exam Neurological exam: Present: CN II-XII intact, oriented X3, no focal deficits. Absent: pronater drift, facial droop, speech deficit - Skin Skin exam: Present: dry, intact Internal Medicine: Result - Labs CBC & Chem 7: 08/23/17 05:09 08/23/17 05:09 Labs: Short CBC 08/23/17 Range/Units 05:09 WBC 8.8 (4.3-11.1) K/mcL Hgb 9.1 L (11.5-15.4) g/dL Hct 28.7 L (35.3-44.9) % Plt Count 288 (140-400) K/mcL BMP 08/23/17 05:09 Sodium 139 Potassium 4.6 Chloride 110 H Carbon Dioxide 24 BUN 23 Creatinine 1.15 Glucose 93 Calcium 8.4 L - Impressions Impressions KUB X-Ray 08/23/17 10:02 IMPRESSION: Nonspecific bowel-gas pattern. No plain film evidence of ileus or obstruction. D/ / Luc Parker MD / Luc Parker MD Interpreting Provider: Luc Parker MD Abdomen/Pelvis CT 08/23/17 14:28 IMPRESSION: New moderate bilateral pleural effusions. Possible nonspecific acute diarrheal disease. Otherwise no acute disease. D/ / John Johnson MD / John Johnson MD Interpreting Provider: John Johnson MD Consult Discharge Plan - Plan Referrals: Donald Kapadia CNP [Advanced Practice Nurse] - 11/07/17 11:30 am Michelle Oh MD [Partnered Physician] - 11/02/17 1:45 pm Lizeth Beck CNP [Advanced Practice Nurse] - 09/14/17 2:15 pm
[2017-08-23] MEDS: clonazePAM 1 MG TABLET PO SCH (21:38)
[2017-08-23] MEDS: Sennosides/Docusate Sodium TABLET PO SCH (21:39)
[2017-08-23] MEDS: Acetaminophen 325 MG TABLET PO PRN (21:39)
[2017-08-24] MEDS: Ipratropium/Albuterol Neb 3 ML IH SCH ×6 (03:20→23:36)
[2017-08-24] MEDS: *HR* Heparin 5,000 UNIT/ML VIAL SQ SCH ×3 (06:30→20:18)
[2017-08-24 07:11] LABS: Hematocrit 27.8 % (35.3-44.9); Hemoglobin 8.6 g/dL (11.5-15.4); Mean Corpuscular HGB Conc 30.9 g/dL (31.6-35.5); Mean Corpuscular Hemoglobin 28.2 pg (28.0-33.3); Mean Corpuscular Volume 91.1 fL (83.0-100.0); Mean Platelet Volume 9.8 fL (9.4-12.4); Platelet Count 279 K/mcL (140-400); Red Blood Count 3.05 M/mcL (3.82-4.97); Red Cell Distribution Width 16.8 % (11.5-14.5)
[2017-08-24 07:28] LABS: Calcium 8.3 mg/dL (8.6-10.3); Potassium 4.5 mEq/L (3.5-5.1)
[2017-08-24] MEDS: Carbidopa/Levodopa ER 50/200 TABLET PO SCH ×2 (08:34→20:19)
[2017-08-24] MEDS: Isosorbide MONOnitrate (24 HR) 60 MG TAB.ER.24H PO SCH ×2 (08:34→20:19)
[2017-08-24] MEDS: dilTIAZem HCl 60 MG TABLET PO SCH ×2 (08:34→20:18)
[2017-08-24] MEDS: Ranolazine 500 MG TAB.ER.12H PO SCH ×2 (08:34→20:19)
[2017-08-24] MEDS: Breo Ellipta 200-25 Mcg PO SCH (08:35)
[2017-08-24] MEDS ORDERED: Furosemide 40 MG TABLET PO SCH (09:00)
[2017-08-24 12:56] LABS: Hemoglobin 9.5 g/dL (11.5-15.4)
--- NOTE | 2017-08-24 16:09 | Internal Med Progress Note ---
Date of Encounter: 08/24/17 Time of Encounter: 16:06 - Assessment and plan (1) Enteritis Current Visit: Yes Status: Acute Assessment and plan: Original CT suggest acute gastroenteritis, no diarrhea stool occult was negative Stool -fecal lactoferrin positive. Second CT possible nonspecific acute diarrheal disease otherwise no acute disease new moderate bilateral pleural effusions Continue with supportive [id number] Clear liquids-is tolerating oral intake now however she does complain of nausea Cipro and Flagyl has been DC'd (2) CAD (coronary artery disease) Current Visit: No Status: Chronic Assessment and plan: [place] stable no chest pain at this time Continue home Plavix, statin, nitrate Qualifiers: Coronary Disease-Associated Artery/Lesion type: [place] artery [place] vs. transplanted heart: [place] heart Associated angina: without angina Qualified Code(s): I25.10 - Atherosclerotic heart disease of [place] coronary artery without angina pectoris (3) HTN (hypertension) Current Visit: No Status: Chronic Assessment and plan: BP controlled. Cont home BP medication. Monitor BP and titrate PRN Qualifiers: Hypertension type: essential hypertension Qualified Code(s): I10 - Essential (primary) hypertension (4) Parkinsonism Current Visit: No Status: Chronic Assessment and plan: Cont home carbidopa/levodopa. PT OT evaluation recommending home health Fall precautions Qualifiers: Parkinsonism type: Parkinson's disease Qualified Code(s): G20 - Parkinson' s disease (5) Hypokalemia Current Visit: Yes Status: Resolved Assessment and plan: Related to GI losses and Lasix use presently stable we will continue to monitor and replace as needed (6) COPD exacerbation Current Visit: Yes Status: Acute Assessment and plan: Stable at this time no wheezing noted no cough CXR nonacute. Respiratory PCR negative Scheduled DuoNeb's. Urinary antigens negative (7) Pleural effusion Current Visit: Yes Status: Acute Assessment and plan: 1 Suspect to IVF and heart failure no shortness of breath lung sounds are clear to managed saturations are stable on home O2 we will give IV Lasix Recheck chest x-ray (8) DVT prophylaxis Current Visit: No Status: Acute Assessment and plan: heparin subcutaneous - Time Spent With Patient Total time spent is greater than 50% in coordination of care (as documented) at patient's floor/unit and/or counseling patient: - Subjective Interval history: Patient seen at bedside she states she feels very well today no emesis no diarrhea no abdominal painshe does have some slight nausea during eating. . This a.m. I did speak with her and the patient concerning possibly discharging her pending lab results and PT OT recommendations. We did discuss results of CT scan which did show moderate bilateral pleural effusions. She did agree with IV Lasix which we will continue. We will recheck x-ray in the a.m. Presently she does not have any respiratory distress states she has had pleural effusions in the past. - Constitutional Vitals: Temp Pulse Resp BP Pulse Ox 97.8 F 67 16 136/67 98 08/24/17 15:22 08/24/17 15:22 08/24/17 15:22 08/24/17 15:22 08/24/17 15:22 General appearance: Present: A&O X 3, morbidly obese, answers questions appropriately - Head Head exam: Present: atraumatic, normocephalic - Eye Eye exam: Present: PERRL, conjuntiva pink, sclera anicteric Pupils: Present: PERRL - Neck Neck exam general surgery: Present: supple, trachea midline. Absent: lymphadenopathy - Respiratory Respiratory exam: Present: CTAB. Absent: accessory muscle use, rales, rhonchi, wheezes - Cardiovascular Cardiovascular exam: Present: RRR, +S1, +S2. Absent: diastolic murmur, gallop, rubs, systolic murmur - GI/Abdominal GI/Abdominal exam: Present: normal bowel sounds, soft, no peritoneal signs. Absent: distended, tenderness - Extremities Exam Extremities exam: Present: warm, radial pulses palpable and symmetrical. Absent : calf tenderness, cyanotic, pedal edema - Neurological Exam Neurological exam: Present: CN II-XII intact, oriented X3, no focal deficits. Absent: pronater drift, facial droop, speech deficit - Skin Skin exam: Present: dry, intact Internal Medicine: Result - Labs CBC & Chem 7: 08/24/17 12:24 08/24/17 06:17 Labs: Short CBC 08/24/17 08/24/17 Range/Units 06:17 12:24 WBC 6.0 (4.3-11.1) K/mcL Hgb 8.6 L 9.5 L (11.5-15.4) g/dL Hct 27.8 L 30.0 L (35.3-44.9) % Plt Count 279 (140-400) K/mcL BMP 08/24/17 06:17 Sodium 141 Potassium 4.5 Chloride 110 H Carbon Dioxide 27 BUN 16 Creatinine 1.12 Glucose 86 Calcium 8.3 L - Impressions Impressions Abdomen/Pelvis CT 08/23/17 14:28 IMPRESSION: New moderate bilateral pleural effusions. Possible nonspecific acute diarrheal disease. Otherwise no acute disease. D/ / John Johnson MD / John Johnson MD Interpreting Provider: John Johnson MD Consult Discharge Plan - Plan Referrals: Donald Kapadia CNP [Advanced Practice Nurse] - 11/07/17 11:30 am Michelle Oh MD [Partnered Physician] - 11/02/17 1:45 pm Lizeth Beck CNP [Advanced Practice Nurse] - 09/14/17 2:15 pm
[2017-08-24] MEDS: levoFLOXacin 750 MG TABLET PO SCH (17:24)
[2017-08-24] MEDS: Furosemide 40 MG/4 ML VIAL IVP SCH (17:28)
[2017-08-24] MEDS: clonazePAM 1 MG TABLET PO SCH (20:19)
[2017-08-24] MEDS: Sennosides/Docusate Sodium TABLET PO SCH (20:19)
[2017-08-24] MEDS ORDERED: Furosemide 20 MG TABLET PO SCH (20:36)
[2017-08-25] MEDS: Ipratropium/Albuterol Neb 3 ML IH SCH ×6 (03:15→23:36)
[2017-08-25 05:49] LABS: Basophils % 0.4 %; Eosinophils % 0.3 %; Hematocrit 30.5 % (35.3-44.9); Hemoglobin 9.8 g/dL (11.5-15.4); Immature Granulocytes % 3.8 % (0-4); Lymphocytes # 1.5 K/mcL (0.6-4.6); Mean Corpuscular HGB Conc 32.1 g/dL (31.6-35.5); Mean Corpuscular Hemoglobin 28.5 pg (28.0-33.3); Mean Corpuscular Volume 88.7 fL (83.0-100.0); Mean Platelet Volume 9.7 fL (9.4-12.4); Monocytes # 0.7 K/mcL (0.0-1.3); Platelet Count 321 K/mcL (140-400); Red Blood Count 3.44 M/mcL (3.82-4.97); Red Cell Distribution Width 16.7 % (11.5-14.5); Segmented Neutrophils % 66.5 %
[2017-08-25 06:09] LABS: Calcium 8.1 mg/dL (8.6-10.3); Potassium 4.5 mEq/L (3.5-5.1)
[2017-08-25] MEDS: *HR* Heparin 5,000 UNIT/ML VIAL SQ SCH ×3 (06:15→22:08)
[2017-08-25] MEDS: Furosemide 40 MG/4 ML VIAL IVP SCH (08:50)
[2017-08-25] MEDS: Carbidopa/Levodopa ER 50/200 TABLET PO SCH ×2 (08:51→20:18)
[2017-08-25] MEDS: Isosorbide MONOnitrate (24 HR) 60 MG TAB.ER.24H PO SCH ×2 (08:51→20:18)
[2017-08-25] MEDS: Breo Ellipta 200-25 Mcg PO SCH (08:51)
[2017-08-25] MEDS: dilTIAZem HCl 60 MG TABLET PO SCH ×2 (08:51→20:17)
[2017-08-25] MEDS: Ranolazine 500 MG TAB.ER.12H PO SCH ×2 (08:51→20:17)
[2017-08-25] MEDS ORDERED: 0.9 % Sodium Chloride 1,000 ML IVC SCH (12:45)
--- NOTE | 2017-08-25 12:50 | Internal Med Progress Note ---
Date of Encounter: 08/25/17 Time of Encounter: 12:48 - Assessment and plan (1) TAIWO (acute kidney injury) Current Visit: No Status: Acute Assessment and plan: Creatinine 1.36 this a.m. most likely related to Lasix use will give gentle fluid because of fluid and continue to monitor creatinine Monitor intake and output (2) Enteritis Current Visit: Yes Status: Acute Assessment and plan: This iseems to have resolved Original CT suggest acute gastroenteritis, no diarrhea stool occult was negative Stool -fecal lactoferrin positive. Second CT possible nonspecific acute diarrheal disease otherwise no acute disease new moderate bilateral pleural effusions Continue with supportive [id number] Tolerating diet Cipro and Flagyl has been DC'd (3) CAD (coronary artery disease) Current Visit: No Status: Chronic Assessment and plan: stable no chest pain at this time Continue home Plavix, statin, nitrate Qualifiers: Coronary Disease-Associated Artery/Lesion type: [place] artery [place] vs. transplanted heart: [place] heart Associated angina: without angina Qualified Code(s): I25.10 - Atherosclerotic heart disease of [place] coronary artery without angina pectoris (4) HTN (hypertension) Current Visit: No Status: Chronic Assessment and plan: BP controlled. Cont home BP medication. Monitor BP and titrate PRN Qualifiers: Hypertension type: essential hypertension Qualified Code(s): I10 - Essential (primary) hypertension (5) Parkinsonism Current Visit: No Status: Chronic Assessment and plan: Cont home carbidopa/levodopa. PT OT evaluation recommending home health Fall precautions Qualifiers: Parkinsonism type: Parkinson's disease Qualified Code(s): G20 - Parkinson' s disease (6) Hypokalemia Current Visit: Yes Status: Resolved Assessment and plan: Related to GI losses and Lasix use presently stable we will continue to monitor and replace as needed (7) COPD exacerbation Current Visit: Yes Status: Acute Assessment and plan: Stable at this time no wheezing noted no cough CXR nonacute. Respiratory PCR negative Scheduled DuoNeb's. Urinary antigens negative (8) Pleural effusion Current Visit: Yes Status: Acute Assessment and plan: 1 Suspect to IVF and heart failure no shortness of breath lung sounds are clear to managed saturations are stable on home O2 we will give IV Lasix Chest x-ray this a.m. does show improvement and pleural effusion-also reveals mild pulmonary vascular congestion. We will continue with Lasix (9) DVT prophylaxis Current Visit: No Status: Acute Assessment and plan: heparin subcutaneous - Time Spent With Patient Total time spent is greater than 50% in coordination of care (as documented) at patient's floor/unit and/or counseling patient: - Subjective Interval history: Patient seen at bedside she states she feels very well today no emesis no diarrhea no abdominal pain,Xray did show small pleural effusion which has improved, however creatinine has bumped up We keep overnight to hydrate and recheck in AM.Patient verbalized understanding - Constitutional Vitals: Temp Pulse Resp BP Pulse Ox 98.1 F 63 14 117/71 96 08/25/17 11:20 08/25/17 11:20 08/25/17 11:20 08/25/17 11:20 08/25/17 11:20 General appearance: Present: A&O X 3, morbidly obese, answers questions appropriately - Head Head exam: Present: atraumatic, normocephalic - Eye Eye exam: Present: PERRL, conjuntiva pink, sclera anicteric Pupils: Present: PERRL - Neck Neck exam general surgery: Present: supple, trachea midline. Absent: lymphadenopathy - Respiratory Respiratory exam: Present: CTAB. Absent: accessory muscle use, rales, rhonchi, wheezes - Cardiovascular Cardiovascular exam: Present: RRR, +S1, +S2. Absent: diastolic murmur, gallop, rubs, systolic murmur - GI/Abdominal GI/Abdominal exam: Present: normal bowel sounds, soft, no peritoneal signs. Absent: distended, tenderness - Extremities Exam Extremities exam: Present: warm, radial pulses palpable and symmetrical. Absent : calf tenderness, cyanotic, pedal edema - Neurological Exam Neurological exam: Present: CN II-XII intact, oriented X3, no focal deficits. Absent: pronater drift, facial droop, speech deficit - Skin Skin exam: Present: dry, intact Internal Medicine: Result - Labs CBC & Chem 7: 08/25/17 04:43 08/25/17 04:43 Labs: Short CBC 08/24/17 08/25/17 Range/Units 12:24 04:43 WBC 7.5 (4.3-11.1) K/mcL Hgb 9.5 L 9.8 L (11.5-15.4) g/dL Hct 30.0 L 30.5 L (35.3-44.9) % Plt Count 321 (140-400) K/mcL Neutrophils # 5.0 (1.6-8.9) K/mcL BMP 08/25/17 04:43 Sodium 144 Potassium 4.5 Chloride 105 Carbon Dioxide 30 H BUN 18 Creatinine 1.36 H Glucose 106 H Calcium 8.1 L - Impressions Impressions Chest X-Ray 08/25/17 08:00 IMPRESSION: 1. Small bilateral pleural effusions. Findings suggesting mild pulmonary vascular congestion. D/ / Arturo Anguiano MD / Arturo Anguiano MD Interpreting Provider: Arturo Anguiano MD Consult Discharge Plan - Plan Referrals: Donald Kapadia CNP [Advanced Practice Nurse] - 11/07/17 11:30 am Michelle Oh MD [Partnered Physician] - 11/02/17 1:45 pm Lizeth Beck CNP [Advanced Practice Nurse] - 09/14/17 2:15 pm
[2017-08-25] MEDS ORDERED: 0.9 % Sodium Chloride 500 ML IVC SCH (14:00)
[2017-08-25] MEDS ORDERED: Furosemide 20 MG/2 ML VIAL IVP SCH (17:00)
[2017-08-25] MEDS: clonazePAM 1 MG TABLET PO SCH (20:18)
[2017-08-25] MEDS: Sennosides/Docusate Sodium TABLET PO SCH (20:18)
[2017-08-26] MEDS: Ipratropium/Albuterol Neb 3 ML IH SCH ×3 (03:13→12:54)
[2017-08-26] MEDS: *HR* Heparin 5,000 UNIT/ML VIAL SQ SCH (05:30)
[2017-08-26 06:02] LABS: Basophils % 0.4 %; Eosinophils % 0.3 %; Hematocrit 31.9 % (35.3-44.9); Immature Granulocytes % 3.4 % (0-4); Lymphocytes # 1.8 K/mcL (0.6-4.6); Lymphocytes % 19.4 %; Mean Corpuscular HGB Conc 31.3 g/dL (31.6-35.5); Mean Corpuscular Volume 89.4 fL (83.0-100.0); Mean Platelet Volume 9.5 fL (9.4-12.4); Monocytes # 0.9 K/mcL (0.0-1.3); Platelet Count 328 K/mcL (140-400); Red Blood Count 3.57 M/mcL (3.82-4.97); Red Cell Distribution Width 16.8 % (11.5-14.5); Segmented Neutrophils % 66.5 %
[2017-08-26 06:26] LABS: Calcium 8.3 mg/dL (8.6-10.3); Potassium 4.7 mEq/L (3.5-5.1)
[2017-08-26] MEDS ORDERED: Furosemide 40 MG TABLET PO SCH (08:00)
[2017-08-26] MEDS: Isosorbide MONOnitrate (24 HR) 60 MG TAB.ER.24H PO SCH (09:26)
[2017-08-26] MEDS: dilTIAZem HCl 60 MG TABLET PO SCH (09:26)
[2017-08-26] MEDS: Carbidopa/Levodopa ER 50/200 TABLET PO SCH (09:26)
[2017-08-26] MEDS: Breo Ellipta 200-25 Mcg PO SCH (09:27)
[2017-08-26] MEDS: Ranolazine 500 MG TAB.ER.12H PO SCH (09:27)
[2017-08-26 11:07] VITALS: BP 109/67
--- NOTE | 2017-08-26 13:00 | Discharge Summary ---
- NOTES TO OUTPATIENT PROVIDER Notes to Outpatient Provider: Patient did have a moderate pleural effusion which did improve after lasix - Creatinine did bump up to 1.36 held and switch to PO lasix down to 1.25- will need to monitor chemistry Orders not resulted at time of discharge: Pending orders 08/27/17 04:00 CBC [Complete Blood Count] [HEME] AM 0400 Chem 7 [Basic Metabolic Panel] AM 0400 Date of Encounter: 08/26/17 Time of Encounter: 12:56 - Discharge Diagnosis (1) TAIWO (acute kidney injury) Priority: Secondary Status: Acute (2) Enteritis Priority: Primary Status: Acute (3) CAD (coronary artery disease) Priority: Secondary Status: Chronic Qualifiers: Coronary Disease-Associated Artery/Lesion type: [place] artery [place] vs. transplanted heart: [place] heart Associated angina: without angina Qualified Code(s): I25.10 - Atherosclerotic heart disease of [place] coronary artery without angina pectoris (4) HTN (hypertension) Priority: Secondary Status: Chronic Qualifiers: Hypertension type: essential hypertension Qualified Code(s): I10 - Essential (primary) hypertension (5) Parkinsonism Priority: Secondary Status: Chronic Qualifiers: Parkinsonism type: Parkinson's disease Qualified Code(s): G20 - Parkinson' s disease (7) COPD exacerbation Priority: Secondary Status: Acute (8) Pleural effusion Priority: Secondary Status: Acute Hospital course: Ms. Washburn is a 76 year old female past [place] history of Parkinson COPD chronic hypoxic respiratory failure on 2 L home O2 dependent diastolic heart failure. Patient originally presented to [facility] emergency department with complaints of nausea and vomiting diarrhea epigastric discomfort. CT of abdomen did show some several loops of right lower quadrant small bowel with questionable wall thickening with acute enteritis. Patient was given IV fluids as well as anti-emetics. Initially was given Cipro and Flagyl. Stool was negative for C. difficile and fecal lactoferrin positive . Patient did have COPD exacerbation while she was here as well urinary antigens were negative she was given DuoNeb's and Levaquin. Her symptoms did improve. During the stay patient continued complaint of nausea denies any abdominal pain no diarrhea repeat CT of abdomen did show possible nonspecific acute diarrheal disease otherwise no acute disease. As well as a new moderate bilateral pleural effusion. We did give patient some Lasix rechecked in pleural effusion had improved. Her creatinine did bump up after Lasix. We gave her some fluid and creatinine returned back to baseline. Patient has hemodynamically stable she was able to tolerate food she is having formed bowel movements no fever cough chest pain or wheezing. I did advise patient to follow-up with primary care patient verbalized understanding. I did give patient prescription for Zofran for nausea. She is ready for discharge. Discharge discussed with: patient, family - Time Spent with Patient Total time spent providing and/or coordinating discharge services: - Discharge Medications Prescriptions: Ondansetron ODT [Zofran ODT] 4 mg SL Q4HR PRN #30 tab.rapdis PRN Reason: Nausea And Vomiting Home Medications: Atorvastatin [Lipitor] 40 mg PO HS 01/18/17 [History] Carbidopa/Levodopa ER 50/200 [Sinemet ER 50-200 Tab] 1 each PO BID 01/18/17 [ History] Clopidogrel Bisulfate [Plavix] 75 mg PO DAILY 01/18/17 [History] Furosemide [Lasix] 40 mg PO BID 01/18/17 [History] Ipratropium/Albuterol Neb [Duoneb] 3 ml IH Q6HR PRN 01/18/17 [History] Meclizine [Antivert] 12.5 mg PO BID PRN 01/18/17 [History] Nitroglycerin [Nitrostat] 0.4 mg SL Q5M PRN 01/18/17 [History] Omeprazole [PriLOSEC] 20 mg PO DAILY 01/18/17 [History] Oxygen 2 - 4 l NS AD 01/18/17 [History] Potassium Chloride [Klor-Con 10] 10 meq PO BID 01/18/17 [History] Ranolazine [Ranexa] 1,000 mg PO BID 01/18/17 [History] Sennosides/Docusate Sodium [Senna-Docusate Sodium Tablet] 1 each PO HS 01/18/17 [History] Sertraline [Zoloft] 100 mg PO DAILY 01/18/17 [History] clonazePAM [Klonopin] 1 mg PO HS 01/18/17 [History] dilTIAZem HCl [Cardizem] 60 mg PO BID 01/18/17 [History] Fluticasone/Vilanterol [Breo Ellipta 200-25 Mcg INH] 1 puff PO DAILY 06/30/17 [ History] Albuterol Neb [Proventil Neb] 2.5 mg IH TID 08/17/17 [History] Albuterol Sulfate [Proair Hfa] 2 puff IH Q4H PRN 08/17/17 [History] Isosorbide MONOnitrate (24 HR) [Imdur] 60 mg PO BID 08/17/17 [History] Levothyroxine [Synthroid] 125 mcg PO 0630 08/17/17 [History] Ondansetron ODT [Zofran ODT] 4 mg SL Q4HR PRN #30 tab.rapdis 08/26/17 [Rx] Allergies/Adverse Reactions: 3 Allergy/AdvReac Type Severity Reaction Status Date / Time hydrocodone [From Vicodin] AdvReac Confusion Verified 06/30/17 10:57 indomethacin [From Indocin] AdvReac Rash Verified 06/30/17 10:57 naproxen [From Naprosyn] AdvReac Nausea Verified 06/30/17 10:57 Oxycodone [From OxyContin] AdvReac Confusion Verified 06/30/17 10:57 IVP dye AdvReac Hives Uncoded 06/30/17 10:57 Date of admission: 08/20/17 13:53 Primary care physician: Demetrius Smith MD Consults: 08/23/17 20:21 Consult to Physical Therapy [CONS] Routine Comment: Evaluate, develop and implement POC Reason for Consult: fall Does patient have active BEDREST order?: No Is patient medically & hemodynamically stable?: Yes Patient assessed for mobility or mobilized this visit?: Yes Discharging clinician: Brielle Roger Anticipated date of discharge: 08/26/17 - Constitutional Vitals: Temp Pulse Resp BP Pulse Ox 98.1 F 79 16 109/67 96 08/26/17 11:05 08/26/17 11:05 08/26/17 11:05 08/26/17 11:05 08/26/17 11:05 General appearance: Present: A&O X 3, morbidly obese, answers questions appropriately - Head Head exam: Present: atraumatic, normocephalic - Eye Eye exam: Present: PERRL, conjuntiva pink, sclera anicteric Pupils: Present: PERRL - Neck Neck exam general surgery: Present: supple, trachea midline. Absent: lymphadenopathy - Respiratory Respiratory exam: Present: CTAB. Absent: accessory muscle use, rales, rhonchi, wheezes - Cardiovascular Cardiovascular exam: Present: RRR, +S1, +S2. Absent: diastolic murmur, gallop, rubs, systolic murmur - GI/Abdominal GI/Abdominal exam: Present: normal bowel sounds, soft, no peritoneal signs. Absent: distended, tenderness - Extremities Exam Extremities exam: Present: warm, radial pulses palpable and symmetrical. Absent : calf tenderness, cyanotic, pedal edema - Neurological Exam Neurological exam: Present: CN II-XII intact, oriented X3, no focal deficits. Absent: pronater drift, facial droop, speech deficit - Skin Skin exam: Present: dry, intact - Patient Status Disposition: Home, Self-Care Condition: Fair - Discharge Instructions Instructions: Ondansetron (By mouth), Myocardial Infarction (DC), Heart Failure (DC), Acute Respiratory Distress Syndrome (DC), Peripheral Vascular Disorders (DC), Chronic Obstructive Pulmonary Disease (DC), Pneumonia (DC) Follow Up With: Donald Kapadia CNP [Advanced Practice Nurse] - 11/07/17 11:30 am Michelle Oh MD [Partnered Physician] - 11/02/17 1:45 pm Lizeth Beck CNP [Advanced Practice Nurse] - 09/14/17 2:15 pm - Diet and Activity Activity: resume usual activities as tolerated Diet: advance to your usual diet
--- NOTE | 2017-09-07 08:41 | Physician Discharge Referral ---
<Brielle Roger L - Last Filed: 09/07/17 08:41> Home Health/Hosp Referral Info Transfer to: Home Health Attending Provider: Brielle Roger Provider in Charge Post Discharge: PCP - Diagnosis (1) TAIWO (acute kidney injury) Priority: Secondary Status: Acute (2) Enteritis Priority: Primary Status: Acute (3) CAD (coronary artery disease) Priority: Secondary Status: Chronic (4) HTN (hypertension) Priority: Secondary Status: Chronic (5) Parkinsonism Priority: Secondary Status: Chronic (6) COPD exacerbation Priority: Primary Status: Acute (7) Pleural effusion Priority: Primary Status: Acute - Respiratory Orders Oxygen / L per min Smoking Cessation: Smoking cessation has been advised. For more information, call the [employer] Tobacco Quit Line at 6-652-AVWI-NOW. - Diet/Nutrition Diet/Nutrition Orders: Regular - Activity Activity Orders: Up ad dia - Services Needed Following services are medically necessary services: Nursing, Physical Therapy - Transfer Medications Prescriptions: Ondansetron ODT [Zofran ODT] 4 mg SL Q4HR PRN #30 tab.rapdis PRN Reason: Nausea And Vomiting Home Medications: Atorvastatin [Lipitor] 40 mg PO HS 01/18/17 [History] Carbidopa/Levodopa ER 50/200 [Sinemet ER 50-200 Tab] 1 each PO BID 01/18/17 [ History] Clopidogrel Bisulfate [Plavix] 75 mg PO DAILY 01/18/17 [History] Furosemide [Lasix] 40 mg PO BID 01/18/17 [History] Ipratropium/Albuterol Neb [Duoneb] 3 ml IH Q6HR PRN 01/18/17 [History] Meclizine [Antivert] 12.5 mg PO BID PRN 01/18/17 [History] Nitroglycerin [Nitrostat] 0.4 mg SL Q5M PRN 01/18/17 [History] Omeprazole [PriLOSEC] 20 mg PO DAILY 01/18/17 [History] Oxygen 2 - 4 l NS AD 01/18/17 [History] Potassium Chloride [Klor-Con 10] 10 meq PO BID 01/18/17 [History] Ranolazine [Ranexa] 1,000 mg PO BID 01/18/17 [History] Sennosides/Docusate Sodium [Senna-Docusate Sodium Tablet] 1 each PO HS 01/18/17 [History] Sertraline [Zoloft] 100 mg PO DAILY 01/18/17 [History] clonazePAM [Klonopin] 1 mg PO HS 01/18/17 [History] dilTIAZem HCl [Cardizem] 60 mg PO BID 01/18/17 [History] Fluticasone/Vilanterol [Breo Ellipta 200-25 Mcg INH] 1 puff PO DAILY 06/30/17 [ History] Albuterol Neb [Proventil Neb] 2.5 mg IH TID 08/17/17 [History] Albuterol Sulfate [Proair Hfa] 2 puff IH Q4H PRN 08/17/17 [History] Isosorbide MONOnitrate (24 HR) [Imdur] 60 mg PO BID 08/17/17 [History] Levothyroxine [Synthroid] 125 mcg PO 0630 08/17/17 [History] Ondansetron ODT [Zofran ODT] 4 mg SL Q4HR PRN #30 tab.rapdis 08/26/17 [Rx] Allergies/Adverse Reactions: 3 Allergy/AdvReac Type Severity Reaction Status Date / Time hydrocodone [From Vicodin] AdvReac Confusion Verified 08/29/17 11:02 indomethacin [From Indocin] AdvReac Rash Verified 08/29/17 11:02 naproxen [From Naprosyn] AdvReac Nausea Verified 08/29/17 11:02 Oxycodone [From OxyContin] AdvReac Confusion Verified 08/29/17 11:02 IVP dye AdvReac Hives Uncoded 08/29/17 11:02 Certification: Further, I certify that my clinical findings support that this patient is homebound (i.e. absences from home require considerable and taxing effort and are for medical reasons or zoroastrianism services or infrequently or short duration when for other reasons) because: Homebound Reason: Severity of cardiac or pulmonary status limits activity tolerance Attestation: My signature below is to certify that this patient is under my care and that I, or nurse practitioner, or a physician's culinary assistant working with me, has a face-to -face encounter with this patient. <Rene Arriaga - Last Filed: 09/07/17 21:32> - Respiratory Orders Smoking Cessation: Smoking cessation has been advised. For more information, call the [place] Tobacco Quit Line at 5-604-XTIJ-NOW. Certification: Further, I certify that my clinical findings support that this patient is homebound (i.e. absences from home require considerable and taxing effort and are for medical reasons or zoroastrianism services or infrequently or short duration when for other reasons) because:
== END 2017-08-26 14:00 | disposition home or self-care (01) | DRG 392 ==
LOC: 3BNU 18:41 → EMEROO 18:41 → 3BNU 23:03
PROVIDERS: ADMIT Family Medicine; ATTEND Registered Nurse

== ENCOUNTER 2017-12-06 14:53 | Inpatient (IN) ==
[2017-12-06] MEDS ORDERED: predniSONE 20 MG TABLET PO ONE (15:21)
[2017-12-06] MEDS ORDERED: Ipratropium/Albuterol Neb 3 ML IH ONE (15:21)
[2017-12-06] MEDS ORDERED: Azithromycin 250 MG TABLET PO ONE (15:21)
--- NOTE | 2017-12-06 15:24 | Emergency Department Note ---
Disposition Clinical Impression: Acute exacerbation of chronic obstructive airways disease, CKD (chronic kidney disease) stage 3, GFR 30-59 ml/min, Hypokalemia Disposition: Admitted As Inpatient Condition: Undetermined Referrals: Demetrius Smith MD [Primary Care Provider] - Forms: ED Satisfaction Letter Time of Disposition: 16:47 SOB HPI - General Chief Complaint: ED Shortness of Breath/Dyspnea Stated Complaint: JOSE MANUEL,Broncitis Time Seen by Provider: 12/06/17 15:17 Source: patient Mode of arrival: ambulatory Limitations: no limitations Nursing Notes Reviewed: Yes Vital Signs Reviewed: Yes - History of Present Illness 77-year-old oxygen dependent female 3 L nasal cannula [id number], arrives to the emergency department complaining of shortness of breath. Patient states she has had upper respiratory infection like symptoms over the course the past couple weeks. Patient states that over the past few days she has become more more short of breath. Patient denies any associated chest pain. Patient denies any unilateral leg swelling, hemoptysis, history DVT or PE, recent surgeries or immobilizations. Patient was noted to be 79% on 3 L nasal cannula upon arrival to emergency department. PAtient was noted to be on augmentin for the URI by PCP. - Related Data Home Medications Medication Instructions Recorded Confirmed Atorvastatin [Lipitor] 40 mg PO HS 01/18/17 12/06/17 Carbidopa/Levodopa ER 50/200 1 each PO BID 01/18/17 12/06/17 [Sinemet ER 50-200 Tab] Clopidogrel Bisulfate [Plavix] 75 mg PO DAILY 01/18/17 12/06/17 Furosemide [Lasix] 40 mg PO BID 01/18/17 12/06/17 Ipratropium/Albuterol Neb [Duoneb] 3 ml IH Q6HR PRN 01/18/17 12/06/17 Meclizine [Antivert] 12.5 mg PO BID PRN 01/18/17 12/06/17 Nitroglycerin [Nitrostat] 0.4 mg SL Q5M PRN 01/18/17 12/06/17 Omeprazole [PriLOSEC] 20 mg PO DAILY 01/18/17 12/06/17 Oxygen 2 - 4 l NS AD 01/18/17 12/06/17 Potassium Chloride [Klor-Con 10] 10 meq PO BID 01/18/17 12/06/17 Ranolazine [Ranexa] 1,000 mg PO BID 01/18/17 12/06/17 Sennosides/Docusate Sodium 1 each PO HS 01/18/17 12/06/17 [Senna-Docusate Sodium Tablet] Sertraline [Zoloft] 100 mg PO DAILY 01/18/17 12/06/17 clonazePAM [Klonopin] 1 mg PO TID 01/18/17 12/06/17 Fluticasone/Vilanterol [Breo 1 puff PO DAILY 06/30/17 12/06/17 Ellipta 200-25 Mcg INH] Albuterol Neb [Proventil Neb] 2.5 mg IH TID 08/17/17 12/06/17 Albuterol Sulfate [Proair Hfa] 2 puff IH Q4H PRN 08/17/17 12/06/17 Isosorbide MONOnitrate (24 HR) 60 mg PO BID 08/17/17 12/06/17 [Imdur] Levothyroxine [Synthroid] 125 mcg PO 0630 08/17/17 12/06/17 Diltiazem [Cardizem] 30 mg PO BID 12/06/17 12/06/17 Previous Rx's Medication Instructions Recorded Ondansetron ODT [Zofran ODT] 4 mg SL Q4HR PRN #30 tab.rapdis 08/26/17 Allergies Allergy/AdvReac Type Severity Reaction Status Date / Time hydrocodone [From Vicodin] AdvReac Confusion Verified 08/29/17 11:02 indomethacin [From Indocin] AdvReac Rash Verified 08/29/17 11:02 naproxen [From Naprosyn] AdvReac Nausea Verified 08/29/17 11:02 Oxycodone [From OxyContin] AdvReac Confusion Verified 08/29/17 11:02 IVP dye AdvReac Hives Uncoded 08/29/17 11:02 All systems ED: reviewed and negative except as stated. Constitutional: Reports: chills, weakness. Denies: fever ENT ED: Denies: dysphagia Cardiovascular: Reports: dyspnea on exertion. Denies: chest pain, orthopnea, edema, syncope Respiratory: Reports: cough, dyspnea, wheezes, sputum production. Denies: hemoptysis Gastrointestinal: Denies: abdominal pain, nausea, vomiting Genitourinary: Denies: urgency, dysuria Musculoskeletal: Denies: back pain, neck pain Integumentary: Denies: rash Neurological: Denies: headache Past Medical History - Past Medical History Attestation: Yes The following information was validated with the patient. 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 history - Social History Smoking Status: Former smoker Smokeless Tobacco Status: No Alcohol use: Reports: none Drug use: Reports: none Physical Exam - General Limitations: no limitations General appearance: alert, in distress (mild respiratory) - Head Head exam: atraumatic - Eye Eye exam: Present: normal appearance, PERRL, EOMI - ENT ENT exam: normal exam, normal oropharynx, mucous membranes moist - Neck Neck exam: Present: normal inspection, full ROM, trachea midline - Chest Chest inspection: Present: normal inspection, symmetric chest wall rise - Respiratory Respiratory exam: Present: respiratory distress (mild), wheezes (mild diffuse). Absent: accessory muscle use - Cardiovascular Cardiovascular exam: Present: regular rate, normal rhythm, normal heart sounds - Abdominal Exam Abdominal exam: Present: soft, Non-Tender. Absent: tenderness, distention, guarding, rebound, rigidity - Extremities Exam Extremities exam: Present: normal inspection, full ROM. Absent: tenderness, pedal edema - Neurological Exam Neurological exam: Present: alert, oriented X3 - Skin Skin exam: Present: warm, dry, intact, normal color Course Vital Signs Temperature 98.2 F 12/06/17 15:00 Pulse Rate 75 12/06/17 15:00 Respiratory Rate 16 12/06/17 15:00 Blood Pressure 143/75 12/06/17 15:00 O2 Sat by Pulse Oximetry 75 12/06/17 15:00 Temperature 98.2 F 12/06/17 15:00 Pulse Rate 87 12/06/17 15:28 Respiratory Rate 20 12/06/17 16:01 Blood Pressure 121/67 12/06/17 15:28 O2 Sat by Pulse Oximetry 97 12/06/17 16:01 Oxygen Delivery Oxygen Delivery Room Air Shortness of Breath/Dyspnea - MDM Narrative Medical decision making narrative: Patient's workup in the emergency department given streets findings consistent with COPD exacerbation. The patient will be admitted to the hospital as a patient was hypoxic at 79% on 3 L nasal cannula which is what she wears at home. Patient was given duo nebs and prednisone here in the emergency department. Chest x-ray demonstrate no acute process. There is a mild elevated BNP but this is likely not the patient's etiology of her dyspnea. Patient's troponin and EKG demonstrate no acute process. Patient was accepted the hospitalist, Dr. Hilton. - Medical Records Medical records reviewed: Yes I reviewed the patient's medical records. - Lab Data Lab results reviewed: Yes I reviewed the patient's lab results. Result diagrams: 12/06/17 15:50 12/06/17 15:50 Lab Results 12/06/17 12/06/17 12/06/17 Range/Units 15:50 15:50 15:50 WBC 9.0 (4.3-11.1) K/mcL RBC 4.18 (3.82-4.97) M/mcL Hgb 12.2 (11.5-15.4) g/dL Hct 36.1 (35.3-44.9) % MCV 86.4 (83.0-100.0) fL MCH 29.2 (28.0-33.3) pg MCHC 33.8 (31.6-35.5) g/dL RDW 14.0 (11.5-14.5) % Plt Count 312 (140-400) K/mcL MPV 9.7 (9.4-12.4) fL Immature Gran % 1.4 (0-4) % Seg Neutrophils % 74.2 % Lymphocytes % 14.6 % Monocytes % 9.4 % Eosinophils % 0.0 % Basophils % 0.4 % Neutrophils # 6.7 (1.6-8.9) K/mcL Lymphocytes # 1.3 (0.6-4.6) K/mcL Monocytes # 0.9 (0.0-1.3) K/mcL Eosinophils # 0.0 (0.0-0.6) K/mcL Basophils # 0.0 (0.0-0.2) K/mcL Sodium 139 (136-145) mEq/L Potassium 3.3 L (3.5-5.1) mEq/L Chloride 99 (98-107) mEq/L Carbon Dioxide 31 H (23-29) mEq/L BUN 29 H (8-23) mg/dL Creatinine 1.30 H (0.60-1.20) mg/dL Est GFR ( Amer) 48 L (> 60) Est GFR (Non-Af Amer) 40 L (> 60) BUN/Creatinine Ratio 22 (6-26) Glucose 115 H (70-105) mg/dL Calculated Osmolality 295 (280-300) Lactic Acid 1.0 (0.5-2.2) mmol/L Calcium 9.1 (8.6-10.3) mg/dL Troponin I < 0.03 (< 0.04) ng/mL B-Natriuretic Peptide (Less than 100) pg/mL 12/06/17 Range/Units 15:50 WBC (4.3-11.1) K/mcL RBC (3.82-4.97) M/mcL Hgb (11.5-15.4) g/dL Hct (35.3-44.9) % MCV (83.0-100.0) fL MCH (28.0-33.3) pg MCHC (31.6-35.5) g/dL RDW (11.5-14.5) % Plt Count (140-400) K/mcL MPV (9.4-12.4) fL Immature Gran % (0-4) % Seg Neutrophils % % Lymphocytes % % Monocytes % % Eosinophils % % Basophils % % Neutrophils # (1.6-8.9) K/mcL Lymphocytes # (0.6-4.6) K/mcL Monocytes # (0.0-1.3) K/mcL Eosinophils # (0.0-0.6) K/mcL Basophils # (0.0-0.2) K/mcL Sodium (136-145) mEq/L Potassium (3.5-5.1) mEq/L Chloride (98-107) mEq/L Carbon Dioxide (23-29) mEq/L BUN (8-23) mg/dL Creatinine (0.60-1.20) mg/dL Est GFR ( Amer) (> 60) Est GFR (Non-Af Amer) (> 60) BUN/Creatinine Ratio (6-26) Glucose (70-105) mg/dL Calculated Osmolality (280-300) Lactic Acid (0.5-2.2) mmol/L Calcium (8.6-10.3) mg/dL Troponin I (< 0.04) ng/mL B-Natriuretic Peptide 101 H (Less than 100) pg/mL - Radiology Data Radiology results reviewed: Yes I reviewed the patient's radiology results. Chest X-Ray 12/06/17 15:21 IMPRESSION: No acute pulmonary process. D/ / Dalton Watson / Dalton Watson Interpreting Provider: Dalton Watson - EKG Data EKG attestation: Yes I reviewed and interpreted this EKG. EKG results narrative: Heart rate 77 BPM. Normal sinus rhythm. No ST elevation or depression noted. EKG similar to EKG from 06/22/17.
[2017-12-06 16:06] LABS: Basophils % 0.4 %; Hematocrit 36.1 % (35.3-44.9); Hemoglobin 12.2 g/dL (11.5-15.4); Immature Granulocytes % 1.4 % (0-4); Lymphocytes # 1.3 K/mcL (0.6-4.6); Lymphocytes % 14.6 %; Mean Corpuscular HGB Conc 33.8 g/dL (31.6-35.5); Mean Corpuscular Hemoglobin 29.2 pg (28.0-33.3); Mean Corpuscular Volume 86.4 fL (83.0-100.0); Mean Platelet Volume 9.7 fL (9.4-12.4); Monocytes # 0.9 K/mcL (0.0-1.3); Monocytes % 9.4 %; Neutrophils # 6.7 K/mcL (1.6-8.9); Platelet Count 312 K/mcL (140-400); Red Blood Count 4.18 M/mcL (3.82-4.97); Segmented Neutrophils % 74.2 %
[2017-12-06 16:28] LABS: BUN/Creatinine Ratio 22 (6-26); Blood Urea Nitrogen 29 mg/dL (8-23); Calcium 9.1 mg/dL (8.6-10.3); Carbon Dioxide 31 mEq/L (23-29); Chloride 99 mEq/L (98-107); Glucose 115 mg/dL (70-105); Osmolality,Calculated 295 (280-300); Potassium 3.3 mEq/L (3.5-5.1); Sodium 139 mEq/L (136-145); eGFR For Non-African Americans 40 (> 60)
[2017-12-06 16:29] LABS: Troponin I < 0.03 ng/mL (< 0.04)
--- NOTE | 2017-12-06 16:29 | Emergency Department Note ---
Disposition Clinical Impression: COPD exacerbation Disposition: Admitted As Inpatient Referrals: Demetrius Smith MD [Primary Care Provider] - Forms: ED Satisfaction Letter General Adult HPI - General Chief complaint: ED Shortness of Breath/Dyspnea Stated complaint: Tonia RICHARD Time Seen by Provider: 12/06/17 15:17 Source: patient Mode of arrival: ambulatory Limitations: no limitations - History of Present Illness Pain Scale: 3 - Related Data Home Medications Medication Instructions Recorded Confirmed Atorvastatin [Lipitor] 40 mg PO HS 01/18/17 12/06/17 Carbidopa/Levodopa ER 50/200 1 each PO BID 01/18/17 12/06/17 [Sinemet ER 50-200 Tab] Clopidogrel Bisulfate [Plavix] 75 mg PO DAILY 01/18/17 12/06/17 Furosemide [Lasix] 40 mg PO BID 01/18/17 12/06/17 Ipratropium/Albuterol Neb [Duoneb] 3 ml IH Q6HR PRN 01/18/17 12/06/17 Meclizine [Antivert] 12.5 mg PO BID PRN 01/18/17 12/06/17 Nitroglycerin [Nitrostat] 0.4 mg SL Q5M PRN 01/18/17 12/06/17 Omeprazole [PriLOSEC] 20 mg PO DAILY 01/18/17 12/06/17 Oxygen 2 - 4 l NS AD 01/18/17 12/06/17 Potassium Chloride [Klor-Con 10] 10 meq PO BID 01/18/17 12/06/17 Ranolazine [Ranexa] 1,000 mg PO BID 01/18/17 12/06/17 Sennosides/Docusate Sodium 1 each PO HS 01/18/17 12/06/17 [Senna-Docusate Sodium Tablet] Sertraline [Zoloft] 100 mg PO DAILY 01/18/17 12/06/17 clonazePAM [Klonopin] 1 mg PO TID 01/18/17 12/06/17 Fluticasone/Vilanterol [Breo 1 puff PO DAILY 06/30/17 12/06/17 Ellipta 200-25 Mcg INH] Albuterol Neb [Proventil Neb] 2.5 mg IH TID 08/17/17 12/06/17 Albuterol Sulfate [Proair Hfa] 2 puff IH Q4H PRN 08/17/17 12/06/17 Isosorbide MONOnitrate (24 HR) 60 mg PO BID 08/17/17 12/06/17 [Imdur] Levothyroxine [Synthroid] 125 mcg PO 0630 08/17/17 12/06/17 Diltiazem [Cardizem] 30 mg PO BID 12/06/17 12/06/17 Previous Rx's Medication Instructions Recorded Ondansetron ODT [Zofran ODT] 4 mg SL Q4HR PRN #30 tab.rapdis 08/26/17 Allergies Allergy/AdvReac Type Severity Reaction Status Date / Time hydrocodone [From Vicodin] AdvReac Confusion Verified 08/29/17 11:02 indomethacin [From Indocin] AdvReac Rash Verified 08/29/17 11:02 naproxen [From Naprosyn] AdvReac Nausea Verified 08/29/17 11:02 Oxycodone [From OxyContin] AdvReac Confusion Verified 08/29/17 11:02 IVP dye AdvReac Hives Uncoded 08/29/17 11:02 Constitutional: Reports: chills, weakness. Denies: fever ENT ED: Denies: dysphagia Cardiovascular: Reports: dyspnea on exertion. Denies: chest pain, orthopnea, edema, syncope Respiratory: Reports: cough, dyspnea, wheezes, sputum production. 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 history - Social History Smoking Status: Former smoker Smokeless Tobacco Status: No Alcohol use: Reports: none Drug use: Reports: none Physical Exam - General Limitations: no limitations General appearance: alert, in distress (mild respiratory) Course Vital Signs Temperature 98.2 F 12/06/17 15:00 Pulse Rate 75 12/06/17 15:00 Respiratory Rate 16 12/06/17 15:00 Blood Pressure 143/75 12/06/17 15:00 O2 Sat by Pulse Oximetry 75 12/06/17 15:00 Temperature 98.2 F 12/06/17 15:00 Pulse Rate 87 12/06/17 15:28 Respiratory Rate 20 12/06/17 16:01 Blood Pressure 121/67 12/06/17 15:28 O2 Sat by Pulse Oximetry 97 12/06/17 16:01 Oxygen Delivery Oxygen Delivery Room Air Medical Decision Making - Lab Data Result diagrams: 12/06/17 15:50 Lab Results 12/06/17 12/06/17 Range/Units 15:50 15:50 WBC 9.0 (4.3-11.1) K/mcL RBC 4.18 (3.82-4.97) M/mcL Hgb 12.2 (11.5-15.4) g/dL Hct 36.1 (35.3-44.9) % MCV 86.4 (83.0-100.0) fL MCH 29.2 (28.0-33.3) pg MCHC 33.8 (31.6-35.5) g/dL RDW 14.0 (11.5-14.5) % Plt Count 312 (140-400) K/mcL MPV 9.7 (9.4-12.4) fL Immature Gran % 1.4 (0-4) % Seg Neutrophils % 74.2 % Lymphocytes % 14.6 % Monocytes % 9.4 % Eosinophils % 0.0 % Basophils % 0.4 % Neutrophils # 6.7 (1.6-8.9) K/mcL Lymphocytes # 1.3 (0.6-4.6) K/mcL Monocytes # 0.9 (0.0-1.3) K/mcL Eosinophils # 0.0 (0.0-0.6) K/mcL Basophils # 0.0 (0.0-0.2) K/mcL Lactic Acid 1.0 (0.5-2.2) mmol/L Attestation Statement - Attestation Attestation: I examined this patient and my medical decision-making was reviewed with the Resident Physician. I agree with the documented findings, disposition and treatment plan as described except to the extent set forth below. 77 year old female presents to the eD with complaints of COPD excerbation and states taht she typically uses 3LNC continously and has been needing to increase the need to 4L and has been becoming incrasingly more dyspneic. Bhavna states that she was admitted for COPD excerbation a few months ago. Rena states taht she follows with Dr. Han and that she was schedluled for a CT chest in the next week or so. Lyndsey will recieved breathing treatment and then admit to medicine.
[2017-12-06] MEDS ORDERED: Naloxone 0.4 MG/ML INJ IVP PRN (18:38)
--- NOTE | 2017-12-06 18:55 | Internal Med History&Physical ---
<Vaughn Hilton - Last Filed: 12/06/17 21:26> Date of Encounter: 12/06/17 Internal Medicine - H&P: HPI History of present illness: Ms. Washburn is a 77 year old female Internal Medicine - H&P: Meds Atorvastatin [Lipitor] 40 mg PO HS 01/18/17 [History] Carbidopa/Levodopa ER 50/200 [Sinemet ER 50-200 Tab] 1 each PO BID 01/18/17 [ History] Clopidogrel Bisulfate [Plavix] 75 mg PO DAILY 01/18/17 [History] Furosemide [Lasix] 40 mg PO BID 01/18/17 [History] Ipratropium/Albuterol Neb [Duoneb] 3 ml IH Q6HR PRN 01/18/17 [History] Meclizine [Antivert] 12.5 mg PO BID PRN 01/18/17 [History] Nitroglycerin [Nitrostat] 0.4 mg SL Q5M PRN 01/18/17 [History] Omeprazole [PriLOSEC] 20 mg PO DAILY 01/18/17 [History] Oxygen 2 - 4 l NS AD 01/18/17 [History] Potassium Chloride [Klor-Con 10] 10 meq PO BID 01/18/17 [History] Ranolazine [Ranexa] 1,000 mg PO BID 01/18/17 [History] Sennosides/Docusate Sodium [Senna-Docusate Sodium Tablet] 1 each PO HS 01/18/17 [History] Sertraline [Zoloft] 100 mg PO DAILY 01/18/17 [History] clonazePAM [Klonopin] 1 mg PO TID 01/18/17 [History] Fluticasone/Vilanterol [Breo Ellipta 200-25 Mcg INH] 1 puff PO DAILY 06/30/17 [ History] Albuterol Neb [Proventil Neb] 2.5 mg IH TID 08/17/17 [History] Albuterol Sulfate [Proair Hfa] 2 puff IH Q4H PRN 08/17/17 [History] Isosorbide MONOnitrate (24 HR) [Imdur] 60 mg PO BID 08/17/17 [History] Levothyroxine [Synthroid] 125 mcg PO 0630 08/17/17 [History] Ondansetron ODT [Zofran ODT] 4 mg SL Q4HR PRN #30 tab.rapdis 08/26/17 [Rx] Diltiazem [Cardizem] 30 mg PO BID 12/06/17 [History] 3 Allergy/AdvReac Type Severity Reaction Status Date / Time hydrocodone [From Vicodin] AdvReac Confusion Verified 08/29/17 11:02 indomethacin [From Indocin] AdvReac Rash Verified 08/29/17 11:02 naproxen [From Naprosyn] AdvReac Nausea Verified 08/29/17 11:02 Oxycodone [From OxyContin] AdvReac Confusion Verified 08/29/17 11:02 IVP dye AdvReac Hives Uncoded 08/29/17 11:02 All Systems PM: A 10-system review of systems was performed and is negative for pertinent findings except as documented above in the HPI. - Constitutional Vitals: Temp Pulse Resp BP Pulse Ox 98.9 F 76 16 121/51 94 12/06/17 20:17 12/06/17 20:17 12/06/17 20:17 12/06/17 20:17 12/06/17 20:17 Internal Med - H&P Results - Labs CBC & Chem 7: 12/06/17 15:50 12/06/17 15:50 - Attending Attestation I have evaluated and formulated management plan of the patient with Neli Reaves and I agree with his/her assessment and plan. 77 year old female with PMHx of COPD is admitted for COPD exacerbation likely due to viral bronchitis. CT only revealed evidence of pneumonitis. Wheezing on exam. Symptomatically improved with steroids, azithromycin, and bronchodilators. To be monitored overnight and discharged home tomorrow if continues to improve. - Time Spent With Patient Total time spent is greater than 50% in coordination of care (as documented) at patient's floor/unit and/or counseling patient: <Neli Reaves - Last Filed: 12/06/17 22:39> Date of Encounter: 12/06/17 Time of Encounter: 18:44 Internal Medicine - H&P: HPI Chief complaint: Worsening SOB Admitted From: Home Plans for Post Hospital Care: Home History of present illness: Ms. Washburn is a 77 year old female with history of, CAD, COPD, and STEMI, Parkinson's, HTN, obesity, CAD and history CHF. The patient reports that she is usually sob but it has worsened over the past few days. The patient uses o2 (2.5 -3L) at home but she indicated that she had to increase it to 4L today. Patient was diagnosed with a URI/bronchitis recently and was taking augmentin at home. Prednisone was given in the ED. Chest x-ray showed no acute abnormality. CT of chest showed subtle ground lass opacity in RUL, pneumonitis . There was also a new 1 cm focus of nodular consolidation seen within the right paramediastinal region, could be atelectasis or a pulmonary nodule d/t underlying emphysema. The patient was started on IV azithromycin. K was 3.3, supplemented in the ED. BNP is 101. The patient creat is 1.30 with a bun of 29. Past Med Surg Social Fam HX - Past Medical History Medical history: CHF, COPD, fibromyalgia, GERD, hypertension, renal disease, thyroid disease Additional medical history: parkinsons Psychiatric history: anxiety - Past Surgical History Surgical History: cholecystectomy, hip replacement, hysterectomy Additional surgical history: bilateraly hip replacement. bone removal - Social History Smoking Status: Former smoker Smokeless Tobacco Status: No Alcohol use: none Drug use: none - Family History Mother Living Status: Hx Family Cardiac Disorders: Yes Hx Family Endocrine Disorder: Yes (DM) Father Living Status: Hx Family Cardiac Disorders: Yes Hx Family Endocrine Disorder: Yes All Systems PM: A 10-system review of systems was performed and is negative for pertinent findings except as documented above in the HPI. - Constitutional Constitutional: no chills, no fever(s), no night sweats - EENT Eyes: no change in vision, no discharge, no pain, no photophobia Ears: no ear discharge, no ear pain, no tinnitus Nose, mouth and throat: no dysphagia, no nasal discharge, no neck pain, no sore throat - Cardiovascular Cardiovascular ROS IM: no chest pain, no diaphoresis, no dyspnea, no lightheadedness, no palpitations, no syncope - Respiratory Respiratory: no cough, no dyspnea, no wheezing, no excessive phlegm production - Gastrointestinal Gastrointestinal: no abdominal pain, no diarrhea, no hematemesis, no hematochezia, no melena, no nausea, no vomiting - Genitourinary Genitourinary: no change in urinary stream, no dysuria, no flank pain, no hematuria - Musculoskeletal Musculoskeletal ROS IM: no numbness, no tingling - Integumentary Integumentary IM: no rash, no unusual bruising - Neurological Neurological ROS: no confusion, no convulsions, no focal weakness, no numbness, no tingling, no tremor(s) - Hematologic/Lymphatic Hematologic/Lymphatic: no easy bruising - Constitutional Vitals: Temp Pulse Resp BP Pulse Ox 98.2 F 73 16 125/51 98 12/06/17 15:00 12/06/17 17:23 12/06/17 18:29 12/06/17 18:29 12/06/17 17:23 General appearance: Present: A&O X 3, answers questions appropriately - Head Head exam: Present: atraumatic, normocephalic - Eye Eye exam: Present: PERRL, conjuntiva pink, sclera anicteric Pupils: Present: PERRL - Neck Neck exam general surgery: Present: supple, trachea midline. Absent: lymphadenopathy - Respiratory Respiratory exam: Present: CTAB. Absent: accessory muscle use, rales, rhonchi, wheezes - Cardiovascular Cardiovascular exam: Present: RRR, +S1, +S2. Absent: diastolic murmur, gallop, rubs, systolic murmur - GI/Abdominal GI/Abdominal exam: Present: normal bowel sounds, soft, no peritoneal signs. Absent: distended, tenderness - Extremities Exam Extremities exam: Present: warm, radial pulses palpable and symmetrical. Absent : calf tenderness, cyanotic, pedal edema - Neurological Exam Neurological exam: Present: CN II-XII intact, oriented X3, no focal deficits. Absent: pronater drift, facial droop, speech deficit - Skin Skin exam: Present: dry, intact Internal Med - H&P Results - Labs CBC & Chem 7: 12/06/17 15:50 12/06/17 15:50 - Assessment and plan (1) Acute exacerbation of chronic obstructive airways disease Current Visit: Yes Status: Acute Assessment and plan: The patient having an acute exacerbation of her COPD, after trying to fight an URI/Bronchitis with augmentin. Outpatient treatment failure. Steroids Bronchodilators Oxygen to keep sats gt 92% (2) Hypokalemia Current Visit: Yes Status: Acute Assessment and plan: Potassium was supplemented in the ED. Recheck k in am (3) CKD (chronic kidney disease) stage 3, GFR 30-59 ml/min Current Visit: Yes Status: Chronic Assessment and plan: Strict I and O Monitor daily labs (4) Parkinson disease Current Visit: No Status: Chronic Assessment and plan: Chronic progressive disease,. Follow up outpatient - Time Spent With Patient Total time spent is greater than 50% in coordination of care (as documented) at patient's floor/unit and/or counseling patient: less than 15 minutes
[2017-12-06] MEDS ORDERED: NON-FORMULARY MEDICATION 1 EACH EACH (Oxygen [Oxygen] 0 L) NS SCH (20:00)
[2017-12-06] MEDS ORDERED: Nitroglycerin 0.4 MG TAB.SUBL SL PRN (20:00)
[2017-12-06] MEDS ORDERED: Ipratropium/Albuterol Neb 3 ML IH PRN (20:00)
[2017-12-06] MEDS: Furosemide 40 MG TABLET PO SCH (21:06)
[2017-12-06] MEDS: Ranolazine 500 MG TAB.ER.12H PO SCH (21:06)
[2017-12-06] MEDS: Isosorbide MONOnitrate (24 HR) 60 MG TAB.ER.24H PO SCH (21:07)
[2017-12-06] MEDS: Sennosides/Docusate Sodium TABLET PO SCH (21:07)
[2017-12-06] MEDS: Carbidopa/Levodopa ER 50/200 TABLET PO SCH (21:07)
[2017-12-06] MEDS: clonazePAM 1 MG TABLET PO PRN (21:07)
[2017-12-07] MEDS: *HR* Heparin 5,000 UNIT/ML VIAL SQ SCH ×2 (05:58→17:03)
[2017-12-07 06:53] LABS: Basophils % 0.3 %; Hematocrit 34.4 % (35.3-44.9); Hemoglobin 11.2 g/dL (11.5-15.4); Immature Granulocytes % 1.8 % (0-4); Lymphocytes # 0.8 K/mcL (0.6-4.6); Lymphocytes % 7.1 %; Mean Corpuscular HGB Conc 32.6 g/dL (31.6-35.5); Mean Corpuscular Hemoglobin 28.1 pg (28.0-33.3); Mean Corpuscular Volume 86.4 fL (83.0-100.0); Mean Platelet Volume 9.8 fL (9.4-12.4); Monocytes # 0.3 K/mcL (0.0-1.3); Monocytes % 2.8 %; Neutrophils # 9.8 K/mcL (1.6-8.9); Platelet Count 331 K/mcL (140-400); Red Blood Count 3.98 M/mcL (3.82-4.97)
[2017-12-07 07:16] LABS: Calcium 9.3 mg/dL (8.6-10.3); Potassium 3.1 mEq/L (3.5-5.1)
[2017-12-07] MEDS: Isosorbide MONOnitrate (24 HR) 60 MG TAB.ER.24H PO SCH ×2 (10:28→21:57)
[2017-12-07] MEDS: Ranolazine 500 MG TAB.ER.12H PO SCH ×2 (10:28→21:57)
[2017-12-07] MEDS: Carbidopa/Levodopa ER 50/200 TABLET PO SCH ×2 (10:28→22:00)
[2017-12-07] MEDS: predniSONE 20 MG TABLET PO SCH (10:28)
[2017-12-07] MEDS: Furosemide 40 MG TABLET PO SCH (10:28)
[2017-12-07] MEDS: (Fluticasone/Vilanterol [Breo Ellipta 200-25 Mcg Inh]) PO SCH (10:33)
[2017-12-07] MEDS: Acetaminophen 325 MG TABLET PO PRN ×2 (10:51→17:04)
--- NOTE | 2017-12-07 15:42 | Internal Med Progress Note ---
Date of Encounter: 12/07/17 Time of Encounter: 15:41 - Assessment and plan (1) Acute exacerbation of chronic obstructive airways disease Current Visit: Yes Status: Acute Assessment and plan: has known COPD with chronic respiratory failure; wears oxygen [id number] at home. Suspect mild COPD exacerbation with SOB and scant wheezing. Afebrile , no elevated WBC, no productive cough. No indication for ATB at this time. Continue steroid burst, bronchodilators. Resp PCR pending patient reports associated myalgias and lethargy. (2) Chronic diastolic (congestive) heart failure Current Visit: Yes Status: Acute Assessment and plan: per hx. 01/2017 TTE with EF 60% and mild diastolic dysfunction. Does not appear overloaded in fact appears somewhat dry. Holding Lasix for now. (3) CAD (coronary artery disease) Current Visit: No Status: Chronic Assessment and plan: per hx. Denied chest pain. Cont home Plavix, nitrate, CCB, [place] Qualifiers: Coronary Disease-Associated Artery/Lesion type: [place] artery [place] vs. transplanted heart: [place] heart Associated angina: without angina Qualified Code(s): I25.10 - Atherosclerotic heart disease of [place] coronary artery without angina pectoris (4) CKD (chronic kidney disease) stage 3, GFR 30-59 ml/min Current Visit: Yes Status: Chronic Assessment and plan: per hx. Renal function appears at baseline. Intermittently monitor. (5) HTN (hypertension) Current Visit: No Status: Chronic Qualifiers: Hypertension type: essential hypertension Qualified Code(s): I10 - Essential (primary) hypertension (6) Hypokalemia Current Visit: Yes Status: Acute Assessment and plan: in the setting of Lasix. No EKG changes. Monitor replace PRN (7) Parkinson disease Current Visit: No Status: Chronic Assessment and plan: per hx. Cont home carbidopa/levodopa (8) Dysuria Current Visit: Yes Status: Acute Assessment and plan: Reports dysuria on 12/07 exam. UA with C&S pending (9) DVT prophylaxis Current Visit: No Status: Acute Assessment and plan: heparin - Time Spent With Patient Total time spent is greater than 50% in coordination of care (as documented) at patient's floor/unit and/or counseling patient: - Subjective Interval history: Seen and examined at bedside. Patient is new to me, information obtained from chart review and patient report. Says she feels overall little better but still not back to baseline. Complains of generalized weakness and malaise. Has some shortness of breath. No cough. Does not feel she is able to go home today. Also reports some dysuria to RN and requesting UA. - Constitutional Vitals: Temp Pulse Resp BP Pulse Ox 97.7 F 68 18 105/55 99 12/07/17 11:43 12/07/17 11:43 12/07/17 11:43 12/07/17 11:43 12/07/17 11:43 General appearance: Present: A&O X 3, morbidly obese, pleasant, no acute distress, answers questions appropriately - Head Head exam: Present: atraumatic, normocephalic - Eye Eye exam: Present: PERRL, conjuntiva pink, sclera anicteric Pupils: Present: PERRL - Neck Neck exam general surgery: Present: supple, trachea midline. Absent: lymphadenopathy - Respiratory Respiratory exam: Present: CTAB, wheezes (Scattered faint wheezes). Absent: accessory muscle use, rales, rhonchi - Cardiovascular Cardiovascular exam: Present: RRR, +S1, +S2. Absent: diastolic murmur, gallop, rubs, systolic murmur - GI/Abdominal GI/Abdominal exam: Present: normal bowel sounds, soft, no peritoneal signs. Absent: distended, tenderness - Extremities Exam Extremities exam: Present: warm, radial pulses palpable and symmetrical. Absent : calf tenderness, cyanotic, pedal edema - Neurological Exam Neurological exam: Present: CN II-XII intact, oriented X3, no focal deficits. Absent: pronater drift, facial droop, speech deficit - Skin Skin exam: Present: dry, intact Internal Medicine: Result - Labs CBC & Chem 7: 12/07/17 05:07 12/07/17 05:07 Labs: Short CBC 12/07/17 Range/Units 05:07 WBC 11.2 H (4.3-11.1) K/mcL Hgb 11.2 L (11.5-15.4) g/dL Hct 34.4 L (35.3-44.9) % Plt Count 331 (140-400) K/mcL Neutrophils # 9.8 H (1.6-8.9) K/mcL BMP 12/07/17 05:07 Sodium 140 Potassium 3.1 L Chloride 100 Carbon Dioxide 29 BUN 31 H Creatinine 1.33 H Glucose 165 H Calcium 9.3 Consult Discharge Plan - Plan Referrals: Demetrius Smith MD [Primary Care Provider] -
[2017-12-07] MEDS: Sennosides/Docusate Sodium TABLET PO SCH (21:57)
[2017-12-07] MEDS: clonazePAM 1 MG TABLET PO PRN (22:04)
[2017-12-07 23:28] LABS: Bilirubin,Urine Negative (Negative); Blood,Urine Negative (Negative); Clarity,Urine Clear (Clear); Color,Urine Yellow (Yellow); Glucose,Urine (UA) Normal (Normal); Ketones,Urine Negative (Negative); Leukocyte Esterase,Urine Trace (Negative); Nitrite,Urine Negative (Negative); Protein,Urine Negative (Neg-Trace); Specific Gravity,Urine 1.017 (1.010-1.025); Urobilinogen,Urine Normal (Normal)
[2017-12-07 23:29] LABS: Bacteria,Urine None Seen per hpf (None-Few); Hyaline Casts,Urine None Seen per lpf (None-Few); Squamous Epithelial Cell,Urine Many per lpf (None-Few); WBC,Urine 0-3 per hpf (0-3)
[2017-12-08] MEDS: Acetaminophen 325 MG TABLET PO PRN ×2 (01:21→21:22)
[2017-12-08 02:40] LABS: Adenovirus Not Detected (Not Detect); Bordetella Pertussis Not Detected (Not Detect); Chlamydophila pneumoniae Not Detected (Not Detect); Coronavirus 229E Not Detected (Not Detect); Coronavirus HKU1 Not Detected (Not Detect); Coronavirus NL63 Not Detected (Not Detect); Coronavirus OC43 Not Detected (Not Detect); Human Metapneumovirus Not Detected (Not Detect); Human Rhinovirus/Enterovirus Not Detected (Not Detect); Influenza A Subtype 2009 H1 Not Detected (Not Detect); Influenza A Untypeable Not Detected (Not Detect); Influenza B Not Detected (Not Detect); Mycoplasma pneumoniae Not Detected (Not Detect); Parainfluenza Virus 1 Not Detected (Not Detect); Parainfluenza Virus 2 Not Detected (Not Detect); Parainfluenza Virus 3 Not Detected (Not Detect); Parainfluenza Virus 4 Not Detected (Not Detect); Respiratory Syncytial Virus Not Detected (Not Detect)
[2017-12-08] MEDS: *HR* Heparin 5,000 UNIT/ML VIAL SQ SCH ×2 (05:59→18:42)
[2017-12-08 06:27] LABS: Basophils % 0.2 %; Hematocrit 31.4 % (35.3-44.9); Hemoglobin 10.2 g/dL (11.5-15.4); Immature Granulocytes % 1.3 % (0-4); Lymphocytes # 1.5 K/mcL (0.6-4.6); Lymphocytes % 11.5 %; Mean Corpuscular HGB Conc 32.5 g/dL (31.6-35.5); Mean Corpuscular Hemoglobin 28.4 pg (28.0-33.3); Mean Corpuscular Volume 87.5 fL (83.0-100.0); Monocytes # 0.8 K/mcL (0.0-1.3); Monocytes % 6.3 %; Neutrophils # 10.3 K/mcL (1.6-8.9); Platelet Count 304 K/mcL (140-400); Red Blood Count 3.59 M/mcL (3.82-4.97); Red Cell Distribution Width 14.2 % (11.5-14.5); Segmented Neutrophils % 80.7 %
[2017-12-08 06:45] LABS: Calcium 9.2 mg/dL (8.6-10.3); Potassium 3.7 mEq/L (3.5-5.1)
[2017-12-08] MEDS: Ranolazine 500 MG TAB.ER.12H PO SCH ×2 (09:17→21:21)
[2017-12-08] MEDS: Carbidopa/Levodopa ER 50/200 TABLET PO SCH ×2 (09:18→21:21)
[2017-12-08] MEDS: Isosorbide MONOnitrate (24 HR) 60 MG TAB.ER.24H PO SCH ×2 (09:18→21:21)
[2017-12-08] MEDS: predniSONE 20 MG TABLET PO SCH (09:18)
[2017-12-08] MEDS: (Fluticasone/Vilanterol [Breo Ellipta 200-25 Mcg Inh]) PO SCH (09:20)
[2017-12-08] MEDS: Mag Hydrox/Al Hydrox/Simeth 30 ML UDC PO SCH (11:21)
--- NOTE | 2017-12-08 16:13 | Electrocardiograph Report ---
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
--- NOTE | 2017-12-08 17:55 | Internal Med Progress Note ---
Date of Encounter: 12/08/17 Time of Encounter: 17:53 - Assessment and plan (1) CKD (chronic kidney disease) stage 3, GFR 30-59 ml/min Current Visit: Yes Status: Chronic Assessment and plan: per hx. Renal function appears at baseline. Intermittently monitor. (2) Parkinson disease Current Visit: No Status: Chronic Assessment and plan: per hx. Cont home carbidopa/levodopa (3) HTN (hypertension) Current Visit: No Status: Chronic Qualifiers: Hypertension type: essential hypertension Qualified Code(s): I10 - Essential (primary) hypertension (4) CAD (coronary artery disease) Current Visit: No Status: Chronic Assessment and plan: per hx. Denied chest pain. Cont home Plavix, nitrate, CCB, [place] Qualifiers: Coronary Disease-Associated Artery/Lesion type: [place] artery [place] vs. transplanted heart: [place] heart Associated angina: without angina Qualified Code(s): I25.10 - Atherosclerotic heart disease of [place] coronary artery without angina pectoris (5) Acute exacerbation of chronic obstructive airways disease Current Visit: Yes Status: Acute Assessment and plan: has known COPD with chronic respiratory failure; wears oxygen [id number] at home. Suspect mild COPD exacerbation with SOB and scant wheezing. Afebrile , no productive cough. Continue steroid burst, bronchodilators. Resp PCR pending patient reports associated myalgias and lethargy. (6) Hypokalemia Current Visit: Yes Status: Resolved (7) Chronic diastolic (congestive) heart failure Current Visit: Yes Status: Acute Assessment and plan: per hx. 01/2017 TTE with EF 60% and mild diastolic dysfunction. Does not appear overloaded in fact appears somewhat dry. Holding Lasix for now. (8) Dysuria Current Visit: Yes Status: Resolved (9) DVT prophylaxis Current Visit: No Status: Acute - Time Spent With Patient Total time spent is greater than 50% in coordination of care (as documented) at patient's floor/unit and/or counseling patient: Greater than 35 minutes - Subjective Interval history: Patient reported improved respiratory symptoms. - Constitutional Vitals: Temp Pulse Resp BP Pulse Ox 98.0 F 64 15 139/64 98 12/08/17 15:16 12/08/17 15:16 12/08/17 15:16 12/08/17 15:16 12/08/17 15:16 General appearance: Present: A&O X 3, morbidly obese, pleasant, no acute distress, answers questions appropriately Exam: PHYSICAL EXAMINATION: GENERAL APPEARANCE: The patient is alert, oriented and in no acute distress. HEENT: Head is normocephalic. The sinuses are nontender. Pupils are equal and reactive. The nares are patent. Oropharynx clear without lesions. NECK: Supple without lymphadenopathy. HEART: Regular rate and rhythm. LUNGS: No crackles or wheezes are heard. ABDOMEN: Soft, nontender, nondistended with good bowel sounds heard. Inguinal area is normal. EXTREMITIES: Without cyanosis, clubbing or edema. NEUROLOGICAL: Gross nonfocal. SKIN: Warm and dry without any rash. Internal Medicine: Result - Labs CBC & Chem 7: 12/08/17 05:17 12/08/17 05:17 Labs: Short CBC 12/08/17 Range/Units 05:17 WBC 12.7 H (4.3-11.1) K/mcL Hgb 10.2 L (11.5-15.4) g/dL Hct 31.4 L (35.3-44.9) % Plt Count 304 (140-400) K/mcL Neutrophils # 10.3 H (1.6-8.9) K/mcL BMP 12/08/17 05:17 Sodium 141 Potassium 3.7 Chloride 103 Carbon Dioxide 31 H BUN 37 H Creatinine 1.27 H Glucose 127 H Calcium 9.2 Urine 12/07/17 Range/Units 19:05 Urine Color Yellow (Yellow) Urine Clarity Clear (Clear) Urine pH 6.0 (5.0-8.0) pH Units Ur Specific [place] 1.017 (1.010-1.025) Urine Protein Negative (Neg-Trace) mg/dL Urine Glucose (UA) Normal (Normal) mg/dL Consult Discharge Plan - Plan Referrals: Demetrius Smith MD [Primary Care Provider] - 12/12/17 4:00 pm
[2017-12-08] MEDS: Ipratropium/Albuterol Neb 3 ML IH SCH (20:45)
[2017-12-08] MEDS: Sennosides/Docusate Sodium TABLET PO SCH (21:21)
[2017-12-08] MEDS: clonazePAM 1 MG TABLET PO PRN (21:21)
[2017-12-09] MEDS: Ipratropium/Albuterol Neb 3 ML IH SCH ×6 (04:24→20:38)
[2017-12-09] MEDS: *HR* Heparin 5,000 UNIT/ML VIAL SQ SCH ×2 (05:47→17:02)
[2017-12-09 05:55] LABS: Basophils % 0.2 %; Hematocrit 32.7 % (35.3-44.9); Hemoglobin 10.5 g/dL (11.5-15.4); Immature Granulocytes % 1.7 % (0-4); Lymphocytes # 1.3 K/mcL (0.6-4.6); Lymphocytes % 10.5 %; Mean Corpuscular HGB Conc 32.1 g/dL (31.6-35.5); Mean Corpuscular Hemoglobin 28.7 pg (28.0-33.3); Mean Corpuscular Volume 89.3 fL (83.0-100.0); Mean Platelet Volume 10.1 fL (9.4-12.4); Monocytes # 0.9 K/mcL (0.0-1.3); Monocytes % 7.1 %; Neutrophils # 10.1 K/mcL (1.6-8.9); Platelet Count 312 K/mcL (140-400); Red Blood Count 3.66 M/mcL (3.82-4.97); Red Cell Distribution Width 14.3 % (11.5-14.5); Segmented Neutrophils % 80.5 %
[2017-12-09 06:06] LABS: Calcium 9.2 mg/dL (8.6-10.3); Potassium 4.2 mEq/L (3.5-5.1)
[2017-12-09] MEDS: (Fluticasone/Vilanterol [Breo Ellipta 200-25 Mcg Inh]) PO SCH (08:34)
[2017-12-09] MEDS: Isosorbide MONOnitrate (24 HR) 60 MG TAB.ER.24H PO SCH ×2 (08:35→20:55)
[2017-12-09] MEDS: Ranolazine 500 MG TAB.ER.12H PO SCH ×2 (08:35→20:55)
[2017-12-09] MEDS: Carbidopa/Levodopa ER 50/200 TABLET PO SCH ×2 (08:35→20:55)
[2017-12-09] MEDS: predniSONE 20 MG TABLET PO SCH (08:35)
[2017-12-09] MEDS: Mag Hydrox/Al Hydrox/Simeth 30 ML UDC PO SCH (08:36)
[2017-12-09] MEDS: Acetaminophen 325 MG TABLET PO PRN ×3 (09:27→21:08)
--- NOTE | 2017-12-09 11:29 | Internal Med Progress Note ---
Date of Encounter: 12/09/17 Time of Encounter: 11:25 - Assessment and plan (1) Acute exacerbation of chronic obstructive airways disease Current Visit: Yes Status: Acute Assessment and plan: On physical exam she does exhibit exertional dyspnea we will continue with oxygen and handheld nebulizers to a nap for the next 24 hours to see if exertional dyspnea resolves or improves (2) Parkinson disease Current Visit: No Status: Chronic (3) HTN (hypertension) Current Visit: No Status: Chronic Qualifiers: Hypertension type: essential hypertension Qualified Code(s): I10 - Essential (primary) hypertension (4) CAD (coronary artery disease) Current Visit: No Status: Chronic Qualifiers: Coronary Disease-Associated Artery/Lesion type: [place] artery [place] vs. transplanted heart: [place] heart Associated angina: without angina Qualified Code(s): I25.10 - Atherosclerotic heart disease of [place] coronary artery without angina pectoris (5) Hypokalemia Current Visit: Yes Status: Resolved Assessment and plan: Potassium has normalized today at 4.2 (6) Chronic diastolic (congestive) heart failure Current Visit: Yes Status: Acute Assessment and plan: per hx. 01/2017 TTE with EF 60% and mild diastolic dysfunction. Does not appear overloaded in fact appears somewhat dry. Holding Lasix for now. 12/09 we will continue to hold Lasix Signs or symptoms of pedal edema is present GFR remains low at 38, has past history of chronic kidney disease (7) Dysuria Current Visit: Yes Status: Resolved (8) CKD (chronic kidney disease) stage 3, GFR 30-59 ml/min Current Visit: Yes Status: Chronic Assessment and plan: Review of intake and output is adequate, chronic history of stage III CK D today DENILSON is 39 creatinine is 1.58 GFR is decreased to 38, from previous stay of 49. We will continue current medication list and monitoring of I&O and daily labs (9) DVT prophylaxis Current Visit: No Status: Acute - Time Spent With Patient Total time spent is greater than 50% in coordination of care (as documented) at patient's floor/unit and/or counseling patient: - Subjective Interval history: Mrs. Pacheco is a 77-year-old female was admitted with COPD exacerbation cholemia kidney disease chronic congestive heart failure and dysuria. She is O2 dependent at home and uses a CPAP as well as handheld nebulizers to help control with her COPD. She currently is a nonsmoker. Today on physical exam she continues to have exertional dyspnea and states that the new treatment of DuoNeb has loosened her up 'Some", and she is finally starting to cough up some of the mucus that is in her lungs. She is requesting to stay 1 more day to get benefit from the handheld nebulizers. We will maintain her hospital stay for another 24 hours to see if the handheld nebulizers benefits are for her exertional dyspnea. - Constitutional Vitals: Temp Pulse Resp BP Pulse Ox 97.9 F 63 16 92/47 100 12/09/17 11:12 12/09/17 11:12 12/09/17 11:12 12/09/17 11:12 12/09/17 11:12 General appearance: Present: A&O X 3, morbidly obese, pleasant, no acute distress, answers questions appropriately - Respiratory Respiratory exam: Present: decreased breath sounds, prolonged expiratory phase Additional comments: Exertional dyspnea as noted when she gets up to the bathroom becomes quite short of breath with the 10-12 steps that is needed. She speaks in short 2-3 word sentences with deep breaths and accessory muscle use during periods of dyspnea. Once she is back in the bed her dyspnea seems to resolve. - Cardiovascular Cardiovascular exam: Present: RRR - Extremities Exam Extremities exam: Present: full ROM, normal capillary refill, warm, radial pulses palpable and symmetrical - Neurological Exam Neurological exam: Present: alert, CN II-XII intact, normal gait, oriented X3, reflexes normal, no focal deficits, strengths equal and symetr throughout Internal Medicine: Result - Labs CBC & Chem 7: 12/09/17 04:40 12/09/17 04:40 Labs: Short CBC 12/09/17 Range/Units 04:40 WBC 12.6 H (4.3-11.1) K/mcL Hgb 10.5 L (11.5-15.4) g/dL Hct 32.7 L (35.3-44.9) % Plt Count 312 (140-400) K/mcL Neutrophils # 10.1 H (1.6-8.9) K/mcL BMP 12/09/17 04:40 Sodium 142 Potassium 4.2 Chloride 106 Carbon Dioxide 31 H BUN 39 H Creatinine 1.58 H Glucose 130 H Calcium 9.2 - Pulse Oximetry Interpretation Digit-Finger Pulse Oximetry Readin (with oxygen on @2LP NC) Consult Discharge Plan - Plan Referrals: Demetrius Smith MD [Primary Care Provider] - 12/12/17 4:00 pm
[2017-12-09] MEDS: Sennosides/Docusate Sodium TABLET PO SCH (20:55)
[2017-12-09] MEDS: clonazePAM 1 MG TABLET PO PRN (21:08)
[2017-12-10] MEDS: Ipratropium/Albuterol Neb 3 ML IH SCH ×7 (01:07→23:49)
[2017-12-10] MEDS: *HR* Heparin 5,000 UNIT/ML VIAL SQ SCH ×2 (05:40→17:38)
[2017-12-10] MEDS: Carbidopa/Levodopa ER 50/200 TABLET PO SCH ×2 (08:37→21:08)
[2017-12-10] MEDS: Isosorbide MONOnitrate (24 HR) 60 MG TAB.ER.24H PO SCH ×2 (08:37→21:09)
[2017-12-10] MEDS: Ranolazine 500 MG TAB.ER.12H PO SCH ×2 (08:37→21:09)
[2017-12-10] MEDS: predniSONE 20 MG TABLET PO SCH (08:37)
[2017-12-10] MEDS: Mag Hydrox/Al Hydrox/Simeth 30 ML UDC PO SCH (08:38)
[2017-12-10] MEDS: (Fluticasone/Vilanterol [Breo Ellipta 200-25 Mcg Inh]) PO SCH (08:38)
[2017-12-10] MEDS: Acetaminophen 325 MG TABLET PO PRN ×3 (09:53→23:47)
[2017-12-10] MEDS: Budesonide/Formoterol 160/4.5 1 PUFF INH IH SCH ×2 (11:24→19:51)
--- NOTE | 2017-12-10 13:42 | Internal Med Progress Note ---
Date of Encounter: 12/10/17 Time of Encounter: 13:39 - Assessment and plan (1) CKD (chronic kidney disease) stage 3, GFR 30-59 ml/min Current Visit: Yes Status: Chronic Assessment and plan: Review of intake and output is adequate, chronic history of stage III CK D today DENILSON is 39 creatinine is 1.58 GFR is decreased to 38, from previous stay of 49. We will continue current medication list and monitoring of I&O and daily labs (2) Parkinson disease Current Visit: No Status: Chronic Assessment and plan: per hx. Cont home carbidopa/levodopa (3) HTN (hypertension) Current Visit: No Status: Chronic Qualifiers: Hypertension type: essential hypertension Qualified Code(s): I10 - Essential (primary) hypertension (4) CAD (coronary artery disease) Current Visit: No Status: Chronic Assessment and plan: per hx. Denied chest pain. Cont home Plavix, nitrate, CCB, Ranexa Qualifiers: Coronary Disease-Associated Artery/Lesion type: [place] artery [place] vs. transplanted heart: [place] heart Associated angina: without angina Qualified Code(s): I25.10 - Atherosclerotic heart disease of [place] coronary artery without angina pectoris (5) Acute exacerbation of chronic obstructive airways disease Current Visit: Yes Status: Acute Assessment and plan: On physical exam she does exhibit exertional dyspnea we will continue with oxygen and handheld nebulizers to a nap for the next 24 hours to see if exertional dyspnea resolves or improves (6) Hypokalemia Current Visit: Yes Status: Resolved (7) Chronic diastolic (congestive) heart failure Current Visit: Yes Status: Acute Assessment and plan: per hx. 01/2017 TTE with EF 60% and mild diastolic dysfunction. Does not appear overloaded in fact appears somewhat dry. Holding Lasix for now. (8) Dysuria Current Visit: Yes Status: Resolved (9) DVT prophylaxis Current Visit: No Status: Acute Assessment and plan: heparin - Time Spent With Patient Total time spent is greater than 50% in coordination of care (as documented) at patient's floor/unit and/or counseling patient: Greater than 35 minutes - Subjective Interval history: Patient reported improved respiratory symptoms. - Constitutional Vitals: Temp Pulse Resp BP Pulse Ox 98.9 F 81 18 149/64 97 12/10/17 10:25 12/10/17 10:25 12/10/17 11:24 12/10/17 10:25 12/10/17 11:24 General appearance: Present: A&O X 3, morbidly obese, pleasant, no acute distress, answers questions appropriately Exam: PHYSICAL EXAMINATION: GENERAL APPEARANCE: The patient is alert, oriented and in no acute distress. HEENT: Head is normocephalic. The sinuses are nontender. Pupils are equal and reactive. The nares are patent. Oropharynx clear without lesions. NECK: Supple without lymphadenopathy. HEART: Regular rate and rhythm. LUNGS: Scattered wheezing bilaterally. ABDOMEN: Soft, nontender, nondistended with good bowel sounds heard. Inguinal area is normal. EXTREMITIES: Without cyanosis, clubbing or edema. NEUROLOGICAL: Gross nonfocal. SKIN: Warm and dry without any rash. Internal Medicine: Result - Labs CBC & Chem 7: 12/09/17 04:40 12/09/17 04:40 Consult Discharge Plan - Plan Referrals: Demetrius Smith MD [Primary Care Provider] - 12/12/17 4:00 pm
[2017-12-10] MEDS: Sennosides/Docusate Sodium TABLET PO SCH (21:09)
[2017-12-10] MEDS: clonazePAM 1 MG TABLET PO PRN (21:10)
[2017-12-11] MEDS: Ipratropium/Albuterol Neb 3 ML IH SCH ×6 (03:55→23:46)
[2017-12-11 04:46] LABS: Basophils % 0.2 %; Hematocrit 30.7 % (35.3-44.9); Hemoglobin 9.7 g/dL (11.5-15.4); Lymphocytes # 1.3 K/mcL (0.6-4.6); Lymphocytes % 8.9 %; Mean Corpuscular HGB Conc 31.6 g/dL (31.6-35.5); Mean Corpuscular Volume 88.5 fL (83.0-100.0); Monocytes # 1.3 K/mcL (0.0-1.3); Neutrophils # 11.4 K/mcL (1.6-8.9); Platelet Count 319 K/mcL (140-400); Red Blood Count 3.47 M/mcL (3.82-4.97); Red Cell Distribution Width 15.2 % (11.5-14.5); Segmented Neutrophils % 79.9 %
[2017-12-11 05:05] LABS: Potassium 3.8 mEq/L (3.5-5.1)
[2017-12-11] MEDS: *HR* Heparin 5,000 UNIT/ML VIAL SQ SCH ×2 (06:31→19:32)
[2017-12-11] MEDS: Budesonide/Formoterol 160/4.5 1 PUFF INH IH SCH ×2 (07:29→19:38)
--- NOTE | 2017-12-11 09:51 | Discharge Summary ---
- NOTES TO OUTPATIENT PROVIDER Notes to Outpatient Provider: f/u with PCP within 1-2 weeks. Date of Encounter: 12/11/17 Time of Encounter: 09:42 - Discharge Diagnosis (1) Acute exacerbation of chronic obstructive airways disease Priority: Primary Status: Acute (2) CKD (chronic kidney disease) stage 3, GFR 30-59 ml/min Priority: Secondary Status: Chronic (3) Parkinson disease Priority: Secondary Status: Chronic (4) HTN (hypertension) Priority: Secondary Status: Chronic Qualifiers: Hypertension type: essential hypertension Qualified Code(s): I10 - Essential (primary) hypertension (5) CAD (coronary artery disease) Priority: Secondary Status: Chronic Qualifiers: Coronary Disease-Associated Artery/Lesion type: [place] artery [place] vs. transplanted heart: [place] heart Associated angina: without angina Qualified Code(s): I25.10 - Atherosclerotic heart disease of [place] coronary artery without angina pectoris (6) Hypokalemia Priority: Primary Status: Resolved (7) Chronic diastolic (congestive) heart failure Priority: Secondary Status: Acute (8) Dysuria Priority: Secondary Status: Resolved (9) DVT prophylaxis Priority: Primary Status: Acute Hospital course: Ms. Washburn is a 77 year old female with history of, CAD, COPD, and STEMI, Parkinson's, HTN, obesity, CAD and history CHF. The patient reports that she is usually sob but it has worsened over the past few days. The patient uses o2 (2.5 -3L) at home but she indicated that she had to increase it to 4L today. Patient was diagnosed with a URI/bronchitis recently and was taking augmentin at home. Prednisone was given in the ED. Chest x-ray showed no acute abnormality. CT of chest showed subtle ground glass opacity in RUL, pneumonitis. There was also a new 1 cm focus of nodular consolidation seen within the right paramediastinal region, could be atelectasis or a pulmonary nodule d/t underlying emphysema. Patient symptoms were consistent with COPD exacerbation, possibly triggered by recent URI. Patient was started on IV azithromycin. IV steroids and bronchodilators were initiated. Patient symptoms have improved. She finished 5 days course of steroids. Due to her frequent admissions in the past 6 months , Spiriva was added to her home medication.Patient will be discharged home today and a follow-up with PCP within 1-2 weeks. Discussed with the patient about the abnormal finding on the CT chest, and new ones centimeter nodule appears to be new. Patient was instructed to follow-up PCP for regular chest and CT screening. Discharge discussed with: patient Time spent discussing smoking cessation with patient: more than 10 minutes - Time Spent with Patient Total time spent providing and/or coordinating discharge services: Greater than 30 minutes - Discharge Medications Prescriptions: GuaiFENesin ER [Mucinex] 600 mg PO BID #20 tbbp.12hr Tiotropium [Spiriva] 18 mcg IH DAILY #30 capsule Home Medications: Atorvastatin [Lipitor] 40 mg PO HS 01/18/17 [History] Carbidopa/Levodopa ER 50/200 [Sinemet ER 50-200 Tab] 1 each PO BID 01/18/17 [ History] Clopidogrel Bisulfate [Plavix] 75 mg PO DAILY 01/18/17 [History] Ipratropium/Albuterol Neb [Duoneb] 3 ml IH Q6HR PRN 01/18/17 [History] Meclizine [Antivert] 12.5 mg PO BID PRN 01/18/17 [History] Nitroglycerin [Nitrostat] 0.4 mg SL Q5M PRN 01/18/17 [History] Omeprazole [PriLOSEC] 20 mg PO DAILY 01/18/17 [History] Oxygen 2 - 4 l NS AD 01/18/17 [History] Ranolazine [Ranexa] 1,000 mg PO BID 01/18/17 [History] Sennosides/Docusate Sodium [Senna-Docusate Sodium Tablet] 1 each PO HS 01/18/17 [History] Sertraline [Zoloft] 100 mg PO DAILY 01/18/17 [History] clonazePAM [Klonopin] 1 mg PO TID 01/18/17 [History] Fluticasone/Vilanterol [Breo Ellipta 200-25 Mcg INH] 1 puff PO DAILY 06/30/17 [ History] Isosorbide MONOnitrate (24 HR) [Imdur] 60 mg PO BID 08/17/17 [History] Levothyroxine [Synthroid] 125 mcg PO 0630 08/17/17 [History] Ondansetron ODT [Zofran ODT] 4 mg SL Q4HR PRN #30 tab.rapdis 08/26/17 [Rx] Diltiazem [Cardizem] 30 mg PO BID 12/06/17 [History] GuaiFENesin ER [Mucinex] 600 mg PO BID #20 tbbp.12hr 12/11/17 [Rx] Tiotropium [Spiriva] 18 mcg IH DAILY #30 capsule 12/11/17 [Rx] Allergies/Adverse Reactions: 3 Allergy/AdvReac Type Severity Reaction Status Date / Time hydrocodone [From Vicodin] AdvReac Confusion Verified 08/29/17 11:02 indomethacin [From Indocin] AdvReac Rash Verified 08/29/17 11:02 naproxen [From Naprosyn] AdvReac Nausea Verified 08/29/17 11:02 Oxycodone [From OxyContin] AdvReac Confusion Verified 08/29/17 11:02 IVP dye AdvReac Hives Uncoded 08/29/17 11:02 Date of admission: 12/06/17 19:12 Primary care physician: Demetrius Smith MD Consults: 12/06/17 20:46 Consult to Rn Concurrent Review [CONS] Routine Reason for SW Consult: patient [facility] home health through [facility] 12/07/17 10:58 Consult to Nurse Navigator [CONS] Routine Comment: COPD Anticipated date of discharge: 12/11/17 - Constitutional Vitals: Temp Pulse Resp BP Pulse Ox 98.1 F 69 16 118/65 97 12/11/17 07:14 12/11/17 07:14 12/11/17 07:30 12/11/17 07:14 12/11/17 07:30 General appearance: Present: A&O X 3, morbidly obese, pleasant, no acute distress, answers questions appropriately Exam: PHYSICAL EXAMINATION: GENERAL APPEARANCE: The patient is alert, oriented and in no acute distress. HEENT: Head is normocephalic. The sinuses are nontender. Pupils are equal and reactive. The nares are patent. Oropharynx clear without lesions. NECK: Supple without lymphadenopathy. HEART: Regular rate and rhythm. LUNGS: No crackles or wheezes are heard. ABDOMEN: Soft, nontender, nondistended with good bowel sounds heard. Inguinal area is normal. EXTREMITIES: Without cyanosis, clubbing or edema. NEUROLOGICAL: Gross nonfocal. SKIN: Warm and dry without any rash. - Patient Status Disposition: Home Health Service Condition: Fair Functional capacity at discharge: independent ambulation Overall status at discharge: patient is back to baseline - Discharge Instructions Follow Up With: Demetrius Smtih MD [Primary Care Provider] - 12/12/17 4:00 pm - Diet and Activity Activity: increase activity as tolerated Diet: low fat, low cholesterol, low salt diet
--- NOTE | 2017-12-11 10:06 | Physician Discharge Referral ---
Home Health/Hosp Referral Info Transfer to: Home Health Provider in Charge Post Discharge: PCP - Diagnosis (1) Acute exacerbation of chronic obstructive airways disease Priority: Primary Status: Acute (2) CKD (chronic kidney disease) stage 3, GFR 30-59 ml/min Priority: Secondary Status: Chronic (3) Parkinson disease Priority: Secondary Status: Chronic (4) HTN (hypertension) Priority: Secondary Status: Chronic (5) CAD (coronary artery disease) Priority: Secondary Status: Chronic (6) Hypokalemia Priority: Primary Status: Resolved (7) Chronic diastolic (congestive) heart failure Priority: Secondary Status: Acute (8) Dysuria Priority: Secondary Status: Resolved (9) DVT prophylaxis Priority: Primary Status: Acute - Respiratory Orders Oxygen / L per min Smoking Cessation: Smoking cessation has been advised. For more information, call the [employer] Quit Line at 4-470-MBXR-NOW. - Diet/Nutrition Diet/Nutrition Orders: No Added Salt (CINDY), Cardiac - Activity Activity Orders: Ambulate - Services Needed Following services are medically necessary services: Home Health Aide, Physical Therapy, Occupational Therapy - Transfer Medications Prescriptions: GuaiFENesin ER [Mucinex] 600 mg PO BID #20 tbbp.12hr Tiotropium [Spiriva] 18 mcg IH DAILY #30 capsule Home Medications: Atorvastatin [Lipitor] 40 mg PO HS 01/18/17 [History] Carbidopa/Levodopa ER 50/200 [Sinemet ER 50-200 Tab] 1 each PO BID 01/18/17 [ History] Clopidogrel Bisulfate [Plavix] 75 mg PO DAILY 01/18/17 [History] Ipratropium/Albuterol Neb [Duoneb] 3 ml IH Q6HR PRN 01/18/17 [History] Meclizine [Antivert] 12.5 mg PO BID PRN 01/18/17 [History] Nitroglycerin [Nitrostat] 0.4 mg SL Q5M PRN 01/18/17 [History] Omeprazole [PriLOSEC] 20 mg PO DAILY 01/18/17 [History] Oxygen 2 - 4 l NS AD 01/18/17 [History] Ranolazine [Ranexa] 1,000 mg PO BID 01/18/17 [History] Sennosides/Docusate Sodium [Senna-Docusate Sodium Tablet] 1 each PO HS 01/18/17 [History] Sertraline [Zoloft] 100 mg PO DAILY 01/18/17 [History] clonazePAM [Klonopin] 1 mg PO TID 01/18/17 [History] Fluticasone/Vilanterol [Breo Ellipta 200-25 Mcg INH] 1 puff PO DAILY 06/30/17 [ History] Isosorbide MONOnitrate (24 HR) [Imdur] 60 mg PO BID 08/17/17 [History] Levothyroxine [Synthroid] 125 mcg PO 0630 08/17/17 [History] Ondansetron ODT [Zofran ODT] 4 mg SL Q4HR PRN #30 tab.rapdis 08/26/17 [Rx] Diltiazem [Cardizem] 30 mg PO BID 12/06/17 [History] GuaiFENesin ER [Mucinex] 600 mg PO BID #20 tbbp.12hr 12/11/17 [Rx] Tiotropium [Spiriva] 18 mcg IH DAILY #30 capsule 12/11/17 [Rx] Allergies/Adverse Reactions: 3 Allergy/AdvReac Type Severity Reaction Status Date / Time hydrocodone [From Vicodin] AdvReac Confusion Verified 08/29/17 11:02 indomethacin [From Indocin] AdvReac Rash Verified 08/29/17 11:02 naproxen [From Naprosyn] AdvReac Nausea Verified 08/29/17 11:02 Oxycodone [From OxyContin] AdvReac Confusion Verified 08/29/17 11:02 IVP dye AdvReac Hives Uncoded 08/29/17 11:02 Certification: Further, I certify that my clinical findings support that this patient is homebound (i.e. absences from home require considerable and taxing effort and are for medical reasons or anglican services or infrequently or short duration when for other reasons) because: Homebound Reason: Patient requires assistance of a person or device to safely leave home Attestation: My signature below is to certify that this patient is under my care and that I, or nurse practitioner, or a physician's city carrier assistant working with me, has a face-to -face encounter with this patient.
[2017-12-11] MEDS: Ranolazine 500 MG TAB.ER.12H PO SCH ×2 (11:02→21:10)
[2017-12-11] MEDS: Acetaminophen 325 MG TABLET PO PRN ×2 (11:02→19:32)
[2017-12-11] MEDS: Carbidopa/Levodopa ER 50/200 TABLET PO SCH ×2 (11:03→21:09)
[2017-12-11] MEDS: (Fluticasone/Vilanterol [Breo Ellipta 200-25 Mcg Inh]) PO SCH (11:03)
[2017-12-11] MEDS: Isosorbide MONOnitrate (24 HR) 60 MG TAB.ER.24H PO SCH ×2 (11:03→21:10)
--- NOTE | 2017-12-11 15:26 | Internal Med Progress Note ---
Hospitalist Progress Note - Encounter Date of Encounter: 12/11/17 Time of Encounter: 15:22 - Subjective Interval History: Patient reported fever, chills this morning. She also having tachypnea per nursing. Her BP was stable. SpO2 95% on 4l. - Exam Vitals: Temp Pulse Resp BP Pulse Ox 100.9 F H 85 20 127/67 92 12/11/17 13:21 12/11/17 13:21 12/11/17 13:21 12/11/17 13:21 12/11/17 13:21 Exam: PHYSICAL EXAMINATION: GENERAL APPEARANCE: The patient is alert, oriented and in no acute distress. HEENT: Head is normocephalic. The sinuses are nontender. Pupils are equal and reactive. The nares are patent. Oropharynx clear without lesions. NECK: Supple without lymphadenopathy. HEART: Regular rate and rhythm. LUNGS: scattered wheezing bilaterally. ABDOMEN: Soft, nontender, nondistended with good bowel sounds heard. Inguinal area is normal. EXTREMITIES: Without cyanosis, clubbing or edema. NEUROLOGICAL: Gross nonfocal. SKIN: Warm and dry without any rash. - Assessment and Plan (1) Acute exacerbation of chronic obstructive airways disease Current Visit: Yes Status: Acute Assessment and Plan: 77-year-old female presented with sob and cough, symptoms persistent with COPD exacerbation. She was treated with po steroid and bronchodilators, her symptoms improved and was planned to discharge to today. However, she developed fever, chills, and dyspnea this morning, CXR showed possible PNA, blood c was sent and abx was started. (2) CKD (chronic kidney disease) stage 3, GFR 30-59 ml/min Current Visit: Yes Status: Chronic Assessment and Plan: Cr at baseline. continue monitoring. (3) Parkinson disease Current Visit: No Status: Chronic Assessment and Plan: per hx. Cont home carbidopa/levodopa (4) HTN (hypertension) Current Visit: No Status: Chronic (5) CAD (coronary artery disease) Current Visit: No Status: Chronic Assessment and Plan: per hx. Denied chest pain. Cont home Plavix, nitrate, CCB, Ranexa (6) Hypokalemia Current Visit: Yes Status: Resolved (7) Chronic diastolic (congestive) heart failure Current Visit: Yes Status: Acute Assessment and Plan: per hx. 01/2017 TTE with EF 60% and mild diastolic dysfunction. Does not appear overloaded in fact appears somewhat dry. Holding Lasix for now. (8) Dysuria Current Visit: Yes Status: Resolved (9) DVT prophylaxis Current Visit: No Status: Acute Assessment and Plan: heparin - Time Spent with Patient Total time spent is greater than 50% in coordination of care (as documented) at patient's floor/unit and/or counseling patient: Greater than 35 minutes Plan of Care Discussed with: patient Internal Medicine: Result - Labs CBC & Chem 7: 12/11/17 03:52 12/11/17 03:52 Labs: Short CBC 12/11/17 Range/Units 03:52 WBC 14.3 H (4.3-11.1) K/mcL Hgb 9.7 L (11.5-15.4) g/dL Hct 30.7 L (35.3-44.9) % Plt Count 319 (140-400) K/mcL Neutrophils # 11.4 H (1.6-8.9) K/mcL BMP 12/11/17 03:52 Sodium 140 Potassium 3.8 Chloride 106 Carbon Dioxide 28 BUN 34 H Creatinine 1.24 H Glucose 144 H Calcium 9.0 - Impressions Impressions Chest X-Ray 12/11/17 13:04 IMPRESSION: Mild diffuse interstitial prominence which appears to be new from prior CT chest 12/06/2017 and is concerning for acute interstitial process such as interstitial edema or atypical pneumonia. Superimposed COPD changes. Minimal likely atelectasis to the left lung base. D/ / 12/11/2017 13:32:24 Domingo Ramirez MD / [place] Interpreting Provider: Domingo Ramirez MD Consult Discharge Plan - Plan Referrals: Demetrius Smith MD [Primary Care Provider] - 12/12/17 4:00 pm Prescriptions: GuaiFENesin ER [Mucinex] 600 mg PO BID #20 tbbp.12hr Tiotropium [Spiriva] 18 mcg IH DAILY #30 capsule (4) HTN (hypertension) Qualifiers: Hypertension type: essential hypertension Qualified Code(s): I10 - Essential (primary) hypertension (5) CAD (coronary artery disease) Qualifiers: Coronary Disease-Associated Artery/Lesion type: [place] artery [place] vs. transplanted heart: [place] heart Associated angina: without angina Qualified Code(s): I25.10 - Atherosclerotic heart disease of [place] coronary artery without angina pectoris
[2017-12-11] MEDS: Piperacillin/Tazobactam 3.375 GM in 0.9 % Sodium Chloride Mini Bag 100 ML IVPB SCH (17:04)
[2017-12-11] MEDS: Mag Hydrox/Al Hydrox/Simeth 30 ML UDC PO SCH (19:06)
[2017-12-11] MEDS: clonazePAM 1 MG TABLET PO PRN (21:09)
[2017-12-11] MEDS: Sennosides/Docusate Sodium TABLET PO SCH (21:10)
[2017-12-12] MEDS: Ipratropium/Albuterol Neb 3 ML IH SCH ×6 (03:38→23:20)
[2017-12-12] MEDS: Piperacillin/Tazobactam 3.375 GM in 0.9 % Sodium Chloride Mini Bag 100 ML IVPB SCH ×2 (04:07→18:07)
[2017-12-12] MEDS: Acetaminophen 325 MG TABLET PO PRN ×3 (04:14→22:02)
[2017-12-12 04:39] LABS: Basophils % 0.2 %; Eosinophils % 0.2 %; Hematocrit 29.4 % (35.3-44.9); Hemoglobin 9.6 g/dL (11.5-15.4); Immature Granulocytes % 1.9 % (0-4); Lymphocytes # 1.2 K/mcL (0.6-4.6); Lymphocytes % 9.6 %; Mean Corpuscular HGB Conc 32.7 g/dL (31.6-35.5); Mean Corpuscular Hemoglobin 29.1 pg (28.0-33.3); Mean Corpuscular Volume 89.1 fL (83.0-100.0); Mean Platelet Volume 9.8 fL (9.4-12.4); Monocytes # 1.3 K/mcL (0.0-1.3); Monocytes % 9.9 %; Neutrophils # 10.1 K/mcL (1.6-8.9); Platelet Count 287 K/mcL (140-400); Red Cell Distribution Width 15.8 % (11.5-14.5); Segmented Neutrophils % 78.2 %
[2017-12-12 04:58] LABS: Calcium 8.5 mg/dL (8.6-10.3); Potassium 3.9 mEq/L (3.5-5.1)
[2017-12-12] MEDS: *HR* Heparin 5,000 UNIT/ML VIAL SQ SCH ×2 (05:57→19:02)
[2017-12-12] MEDS: Budesonide/Formoterol 160/4.5 1 PUFF INH IH SCH ×2 (07:35→19:49)
[2017-12-12] MEDS: Carbidopa/Levodopa ER 50/200 TABLET PO SCH ×2 (10:02→20:51)
[2017-12-12] MEDS: Isosorbide MONOnitrate (24 HR) 60 MG TAB.ER.24H PO SCH ×2 (10:02→20:51)
[2017-12-12] MEDS: Ranolazine 500 MG TAB.ER.12H PO SCH ×2 (10:03→20:51)
[2017-12-12] MEDS: (Fluticasone/Vilanterol [Breo Ellipta 200-25 Mcg Inh]) PO SCH (10:03)
[2017-12-12] MEDS: Mag Hydrox/Al Hydrox/Simeth 30 ML UDC PO SCH ×2 (10:03→10:15)
--- NOTE | 2017-12-12 11:09 | Internal Med Progress Note ---
Hospitalist Progress Note - Encounter Date of Encounter: 12/12/17 Time of Encounter: 11:09 - Subjective Interval History: Patient seen and examined at bedside earlier, he continues to require supplemental oxygen normally at 3 L at home. We will add Acapella encouraged patient to give sputum sample - Exam Vitals: Temp Pulse Resp BP Pulse Ox 97.9 F 63 16 112/56 99 12/12/17 07:24 12/12/17 07:24 12/12/17 07:35 12/12/17 07:24 12/12/17 07:35 Exam: General appearance: Present: cooperative, A&O X 3, pleasant, no acute distress, answers questions appropriately - Head Head exam: Present: atraumatic, normocephalic - Eye Eye exam: Present: PERRL, conjuntiva pink, sclera anicteric Pupils: Present: PERRL - Neck Neck exam general surgery: Present: supple, trachea midline. Absent: lymphadenopathy - Respiratory Respiratory exam: Present: crackles in base. Absent: accessory muscle use, rales, rhonchi, wheezes - Cardiovascular Cardiovascular exam: Present: RRR, +S1, +S2. Absent: diastolic murmur, gallop, rubs, systolic murmur - GI/Abdominal GI/Abdominal exam: Present: normal bowel sounds, soft, no peritoneal signs. Absent: distended, tenderness - Extremities Exam Extremities exam: Present: warm, radial pulses palpable and symmetrical. Absent : calf tenderness, cyanotic, pedal edema - Neurological Exam Neurological exam: Present: CN II-XII intact, oriented X3, no focal deficits. Absent: pronater drift, facial droop, speech deficit - Skin Skin exam: Present: dry, intact - Assessment and Plan (1) CKD (chronic kidney disease) stage 3, GFR 30-59 ml/min Current Visit: Yes Status: Chronic Assessment and Plan: Cr at baseline. continue monitoring Avoid nephrotoxins. (2) Parkinson disease Current Visit: No Status: Chronic Assessment and Plan: per hx. Cont home carbidopa/levodopa (3) HTN (hypertension) Current Visit: No Status: Chronic Assessment and Plan: Continue with home medications (4) CAD (coronary artery disease) Current Visit: No Status: Chronic Assessment and Plan: No chest pain. Cont home Plavix, nitrate, CCB, Ranexa (5) Acute exacerbation of chronic obstructive airways disease Current Visit: Yes Status: Acute Assessment and Plan: 77-year-old female presented with sob and cough, symptoms persistent with COPD exacerbation. She was treated with po steroid and bronchodilators, her symptoms improved and was planned to discharge However, she developed fever, chills, and dyspnea this morning, CXR showed possible PNA, blood c was sent and abx was started, chest x-ray suspicious for pneumonia (6) Hypokalemia Current Visit: Yes Status: Resolved Assessment and Plan: Potassium has normalized continue to monitor (7) Chronic diastolic (congestive) heart failure Current Visit: Yes Status: Acute Assessment and Plan: per hx. 01/2017 TTE with EF 60% and mild diastolic dysfunction. Does not appear overloaded Holding Lasix for now, seems dry . (8) Dysuria Current Visit: Yes Status: Resolved Assessment and Plan: Reports dysuria on 12/07 exam. U/A neg (9) DVT prophylaxis Current Visit: No Status: Acute Assessment and Plan: heparin subcutaneous - Time Spent with Patient Total time spent is greater than 50% in coordination of care (as documented) at patient's floor/unit and/or counseling patient: Internal Medicine: Result - Labs CBC & Chem 7: 12/12/17 04:07 12/12/17 04:07 Labs: Short CBC 12/12/17 Range/Units 04:07 WBC 12.9 H (4.3-11.1) K/mcL Hgb 9.6 L (11.5-15.4) g/dL Hct 29.4 L (35.3-44.9) % Plt Count 287 (140-400) K/mcL Neutrophils # 10.1 H (1.6-8.9) K/mcL BMP 12/12/17 04:07 Sodium 138 Potassium 3.9 Chloride 104 Carbon Dioxide 24 BUN 28 H Creatinine 1.23 H Glucose 95 Calcium 8.5 L - Impressions Impressions Chest X-Ray 12/11/17 13:04 IMPRESSION: Mild diffuse interstitial prominence which appears to be new from prior CT chest 12/06/2017 and is concerning for acute interstitial process such as interstitial edema or atypical pneumonia. Superimposed COPD changes. Minimal likely atelectasis to the left lung base. D/ / 12/11/2017 13:32:24 Domingo Ramirez MD / [place] Interpreting Provider: Domingo Ramirez MD Consult Discharge Plan - Plan Referrals: Demetrius Smith MD [Primary Care Provider] - 12/15/17 9:00 am Prescriptions: GuaiFENesin ER [Mucinex] 600 mg PO BID #20 tbbp.12hr Tiotropium [Spiriva] 18 mcg IH DAILY #30 capsule (3) HTN (hypertension) Qualifiers: Hypertension type: essential hypertension Qualified Code(s): I10 - Essential (primary) hypertension (4) CAD (coronary artery disease) Qualifiers: Coronary Disease-Associated Artery/Lesion type: [place] artery [place] vs. transplanted heart: [place] heart Associated angina: without angina Qualified Code(s): I25.10 - Atherosclerotic heart disease of [place] coronary artery without angina pectoris
[2017-12-12] MEDS ORDERED: GI Cocktail 40 ML EACH PO ONE ×2 (17:37→17:38)
[2017-12-12] MEDS: Sennosides/Docusate Sodium TABLET PO SCH (20:51)
[2017-12-12] MEDS: clonazePAM 1 MG TABLET PO PRN (20:55)
[2017-12-13] MEDS: Piperacillin/Tazobactam 3.375 GM in 0.9 % Sodium Chloride Mini Bag 100 ML IVPB SCH ×3 (03:04→19:40)
[2017-12-13] MEDS: Ipratropium/Albuterol Neb 3 ML IH SCH ×6 (03:54→23:17)
[2017-12-13] MEDS: *HR* Heparin 5,000 UNIT/ML VIAL SQ SCH ×2 (05:49→17:08)
[2017-12-13] MEDS: Isosorbide MONOnitrate (24 HR) 60 MG TAB.ER.24H PO SCH ×2 (08:43→20:25)
[2017-12-13] MEDS: Ranolazine 500 MG TAB.ER.12H PO SCH ×2 (08:44→20:26)
[2017-12-13] MEDS: Mag Hydrox/Al Hydrox/Simeth 30 ML UDC PO SCH (08:44)
[2017-12-13] MEDS: Carbidopa/Levodopa ER 50/200 TABLET PO SCH ×2 (08:45→20:25)
[2017-12-13 08:47] LABS: Basophils % 0.3 %; Eosinophils % 0.3 %; Hematocrit 26.8 % (35.3-44.9); Hemoglobin 8.8 g/dL (11.5-15.4); Immature Granulocytes % 1.3 % (0-4); Lymphocytes # 0.8 K/mcL (0.6-4.6); Lymphocytes % 10.9 %; Mean Corpuscular HGB Conc 32.8 g/dL (31.6-35.5); Mean Corpuscular Hemoglobin 28.3 pg (28.0-33.3); Mean Corpuscular Volume 86.2 fL (83.0-100.0); Mean Platelet Volume 9.8 fL (9.4-12.4); Monocytes # 0.7 K/mcL (0.0-1.3); Monocytes % 9.1 %; Neutrophils # 5.6 K/mcL (1.6-8.9); Platelet Count 271 K/mcL (140-400); Red Blood Count 3.11 M/mcL (3.82-4.97); Segmented Neutrophils % 78.1 %
[2017-12-13 09:03] LABS: Calcium 8.2 mg/dL (8.6-10.3); Potassium 4.3 mEq/L (3.5-5.1)
[2017-12-13] MEDS: Budesonide/Formoterol 160/4.5 1 PUFF INH IH SCH ×2 (11:12→19:48)
[2017-12-13 12:04] LABS: Hematocrit 28.4 % (35.3-44.9); Hemoglobin 9.3 g/dL (11.5-15.4)
[2017-12-13] MEDS: Ondansetron ODT 4 MG TAB.RAPDIS SL PRN ×2 (15:55→20:02)
[2017-12-13] MEDS: clonazePAM 1 MG TABLET PO PRN (20:25)
[2017-12-13] MEDS: Sennosides/Docusate Sodium TABLET PO SCH ×2 (20:25→20:52)
--- NOTE | 2017-12-13 20:43 | Internal Med Progress Note ---
Hospitalist Progress Note - Encounter Date of Encounter: 12/13/17 Time of Encounter: 11:00 - Subjective Interval History: Patient seen and examined at bedside encouraged patient to ambulate and get out of bed. We will continue to wean oxygen. Denies any shortness of breath or chest pain this time - Exam Vitals: Temp Pulse Resp BP Pulse Ox 98.2 F 66 16 117/65 95 12/13/17 18:47 12/13/17 18:47 12/13/17 19:48 12/13/17 18:47 12/13/17 19:48 Exam: Skin: Free of rash and discoloration. Eyes: Sclera is white. There is no discharge from eyes. ENMT: Oral/pharyngeal mucosa is normal in appearance. There is no discharge from nose or ears. Respiratory: Normal breath sounds with no crackles and wheezes bilaterally. CV: Heart is regular with no gallop or murmur. GI: Abdomen is flat and soft with no palpable mass or visceromegaly. : There is no tenderness in patient's flanks bilaterally. Neuro exam: He has good strength in upper and lower extremities. He has normal eye movements. Psychiatric: He has normal affect. His thought process is appropriate to the situation. - Assessment and Plan (1) CKD (chronic kidney disease) stage 3, GFR 30-59 ml/min Current Visit: Yes Status: Chronic Assessment and Plan: Cr better than baseline at this time. We will continue to monitor Avoid nephrotoxins. (2) Parkinson disease Current Visit: No Status: Chronic Assessment and Plan: per hx. Cont home carbidopa/levodopa (3) HTN (hypertension) Current Visit: No Status: Chronic Assessment and Plan: Stable at this time Continue with home medications (4) CAD (coronary artery disease) Current Visit: No Status: Chronic Assessment and Plan: No chest pain. Cont home Plavix, nitrate, CCB, Ranexa (5) Acute exacerbation of chronic obstructive airways disease Current Visit: Yes Status: Acute Assessment and Plan: Continue with bronchodilators continue to wean oxygen to home dose. Continue with IV antibiotics and converted to oral-white count has returned back to baseline (6) Hypokalemia Current Visit: Yes Status: Resolved Assessment and Plan: Potassium has normalized continue to monitor (7) Chronic diastolic (congestive) heart failure Current Visit: Yes Status: Acute Assessment and Plan: per hx. 01/2017 TTE with EF 60% and mild diastolic dysfunction. Does not appear overloaded Holding Lasix for now, seems dry . (8) Dysuria Current Visit: Yes Status: Resolved Assessment and Plan: Reports dysuria on 12/07 exam. U/A neg (9) DVT prophylaxis Current Visit: No Status: Acute Assessment and Plan: heparin subcutaneous (10) Pneumonia Current Visit: Yes Status: Acute Assessment and Plan: 1 patient was treated for COPD exacerbation and then began to experience fevers and chills with elevated white count chest x-ray 12/11 suggestive of pneumonia -blood cultures obtained patient started on antibiotics Zosyn and vancomycin. She has improved, weaning oxygen to home O2. Continue bronchodilators we will switch to oral medications in a.m. - Time Spent with Patient Total time spent is greater than 50% in coordination of care (as documented) at patient's floor/unit and/or counseling patient: Internal Medicine: Result - Labs CBC & Chem 7: 12/13/17 11:54 12/13/17 08:17 Labs: Short CBC 12/13/17 12/13/17 Range/Units 08:17 11:54 WBC 7.1 (4.3-11.1) K/mcL Hgb 8.8 L 9.3 L (11.5-15.4) g/dL Hct 26.8 L 28.4 L (35.3-44.9) % Plt Count 271 (140-400) K/mcL Neutrophils # 5.6 (1.6-8.9) K/mcL BMP 12/13/17 08:17 Sodium 139 Potassium 4.3 Chloride 108 H Carbon Dioxide 24 BUN 22 Creatinine 1.10 Glucose 99 Calcium 8.2 L - VTE Documentation of Mechanical Device: Intermittent pneumatic compression device Consult Discharge Plan - Plan Referrals: Demetrius Smith MD [Primary Care Provider] - 12/15/17 9:00 am Prescriptions: GuaiFENesin ER [Mucinex] 600 mg PO BID #20 tbbp.12hr Tiotropium [Spiriva] 18 mcg IH DAILY #30 capsule (3) HTN (hypertension) Qualifiers: Hypertension type: essential hypertension Qualified Code(s): I10 - Essential (primary) hypertension (4) CAD (coronary artery disease) Qualifiers: Coronary Disease-Associated Artery/Lesion type: [place] artery [place] vs. 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
[2017-12-13] MEDS: Acetaminophen 325 MG TABLET PO PRN (23:39)
[2017-12-14] MEDS: Piperacillin/Tazobactam 3.375 GM in 0.9 % Sodium Chloride Mini Bag 100 ML IVPB SCH (03:51)
[2017-12-14] MEDS: Ipratropium/Albuterol Neb 3 ML IH SCH ×4 (04:22→15:55)
[2017-12-14] MEDS: *HR* Heparin 5,000 UNIT/ML VIAL SQ SCH ×2 (05:37→17:16)
[2017-12-14 07:10] LABS: Basophils % 0.1 %; Eosinophils % 0.3 %; Hematocrit 28.1 % (35.3-44.9); Immature Granulocytes % 1.4 % (0-4); Mean Corpuscular Hemoglobin 28.9 pg (28.0-33.3); Mean Corpuscular Volume 90.4 fL (83.0-100.0); Mean Platelet Volume 9.7 fL (9.4-12.4); Monocytes # 0.7 K/mcL (0.0-1.3); Monocytes % 9.5 %; Neutrophils # 5.5 K/mcL (1.6-8.9); Platelet Count 279 K/mcL (140-400); Red Blood Count 3.11 M/mcL (3.82-4.97); Red Cell Distribution Width 16.2 % (11.5-14.5); Segmented Neutrophils % 74.7 %
[2017-12-14] MEDS: Budesonide/Formoterol 160/4.5 1 PUFF INH IH SCH (07:26)
[2017-12-14 07:27] LABS: Calcium 8.2 mg/dL (8.6-10.3); Potassium 4.3 mEq/L (3.5-5.1)
[2017-12-14] MEDS: Ondansetron ODT 4 MG TAB.RAPDIS SL PRN ×2 (08:30→14:30)
[2017-12-14] MEDS: Ranolazine 500 MG TAB.ER.12H PO SCH (08:31)
[2017-12-14] MEDS: Isosorbide MONOnitrate (24 HR) 60 MG TAB.ER.24H PO SCH (08:32)
[2017-12-14] MEDS: Mag Hydrox/Al Hydrox/Simeth 30 ML UDC PO SCH (08:32)
[2017-12-14] MEDS: Carbidopa/Levodopa ER 50/200 TABLET PO SCH (08:32)
--- NOTE | 2017-12-14 11:38 | Internal Med Progress Note ---
Hospitalist Progress Note - Encounter Date of Encounter: 12/14/17 Time of Encounter: 11:38 - Subjective Interval History: Patient seen and examined at bedside encouraged patient to ambulate and get out of bed. We will continue to wean oxygen. Denies any shortness of breath or chest pain this time - Exam Vitals: Temp Pulse Resp BP Pulse Ox 97.2 F L 72 17 135/80 93 12/14/17 08:40 12/14/17 08:40 12/14/17 08:40 12/14/17 08:40 12/14/17 08:40 - Assessment and Plan (1) CKD (chronic kidney disease) stage 3, GFR 30-59 ml/min Current Visit: Yes Status: Chronic (2) Parkinson disease Current Visit: No Status: Chronic (3) HTN (hypertension) Current Visit: No Status: Chronic (4) CAD (coronary artery disease) Current Visit: No Status: Chronic (5) Acute exacerbation of chronic obstructive airways disease Current Visit: Yes Status: Acute (6) Hypokalemia Current Visit: Yes Status: Resolved (7) Chronic diastolic (congestive) heart failure Current Visit: Yes Status: Acute (8) Dysuria Current Visit: Yes Status: Resolved (9) DVT prophylaxis Current Visit: No Status: Acute (10) Pneumonia Current Visit: Yes Status: Acute - Time Spent with Patient Total time spent is greater than 50% in coordination of care (as documented) at patient's floor/unit and/or counseling patient: Internal Medicine: Result - Labs CBC & Chem 7: 12/14/17 06:32 12/14/17 06:32 Labs: Short CBC 12/13/17 12/14/17 Range/Units 11:54 06:32 WBC 7.4 (4.3-11.1) K/mcL Hgb 9.3 L 9.0 L (11.5-15.4) g/dL Hct 28.4 L 28.1 L (35.3-44.9) % Plt Count 279 (140-400) K/mcL Neutrophils # 5.5 (1.6-8.9) K/mcL BMP 12/14/17 06:32 Sodium 139 Potassium 4.3 Chloride 110 H Carbon Dioxide 23 BUN 19 Creatinine 1.18 Glucose 92 Calcium 8.2 L - Impressions Impressions KUB X-Ray 12/14/17 08:59 IMPRESSION: No acute abnormality. D/ / Av Sosa MD / Av Sosa MD Interpreting Provider: Av Sosa MD - VTE Documentation of Mechanical Device: Intermittent pneumatic compression device Consult Discharge Plan - Plan Referrals: Demetrius Smith MD [Primary Care Provider] - 12/15/17 9:00 am Prescriptions: GuaiFENesin ER [Mucinex] 600 mg PO BID #20 tbbp.12hr Tiotropium [Spiriva] 18 mcg IH DAILY #30 capsule (3) HTN (hypertension) Qualifiers: Hypertension type: essential hypertension Qualified Code(s): I10 - Essential (primary) hypertension (4) CAD (coronary artery disease) Qualifiers: Coronary Disease-Associated Artery/Lesion type: [place] artery [place] vs. 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
[2017-12-14] MEDS ORDERED: GI Cocktail 40 ML EACH PO ONE (15:00)
[2017-12-14 15:39] LABS: Hematocrit 27.8 % (35.3-44.9)
[2017-12-14 16:18] VITALS: BP 125/68
--- NOTE | 2017-12-14 17:51 | Discharge Summary ---
- NOTES TO OUTPATIENT PROVIDER Notes to Outpatient Provider: Originally admitted with COPD bronchitis was on prednisone during admission developed pneumonia currently on Levaquin and will finish 7 day course. Did complain of some epigastric reflux increased Prilosec to twice a day advised-hemoglobin stable advised outpatient EGD. Spiriva added Orders not resulted at time of discharge: Pending orders 12/11/17 13:50 Culture,Blood [BC] Routine Date of Encounter: 12/14/17 Time of Encounter: 17:48 - Discharge Diagnosis (1) CKD (chronic kidney disease) stage 3, GFR 30-59 ml/min Priority: Secondary Status: Chronic (2) Parkinson disease Priority: Secondary Status: Chronic (3) HTN (hypertension) Priority: Secondary Status: Chronic Qualifiers: Hypertension type: essential hypertension Qualified Code(s): I10 - Essential (primary) hypertension (4) CAD (coronary artery disease) Priority: Secondary Status: Chronic Qualifiers: Coronary Disease-Associated Artery/Lesion type: [place] artery [place] vs. 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 Washburn is a 77 year old female - Time Spent with Patient Total time spent providing and/or coordinating discharge services: - Discharge Medications Prescriptions: Ondansetron ODT [Zofran ODT] 4 mg SL Q4HR PRN #14 tab.rapdis PRN Reason: Nausea And Vomiting GuaiFENesin ER [Mucinex] 600 mg PO BID #20 tbbp.12hr levoFLOXacin [Levaquin] 500 mg PO DAILY #7 tablet Omeprazole [PriLOSEC] 20 mg PO BIDAC #60 capsule. Tiotropium [Spiriva] 18 mcg IH DAILY #30 capsule Home Medications: Atorvastatin [Lipitor] 40 mg PO HS 01/18/17 [History] Carbidopa/Levodopa ER 50/200 [Sinemet ER 50-200 Tab] 1 each PO BID 01/18/17 [ History] Clopidogrel Bisulfate [Plavix] 75 mg PO DAILY 01/18/17 [History] Ipratropium/Albuterol Neb [Duoneb] 3 ml IH Q6HR PRN 01/18/17 [History] Meclizine [Antivert] 12.5 mg PO BID PRN 01/18/17 [History] Nitroglycerin [Nitrostat] 0.4 mg SL Q5M PRN 01/18/17 [History] Oxygen 2 - 4 l NS AD 01/18/17 [History] Ranolazine [Ranexa] 1,000 mg PO BID 01/18/17 [History] Sennosides/Docusate Sodium [Senna-Docusate Sodium Tablet] 1 each PO HS 01/18/17 [History] Sertraline [Zoloft] 100 mg PO DAILY 01/18/17 [History] clonazePAM [Klonopin] 1 mg PO TID 01/18/17 [History] Fluticasone/Vilanterol [Breo Ellipta 200-25 Mcg INH] 1 puff PO DAILY 06/30/17 [ History] Isosorbide MONOnitrate (24 HR) [Imdur] 60 mg PO BID 08/17/17 [History] Levothyroxine [Synthroid] 125 mcg PO 0630 08/17/17 [History] Ondansetron ODT [Zofran ODT] 4 mg SL Q4HR PRN #30 tab.rapdis 08/26/17 [Rx] Diltiazem [Cardizem] 30 mg PO BID 12/06/17 [History] GuaiFENesin ER [Mucinex] 600 mg PO BID #20 tbbp.12hr 12/11/17 [Rx] Tiotropium [Spiriva] 18 mcg IH DAILY #30 capsule 12/11/17 [Rx] Omeprazole [PriLOSEC] 20 mg PO BIDAC #60 capsule. 12/14/17 [Rx] Ondansetron ODT [Zofran ODT] 4 mg SL Q4HR PRN #14 tab.rapdis 12/14/17 [Rx] levoFLOXacin [Levaquin] 500 mg PO DAILY #7 tablet 12/14/17 [Rx] Allergies/Adverse Reactions: 3 Allergy/AdvReac Type Severity Reaction Status Date / Time hydrocodone [From Vicodin] AdvReac Confusion Verified 08/29/17 11:02 indomethacin [From Indocin] AdvReac Rash Verified 08/29/17 11:02 naproxen [From Naprosyn] AdvReac Nausea Verified 08/29/17 11:02 Oxycodone [From OxyContin] AdvReac Confusion Verified 08/29/17 11:02 IVP dye AdvReac Hives Uncoded 08/29/17 11:02 Date of admission: 12/06/17 19:12 Primary care physician: Demetrius Smith MD Consults: 12/06/17 20:46 Consult to Assembler [employer]illiard Table [CONS] Routine Reason for SW Consult: patient has home health through [facility] 12/07/17 10:58 Consult to Nurse Navigator [CONS] Routine Comment: COPD 12/12/17 11:09 Consult to Respiratory Therapy [CONS] Routine Reason for Consult: [place] Time Notified: 11:10 Call Completed: No 12/13/17 10:15 Consult to Physical Therapy [CONS] Routine Comment: Evaluate, develop and implement POC Reason for Consult: weakness Does patient have active BEDREST order?: No Is patient medically & hemodynamically stable?: Yes Patient assessed for mobility or mobilized this visit?: No 12/13/17 10:19 Consult to Occupational Therapy [CONS] Routine Comment: Evaluate, develop and implement POC Reason for Consult: weakness Does patient have active BEDREST order?: No Is patient medically & hemodynamically stable?: Yes Patient assessed for mobility or mobilized this visit?: No Discharging clinician: Brielle Roger Anticipated date of discharge: 12/14/17 - Constitutional Vitals: Temp Pulse Resp BP Pulse Ox 97.9 F 80 18 125/68 87 12/14/17 16:18 12/14/17 16:18 12/14/17 16:18 12/14/17 16:18 12/14/17 16:18 General appearance: Present: A&O X 3, morbidly obese, pleasant, no acute distress, answers questions appropriately - Head Head exam: Present: atraumatic, normocephalic - Eye Eye exam: Present: PERRL, conjuntiva pink, sclera anicteric Pupils: Present: PERRL - Neck Neck exam general surgery: Present: supple, trachea midline. Absent: lymphadenopathy - Respiratory Respiratory exam: Present: CTAB. Absent: accessory muscle use, rales, rhonchi, wheezes - Cardiovascular Cardiovascular exam: Present: RRR, +S1, +S2. Absent: diastolic murmur, gallop, rubs, systolic murmur - GI/Abdominal GI/Abdominal exam: Present: normal bowel sounds, soft, tenderness, no peritoneal signs. Absent: distended - Extremities Exam Extremities exam: Present: warm, radial pulses palpable and symmetrical. Absent : calf tenderness, cyanotic, pedal edema - Neurological Exam Neurological exam: Present: CN II-XII intact, oriented X3, no focal deficits. Absent: pronater drift, facial droop, speech deficit - Skin Skin exam: Present: dry, intact - Patient Status Disposition: Home Health Service Condition: Fair Functional capacity at discharge: independent ambulation Overall status at discharge: patient is back to baseline - Discharge Instructions Instructions: Guaifenesin (By mouth), Omeprazole (By mouth), Ondansetron (By mouth), Levofloxacin (By mouth), Tiotropium (By breathing), Heart Failure (DC), Chronic Obstructive Pulmonary Disease (DC), Pneumonia (DC) Follow Up With: Demetrius Smith MD [Primary Care Provider] - 12/15/17 9:00 am - Diet and Activity Activity: as per physical therapy Diet: advance to your usual diet - VTE Documentation of Mechanical Device: Intermittent pneumatic compression device
--- NOTE | 2017-12-14 18:39 | Physician Discharge Referral ---
Home Health/Hosp Referral Info Transfer to: Home Health Attending Provider: Brielle Roger Provider in Charge Post Discharge: PCP - Diagnosis (1) CKD (chronic kidney disease) stage 3, GFR 30-59 ml/min Priority: Secondary Status: Chronic (2) Parkinson disease Priority: Secondary Status: Chronic (3) HTN (hypertension) Priority: Secondary Status: Chronic (4) CAD (coronary artery disease) Priority: Secondary Status: Chronic (5) Acute exacerbation of chronic obstructive airways disease Priority: Primary Status: Acute (6) Hypokalemia Priority: Secondary Status: Resolved (7) Chronic diastolic (congestive) heart failure Priority: Secondary Status: Acute (8) Dysuria Priority: Secondary Status: Resolved (9) Pneumonia Priority: Secondary Status: Acute - Respiratory Orders Oxygen / L per min (2-3 Lnc) Smoking Cessation: Smoking cessation has been advised. For more information, call the [place] Tobacco Quit Line at 9-602-XNYZ-NOW. - Diet/Nutrition Diet/Nutrition Orders: Regular - Activity Activity Orders: Up ad dia - Services Needed Following services are medically necessary services: Physical Therapy, Occupational Therapy - Transfer Medications Prescriptions: Ondansetron ODT [Zofran ODT] 4 mg SL Q4HR PRN #14 tab.rapdis PRN Reason: Nausea And Vomiting GuaiFENesin ER [Mucinex] 600 mg PO BID #20 tbbp.12hr levoFLOXacin [Levaquin] 500 mg PO DAILY #7 tablet Omeprazole [PriLOSEC] 20 mg PO BIDAC #60 capsule. Tiotropium [Spiriva] 18 mcg IH DAILY #30 capsule Home Medications: Atorvastatin [Lipitor] 40 mg PO HS 01/18/17 [History] Carbidopa/Levodopa ER 50/200 [Sinemet ER 50-200 Tab] 1 each PO BID 01/18/17 [ History] Clopidogrel Bisulfate [Plavix] 75 mg PO DAILY 01/18/17 [History] Ipratropium/Albuterol Neb [Duoneb] 3 ml IH Q6HR PRN 01/18/17 [History] Meclizine [Antivert] 12.5 mg PO BID PRN 01/18/17 [History] Nitroglycerin [Nitrostat] 0.4 mg SL Q5M PRN 01/18/17 [History] Oxygen 2 - 4 l NS AD 01/18/17 [History] Ranolazine [Ranexa] 1,000 mg PO BID 01/18/17 [History] Sennosides/Docusate Sodium [Senna-Docusate Sodium Tablet] 1 each PO HS 01/18/17 [History] Sertraline [Zoloft] 100 mg PO DAILY 01/18/17 [History] clonazePAM [Klonopin] 1 mg PO TID 01/18/17 [History] Fluticasone/Vilanterol [Breo Ellipta 200-25 Mcg INH] 1 puff PO DAILY 06/30/17 [ History] Isosorbide MONOnitrate (24 HR) [Imdur] 60 mg PO BID 08/17/17 [History] Levothyroxine [Synthroid] 125 mcg PO 0630 08/17/17 [History] Ondansetron ODT [Zofran ODT] 4 mg SL Q4HR PRN #30 tab.rapdis 08/26/17 [Rx] Diltiazem [Cardizem] 30 mg PO BID 12/06/17 [History] GuaiFENesin ER [Mucinex] 600 mg PO BID #20 tbbp.12hr 12/11/17 [Rx] Tiotropium [Spiriva] 18 mcg IH DAILY #30 capsule 12/11/17 [Rx] Omeprazole [PriLOSEC] 20 mg PO BIDAC #60 capsule.dr 12/14/17 [Rx] Ondansetron ODT [Zofran ODT] 4 mg SL Q4HR PRN #14 tab.rapdis 12/14/17 [Rx] levoFLOXacin [Levaquin] 500 mg PO DAILY #7 tablet 12/14/17 [Rx] Allergies/Adverse Reactions: 3 Allergy/AdvReac Type Severity Reaction Status Date / Time hydrocodone [From Vicodin] AdvReac Confusion Verified 08/29/17 11:02 indomethacin [From Indocin] AdvReac Rash Verified 08/29/17 11:02 naproxen [From Naprosyn] AdvReac Nausea Verified 08/29/17 11:02 Oxycodone [From OxyContin] AdvReac Confusion Verified 08/29/17 11:02 IVP dye AdvReac Hives Uncoded 08/29/17 11:02 Certification: Further, I certify that my clinical findings support that this patient is homebound (i.e. absences from home require considerable and taxing effort and are for medical reasons or synagogue services or infrequently or short duration when for other reasons) because: Homebound Reason: Severity of cardiac or pulmonary status limits activity tolerance Attestation: My signature below is to certify that this patient is under my care and that I, or nurse practitioner, or a physician's operator assistant i cementing working with me, has a face-to -face encounter with this patient.
[2017-12-14] MEDS ORDERED: Aminoglycoside Consult 1 EACH MC ONE (18:40)
== END 2017-12-14 18:41 | disposition home health service (06) | DRG 190 ==
LOC: EMEROO 14:53 → 3BNU 14:53
PROVIDERS: ADMIT Internal Medicine; ATTEND Internal Medicine

== ENCOUNTER 2020-02-19 23:18 | Inpatient (IN) ==
[2020-02-20] MEDS ORDERED: Naloxone 0.4 MG/ML INJ IVP PRN (01:25)
[2020-02-20] MEDS ORDERED: *HR* Promethazine 25 MG/ML VIAL IVP PRN (01:25)
[2020-02-20] MEDS ORDERED: Perflutren Lipid Microsphere 1.3 ML in 0.9 % Sodium Chloride 8.7 ML IVP PRN (01:28)
[2020-02-20] MEDS ORDERED: *HR* Heparin 5,000 UNIT/ML VIAL IVP PRN ×2 (01:30)
[2020-02-20] MEDS ORDERED: *HR* Heparin 5,000 UNIT/ML VIAL IVP ONE (01:30)
[2020-02-20 02:32] LABS: Hematocrit 34.8 % (35.3-44.9); Hemoglobin 11.1 g/dL (11.5-15.4); Mean Corpuscular HGB Conc 31.9 g/dL (31.6-35.5); Mean Corpuscular Hemoglobin 29.4 pg (28.0-33.3); Mean Corpuscular Volume 92.1 fL (83.0-100.0); Mean Platelet Volume 10.2 fL (9.4-12.4); Platelet Count 292 K/mcL (140-400); Red Blood Count 3.78 M/mcL (3.82-4.97); Red Cell Distribution Width 14.6 % (11.5-14.5); White Blood Count 11.4 K/mcL (4.3-11.1)
[2020-02-20 02:39] LABS: INR 1.3; Prothrombin Time 14.5 Seconds (9.4-12.1)
[2020-02-20 02:42] LABS: Heparin anti-factor XA UFH 1.11 IU/mL (0.30-0.70)
[2020-02-20] MEDS: Acetaminophen 325 MG TABLET PO PRN (02:56)
[2020-02-20] MEDS: Heparin 25,000UNIT/250ML 1/2NS 25,000 UNIT/250 ML IV.SOLN IVC SCH (02:58)
[2020-02-20 09:33] LABS: INR 1.2; Prothrombin Time 13.3 Seconds (9.4-12.1)
[2020-02-20 09:51] LABS: Calcium 9.3 mg/dL (8.6-10.3); Phosphorous 3.1 mg/dL (2.7-4.5); Potassium 3.3 mEq/L (3.5-5.1)
[2020-02-20 10:02] LABS: Thyroid Stimulating Hormone 1.654 mcIU/mL (0.340-5.600)
[2020-02-20 10:07] LABS: Chol/HDL Ratio 2.6 (0-4.9); Thyroid Stimulating Hormone 1.667 mcIU/mL (0.340-5.600); Troponin I 0.06 ng/mL (< 0.04)
[2020-02-20 11:20] LABS: Estimated Average Glucose 126 mg/dl
[2020-02-20] MEDS: Ranolazine 500 MG TAB.ER.12H PO SCH (21:24)
[2020-02-20] MEDS ORDERED: Ranolazine 500 MG TAB.ER.12H PO SCH (22:15)
[2020-02-21] MEDS: Acetaminophen 325 MG TABLET PO PRN ×2 (04:00→21:47)
[2020-02-21 06:34] LABS: Hematocrit 34.1 % (35.3-44.9); Hemoglobin 10.8 g/dL (11.5-15.4); Mean Corpuscular HGB Conc 31.7 g/dL (31.6-35.5); Mean Corpuscular Hemoglobin 29.1 pg (28.0-33.3); Mean Corpuscular Volume 91.9 fL (83.0-100.0); Mean Platelet Volume 10.3 fL (9.4-12.4); Platelet Count 275 K/mcL (140-400); Red Blood Count 3.71 M/mcL (3.82-4.97); Red Cell Distribution Width 14.6 % (11.5-14.5); White Blood Count 10.8 K/mcL (4.3-11.1)
[2020-02-21 06:47] LABS: Calcium 8.9 mg/dL (8.6-10.3); Magnesium 2.1 mg/dL (1.6-2.6); Phosphorous 3.2 mg/dL (2.7-4.5); Potassium 2.9 mEq/L (3.5-5.1)
[2020-02-21] MEDS ORDERED: Furosemide 40 MG TABLET PO SCH (09:00)
[2020-02-21] MEDS ORDERED: Isosorbide MONOnitrate (24 HR) 60 MG TAB.ER.24H PO SCH (09:00)
[2020-02-21] MEDS: Ranolazine 500 MG TAB.ER.12H PO SCH ×2 (09:22→20:49)
[2020-02-21] MEDS: Carbidopa/Levodopa ER 50/200 TABLET PO SCH ×2 (09:22→20:49)
[2020-02-21] MEDS: Fluticasone Propionate Nasal 50 MCG/SPRAY BOTTLE NS SCH (09:29)
[2020-02-21] MEDS: Budesonide/Formoterol 80/4.5 1 PUFF INH IH SCH (10:18)
[2020-02-21] MEDS: Tiotropium 18 MCG inhalation IH SCH (10:18)
[2020-02-21] MEDS ORDERED: predniSONE 20 MG TABLET PO ONE ×2 (10:24→13:00)
[2020-02-21] MEDS ORDERED: Potassium Chloride 40 MEQ, Lidocaine 1% 2 ML in 0.9 % Sodium Chloride 500 ML IVPB ONE (10:26)
[2020-02-21] MEDS: Heparin 25,000UNIT/250ML 1/2NS 25,000 UNIT/250 ML IV.SOLN IVC SCH (10:56)
[2020-02-21] MEDS ORDERED: *HR* Heparin 10,000 UNIT/10 ML VIAL ONE (12:33)
[2020-02-21] MEDS ORDERED: Heparin 1,000 UNITS/500 mL 500 ML ONE (12:33)
[2020-02-21] MEDS ORDERED: 0.9 % Sodium Chloride 2,000 ML ONE (12:33)
[2020-02-21] MEDS ORDERED: ISOVUE-370 200 ML INFUS..BTL ONE (12:33)
[2020-02-21] MEDS ORDERED: Nitroglycerin 1,000 MCG/10 ML VIAL IV ONE (12:33)
[2020-02-21] MEDS ORDERED: 0.9 % Sodium Chloride 250 ML ONE (12:35)
[2020-02-21] MEDS ORDERED: *HR* Midazolam HCl 2 MG/2 ML VIAL ONE (13:37)
[2020-02-21] MEDS ORDERED: *HR* FentaNYL (PF) 100 MCG/2 ML VIAL ONE (13:38)
[2020-02-21] MEDS ORDERED: methylPREDNISolone 125 MG/2 ML VIAL ONE (13:51)
[2020-02-21] MEDS ORDERED: Warfarin perPT PO PRN (18:00)
[2020-02-21 19:59] LABS: Calcium 8.4 mg/dL (8.6-10.3)
[2020-02-21] MEDS: Sennosides/Docusate Sodium TABLET PO SCH (20:49)
[2020-02-21] MEDS ORDERED: clonazePAM 1 MG TABLET PO SCH (21:00)
[2020-02-22 01:25] LABS: Basophils % 0.2 %; Hemoglobin 10.4 g/dL (11.5-15.4); Immature Granulocytes % 0.9 % (0-4); Lymphocytes # 0.5 K/mcL (0.6-4.6); Lymphocytes % 4.5 %; Mean Corpuscular HGB Conc 32.5 g/dL (31.6-35.5); Mean Corpuscular Hemoglobin 30.1 pg (28.0-33.3); Mean Corpuscular Volume 92.8 fL (83.0-100.0); Mean Platelet Volume 10.4 fL (9.4-12.4); Monocytes # 0.1 K/mcL (0.0-1.3); Monocytes % 1.2 %; Neutrophils # 9.3 K/mcL (1.6-8.9); Platelet Count 238 K/mcL (140-400); Red Blood Count 3.45 M/mcL (3.82-4.97); Red Cell Distribution Width 14.5 % (11.5-14.5); Segmented Neutrophils % 93.2 %
[2020-02-22 01:30] LABS: INR 1.1; Prothrombin Time 12.6 Seconds (9.4-12.1)
[2020-02-22 01:36] LABS: Calcium 8.2 mg/dL (8.6-10.3); Potassium 3.6 mEq/L (3.5-5.1)
[2020-02-22 01:37] LABS: Phosphorous 2.1 mg/dL (2.7-4.5)
[2020-02-22 07:12] VITALS: BP 123/60
[2020-02-22] MEDS: Fluticasone Propionate Nasal 50 MCG/SPRAY BOTTLE NS SCH (08:26)
[2020-02-22] MEDS: Ranolazine 500 MG TAB.ER.12H PO SCH (08:27)
[2020-02-22] MEDS: Carbidopa/Levodopa ER 50/200 TABLET PO SCH (08:27)
[2020-02-22] MEDS: Sennosides/Docusate Sodium TABLET PO SCH (08:27)
[2020-02-22] MEDS ORDERED: Isosorbide MONOnitrate (24 HR) 60 MG TAB.ER.24H PO SCH (09:00)
[2020-02-22] MEDS: Budesonide/Formoterol 80/4.5 1 PUFF INH IH SCH (10:56)
[2020-02-22] MEDS: Tiotropium 18 MCG inhalation IH SCH (10:56)
== END 2020-02-22 12:53 | disposition home or self-care (01) | DRG 281 ==
LOC: 3BNU → SUATTDRO 02-20 00:33
PROVIDERS: ADMIT Internal Medicine; ATTEND Internal Medicine

== ENCOUNTER 2020-02-25 14:25 | Inpatient (IN) ==
[2020-02-25] MEDS ORDERED: Naloxone 0.4 MG/ML INJ IVP PRN (17:51)
[2020-02-25] MEDS ORDERED: Ondansetron ODT 4 MG TAB.RAPDIS SL PRN (17:51)
[2020-02-25] MEDS ORDERED: Ipratropium/Albuterol Neb 3 ML IH PRN (17:58)
[2020-02-25] MEDS ORDERED: MethylPREDNISolone 40 MG/ML VIAL IVP ONE (17:58)
[2020-02-25] MEDS: Furosemide 40 MG/4 ML VIAL IVP SCH (21:35)
[2020-02-25] MEDS ORDERED: clonazePAM 1 MG TABLET PO ONE (22:50)
[2020-02-26 01:58] LABS: Hematocrit 28.3 % (35.3-44.9); Hemoglobin 9.1 g/dL (11.5-15.4); Mean Corpuscular HGB Conc 32.2 g/dL (31.6-35.5); Mean Corpuscular Hemoglobin 29.5 pg (28.0-33.3); Mean Corpuscular Volume 91.9 fL (83.0-100.0); Mean Platelet Volume 10.5 fL (9.4-12.4); Platelet Count 239 K/mcL (140-400); Red Blood Count 3.08 M/mcL (3.82-4.97); Red Cell Distribution Width 15.1 % (11.5-14.5); White Blood Count 11.7 K/mcL (4.3-11.1)
[2020-02-26 02:17] LABS: Calcium 8.5 mg/dL (8.6-10.3); Potassium 4.1 mEq/L (3.5-5.1)
[2020-02-26] MEDS ORDERED: metOLazone 2.5 MG TABLET PO PRN (07:23)
[2020-02-26] MEDS ORDERED: Albuterol 2.5 MG/3 ML NEBULIZER IH PRN (07:28)
[2020-02-26] MEDS: MethylPREDNISolone 40 MG/ML VIAL IVP SCH (08:35)
[2020-02-26] MEDS: Ranolazine 500 MG TAB.ER.12H PO SCH ×2 (08:35→21:15)
[2020-02-26] MEDS: Chlorhexidine Rinse 15 ML MOUTHWASH PO SCH ×2 (08:35→21:16)
[2020-02-26] MEDS: Furosemide 40 MG/4 ML VIAL IVP SCH ×2 (08:35→21:14)
[2020-02-26] MEDS: Cholecalciferol (D-3) 1,000 UNIT (25MCG) TABLET PO SCH (08:49)
[2020-02-26] MEDS ORDERED: ISOSORBIDE MONONITRATE PO SCH (09:00)
[2020-02-26] MEDS: Budesonide/Formoterol 80/4.5 1 PUFF INH IH SCH (10:45)
[2020-02-26] MEDS: Tiotropium 18 MCG inhalation IH SCH (10:47)
[2020-02-26] MEDS: Carbidopa/Levodopa ER 50/200 TABLET PO SCH ×2 (11:22→21:15)
[2020-02-26] MEDS: Isosorbide MONOnitrate (24 HR) 60 MG TAB.ER.24H PO SCH ×2 (11:22→21:16)
[2020-02-26] MEDS: Fluticasone Propionate Nasal 50 MCG/SPRAY BOTTLE NS SCH (11:23)
[2020-02-26] MEDS: *HR* Heparin 5,000 UNIT/ML VIAL SQ SCH (18:57)
[2020-02-26] MEDS: clonazePAM 1 MG TABLET PO SCH (21:15)
[2020-02-26] MEDS ORDERED: clonazePAM 1 MG TABLET PO ONE (22:45)
[2020-02-27] MEDS: *HR* Heparin 5,000 UNIT/ML VIAL SQ SCH (05:44)
[2020-02-27 05:59] LABS: Hematocrit 27.1 % (35.3-44.9); Hemoglobin 8.8 g/dL (11.5-15.4); Mean Corpuscular HGB Conc 32.5 g/dL (31.6-35.5); Mean Corpuscular Hemoglobin 29.8 pg (28.0-33.3); Mean Corpuscular Volume 91.9 fL (83.0-100.0); Mean Platelet Volume 10.5 fL (9.4-12.4); Platelet Count 302 K/mcL (140-400); Red Blood Count 2.95 M/mcL (3.82-4.97); White Blood Count 14.1 K/mcL (4.3-11.1)
[2020-02-27 06:18] LABS: Calcium 8.5 mg/dL (8.6-10.3); Potassium 3.8 mEq/L (3.5-5.1)
[2020-02-27] MEDS: Budesonide/Formoterol 80/4.5 1 PUFF INH IH SCH (07:47)
[2020-02-27] MEDS: Tiotropium 18 MCG inhalation IH SCH (07:48)
[2020-02-27] MEDS: Ranolazine 500 MG TAB.ER.12H PO SCH ×2 (09:55→20:21)
[2020-02-27] MEDS: Cholecalciferol (D-3) 1,000 UNIT (25MCG) TABLET PO SCH (09:56)
[2020-02-27] MEDS: Isosorbide MONOnitrate (24 HR) 60 MG TAB.ER.24H PO SCH ×2 (09:56→20:22)
[2020-02-27] MEDS: Carbidopa/Levodopa ER 50/200 TABLET PO SCH ×2 (09:57→20:22)
[2020-02-27] MEDS: Furosemide 40 MG/4 ML VIAL IVP SCH (09:58)
[2020-02-27] MEDS: Chlorhexidine Rinse 15 ML MOUTHWASH PO SCH ×2 (09:58→20:20)
[2020-02-27] MEDS: Fluticasone Propionate Nasal 50 MCG/SPRAY BOTTLE NS SCH (10:04)
[2020-02-27] MEDS: Acetaminophen 325 MG TABLET PO PRN (10:35)
[2020-02-27] MEDS: MethylPREDNISolone 40 MG/ML VIAL IVP SCH (10:35)
[2020-02-27] MEDS: cefTRIAXone 1,000 MG in Water for inj. (sterile) 10 ML IVP SCH (12:30)
[2020-02-27 12:54] LABS: INR 1.2; Prothrombin Time 13.9 Seconds (9.4-12.1)
[2020-02-27] MEDS: Furosemide 40 MG TABLET PO SCH (17:36)
[2020-02-27] MEDS ORDERED: *HR* Warfarin 3 MG TABLET PO ONE (18:00)
[2020-02-27] MEDS ORDERED: Warfarin perPT PO PRN (18:00)
[2020-02-27] MEDS: clonazePAM 1 MG TABLET PO SCH (20:22)
[2020-02-28 04:29] LABS: Hematocrit 27.7 % (35.3-44.9); Hemoglobin 8.7 g/dL (11.5-15.4); Mean Corpuscular HGB Conc 31.4 g/dL (31.6-35.5); Mean Corpuscular Hemoglobin 29.3 pg (28.0-33.3); Mean Corpuscular Volume 93.3 fL (83.0-100.0); Platelet Count 324 K/mcL (140-400); Red Blood Count 2.97 M/mcL (3.82-4.97); Red Cell Distribution Width 15.2 % (11.5-14.5); White Blood Count 11.5 K/mcL (4.3-11.1)
[2020-02-28 04:43] LABS: INR 1.1; Prothrombin Time 13.2 Seconds (9.4-12.1)
[2020-02-28 04:44] LABS: Calcium 8.3 mg/dL (8.6-10.3); Potassium 3.9 mEq/L (3.5-5.1)
[2020-02-28] MEDS: Cholecalciferol (D-3) 1,000 UNIT (25MCG) TABLET PO SCH (09:20)
[2020-02-28] MEDS: predniSONE 20 MG TABLET PO SCH (09:20)
[2020-02-28] MEDS: Ranolazine 500 MG TAB.ER.12H PO SCH ×2 (09:20→20:39)
[2020-02-28] MEDS: Carbidopa/Levodopa ER 50/200 TABLET PO SCH ×2 (09:20→20:40)
[2020-02-28] MEDS: Isosorbide MONOnitrate (24 HR) 60 MG TAB.ER.24H PO SCH ×2 (09:21→20:39)
[2020-02-28] MEDS: Chlorhexidine Rinse 15 ML MOUTHWASH PO SCH ×2 (09:21→20:38)
[2020-02-28] MEDS: Fluticasone Propionate Nasal 50 MCG/SPRAY BOTTLE NS SCH (09:22)
[2020-02-28] MEDS: cefTRIAXone 1,000 MG in Water for inj. (sterile) 10 ML IVP SCH (09:22)
[2020-02-28] MEDS: Acetaminophen 325 MG TABLET PO PRN (10:20)
[2020-02-28] MEDS: Tiotropium 18 MCG inhalation IH SCH (10:53)
[2020-02-28] MEDS: Budesonide/Formoterol 80/4.5 1 PUFF INH IH SCH (10:54)
[2020-02-28] MEDS: Albumin 25% 25gram/100mL 25 GM/100 ML IV.SOLN IVPB SCH (15:53)
[2020-02-28] MEDS ORDERED: *HR* Warfarin 3 MG TABLET PO ONE (18:00)
[2020-02-28] MEDS: Sennosides/Docusate Sodium TABLET PO PRN (18:13)
[2020-02-28] MEDS: clonazePAM 1 MG TABLET PO SCH (20:40)
[2020-02-29] MEDS: Albumin 25% 25gram/100mL 25 GM/100 ML IV.SOLN IVPB SCH ×3 (00:13→17:46)
[2020-02-29 02:20] LABS: Calcium 8.7 mg/dL (8.6-10.3); INR 1.2; Potassium 4.3 mEq/L (3.5-5.1); Prothrombin Time 13.8 Seconds (9.4-12.1)
[2020-02-29 04:14] LABS: Hematocrit 26.9 % (35.3-44.9); Hemoglobin 8.4 g/dL (11.5-15.4); Mean Corpuscular HGB Conc 31.2 g/dL (31.6-35.5); Mean Corpuscular Hemoglobin 29.3 pg (28.0-33.3); Mean Corpuscular Volume 93.7 fL (83.0-100.0); Platelet Count 306 K/mcL (140-400); Red Blood Count 2.87 M/mcL (3.82-4.97); Red Cell Distribution Width 15.1 % (11.5-14.5); White Blood Count 9.8 K/mcL (4.3-11.1)
[2020-02-29] MEDS: Ranolazine 500 MG TAB.ER.12H PO SCH ×2 (09:38→21:05)
[2020-02-29] MEDS: Chlorhexidine Rinse 15 ML MOUTHWASH PO SCH ×2 (09:38→21:03)
[2020-02-29] MEDS: Isosorbide MONOnitrate (24 HR) 60 MG TAB.ER.24H PO SCH ×2 (09:38→21:05)
[2020-02-29] MEDS: Carbidopa/Levodopa ER 50/200 TABLET PO SCH ×2 (09:38→21:05)
[2020-02-29] MEDS: predniSONE 20 MG TABLET PO SCH (09:39)
[2020-02-29] MEDS: Cholecalciferol (D-3) 1,000 UNIT (25MCG) TABLET PO SCH (09:39)
[2020-02-29] MEDS: cefTRIAXone 1,000 MG in Water for inj. (sterile) 10 ML IVP SCH (09:39)
[2020-02-29] MEDS: Fluticasone Propionate Nasal 50 MCG/SPRAY BOTTLE NS SCH (09:40)
[2020-02-29] MEDS: Tiotropium 18 MCG inhalation IH SCH (11:34)
[2020-02-29] MEDS: Budesonide/Formoterol 80/4.5 1 PUFF INH IH SCH (11:35)
[2020-02-29] MEDS: Acetaminophen 325 MG TABLET PO PRN (12:57)
[2020-02-29 14:36] LABS: Total Volume 24 Hour,Urine 1.28 Liters (0.60-1.60)
[2020-02-29 14:50] LABS: Potassium,Urine 37.8 mEq/L; Sodium, Urine 20.3 mEq/L
[2020-02-29] MEDS: Sennosides/Docusate Sodium TABLET PO PRN (17:53)
[2020-02-29] MEDS ORDERED: *HR* Warfarin 3 MG TABLET PO ONE (18:00)
[2020-02-29] MEDS ORDERED: Furosemide 40 MG/4 ML VIAL IVP ONE (20:29)
[2020-02-29] MEDS ORDERED: Albumin 25% 25gram/100mL 25 GM/100 ML IV.SOLN IVPB ONE (20:29)
[2020-02-29] MEDS: clonazePAM 1 MG TABLET PO SCH (21:05)
[2020-03-01] MEDS: Albumin 25% 25gram/100mL 25 GM/100 ML IV.SOLN IVPB SCH ×3 (00:43→15:51)
[2020-03-01] MEDS: Acetaminophen 325 MG TABLET PO PRN (05:05)
[2020-03-01] MEDS: predniSONE 20 MG TABLET PO SCH (08:54)
[2020-03-01] MEDS: Cholecalciferol (D-3) 1,000 UNIT (25MCG) TABLET PO SCH (08:55)
[2020-03-01] MEDS: Isosorbide MONOnitrate (24 HR) 60 MG TAB.ER.24H PO SCH ×2 (08:55→20:14)
[2020-03-01] MEDS: Ranolazine 500 MG TAB.ER.12H PO SCH ×2 (08:55→20:14)
[2020-03-01] MEDS: Furosemide 40 MG TABLET PO SCH (08:56)
[2020-03-01] MEDS: Carbidopa/Levodopa ER 50/200 TABLET PO SCH ×2 (08:56→20:13)
[2020-03-01] MEDS: cefTRIAXone 1,000 MG in Water for inj. (sterile) 10 ML IVP SCH (08:56)
[2020-03-01] MEDS: Fluticasone Propionate Nasal 50 MCG/SPRAY BOTTLE NS SCH (09:00)
[2020-03-01] MEDS: Chlorhexidine Rinse 15 ML MOUTHWASH PO SCH ×2 (09:01→20:14)
[2020-03-01] MEDS ORDERED: Furosemide 40 MG TABLET PO ONE (09:08)
[2020-03-01] MEDS: Budesonide/Formoterol 80/4.5 1 PUFF INH IH SCH (10:16)
[2020-03-01] MEDS: Tiotropium 18 MCG inhalation IH SCH (10:16)
[2020-03-01 10:51] LABS: Hematocrit 25.3 % (35.3-44.9); Hemoglobin 8.1 g/dL (11.5-15.4); Mean Corpuscular Volume 93.7 fL (83.0-100.0); Mean Platelet Volume 9.9 fL (9.4-12.4); Platelet Count 260 K/mcL (140-400); Red Cell Distribution Width 15.1 % (11.5-14.5); White Blood Count 14.5 K/mcL (4.3-11.1)
[2020-03-01 10:54] LABS: INR 1.4; Prothrombin Time 16.4 Seconds (9.4-12.1)
[2020-03-01 11:11] LABS: Calcium 9.8 mg/dL (8.6-10.3); Potassium 3.6 mEq/L (3.5-5.1)
[2020-03-01] MEDS: Furosemide 40 MG/4 ML VIAL IVP SCH (17:23)
[2020-03-01] MEDS ORDERED: *HR* Warfarin 3 MG TABLET PO ONE (18:00)
[2020-03-01] MEDS: clonazePAM 1 MG TABLET PO SCH (20:12)
[2020-03-02 03:26] LABS: INR 1.6; Prothrombin Time 18.1 Seconds (9.4-12.1)
[2020-03-02 03:27] LABS: Hematocrit 24.8 % (35.3-44.9); Hemoglobin 7.7 g/dL (11.5-15.4); Mean Corpuscular Hemoglobin 28.9 pg (28.0-33.3); Mean Corpuscular Volume 93.2 fL (83.0-100.0); Mean Platelet Volume 9.9 fL (9.4-12.4); Platelet Count 276 K/mcL (140-400); Red Blood Count 2.66 M/mcL (3.82-4.97); Red Cell Distribution Width 15.3 % (11.5-14.5)
[2020-03-02 03:36] LABS: Calcium 9.1 mg/dL (8.6-10.3); Potassium 3.8 mEq/L (3.5-5.1)
[2020-03-02] MEDS: Cholecalciferol (D-3) 1,000 UNIT (25MCG) TABLET PO SCH (09:20)
[2020-03-02] MEDS: Carbidopa/Levodopa ER 50/200 TABLET PO SCH ×2 (09:20→21:00)
[2020-03-02] MEDS: Isosorbide MONOnitrate (24 HR) 60 MG TAB.ER.24H PO SCH ×2 (09:20→20:59)
[2020-03-02] MEDS: Ranolazine 500 MG TAB.ER.12H PO SCH ×2 (09:20→20:59)
[2020-03-02] MEDS: Chlorhexidine Rinse 15 ML MOUTHWASH PO SCH ×2 (09:21→21:00)
[2020-03-02] MEDS: Fluticasone Propionate Nasal 50 MCG/SPRAY BOTTLE NS SCH (09:21)
[2020-03-02] MEDS: cefTRIAXone 1,000 MG in Water for inj. (sterile) 10 ML IVP SCH (09:21)
[2020-03-02] MEDS: Furosemide 40 MG/4 ML VIAL IVP SCH ×3 (09:21→23:56)
[2020-03-02] MEDS: Acetaminophen 325 MG TABLET PO PRN (09:40)
[2020-03-02] MEDS: Tiotropium 18 MCG inhalation IH SCH (10:28)
[2020-03-02] MEDS: Budesonide/Formoterol 80/4.5 1 PUFF INH IH SCH (10:28)
[2020-03-02] MEDS: Albumin 25% 25gram/100mL 25 GM/100 ML IV.SOLN IVPB SCH ×2 (13:09→21:00)
[2020-03-02] MEDS ORDERED: *HR* Warfarin 3 MG TABLET PO ONE (18:00)
[2020-03-02] MEDS: Sennosides/Docusate Sodium TABLET PO PRN (18:29)
[2020-03-02] MEDS: clonazePAM 1 MG TABLET PO SCH (20:59)
[2020-03-03 01:59] LABS: INR 1.7; Prothrombin Time 19.8 Seconds (9.4-12.1)
[2020-03-03 02:03] LABS: Hematocrit 23.7 % (35.3-44.9); Hemoglobin 7.6 g/dL (11.5-15.4); Mean Corpuscular HGB Conc 32.1 g/dL (31.6-35.5); Mean Corpuscular Hemoglobin 29.8 pg (28.0-33.3); Mean Corpuscular Volume 92.9 fL (83.0-100.0); Mean Platelet Volume 9.8 fL (9.4-12.4); Platelet Count 277 K/mcL (140-400); Red Blood Count 2.55 M/mcL (3.82-4.97); Red Cell Distribution Width 15.6 % (11.5-14.5); White Blood Count 10.9 K/mcL (4.3-11.1)
[2020-03-03 02:16] LABS: Albumin/Globulin Ratio 2.8 (1.1-2.2); Bilirubin,Total 0.7 mg/dL (0.3-1.0); Calcium 8.9 mg/dL (8.6-10.3); Globulin 1.8 g/dL (2.4-3.5); Magnesium 1.9 mg/dL (1.6-2.6); Phosphorous 2.6 mg/dL (2.7-4.5); Potassium 3.7 mEq/L (3.5-5.1); Total Protein 6.8 g/dL (6.4-8.9)
[2020-03-03] MEDS: Ranolazine 500 MG TAB.ER.12H PO SCH ×2 (10:01→20:41)
[2020-03-03] MEDS: Isosorbide MONOnitrate (24 HR) 60 MG TAB.ER.24H PO SCH ×2 (10:01→20:40)
[2020-03-03] MEDS: Cholecalciferol (D-3) 1,000 UNIT (25MCG) TABLET PO SCH (10:01)
[2020-03-03] MEDS: Chlorhexidine Rinse 15 ML MOUTHWASH PO SCH ×2 (10:01→20:39)
[2020-03-03] MEDS: Fluticasone Propionate Nasal 50 MCG/SPRAY BOTTLE NS SCH (10:01)
[2020-03-03] MEDS: Carbidopa/Levodopa ER 50/200 TABLET PO SCH ×2 (10:02→20:42)
[2020-03-03] MEDS: cefTRIAXone 1,000 MG in Water for inj. (sterile) 10 ML IVP SCH (10:02)
[2020-03-03] MEDS: Budesonide/Formoterol 80/4.5 1 PUFF INH IH SCH (10:15)
[2020-03-03] MEDS: Tiotropium 18 MCG inhalation IH SCH (10:15)
[2020-03-03] MEDS: Albumin 25% 25gram/100mL 25 GM/100 ML IV.SOLN IVPB SCH ×2 (11:17→20:39)
[2020-03-03] MEDS ORDERED: Potassium Chloride Elixir 20 MEQ/15 ML UDC PO ONE (13:54)
[2020-03-03] MEDS: Furosemide 40 MG/4 ML VIAL IVP SCH ×2 (14:21→20:42)
[2020-03-03] MEDS: Sennosides/Docusate Sodium TABLET PO PRN (17:20)
[2020-03-03] MEDS ORDERED: *HR* Warfarin 4 MG TABLET PO ONE (18:00)
[2020-03-03] MEDS: clonazePAM 1 MG TABLET PO SCH (20:41)
[2020-03-04 06:17] LABS: Hematocrit 24.6 % (35.3-44.9); Mean Corpuscular HGB Conc 32.5 g/dL (31.6-35.5); Mean Corpuscular Hemoglobin 30.1 pg (28.0-33.3); Mean Corpuscular Volume 92.5 fL (83.0-100.0); Mean Platelet Volume 9.8 fL (9.4-12.4); Platelet Count 262 K/mcL (140-400); Red Blood Count 2.66 M/mcL (3.82-4.97); Red Cell Distribution Width 15.6 % (11.5-14.5); White Blood Count 9.4 K/mcL (4.3-11.1)
[2020-03-04 06:20] LABS: INR 1.7; Prothrombin Time 19.7 Seconds (9.4-12.1)
[2020-03-04 06:36] LABS: Calcium 9.8 mg/dL (8.6-10.3); Magnesium 2.5 mg/dL (1.6-2.6); Phosphorous 3.4 mg/dL (2.7-4.5)
[2020-03-04 06:38] LABS: % Iron Saturation 14 % (15-50); Iron 27 mcg/dL (50-170); Transferrin 142 mg/dL (203-362)
[2020-03-04 06:55] LABS: Ferritin 253 ng/mL (10-120)
[2020-03-04 07:00] LABS: Folate 7.2 ng/mL (3.0-16.0)
[2020-03-04] MEDS: Fluticasone Propionate Nasal 50 MCG/SPRAY BOTTLE NS SCH (08:22)
[2020-03-04] MEDS: Furosemide 40 MG/4 ML VIAL IVP SCH ×2 (08:23→21:13)
[2020-03-04] MEDS: Chlorhexidine Rinse 15 ML MOUTHWASH PO SCH ×2 (08:23→21:03)
[2020-03-04] MEDS: Albumin 25% 25gram/100mL 25 GM/100 ML IV.SOLN IVPB SCH (08:23)
[2020-03-04] MEDS: Cyanocobalamin (B-12) 1,000 MCG TABLET PO SCH (08:24)
[2020-03-04] MEDS: Ranolazine 500 MG TAB.ER.12H PO SCH ×2 (08:24→21:04)
[2020-03-04] MEDS: Cholecalciferol (D-3) 1,000 UNIT (25MCG) TABLET PO SCH (08:24)
[2020-03-04] MEDS: Carbidopa/Levodopa ER 50/200 TABLET PO SCH ×2 (08:24→21:04)
[2020-03-04] MEDS: Isosorbide MONOnitrate (24 HR) 60 MG TAB.ER.24H PO SCH ×2 (08:24→21:04)
[2020-03-04] MEDS: Tiotropium 18 MCG inhalation IH SCH (10:43)
[2020-03-04] MEDS: Budesonide/Formoterol 80/4.5 1 PUFF INH IH SCH (10:43)
[2020-03-04] MEDS: Sennosides/Docusate Sodium TABLET PO PRN (17:34)
[2020-03-04] MEDS ORDERED: *HR* Warfarin 5 MG TABLET PO ONE (18:00)
[2020-03-04] MEDS ORDERED: Ferumoxytol 510 MG in 0.9 % Sodium Chloride 100 ML IVPB ONE (19:22)
[2020-03-04] MEDS ORDERED: Albumin 25% 25gram/100mL 25 GM/100 ML IV.SOLN IVPB SCH (19:30)
[2020-03-04] MEDS: clonazePAM 1 MG TABLET PO SCH (21:05)
[2020-03-05 06:07] LABS: Hematocrit 24.4 % (35.3-44.9); Hemoglobin 7.6 g/dL (11.5-15.4); Mean Corpuscular HGB Conc 31.1 g/dL (31.6-35.5); Mean Corpuscular Hemoglobin 28.6 pg (28.0-33.3); Mean Corpuscular Volume 91.7 fL (83.0-100.0); Platelet Count 262 K/mcL (140-400); Red Blood Count 2.66 M/mcL (3.82-4.97); Red Cell Distribution Width 15.9 % (11.5-14.5); White Blood Count 9.9 K/mcL (4.3-11.1)
[2020-03-05 06:26] LABS: INR 1.8; Prothrombin Time 20.6 Seconds (9.4-12.1)
[2020-03-05 06:27] LABS: Magnesium 2.3 mg/dL (1.6-2.6); Phosphorous 3.7 mg/dL (2.7-4.5)
[2020-03-05] MEDS: Carbidopa/Levodopa ER 50/200 TABLET PO SCH ×2 (09:25→20:24)
[2020-03-05] MEDS: Ranolazine 500 MG TAB.ER.12H PO SCH ×2 (09:26→20:23)
[2020-03-05] MEDS: Cholecalciferol (D-3) 1,000 UNIT (25MCG) TABLET PO SCH (09:26)
[2020-03-05] MEDS: Fluticasone Propionate Nasal 50 MCG/SPRAY BOTTLE NS SCH (09:26)
[2020-03-05] MEDS: Cyanocobalamin (B-12) 1,000 MCG TABLET PO SCH (09:26)
[2020-03-05] MEDS: Isosorbide MONOnitrate (24 HR) 60 MG TAB.ER.24H PO SCH ×2 (09:26→20:24)
[2020-03-05] MEDS: Chlorhexidine Rinse 15 ML MOUTHWASH PO SCH ×2 (09:26→20:24)
[2020-03-05] MEDS: Budesonide/Formoterol 80/4.5 1 PUFF INH IH SCH (10:32)
[2020-03-05] MEDS: Tiotropium 18 MCG inhalation IH SCH (10:33)
[2020-03-05] MEDS ORDERED: 0.9 % Sodium Chloride 250 ML IVC SCH (10:45)
[2020-03-05 11:21] LABS: Bacteria,Urine Few per hpf (None-Few); Bilirubin,Urine Negative (Negative); Blood,Urine Negative (Negative); Clarity,Urine Clear (Clear); Color,Urine Yellow (Yellow); Glucose,Urine (UA) Normal (Normal); Ketones,Urine Negative (Negative); Leukocyte Esterase,Urine Trace (Negative); Mucus,Urine Few per lpf (None-Few); Nitrite,Urine Negative (Negative); Protein,Urine Trace mg/dL (Neg-Trace); RBC,Urine 0-3 per hpf (0-3); Specific Gravity,Urine 1.019 (1.010-1.025); Squamous Epithelial Cell,Urine Few per hpf (None-Few); Urobilinogen,Urine Normal (Normal)
[2020-03-05 12:33] LABS: Chloride,Urine < 15 mEq/L; Creatinine,Urine 97 mg/dL; Microalbum/Creatinine Ratio,Ur 69 mcg/mg (Less than 30); Microalbumin,Urine 67 mg/L; Potassium,Urine 44.4 mEq/L; Protein/Creatinine Ratio,Urine 0.26 mg/mg (0.00-0.20)
[2020-03-05 15:22] LABS: Basophils % 0.2 %; Eosinophils % 0.3 %; Hematocrit 24.6 % (35.3-44.9); Hemoglobin 7.7 g/dL (11.5-15.4); Immature Granulocytes % 1.8 % (0-4); Lymphocytes # 0.6 K/mcL (0.6-4.6); Lymphocytes % 5.3 %; Mean Corpuscular HGB Conc 31.3 g/dL (31.6-35.5); Mean Corpuscular Hemoglobin 28.8 pg (28.0-33.3); Mean Corpuscular Volume 92.1 fL (83.0-100.0); Mean Platelet Volume 10.2 fL (9.4-12.4); Monocytes # 0.9 K/mcL (0.0-1.3); Neutrophils # 8.6 K/mcL (1.6-8.9); Platelet Count 259 K/mcL (140-400); Red Blood Count 2.67 M/mcL (3.82-4.97); Red Cell Distribution Width 15.8 % (11.5-14.5); Segmented Neutrophils % 83.4 %; White Blood Count 10.3 K/mcL (4.3-11.1)
[2020-03-05] MEDS ORDERED: 0.9 % Sodium Chloride 250 ML ONE (16:01)
[2020-03-05] MEDS ORDERED: Albumin 25% 25gram/100mL 25 GM/100 ML IV.SOLN IVPB SCH (16:13)
[2020-03-05] MEDS ORDERED: Furosemide 40 MG/4 ML VIAL IVP SCH (16:15)
[2020-03-05] MEDS ORDERED: *HR* Warfarin 5 MG TABLET PO ONE (18:00)
[2020-03-05] MEDS: Sennosides/Docusate Sodium TABLET PO PRN (18:01)
[2020-03-05] MEDS: clonazePAM 1 MG TABLET PO SCH (20:24)
[2020-03-05] MEDS: Albumin 25% 25gram/100mL 25 GM/100 ML IV.SOLN IVPB SCH (23:10)
[2020-03-06] MEDS: Furosemide 40 MG/4 ML VIAL IVP SCH ×2 (00:43→08:46)
[2020-03-06] MEDS: Chlorhexidine Rinse 15 ML MOUTHWASH PO SCH ×2 (08:42→21:34)
[2020-03-06] MEDS: Ranolazine 500 MG TAB.ER.12H PO SCH ×2 (08:43→21:33)
[2020-03-06] MEDS: Albumin 25% 25gram/100mL 25 GM/100 ML IV.SOLN IVPB SCH (08:43)
[2020-03-06] MEDS: Cyanocobalamin (B-12) 1,000 MCG TABLET PO SCH (08:43)
[2020-03-06] MEDS: Isosorbide MONOnitrate (24 HR) 60 MG TAB.ER.24H PO SCH ×2 (08:44→21:34)
[2020-03-06] MEDS: Cholecalciferol (D-3) 1,000 UNIT (25MCG) TABLET PO SCH (08:44)
[2020-03-06] MEDS: Carbidopa/Levodopa ER 50/200 TABLET PO SCH ×2 (08:44→21:33)
[2020-03-06] MEDS: Fluticasone Propionate Nasal 50 MCG/SPRAY BOTTLE NS SCH (08:47)
[2020-03-06 08:55] LABS: Hematocrit 29.5 % (35.3-44.9); Hemoglobin 9.7 g/dL (11.5-15.4); Mean Corpuscular HGB Conc 32.9 g/dL (31.6-35.5); Mean Corpuscular Hemoglobin 29.7 pg (28.0-33.3); Mean Corpuscular Volume 90.2 fL (83.0-100.0); Mean Platelet Volume 10.1 fL (9.4-12.4); Platelet Count 212 K/mcL (140-400); Red Blood Count 3.27 M/mcL (3.82-4.97); Red Cell Distribution Width 15.3 % (11.5-14.5); White Blood Count 12.5 K/mcL (4.3-11.1)
[2020-03-06 08:56] LABS: INR 2.2
[2020-03-06 09:14] LABS: Calcium 9.8 mg/dL (8.6-10.3); Magnesium 2.1 mg/dL (1.6-2.6); Phosphorous 3.1 mg/dL (2.7-4.5)
[2020-03-06] MEDS: Budesonide/Formoterol 80/4.5 1 PUFF INH IH SCH (10:03)
[2020-03-06] MEDS: Tiotropium 18 MCG inhalation IH SCH (10:03)
[2020-03-06] MEDS: Sennosides/Docusate Sodium TABLET PO PRN (17:17)
[2020-03-06] MEDS ORDERED: *HR* Warfarin 3 MG TABLET PO ONE (18:00)
[2020-03-06] MEDS: clonazePAM 1 MG TABLET PO SCH (21:33)
[2020-03-07 01:45] LABS: Basophils % 0.2 %; Eosinophils # 0.1 K/mcL (0.0-0.6); Eosinophils % 0.6 %; Hematocrit 29.6 % (35.3-44.9); Hemoglobin 9.6 g/dL (11.5-15.4); Immature Granulocytes % 1.5 % (0-4); Lymphocytes # 0.6 K/mcL (0.6-4.6); Lymphocytes % 4.2 %; Mean Corpuscular HGB Conc 32.4 g/dL (31.6-35.5); Mean Corpuscular Hemoglobin 29.4 pg (28.0-33.3); Mean Corpuscular Volume 90.5 fL (83.0-100.0); Mean Platelet Volume 10.5 fL (9.4-12.4); Monocytes # 1.4 K/mcL (0.0-1.3); Neutrophils # 11.6 K/mcL (1.6-8.9); Platelet Count 215 K/mcL (140-400); Red Blood Count 3.27 M/mcL (3.82-4.97); Red Cell Distribution Width 15.3 % (11.5-14.5); Segmented Neutrophils % 83.5 %; White Blood Count 13.9 K/mcL (4.3-11.1)
[2020-03-07 01:46] LABS: INR 2.5; Prothrombin Time 28.3 Seconds (9.4-12.1)
[2020-03-07 01:58] LABS: Calcium 9.6 mg/dL (8.6-10.3); Magnesium 2.1 mg/dL (1.6-2.6); Phosphorous 2.9 mg/dL (2.7-4.5); Potassium 3.9 mEq/L (3.5-5.1)
[2020-03-07] MEDS ORDERED: Albumin 25% 25gram/100mL 25 GM/100 ML IV.SOLN IVPB SCH (07:30)
[2020-03-07] MEDS: Tiotropium 18 MCG inhalation IH SCH (07:41)
[2020-03-07] MEDS: Budesonide/Formoterol 80/4.5 1 PUFF INH IH SCH (07:41)
[2020-03-07] MEDS: Chlorhexidine Rinse 15 ML MOUTHWASH PO SCH (08:22)
[2020-03-07] MEDS: Cholecalciferol (D-3) 1,000 UNIT (25MCG) TABLET PO SCH (08:28)
[2020-03-07] MEDS: Ranolazine 500 MG TAB.ER.12H PO SCH (08:28)
[2020-03-07] MEDS: Carbidopa/Levodopa ER 50/200 TABLET PO SCH (08:28)
[2020-03-07] MEDS: Isosorbide MONOnitrate (24 HR) 60 MG TAB.ER.24H PO SCH (08:28)
[2020-03-07] MEDS: Cyanocobalamin (B-12) 1,000 MCG TABLET PO SCH (08:29)
[2020-03-07] MEDS: Furosemide 40 MG/4 ML VIAL IVP SCH (08:29)
[2020-03-07] MEDS: Fluticasone Propionate Nasal 50 MCG/SPRAY BOTTLE NS SCH (08:56)
[2020-03-07 10:28] VITALS: BP 134/65
[2020-03-07] MEDS ORDERED: Artificial Tears SOLN 15 ML BOTTLE RIGHT EYE PRN (11:11)
[2020-03-07] MEDS ORDERED: Loratadine 10 MG TABLET PO SCH (11:12)
[2020-03-07] MEDS: Sennosides/Docusate Sodium TABLET PO PRN (16:19)
[2020-03-07] MEDS ORDERED: *HR* Warfarin 3 MG TABLET PO ONE (18:00)
== END 2020-03-07 16:38 | disposition home health service (06) | DRG 291 ==
LOC: 2ANU → SUATTDRO 15:58
PROVIDERS: ADMIT Internal Medicine; ATTEND Internal Medicine

== ENCOUNTER 2020-07-07 08:23 | Observation (INO) ==
[2020-07-07 08:55] LABS: Basophils % 0.4 %; Eosinophils % 0.3 %; Hematocrit 32.4 % (35.3-44.9); Hemoglobin 10.4 g/dL (11.5-15.4); Immature Granulocytes % 0.7 % (0-4); Lymphocytes # 1.1 K/mcL (0.6-4.6); Lymphocytes % 13.8 %; Mean Corpuscular HGB Conc 32.1 g/dL (31.6-35.5); Mean Corpuscular Volume 96.7 fL (83.0-100.0); Mean Platelet Volume 10.2 fL (9.4-12.4); Monocytes # 0.8 K/mcL (0.0-1.3); Monocytes % 10.9 %; Neutrophils # 5.6 K/mcL (1.6-8.9); Platelet Count 232 K/mcL (140-400); Red Blood Count 3.35 M/mcL (3.82-4.97); Segmented Neutrophils % 73.9 %; White Blood Count 7.6 K/mcL (4.3-11.1)
[2020-07-07 09:14] LABS: BUN/Creatinine Ratio 22 (6-26); Blood Urea Nitrogen 31 mg/dL (8-23); Calcium 8.4 mg/dL (8.6-10.3); Carbon Dioxide 30 mEq/L (23-29); Chloride 103 mEq/L (98-107); Glucose 115 mg/dL (70-105); Osmolality,Calculated 297 (280-300); Potassium 3.5 mEq/L (3.5-5.1); Sodium 140 mEq/L (136-145); eGFR For African Americans 43 (> 60); eGFR For Non-African Americans 35 (> 60)
[2020-07-07 09:15] LABS: Troponin I < 0.03 ng/mL (< 0.04)
[2020-07-07 10:29] LABS: Bilirubin,Urine Negative (Negative); Blood,Urine Negative (Negative); Clarity,Urine Clear (Clear); Color,Urine Light-Yellow (Yellow); Glucose,Urine (UA) Normal (Normal); Ketones,Urine Negative (Negative); Leukocyte Esterase,Urine Trace (Negative); Mucus,Urine Few per lpf (None-Few); Nitrite,Urine Negative (Negative); Protein,Urine Negative (Neg-Trace); RBC,Urine 0-3 per hpf (0-3); Specific Gravity,Urine 1.013 (1.010-1.025); Squamous Epithelial Cell,Urine Few per hpf (None-Few); Urobilinogen,Urine Normal (Normal)
[2020-07-07] MEDS ORDERED: Naloxone 0.4 MG/ML INJ IVP PRN (10:41)
[2020-07-07] MEDS ORDERED: Isovue-370 500 ML BOTTLE IVP ONE (13:42)
[2020-07-07] MEDS ORDERED: Ondansetron 4 MG/2 ML VIAL IVP ONE (15:57)
[2020-07-07] MEDS: Albuterol 2.5 MG/3 ML NEBULIZER IH SCH ×2 (15:58→15:59)
[2020-07-07] MEDS: Tiotropium 10 INH DOSE IH SCH (15:58)
[2020-07-07] MEDS: *HR* Heparin 5,000 UNIT/ML VIAL SQ SCH (17:54)
[2020-07-07] MEDS ORDERED: polyethylene glycoL 3350 17 GM POWD.PACK PO PRN (18:03)
[2020-07-07] MEDS: Carbidopa/Levodopa ER 50/200 TABLET PO SCH (20:43)
[2020-07-07] MEDS: Ranolazine 500 MG TAB.ER.12H PO SCH (20:44)
[2020-07-07] MEDS: Furosemide 40 MG TABLET PO SCH (20:49)
[2020-07-07] MEDS ORDERED: clonazePAM 1 MG TABLET PO SCH (21:00)
[2020-07-07 21:10] LABS: INR 1.1; Prothrombin Time 13.2 Seconds (9.4-12.1)
[2020-07-08] MEDS: Sennosides 8.6 MG TABLET PO SCH ×2 (01:36→08:11)
[2020-07-08] MEDS: Albuterol 2.5 MG/3 ML NEBULIZER IH SCH ×2 (03:28→07:32)
[2020-07-08] MEDS: *HR* Heparin 5,000 UNIT/ML VIAL SQ SCH (06:53)
[2020-07-08] MEDS: Tiotropium 10 INH DOSE IH SCH (07:33)
[2020-07-08 07:39] VITALS: BP 122/72
[2020-07-08] MEDS: Ranolazine 500 MG TAB.ER.12H PO SCH (08:09)
[2020-07-08] MEDS: Furosemide 40 MG TABLET PO SCH (08:10)
[2020-07-08] MEDS: Carbidopa/Levodopa ER 50/200 TABLET PO SCH (08:10)
[2020-07-08] MEDS ORDERED: Fluticasone Propionate Nasal 50 MCG/SPRAY BOTTLE NS SCH (09:00)
[2020-07-08] MEDS ORDERED: Lactulose Oral Soln 20 GM/30 ML UDC PO SCH (09:00)
[2020-07-08] MEDS ORDERED: Budesonide/Formoterol 80/4.5 1 PUFF INH IH SCH (09:00)
[2020-07-08] MEDS ORDERED: clonazePAM 1 MG TABLET PO SCH (09:00)
== END 2020-07-08 12:46 | disposition home or self-care (01) ==
LOC: EMEROOARM 08:23 → 3ANU 08:23 → SUATTDRO 12:35 → 3ANU 12:59
PROVIDERS: ADMIT Internal Medicine; ATTEND Internal Medicine